=== PATIENT | male | born 1960 | race Caucasian/White ===

== ENCOUNTER 2019-11-23 11:11 | Emergency (ER) | payer SELFPAY ==
[2019-11-23 12:03] LABS: Absolute Lymphocytes (CBC) 1.5 K/uL (0.7-4.9); Basophils % 0.4 % (0-1.3); Hematocrit 48.2 % (39.6-49.0); Lymphocytes % 18.9 % (15.3-44.8); MPV 9.3 fL (7.6-11.3); RBC Red Blood Cell Count 5.05 M/uL (4.33-5.43)
[2019-11-23 12:06] LABS: Protime INR 0.91
[2019-11-23] MEDS ORDERED: ONDANSETRON 4 MG/2 ML VIAL ONE (12:17)
[2019-11-23] MEDS ORDERED: NA CHLORIDE 0.9% 500 ML ONE (12:17)
[2019-11-23] MEDS ORDERED: MORPHINE 2 MG/ML SYR ONE ×2 (12:17→13:47)
--- NOTE | 2019-11-23 12:22 | RAD REPORT ---
EXAM DESCRIPTION: [place] Single View11/23/2019 12:01 pm CLINICAL HISTORY: cough COMPARISON: 2012 FINDINGS: The lungs are markedly hyperaerated. Calcified mediastinal lymph nodes are present. The lungs appear clear of acute infiltrate. The heart is normal size IMPRESSION: COPD without visualization acute abnormality
[2019-11-23 12:26] LABS: ALT/SGPT 25 U/L (12-78); AST/SGOT 26 U/L (15-37); Alkaline Phosphatase 88 U/L (45-117); BUN Blood Urea Nitrogen 8 mg/dL (7-18); Bicarbonate 26 mmol/L (21-32); Bilirubin Direct 0.2 mg/dL (0-0.2); Bilirubin Total 0.6 mg/dL (0.2-1.0); Glucose Level 98 mg/dL (74-106); Lipase 72 U/L (73-393); Magnesium 2.2 mg/dL (1.8-2.4); NT PRO-BNP 371 pg/mL (<125); Potassium 4.6 mmol/L (3.5-5.1); Protein, Total 7.5 g/dL (6.4-8.2); Sodium Level 132 mmol/L (136-145); Troponin (Emerg Dept Use Only) < 0.02 ng/mL (0.0-0.045)
[2019-11-23 12:30] LABS: Urine Blood NEGATIVE (NEG); Urine Glucose NEGATIVE (NEG); Urine Protein NEGATIVE (NEG); Urine Specific Gravity 1.025 (1.005-1.030); Urine pH 6.5 (5.0-7.0)
--- NOTE | 2019-11-23 13:34 | RAD REPORT ---
EXAM DESCRIPTION: CT - Angio Aorta For Dissection - 11/23/2019 12:53 pm CLINICAL HISTORY: . Chest pain/abdominal pain COMPARISON: 2012 TECHNIQUE: Computed tomography angiography of the chest, abdomen pelvis were obtained. 100 cc Isovue 370 was administered intravenously. Coronal and sagittal reconstruction were performed. MIP 3D reconstruction was performed All CT scans are performed using dose optimization technique as appropriate and may include automated exposure control or mA/KV adjustment according to patient size. FINDINGS: An aortic dissection is not seen. An aortic aneurysm is not displayed. The celiac, SMA and PUJA are patent . A lung consolidation is not present. A pericardial effusion is not seen. A pleural effusion is not n oted. A 20 millimeter hypodense right thyroid nodule containing coarse calcification without signific ant change from the prior exam probably benign. Calcified mediastinal lymph nodes. Moderate to marked COPD Hepatic and splenic granulomata. 13 millimeter calcification within the pancreatic head. Pancreatic duct is dilated. Mild dilatation o f the common bile duct Kidneys appear unremarkable. A 3 centimeter soft tissue structure rectum Coarse vascular calcifications Mild enlargement prostate IMPRESSION: Negative for an aortic dissection. Dilatation of the pancreatic and common bile ducts. Most likely this is secondary to chronic pancreat itis. Neoplasm can have a similar appearance. ERCP is recommended 3 centimeter soft tissue structure rectum could either represent neoplasm or adherent stool. Digital examination recommended
--- NOTE | 2019-11-23 14:27 | ER ---
Nurse's Notes [facility] Name: Edi Cordero Age: 59 yrs Sex: Male : 1960 Arrival Date: 11/23/2019 Time: 11:13 Bed 18 Private MD: Diagnosis: Abdominal tenderness;Other chronic pancreatitis-dilated cbd, dilated pancreatic duct;Essential (primary) hypertension Presentation: 11/23 11:15 Presenting complaint: Patient states: "My sides been hurting here since yesterday aj1 morning" Patient also reports vomiting, urinary frequency. Transition of care: patient was not received from another setting of care. Onset of symptoms was November 22, 2019 at 08:30. Risk Assessment: Do you want to hurt yourself or someone else? Patient reports no desire to harm self or others. Initial Sepsis Screen: Does the patient meet any 2 criteria? No. Patient's initial sepsis screen is negative. Does the patient have a suspected source of infection? Yes: Dysuria/Frequency/Urgency/UTI. Care prior to arrival: None. 11:15 Method Of Arrival: Ambulatory aj1 11:15 Acuity: VALDEMAR 2 aj1 Triage Assessment: 11:17 General: Appears in no apparent distress. uncomfortable, Behavior is calm, cooperative, aj1 appropriate for age. Pain: Pain currently is 10 out of 10 on a pain scale. Neuro: Level of Consciousness is awake, alert, obeys commands, Oriented to person, place, time, situation. Cardiovascular: Patient's skin is warm and dry. Respiratory: Airway is patent Respiratory effort is even, unlabored, Respiratory pattern is regular, symmetrical. Historical: - Allergies: 11:17 No Known Allergies; aj1 - Home Meds: 11:17 None [Active]; aj1 - PMHx: 11:17 None; aj1 - Immunization history:: Flu vaccine is not up to date. - Coronavirus screen:: The patient has NOT traveled to [place] in the past 14 days. - Social history:: Smoking status: Patient reports the use of cigarette tobacco products, smokes one pack cigarettes per day. - Ebola Screening: : Patient denies travel to an Ebola-affected area in the 21 days before illness onset. Screenin:42 Abuse screen: Denies threats or abuse. Nutritional screening: Patient is severely under ae4 weight.. Tuberculosis screening: Never had TB. Fall Risk None identified. Assessment: 11:20 General: Appears in no apparent distress. uncomfortable, unkempt, emaciated, ae4 malnourished, Behavior is calm, cooperative. Pain: Complains of pain in right upper quadrant and right lower quadrant Pain currently is 10 out of 10 on a pain scale. Neuro: Level of Consciousness is awake, alert, obeys commands, Oriented to person, place, time, situation. Cardiovascular: Heart tones S1 S2 present Patient's skin is warm and dry. Rhythm is regular. Respiratory: Airway is patent Respiratory effort is even, unlabored, Respiratory pattern is regular, symmetrical, Breath sounds are clear bilaterally. GI: Abdomen is Abdomen is flattened, and concave, shape of ribs are visible superior to abdomen. : No signs and/or symptoms were reported regarding the genitourinary system. Denies burning with urination, urinary frequency. EENT: Oral mucosa is moist. Derm: Skin is pale. Musculoskeletal: No signs and/or symptoms reported regarding the musculoskeletal system. 13:40 Reassessment: Patient reports increased pain, provider notified, order to repeat ae4 morphine. Will continue to monitor. 15:30 Reassessment: Patient reports increased pain, provider notified, new orders received. ae4 15:37 Reassessment: Report called to receiving institution, to nurse Concetta RN via ae4 telephone. 15:57 Reassessment: Report given to EMS. ae4 Vital Signs: 11:17 BP 162 / 116; Pulse 105; Resp 20; Temp 97.0; Pulse Ox 100% on R/A; Weight 48.53 kg (R); aj1 Height 5 ft. 11 in. (180.34 cm) (R); Pain 10/10; 14:41 BP 167 / 97; Pulse 104; Resp 18; Pulse Ox 100% on R/A; ae4 15:11 BP 140 / 100; Pulse 98; Resp 16; Pulse Ox 100% on R/A; ae4 15:29 BP 160 / 104; Pulse 86; Resp 21; Pulse Ox 96% on R/A; ae4 15:29 BP 147 / 93; Pulse 87; Resp 17; Pulse Ox 96% on R/A; ae4 15:56 BP 129 / 81; Pulse 89; Resp 17; Pulse Ox 95% on R/A; ae4 11:17 Body Mass Index 14.92 (48.53 kg, 180.34 cm) aj1 ED Course: 11:13 Patient arrived in ED. mr 11:16 Triage completed. aj1 11:17 Arm band placed on Patient placed in an exam room. aj1 11:18 David Morris MD is Attending Physician. [facility] 11:19 Ulises Orourke, LUIS is Primary Nurse. ae4 11:20 Bed in low position. Call light in reach. Side rails up X 1. Adult w/ patient. Cardiac ae4 monitor on. Pulse ox on. NIBP on. 11:48 Radiology exam delayed due to lab results not completed at this time. (BUN/Creatinine). bq 12:54 CT completed. Patient moved back from CT. mw3 14:[address] Morris with the Jackeline Morris from the [facility]. 14:26 connected the GI carpet installation specialist for [facility] with Dr. Morris for patient transfer eb consultation. 14:[address] Knutson the hospitalist carpet installation specialist with Dr. Morris for patient transfer eb consultation. 14:54 administrative approval given by Jackeline Morris/ patient has been accepted to [facility] RM [id number]/ . Dr. Abarca has accepted the patient in transfer/ report to be called to [phone]. 15:56 No provider procedures requiring assistance completed. Patient transferred, IV remains ae4 in place. Administered Medications: 12:20 Drug: NS 0.9% 500 ml Route: IV; Rate: bolus; Site: right antecubital; ae4 13:00 Follow up: IV Status: Completed infusion; IV Intake: 500ml ae4 12:20 Drug: Zofran 4 mg Route: IVP; Site: right antecubital; ae4 13:52 Follow up: Response: Nausea is decreased ae4 12:22 Drug: morphine 2 mg Route: IVP; Site: right antecubital; ae4 13:44 Drug: morphine 2 mg Route: IVP; Site: right antecubital; jl7 13:51 Follow up: Response: Pain is decreased ae4 15:00 Drug: Pepcid 20 mg Route: IVP; Site: right antecubital; ae4 15:37 Follow up: Response: No adverse reaction ae4 15:05 Drug: Trandate 10 mg Route: IVP; Site: right antecubital; ae4 15:37 Follow up: Response: Blood pressure is lowered ae4 15:35 Drug: Dilaudid 0.5 mg Route: IVP; Site: right antecubital; ae4 15:58 Follow up: Response: Pain is decreased ae4 Intake: 10:33 IV: 10ml; Total: 10ml. ae4 10:38 IV: 10ml; Total: 20ml. ae4 11:00 IV: 1000ml; Total: 1020ml. ae4 13:00 IV: 500ml; Total: 1520ml. ae4 Outcome: 14:25 ER care complete, transfer ordered by MD. harris 15:57 Transferred by ground EMS to [facility]. ae4 15:57 Condition: stable 15:57 Instructed on the need for transfer, Demonstrated understanding of instructions. 15:59 Patient left the ED. ae4 Signatures: Pema Wayne RN RN bill1 David Morris MD MD cha Rivera, Alicja Rainey Jahala, RN RN jl7 Clary Beckett Michelle mw3 Ulises Orourke, RN RN ae4 Corrections: (The following items were deleted from the chart) 11:18 11:15 Acuity: VALDEMAR 3 aj1 aj1 14:29 14:[address] Morris with the [facility]. eb eb
--- NOTE | 2019-11-23 14:28 | EDPHYS ---
Physician Documentation [facility] Name: Edi Cordero Age: 59 yrs Sex: Male : 1960 Arrival Date: 11/23/2019 Time: 11:13 Bed 18 Private MD: ED Physician David Morris HPI: 11/23 11:41 This 59 yrs old Male presents to ER via Ambulatory with complaints of Flank kimberly Pain. 11:41 The patient complains of pain in the right mid back and right low back. The pain kimberly radiates to the right mid back and right low back. Onset: The symptoms/episode began/occurred just prior to arrival, this morning. Modifying factors: The symptoms are alleviated by nothing. Associated signs and symptoms: Pertinent positives: nausea, vomiting. Severity of pain: At its worst the pain was moderate in the emergency department the pain is unchanged. The patient has not experienced similar symptoms in the past. Historical: - Allergies: 11:17 No Known Allergies; aj1 - Home Meds: 11:17 None [Active]; aj1 - PMHx: 11:17 None; aj1 - Immunization history:: Flu vaccine is not up to date. - Coronavirus screen:: The patient has NOT traveled to [place] in the past 14 days. - Social history:: Smoking status: Patient reports the use of cigarette tobacco products, smokes one pack cigarettes per day. - Ebola Screening: : Patient denies travel to an Ebola-affected area in the 21 days before illness onset. ROS: 11:43 Constitutional: Negative for fever, chills, and weight loss, Eyes: Negative for injury, kimberly pain, redness, and discharge, ENT: Negative for injury, pain, and discharge, Neck: Negative for injury, pain, and swelling, Cardiovascular: Negative for chest pain, palpitations, and edema, Respiratory: Negative for shortness of breath, cough, wheezing, and pleuritic chest pain, : Negative for injury, bleeding, discharge, and swelling, MS/Extremity: Negative for injury and deformity, Skin: Negative for injury, rash, and discoloration, Neuro: Negative for headache, weakness, numbness, tingling, and seizure. 11:43 Abdomen/GI: Positive for abdominal pain, of the right upper quadrant and right lower quadrant. Exam: 11:43 Constitutional: This is a well developed, well nourished patient who is awake, alert, kimberly and in no acute distress. Head/Face: Normocephalic, atraumatic. Eyes: Pupils equal round and reactive to light, extra-ocular motions intact. Lids and lashes normal. Conjunctiva and sclera are non-icteric and not injected. Cornea within normal limits. Periorbital areas with no swelling, redness, or edema. ENT: Nares patent. No nasal discharge, no septal abnormalities noted. Tympanic membranes are normal and external auditory canals are clear. Oropharynx with no redness, swelling, or masses, exudates, or evidence of obstruction, uvula midline. Mucous membranes moist. Neck: Trachea midline, no thyromegaly or masses palpated, and no cervical lymphadenopathy. Supple, full range of motion without nuchal rigidity, or vertebral point tenderness. No Meningismus. Chest/axilla: Normal chest wall appearance and motion. Nontender with no deformity. No lesions are appreciated. Cardiovascular: Regular rate and rhythm with a normal S1 and S2. No gallops, murmurs, or rubs. Normal PMI, no JVD. No pulse deficits. Respiratory: Lungs have equal breath sounds bilaterally, clear to auscultation and percussion. No rales, rhonchi or wheezes noted. No increased work of breathing, no retractions or nasal flaring. Back: No spinal tenderness. No costovertebral tenderness. Full range of motion. Male : Normal genitalia with no discharge or lesions. Skin: Warm, dry with normal turgor. Normal color with no rashes, no lesions, and no evidence of cellulitis. MS/ Extremity: Pulses equal, no cyanosis. Neurovascular intact. Full, normal range of motion. Neuro: Awake and alert, GCS 15, oriented to person, place, time, and situation. Cranial nerves II-XII grossly intact. Motor strength 5/5 in all extremities. Sensory grossly intact. Cerebellar exam normal. Normal gait. Psych: Awake, alert, with orientation to person, place and time. Behavior, mood, and affect are within normal limits. 11:43 Abdomen/GI: Inspection: abdomen appears normal, Bowel sounds: normal, Palpation: moderate abdominal tenderness, in the right upper quadrant and right lower quadrant, Liver: no appreciated palpable abnormalities, Hernia: not appreciated. Vital Signs: 11:17 BP 162 / 116; Pulse 105; Resp 20; Temp 97.0; Pulse Ox 100% on R/A; Weight 48.53 kg (R); aj1 Height 5 ft. 11 in. (180.34 cm) (R); Pain 10/10; 14:41 BP 167 / 97; Pulse 104; Resp 18; Pulse Ox 100% on R/A; ae4 15:11 BP 140 / 100; Pulse 98; Resp 16; Pulse Ox 100% on R/A; ae4 15:29 BP 160 / 104; Pulse 86; Resp 21; Pulse Ox 96% on R/A; ae4 15:29 BP 147 / 93; Pulse 87; Resp 17; Pulse Ox 96% on R/A; ae4 15:56 BP 129 / 81; Pulse 89; Resp 17; Pulse Ox 95% on R/A; ae4 11:17 Body Mass Index 14.92 (48.53 kg, 180.34 cm) aj1 MDM: 11:18 Patient medically screened. [facility] 11:45 Data reviewed: vital signs, nurses notes, lab test result(s), EKG, radiologic studies, [facility] CT scan, plain films. 11/23 11:38 Order name: Urine Dipstick--Ancillary (enter results) 11/23 11:40 Order name: Basic Metabolic Panel [facility] 11/23 11:40 Order name: CBC with Diff [facility] 11/23 11:40 Order name: LFT's [facility] 11/23 11:40 Order name: Magnesium [facility] 11/23 11:40 Order name: NT PRO-BNP [facility] 11/23 11:40 Order name: PT-INR [facility] 11/23 11:40 Order name: Troponin (emerg Dept Use Only) [facility] 11/23 11:40 Order name: Lipase [facility] 11/23 11:40 Order name: Urine Culture [facility] 11/23 12:22 Order name: CBC with Automated Diff; Complete Time: 12:36 [facility] 11/23 12:23 Order name: Protime (+INR); Complete Time: 12:36 [facility] 11/23 12:28 Order name: Basic Metabolic Panel; Complete Time: 12:36 [facility] 11/23 12:28 Order name: Liver (Hepatic) Function; Complete Time: 12:36 [facility] 11/23 11:40 Order name: XRAY Chest (1 view) [facility] 11/23 11:40 Order name: EKG; Complete Time: 11:43 [facility] 11/23 11:40 Order name: CT Aorta for Dissection [facility] 11/23 12:25 Order name: RAD; Complete Time: 12:36 [facility] 11/23 12:28 Order name: Troponin (Emerg Dept Use Only); Complete Time: 12:36 [facility] 11/23 12:28 Order name: NT PRO-BNP; Complete Time: 12:36 [facility] 11/23 12:28 Order name: Magnesium; Complete Time: 12:36 [facility] 11/23 12:28 Order name: Lipase; Complete Time: 12:36 [facility] 11/23 12:33 Order name: Urine Dipstick-Ancillary; Complete Time: 12:36 [facility] 11/23 13:39 Order name: CT; Complete Time: 13:40 [facility] 11/23 11:40 Order name: Cardiac monitoring; Complete Time: 12:12 [facility] 11/23 11:40 Order name: EKG - Nurse/Tech; Complete Time: 12:11 [facility] 11/23 11:40 Order name: IV Saline Lock; Complete Time: 11:54 [facility] 11/23 11:40 Order name: Labs collected and sent; Complete Time: 12:11 [facility] 11/23 11:40 Order name: O2 Per Protocol; Complete Time: 11:54 [facility] 11/23 11:40 Order name: O2 Sat Monitoring; Complete Time: 11:54 [facility] 11/23 11:40 Order name: Urine Dipstick-Ancillary (obtain specimen); Complete Time: 11:53 [facility] Administered Medications: 12:20 Drug: NS 0.9% 500 ml Route: IV; Rate: bolus; Site: right antecubital; ae4 13:00 Follow up: IV Status: Completed infusion; IV Intake: 500ml ae4 12:20 Drug: Zofran 4 mg Route: IVP; Site: right antecubital; ae4 13:52 Follow up: Response: Nausea is decreased ae4 12:22 Drug: morphine 2 mg Route: IVP; Site: right antecubital; ae4 13:44 Drug: morphine 2 mg Route: IVP; Site: right antecubital; jl7 13:51 Follow up: Response: Pain is decreased ae4 15:00 Drug: Pepcid 20 mg Route: IVP; Site: right antecubital; ae4 15:37 Follow up: Response: No adverse reaction ae4 15:05 Drug: Trandate 10 mg Route: IVP; Site: right antecubital; ae4 15:37 Follow up: Response: Blood pressure is lowered ae4 15:35 Drug: Dilaudid 0.5 mg Route: IVP; Site: right antecubital; ae4 15:58 Follow up: Response: Pain is decreased ae4 Disposition: 11/23/19 14:[address] [facility]. Diagnosis are Abdominal tenderness, Other chronic pancreatitis - dilated cbd, dilated pancreatic duct, Essential (primary) hypertension. - Reason for transfer: Higher level of care. - Accepting physician is Dr. Abarca. - Condition is Fair. - Problem is new. - Symptoms have improved. Signatures: Dispatcher [employer] EDPema Abarca RN RN aj1 David Morris MD MD cha Leal, Jahala, RN RN jl7 Clary Beckett Andrea RN RN ae4 Corrections: (The following items were deleted from the chart) 14:28 14:25 11/23/2019 14:[address] [facility]. kimberly Diagnosis is Abdominal tenderness; Other chronic pancreatitis - dilated cbd, dilated pancreatic duct. Reason for transfer: Higher level of care. Accepting physician is to [facility]. Condition is Fair. Problem is new. Symptoms have improved. kimberly 15:59 14:28 11/23/2019 14:[address] [facility]. eb Diagnosis is Abdominal tenderness; Other chronic pancreatitis - dilated cbd, dilated pancreatic duct; Essential (primary) hypertension. Reason for transfer: Higher level of care. Accepting physician is to [facility]. Condition is Fair. Problem is new. Symptoms have improved. kimberly 15:59 15:59 11/23/2019 14:[address] [facility]. ae4 Diagnosis is Abdominal tenderness; Other chronic pancreatitis - dilated cbd, dilated pancreatic duct; Essential (primary) hypertension. Reason for transfer: Higher level of care. Accepting physician is Dr. Abarca. Condition is Fair. Problem is new. Symptoms have improved. eb
[2019-11-23] MEDS ORDERED: FAMOTIDINE 20 MG/2 ML VIAL IV ONE (15:13)
[2019-11-23] MEDS ORDERED: LABETALOL 20 MG/4ML SYRINGE IV ONE (15:13)
[2019-11-23] MEDS ORDERED: HYDROMORPHONE HCL 0.5 MG/0.5 ML INJ ONE (15:37)
[2019-11-23 16:06] VITALS: TEMP 97
[2019-11-23 16:11] VITALS: BP 129/81; O2SAT 95
--- NOTE | 2019-11-24 08:11 | EKG ---
Test Date: 2019-11-23 Test Time: 12:03:38 Cad Designer: STANTON MEASUREMENT RESULTS: Intervals: Rate: 100 WV: 134 QRSD: 84 QT: 340 QTc: 438 [place]: P: 83 WV: 134 QRS: 84 T: 72 INTERPRETIVE STATEMENTS: Normal sinus rhythm Right atrial enlargement Borderline ECG Compared to ECG 04/14/2013 08:01:11 Atrial abnormality now present Sinus arrhythmia no longer present Electronically Signed On 11-24-19 08:09:41 CLINICAL TRIAL HEAD by Jason Varela
== END 2019-11-23 15:59 | disposition short-term general hospital (02) ==
LOC: ER 11:11
DX: K86.1 Other chronic pancreatitis (principal); I10 Essential (primary) hypertension; F17.210 Nicotine dependence, cigarettes, uncomplicated
CPT/HCPCS: 36415; 71045; 71275; 74175; 80048; 80076; 81003; 83690; 83735; 83880; 84484; 85025; 85610; 87086; 87088; 93005; 96361; 96374; 96375; 99285; J1170; J2270; J2405; J7040; Q9967

== ENCOUNTER 2020-08-08 14:31 | Emergency (ER) | payer SELFPAY ==
[2020-08-08] MEDS ORDERED: HYDROCODONE/APAP 10/325 TAB ONE (15:08)
[2020-08-08] MEDS ORDERED: TETANUS & DIPHTHERIA TOX,ADULT 0.5 ML VIAL ONE (15:09)
[2020-08-08] MEDS ORDERED: SMZ./TMP. 800/160 MG TABLET ONE (15:09)
--- NOTE | 2020-08-08 15:26 | EDPHYS ---
Physician Documentation [facility] Name: Edi Cordero Age: 59 yrs Sex: Male : 1960 Arrival Date: 08/08/2020 Time: 14:32 Bed 6 Private MD: ED Physician Jak Ashley HPI: 08/08 14:48 This 59 yrs old Male presents to ER via Ambulatory with complaints of Skin pm1 Sore(s). 14:48 The rash is located on the face, right hand and left hand. The rash can be described as pm1 Started off as papular and vesicular to hands. Now with small ulcerations to hands and fingers bilaterally. Vesicle just started on right cheek. Onset: The symptoms/episode began/occurred 6 day(s) ago. Associated signs and symptoms: Pertinent negatives: fever. Severity of symptoms: in the emergency department the symptoms are worse. Treatment given at home: None. The patient has not experienced similar symptoms in the past. 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 Has not been using gloves. Historical: - Allergies: 14:46 No Known Allergies; bp - Home Meds: 14:46 None [Active]; bp - PMHx: 14:46 Hypertension; bp - Immunization history:: Adult Immunizations unknown. - Social history:: Smoking status: Patient reports the use of cigarette tobacco products, unknown amount. ROS: 14:48 Constitutional: Negative for fever, chills, and weight loss, Cardiovascular: Negative pm1 for chest pain, palpitations, and edema, Respiratory: Negative for shortness of breath, cough, wheezing, and pleuritic chest pain, Abdomen/GI: Negative for abdominal pain, nausea, vomiting, diarrhea, and constipation, MS/Extremity: Negative for injury and deformity. 14:48 Neuro: Negative for headache, weakness, numbness, tingling, and seizure. 14:48 Skin: Positive for skin sores to face and hands. 14:48 All other systems are negative. Exam: 14:48 Constitutional: This is a well developed, well nourished patient who is awake, alert, pm1 and in no acute distress. Head/Face: Normocephalic, atraumatic. 14:48 MS/ Extremity: Pulses equal, no cyanosis. Neurovascular intact. Full, normal range of motion. 14:48 Cardiovascular: Exam negative for acute changes, Rate: normal, Rhythm: regular, Pulses: no pulse deficits are appreciated. 14:48 Respiratory: Exam negative for acute changes, respiratory distress, shortness of breath. 14:48 Skin: Appearance: normal except for affected area, consistent with impetigo. 14:48 Neuro: Exam negative for acute changes, Orientation: is normal, Mentation: is normal, Motor: is normal, moves all fours, Sensation: is normal, no obvious gross deficits. Vital Signs: 14:43 BP 188 / 108; Pulse 80; Resp 16; Temp 97.3; Pulse Ox 100% ; bp 15:30 BP 156 / 97; Pulse 78; Resp 17; Temp 97.5; Pulse Ox 98% ; bp MDM: 14:42 Patient medically screened. pm1 14:50 Data reviewed: vital signs. Data interpreted: Pulse oximetry: on room air is 100 %. pm1 Interpretation: normal. 15:09 ED course: Nonspecific lesions on bilateral hands with one lesion starting on right pm1 cheek area. Patient is a shirt ironer getting cuts to hands recently working on yards and vince recently. Suspect impetigo therefore will cover with topical and systemic abx therapy. 15:25 Counseling: I had a detailed discussion with the patient and/or guardian regarding: the pm1 historical points, exam findings, and any diagnostic results supporting the discharge/admit diagnosis, the need for outpatient follow up, a family practitioner, to return to the emergency department if symptoms worsen or persist or if there are any questions or concerns that arise at home. Administered Medications: 14:55 Drug: Tetanus-Diphtheria Toxoid Adult 0.5 ml {[employer]: [facility]. Exp: bp 12/19/2021. Lot #: [id number]. } Route: IM; Site: right deltoid; 16:00 Follow up: Response: No adverse reaction bp 14:55 Drug: [place] 10 mg-325 mg 1 tabs Route: PO; bp 15:59 Follow up: Response: No adverse reaction bp 14:55 Drug: Bactrim (160 mg-800 mg (DS) 1 tablet Route: PO; bp 15:59 Follow up: Response: No adverse reaction bp Disposition: 08/09 06:37 Co-signature as Attending Physician, Jak Ashley MD I agree with the assessment and kdr plan of care. Disposition: 08/08/20 15:25 Discharged to Home. Impression: Impetigo, unspecified. - Condition is Stable. - Discharge Instructions: Impetigo, Adult. - Prescriptions for Bactroban 2 % Topical Ointment - Apply to affected area 1 application by TOPICAL route every 12 hours; 30 gram. Cephalexin 250 mg Oral Capsule - take 1 capsule by ORAL route every 6 hours for 10 days; 40 capsule. Bactrim DS 800- 160 mg Oral Tablet - take 1 tablet by ORAL route every 12 hours for 10 days; 20 tablet. Tylenol- Codeine #3 300-30 mg Oral Tablet - take 2 tablets by ORAL route every 6 hours As needed; 20 tablet. Zofran ODT 4 mg Oral tablet,disintegrating - place 1 tablet by TRANSLINGUAL route every 8 hours As needed; 10 tablet. - Medication Reconciliation Form, Thank You Letter, Antibiotic Education, Prescription Opioid Use form. - Follow up: Emergency Department; When: As needed; Reason: Worsening of condition. Follow up: Private Physician; When: 2 - 3 days; Reason: Recheck today's complaints, Continuance of care, Re-evaluation by your physician. - Problem is new. - Symptoms have improved. Signatures: Jak Ashley MD MD [facility] Terrance Mancuso NP [employer] SUPERINTENDENT pm1 Luis A Pardo RN RN bp Corrections: (The following items were deleted from the chart) 08/08 14:51 14:50 Counseling: I had a detailed discussion with the patient and/or guardian pm1 regarding: the historical points, exam findings, and any diagnostic results supporting the discharge/admit diagnosis, the need for outpatient follow up, to return to the emergency department if symptoms worsen or persist or if there are any questions or concerns that arise at home, Sun avoidance and skin protection, pm1 16:01 15:25 08/08/2020 15:25 Discharged to Home. Impression: Impetigo, unspecified. Condition bp is Stable. Discharge Instructions: Impetigo, Adult. Prescriptions for Bactroban 2 % Topical Ointment - Apply to affected area 1 application by TOPICAL route every 12 hours; 30 gram, Cephalexin 250 mg Oral Capsule - take 1 capsule by ORAL route every 6 hours for 10 days; 40 capsule, Bactrim DS 800-160 mg Oral Tablet - take 1 tablet by ORAL route every 12 hours for 10 days; 20 tablet, Tramadol 50 mg Oral Tablet - take 1 tablet by ORAL route every 8 hours as needed; 12 tablet. and Forms are Medication Reconciliation Form, Thank You Letter, Antibiotic Education, Prescription Opioid Use. Follow up: Emergency Department; When: As needed; Reason: Worsening of condition. Follow up: Private Physician; When: 2 - 3 days; Reason: Recheck today's complaints, Continuance of care, Re-evaluation by your physician. Problem is new. Symptoms have improved. pm1
--- NOTE | 2020-08-08 15:26 | ER ---
Nurse's Notes [facility] Name: Edi Cordero Age: 59 yrs Sex: Male : 1960 Arrival Date: 08/08/2020 Time: 14:32 Bed 6 Private MD: Diagnosis: Impetigo, unspecified Presentation: 08/08 14:43 Chief complaint: Patient states: SCATTERED SKIN LESIONS x6 DAYS. Coronavirus screen: At bp this time, the client does not indicate any symptoms associated with coronavirus-19. Ebola Screen: No symptoms or risks identified at this time. Initial Sepsis Screen: Does the patient meet any 2 criteria? No. Patient's initial sepsis screen is negative. Does the patient have a suspected source of infection? Yes: Skin breakdown/wound. Risk Assessment: Do you want to hurt yourself or someone else? Patient reports no desire to harm self or others. Onset of symptoms is unknown. 14:43 Method Of Arrival: Ambulatory bp 14:43 Acuity: VALDEMAR 4 bp Triage Assessment: 14:46 General: Appears in no apparent distress. uncomfortable, slender, unkempt, Behavior is bp cooperative, appropriate for age, anxious. Pain: Complains of pain in right hand and left hand. EENT: No deficits noted. Neuro: No deficits noted. Cardiovascular: No deficits noted. Respiratory: No deficits noted. GI: No signs and/or symptoms were reported involving the gastrointestinal system. : No signs and/or symptoms were reported regarding the genitourinary system. Derm: Wound noted face, right hand and left hand. Musculoskeletal: No deficits noted. Historical: - Allergies: 14:46 No Known Allergies; bp - Home Meds: 14:46 None [Active]; bp - PMHx: 14:46 Hypertension; bp - Immunization history:: Adult Immunizations unknown. - Social history:: Smoking status: Patient reports the use of cigarette tobacco products, unknown amount. Screenin:48 Abuse screen: Denies threats or abuse. Denies injuries from another. Nutritional bp screening: No deficits noted. Tuberculosis screening: No symptoms or risk factors identified. Fall Risk None identified. Assessment: 14:48 General: SEE TRIAGE NOTE. bp 15:58 Reassessment: PT D/C HOME AMBULATORY, DX WITH IMPETIGO. bp Vital Signs: 14:43 BP 188 / 108; Pulse 80; Resp 16; Temp 97.3; Pulse Ox 100% ; bp 15:30 BP 156 / 97; Pulse 78; Resp 17; Temp 97.5; Pulse Ox 98% ; bp ED Course: 14:32 Patient arrived in ED. ag5 14:36 Terrance Mancuso NP is PHCP. pm1 14:36 Jak Ashley MD is Attending Physician. pm1 14:37 Luis A Pardo, RN is Primary Nurse. bp 14:46 Triage completed. bp 14:47 Arm band placed on. bp 14:48 Patient has correct armband on for positive identification. Bed in low position. Call bp light in reach. Side rails up X2. Adult w/ patient. 15:00 Assist provider with I \T\ D: of an abscess on bilateral HAND Set up I\T\D tray. Performed bp by Terrance Mancuso TENSION WORKER Dressing with Neosporin and. 15:58 Patient did not have IV access during this emergency room visit. bp Administered Medications: 14:55 Drug: Tetanus-Diphtheria Toxoid Adult 0.5 ml {[employer]: [employer]. Exp: bp 12/19/2021. Lot #: [id number]. } Route: IM; Site: right deltoid; 16:00 Follow up: Response: No adverse reaction bp 14:55 Drug: [place] 10 mg-325 mg 1 tabs Route: PO; bp 15:59 Follow up: Response: No adverse reaction bp 14:55 Drug: Bactrim (160 mg-800 mg (DS) 1 tablet Route: PO; bp 15:59 Follow up: Response: No adverse reaction bp Outcome: 15:25 Discharge ordered by . pm1 15:58 Discharged to home ambulatory, with family. bp 15:58 Condition: stable 15:58 Discharge instructions given to patient, Instructed on discharge instructions, follow up and referral plans. medication usage, wound care, Demonstrated understanding of instructions, follow-up care, medications, wound care, Prescriptions given X 4. 16:01 Patient left the ED. bp Signatures: Terrance Mancuso, KRISTINE TENSION WORKER pm1 Luis A Pardo, RN RN Pearl Shultz ag5
[2020-08-08] MEDS ORDERED: MUPIROCIN 2% OINT 22GM TUBE TOP ONE (16:05)
[2020-08-08 16:35] VITALS: BP 156/97; TEMP 97.5; O2SAT 98
== END 2020-08-08 16:01 | disposition home or self-care (01) ==
LOC: ER 14:31
DX: L01.00 Impetigo, unspecified (principal); I10 Essential (primary) hypertension; F17.210 Nicotine dependence, cigarettes, uncomplicated; Z23 Encounter for immunization
CPT/HCPCS: 90471; 90714; 99283

== ENCOUNTER 2020-09-13 16:59 | Emergency (ER) | payer SELFPAY ==
--- OUTSIDE RECORDS SUMMARY | 2020-09-13 17:03 | XMS REPORT | Clinical Summary ---
:1960 Author Organization [facility] Address [address] [place] [address] Care Team Providers Name Role Phone Pcp, No Primary Care Provider Unavailable Allergies No Known Allergies Medications Medication Sig Dispensed Refills Start Date End Date Status folic acid (FOLVITE) 1 MG Take 1 tablet 90 tablet 3 11/27/2019 Active tablet (1 mg total) 1 by mouth daily. hydroCHLOROthiazide Take 1 90 capsule 3 11/27/2019 11/26/19 2 Active (MICROZIDE) 12.5 mg capsule (12.5 1 capsule mg total) by mouth daily. lisinopril Take 1 tablet 90 tablet 3 11/27/2019 Acti ve (PRINIVIL,ZESTRIL) 20 MG (20 mg total) 1 tablet by mouth daily. multivitamin (THERAGRAN) Take 1 tablet 90 tablet 3 11/28/2019 Active tablet by mouth 1 daily. thiamine 100 MG tablet Take 1 tablet 30 tablet 11 11/28/2019 Active (100 mg 1 total) by mouth daily. ondansetron (ZOFRAN-ODT) Take 1 tablet 20 tablet 0 11/27/2019 4 MG disintegrating (4 mg total) 0 tablet by mouth every 8 (eight) hours as needed for up to 7 days. traMADol (ULTRAM) 50 mg Take 2 30 tablet 0 11/27/201912/06 tablet tablets (100 0 mg total) by mouth every 6 (six) hours as needed for Pain for up to 10 days. Max Daily Amount: 400 mg Active Problems Problem Noted Date Dilation of biliary tract 11/23/2019 Encounters Date Type Specialty Care Team Description 11/26/2019 Anesthesia Event Gastroenterology Nell Montalvo MD 11/26/2019 Surgery Gastroenterology Jeferson Weber UPPER Gus Cobb MD ENDOSCOPY,ULT RASO UND 11/25/2019 Anesthesia Event Gastroenterology Jailene Hayes MD 11/23/2019 [facility] Internal Megan Abarca on of biliary tract; - Encounter Medicine MD Donovan Weight loss; 11/27/2019 Meera Thibodeaux Alcohol abus eJanet Arriaza MD Tobacco abuse Ochoa Still MD after 09/13/2019 Social History Tobacco Use Types Packs/Day Years Used Date Current Every Day Smoker 0.5 15 Smokeless Tobacco: Current User Sex Assigned at Date Recorded Not on file Last Filed Vital Signs Vital Sign Reading Time Taken Comments Blood Pressure 136/75 11/27/2019 8:55 AM FIELD NURSE CASE MANAGER Pulse 78 11/27/2019 8:55 AM FIELD NURSE CASE MANAGER Temperature 36.8 C (98.2 F) 11/27/2019 8:55 AM FIELD NURSE CASE MANAGER Respiratory Rate 18 11/27/2019 8:55 AM FIELD NURSE CASE MANAGER Oxygen Saturation 98% 11/27/2019 8:55 AM FIELD NURSE CASE MANAGER Inhaled Oxygen Concentration - - Weight 47.6 kg (105 lb) 11/23/2019 8:36 PM FIELD NURSE CASE MANAGER Height 182 cm (5' 11.65") 11/23/2019 8:36 PM FIELD NURSE CASE MANAGER Body Mass Index 14.38 11/23/2019 8:36 PM FIELD NURSE CASE MANAGER Plan of Treatment Health Maintenance Due Date Last Done Comments COLON CANCER SCREENING COLONOSCOPY 1960 PNEUMOCOCCAL VACCINE 0-64 YRS (1 of 1 - PPSV23) 1966 INFLUENZA VACCINE (#1) 2020 LIPID PANEL 06/22/2022 06/22/2019 Procedures Procedure Name Priority Date/Time Associated Comments Diagnosis XR CHEST 2 VIEWS Routine 11/26/2019 8:50 Results for this PM FIELD NURSE CASE MANAGER procedure are i n the results section. REPORT OF PROCEDURE - 11/26/2019 6:54 ENDOSCOPY URL PM FIELD NURSE CASE MANAGER REPORT OF PROCEDURE - 11/26/2019 6:44 ENDOSCOPY URL PM FIELD NURSE CASE MANAGER [place] ERCP Routine 11/26/2019 1:30 Results for this PM FIELD NURSE CASE MANAGER procedure are i n the results section. TISSUE EXAM AP Routine 11/26/2019 1:16 Results for this PM FIELD NURSE CASE MANAGER procedure are i n the results section. PROCEDURE W/ C-ARM 11/26/2019 12:28 Abnormal finding PM FIELD NURSE CASE MANAGER on imaging ERCP,BALLOON SWEEPING 11/26/2019 12:28 Abnormal findin g PM FIELD NURSE CASE MANAGER on imaging UPPER 11/26/2019 12:28 Abnormal finding ENDOSCOPY,ULTRASOUND PM FIELD NURSE CASE MANAGER on imaging PHOSPHORUS Routine 11/26/2019 4:36 Results for this AM FIELD NURSE CASE MANAGER procedure are i n the results section. MAGNESIUM Routine 11/26/2019 4:36 Results for this AM FIELD NURSE CASE MANAGER procedure are i n the results section. HEPATIC FUNCTION Routine 11/26/2019 4:36 Results for this PANEL AM FIELD NURSE CASE MANAGER procedure are i n the results section. BASIC METABOLIC PANEL Routine 11/26/2019 4:36 Re sults for this (7) AM FIELD NURSE CASE MANAGER procedure are i n the results section. XR CHEST 1 VIEW Routine 11/25/2019 1:27 Results for this PORTABLE/BEDSIDE PM FIELD NURSE CASE MANAGER procedure a re in the results section. PHOSPHORUS Routine 11/25/2019 4:07 Results for this AM FIELD NURSE CASE MANAGER procedure are i n the results section. MAGNESIUM Routine 11/25/2019 4:07 Results for this AM FIELD NURSE CASE MANAGER procedure are i n the results section. HEPATIC FUNCTION Routine 11/25/2019 4:07 Results for this PANEL AM FIELD NURSE CASE MANAGER procedure are i n the results section. BASIC METABOLIC PANEL Routine 11/25/2019 4:07 Re sults for this (7) AM FIELD NURSE CASE MANAGER procedure are i n the results section. MR ABDOMEN WITH & STAT 11/24/2019 5:34 Result s for this WITHOUT IV CONTRAST PM FIELD NURSE CASE MANAGER procedur e are in the results section. CBC W/PLT COUNT & Routine 11/24/2019 4:25 Result s for this AUTO DIFFERENTIAL AM FIELD NURSE CASE MANAGER procedure are in the results section. CBC W/PLT COUNT & Routine 11/24/2019 4:25 Result s for this AUTO DIFFERENTIAL AM FIELD NURSE CASE MANAGER procedure are in the results section. PHOSPHORUS Routine 11/24/2019 4:25 Results for this AM FIELD NURSE CASE MANAGER procedure are i n the results section. MAGNESIUM Routine 11/24/2019 4:25 Results for this AM FIELD NURSE CASE MANAGER procedure are i n the results section. HEPATIC FUNCTION Routine 11/24/2019 4:25 Results for this PANEL AM FIELD NURSE CASE MANAGER procedure are i n the results section. BASIC METABOLIC PANEL Routine 11/24/2019 4:25 Re sults for this (7) AM FIELD NURSE CASE MANAGER procedure are i n the results section. CBC W/PLT COUNT & Routine 11/23/2019 6:08 Result s for this AUTO DIFFERENTIAL PM FIELD NURSE CASE MANAGER procedure are in the results section. HEPATIC FUNCTION Routine 11/23/2019 6:08 Results for this PANEL PM FIELD NURSE CASE MANAGER procedure are i n the results section. BASIC METABOLIC PANEL Routine 11/23/2019 6:08 Re sults for this (7) PM FIELD NURSE CASE MANAGER procedure are i n the results section. CBC W/PLT COUNT & Routine 11/23/2019 6:08 Result s for this AUTO DIFFERENTIAL PM FIELD NURSE CASE MANAGER procedure are in the results section. after 09/13/2019 Results XR chest 2 views (11/26/2019 8:50 PM FIELD NURSE CASE MANAGER) Specimen Narrative Performed At FINAL REPORT [facility] Exam: Chest x-ray, PA and lateral views Clinical History: Lung nodule; possible nipple shadow on prior chest radiograph. Comparison: Chest radiograph 11/25/2019. Technique: Frontal and lateral views of the chest were obtained with nipple markers. Findings: The heart is normal in size. There are c alcified right paratracheal lymph node nodes from prior granulomatou s disease. There is no discrete lung nodule. There is no focal pulmonary consolidation, pleural effusion or pneumothorax. There is no pulmonary edema. The bony thorax is demineralized. There are healed bilateral rib fractures. Impression: No discrete lung nodule. No focal pulmonary consolidation. Signed: Aurelio Simons MD Report Verified Date/Time: 11/26/2019 21:20:17 Procedure Note Interface, External Ris In - 11/26/2019 9:22 PM FIELD NURSE CASE MANAGER FINAL REPORT Exam: Chest x-ray, PA and lateral views Clinical History: Lung nodule; possible nipple shadow on prior chest radiograph. Comparison: Chest radiograph 11/25/2019. Technique: Frontal and lateral views of the chest were obtained with nipple markers. Findings: The heart is normal in size. There are c alcified right paratracheal lymph node nodes from prior granulomatou s disease. There is no discrete lung nodule. There is no focal pulmonary consolidation, pleural effusion or pneumothorax. There is no pulmonary edema. The bony thorax is demineralized. There are healed bilateral rib fractures. Impression: No discrete lung nodule. No focal pulmonary consolidation. Signed: Aurelio Simons MD Report Verified Date/Time: 11/26/2019 2 1:20:17 Performing Organization Address City/[facility] Phone Number GE [facility]IS REPORT OF PROCEDURE - ENDOSCOPY URL (11/26/2019 6:54 PM FIELD NURSE CASE MANAGER) Narrative Performed At This result has an attachment that is no t available. REPORT OF PROCEDURE - ENDOSCOPY URL (11/26/2019 6:44 PM FIELD NURSE CASE MANAGER) Narrative Performed At This result has an attachment that is no t available. [place] ERCP (11/26/2019 1:30 PM FIELD NURSE CASE MANAGER) Specimen Narrative Performed At FINAL REPORT GE [facility]IS A fluoroscopic unit was utilized for a p rocedure performed in the operating room. No interpretation was re quested. Please refer to the operative report regarding findings. Ple ase refer to PACS for patient radiation dose information. Signed: Sue Macedo MD Report Verified Date/Time: 11/26/2019 15:10:45 Reading Location: [facility] Reading Room Procedure Note Interface, External Ris In - 11/26/2019 3:13 PM FIELD NURSE CASE MANAGER FINAL REPORT A fluoroscopic unit was utilized for a p rocedure performed in the operating room. No interpretation was re quested. Please refer to the operative report regarding findings. Ple ase refer to PACS for patient radiation dose information. Signed: Sue Macedo MD Report Verified Date/Time: 11/26/2019 1 5:10:45 Reading Location: [facility] Reading Room Performing Organization Address City/[facility]/Zipcode Phone Number GE RIS Tissue Exam (11/26/2019 1:16 PM FIELD NURSE CASE MANAGER) Pathologist Sig nature Case Report Surgical Pathology Report Case: [id number] I [facility] Authorizing Provider: Jeferson Kirk Collected: 11/26/2019 1316 [facility] SEBAS Cobb MD [facility] Ordering Location: [address] Received: 11/27/2019 4777 Service Pathologist: Manuel Goodwin MD Specimen: Ampulla, AMPU LLARY BIOPSY DIAGNOSIS A. AMPULLA, BIOPSY: 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 [facility] Deeper levels are examined. There is scar tissue, however no evidence of malignancy is seen. [facility]ENTER CPT Code(s) [address] [facility] CLINICAL HISTORY Pre and postop [facility] diagnosis: abnormal [facility] imaging MEDICAL CENTER SPECIMEN SOURCE Ampullary biopsy [facility] GROSS DESCRIPTION Received in [facility] formalin labeled [facility] with the patient's MEDICAL CENTER name, accession number and "ampulla" are three irregular ballard soft tissue fragments each measuring 0.1 cm which are submitted in toto in A1. CG/pl MICROSCOPIC Performed. [facility] Specimen Tissue - Ampulla Performing Organization Address City/[facility]/Zipcode Phone Number [address] [address] CENTER Phosphorus (11/26/2019 4:36 AM FIELD NURSE CASE MANAGER)Only the most recent of3 resultswithin the time period is included. Pathologist Sig nature Phosphorus 3.5 2.3 - 4.7 mg/dL [facility] Specimen Blood Narrative Performed At Video Conference Specialist ID - KENNY Aldana [facility] Performing Organization Address City/State/Zipcode Phone Number [facility] [address] [place] [address] CENTER Magnesium (11/26/2019 4:36 AM FIELD NURSE CASE MANAGER)Only the most recent of3 resultswithin the time period is included. Pathologist Sig nature Magnesium 1.7 1.6 - 2.6 mg/dL [facility] Specimen Blood Narrative Performed At Video Conference Specialist ID - KENNY Aldana [facility] Performing Organization Address City/[facility]/Zipcode Phone Number [facility] [address] [place] [address] CENTER Hepatic function panel (11/26/2019 4:36 AM FIELD NURSE CASE MANAGER)Only the most recent of4 results within the time period is included. Pathologist Sig nature Protein, Total 5.7 (L) 6.0 - 8.3 gm/dL [facility] Albumin 3.4 (L) 3.5 - 5.0 g/dL [facility] Total Bilirubin 0.4 0.2 - 1.2 mg/dL [facility] Bilirubin, Direct 0.2 0.1 - 0.5 mg/dL [facility] Alkaline Phosphatase 64 40 - 150 U/L [facility] AST 15 5 - 34 U/L [facility] ALT 12 6 - 55 U/L [facility] Specimen Blood Narrative Performed At Video Conference Specialist ID - KENNY Aldana [facility] Performing Organization Address City/[facility]/Zipcode Phone Number [facility] [address] [place] [address] CENTER Basic metabolic panel (11/26/2019 4:36 AM FIELD NURSE CASE MANAGER)Only the most recent of4 results within the time period is included. Sodium 138 136 - 145 meq/L [facility] Potassium 4.5 3.5 - 5.1 meq/L [facility] Chloride 104 98 - 107 meq/L [facility] CO2 30 (H) 22 - 29 meq/L [facility] BUN 5 (L) 7 - 21 mg/dL [facility] Creatinine 0.65 0.57 - 1.25 [facility] mg/dL [facility] Glucose 102 70 - 105 mg/dL [facility] Calcium 8.8 8.4 - 10.2 [facility] mg/dL [facility] EGFR 125Comment: mL/min/1.[address] [facility] ESTIMATED GFR IS NOT [facility] ACCURATE CENTER CREATININE CLEARANCE IN PREDICTING GLOMERULAR FILTRATION RATE. ESTIMATED GFR IS NOT APPLICABLE FOR DIALYSIS PATIENTS. Specimen Blood Narrative Performed At Video Conference Specialist ID - KENNY M [facility] Performing Organization Address City/State/Zipcode Phone Number [facility] [address] [place] [address] CENTER XR chest 1 view portable / bedside (11/25/2019 1:27 PM FIELD NURSE CASE MANAGER) Specimen Narrative Performed At FINAL REPORT GE [facility] TECHNIQUE: Frontal view of the chest. INDICATION: smoker, weight loss. COMPARISON: None. FINDINGS: LINES/TUBES: None. LUNGS: The lung bases are hyperlucent, a nd the lungs are hyperexpanded. And nodular opacity of th e left base is most likely a nipple. PLEURA: No pneumothorax or significant p leural effusion. HEART AND MEDIASTINUM: The cardiomediast inal silhouette is within normal limits. Digital, calcified right lower paratracheal lymph nodes are likely related to prior granul omatous disease. SOFT TISSUES AND BONES: Old, healed frac tures of the left lateral ribs 3, 4, 5, 6, and 7. Or, healed right lateral 9th and 10th rib fractures. IMPRESSION: The lungs are hyperexpanded, and the joseph g bases are hyperlucent. This is most likely due to chronic obstructiv e pulmonary disease. There is a nodular opacity of the left b ase which is most likely nipple. A follow-up chest radiograph wit h nipple markers is recommended. Signed: Boston Valdez MD Report Verified Date/Time: 11/25/2019 15:22:45 Reading Location: [facility] Reading Room Procedure Note Interface, External Ris In - 11/25/2019 3:25 PM FIELD NURSE CASE MANAGER FINAL REPORT TECHNIQUE: Frontal view of the chest. INDICATION: smoker, weight loss. COMPARISON: None. FINDINGS: LINES/TUBES: None. LUNGS: The lung bases are hyperlucent, a nd the lungs are hyperexpanded. And nodular opacity of th e left base is most likely a nipple. PLEURA: No pneumothorax or significant p leural effusion. HEART AND MEDIASTINUM: The cardiomediast inal silhouette is within normal limits. Digital, calcified right lower paratracheal lymph nodes are likely related to prior granul omatous disease. SOFT TISSUES AND BONES: Old, healed frac tures of the left lateral ribs 3, 4, 5, 6, and 7. Or, healed right lateral 9th and 10th rib fractures. IMPRESSION: The lungs are hyperexpanded, and the joseph g bases are hyperlucent. This is most likely due to chronic obstructiv e pulmonary disease. There is a nodular opacity of the left b ase which is most likely nipple. A follow-up chest radiograph wit h nipple markers is recommended. Signed: Boston Valdez MD Report Verified Date/Time: 11/25/2019 1 5:22:45 Reading Location: [facility] Radiolog y Reading Room Performing Organization Address City/State/Zipcode Phone Number [facility] MR abdomen without & with IV contrast (11/24/2019 5:34 PM FIELD NURSE CASE MANAGER) Specimen Narrative Performed At FINAL REPORT [facility] TECHNIQUE: MRI of the abdomen and MRCP W ITHOUT and WITH intravenous contrast. 3-D volume reconstructions wer e obtained to evaluate the biliary ductal system. INDICATION: Neoplasm: pancreas pancreas protocol AND MRCP. COMPARISON: None. FINDINGS: ABSENCE OF INTRAVENOUS CONTRAST DECREASE S SENSITIVITY FOR DETECTION OF FOCAL LESIONS AND VASCULAR PATHOLOGY. LOWER THORAX: Unremarkable. LIVER: No hepatic signal abnormality. No focal hepatic lesions. BILIARY: Material in the gallbladder whi ch is hyperintense on T1-weighted imaging is likely static alexys e. The common bile duct is dilated up to 0.9 cm in diameter. SPLEEN: No splenomegaly. PANCREAS: The main pancreatic duct is di lated up to 0.6 cm without a definite underlying mass. May be of the sidebranches are mildly dilated. Pancreas divisum. There is diff use loss of T1 weighted signal throughout the pancreas. ADRENALS: No adrenal nodules. KIDNEYS/URETERS: No hydronephrosis or so lid mass lesions. A right interpolar simple renal cyst measures 0. 4 cm. PERITONEUM/RETROPERITONEUM: No free flui d. LYMPH NODES: No lymphadenopathy. VESSELS: At least moderate atherosclerot ic changes of the infrarenal abdominal aorta. GI TRACT: No distention or wall thickeni ng. BONES AND SOFT TISSUES: Prior midline la parotomy. 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 No definite underlying mass is seen. However, furthe r evaluation with ERCP and/or endoscopic ultrasound is recommended to exclude an underlying mass. 2.Mild intra and extrahepatic biliary du ctal dilation. 3.Static bile in the gallbladder. Signed: Boston Valdez MD Report Verified Date/Time: 11/24/2019 18:08:51 Reading Location: [facility] C013Y CT Body R eading Room Procedure Note Interface, External Ris In - 11/24/2019 6:10 PM FIELD NURSE CASE MANAGER FINAL REPORT TECHNIQUE: MRI of the abdomen and MRCP W ITHOUT and WITH intravenous contrast. 3-D volume reconstructions wer e obtained to evaluate the biliary ductal system. INDICATION: Neoplasm: pancreas pancreas protocol AND MRCP. COMPARISON: None. FINDINGS: ABSENCE OF INTRAVENOUS CONTRAST DECREASE S SENSITIVITY FOR DETECTION OF FOCAL LESIONS AND VASCULAR PATHOLOGY. LOWER THORAX: Unremarkable. LIVER: No hepatic signal abnormality. No focal hepatic lesions. BILIARY: Material in the gallbladder whi ch is hyperintense on T1-weighted imaging is likely static alexys e. The common bile duct is dilated up to 0.9 cm in diameter. SPLEEN: No splenomegaly. PANCREAS: The main pancreatic duct is di lated up to 0.6 cm without a definite underlying mass. May be of the sidebranches are mildly dilated. Pancreas divisum. There is diff use loss of T1 weighted signal throughout the pancreas. ADRENALS: No adrenal nodules. KIDNEYS/URETERS: No hydronephrosis or so lid mass lesions. A right interpolar simple renal cyst measures 0. 4 cm. PERITONEUM/RETROPERITONEUM: No free flui d. LYMPH NODES: No lymphadenopathy. VESSELS: At least moderate atherosclerot ic changes of the infrarenal abdominal aorta. GI TRACT: No distention or wall thickeni ng. BONES AND SOFT TISSUES: Prior midline la parotomy. 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 No definite underlying mass is seen. However, furthe r evaluation with ERCP and/or endoscopic ultrasound is recommended to exclude an underlying mass. 2.Mild intra and extrahepatic biliary du ctal dilation. 3.Static bile in the gallbladder. Signed: Boston Valdez MD Report Verified Date/Time: 11/24/2019 1 8:08:51 Reading Location: [facility] B1 C013Y CT Body R eading Room Performing Organization Address City/State/Zipcode Phone Number GE RIS CBC with platelet count + automated diff (11/24/2019 4:25 AM FIELD NURSE CASE MANAGER)Only the most recent of2 resultswithin the time period is included. Pathologist Sig nature WBC 4.9 3.5 - 10.5 [facility] K/L [facility] RBC 4.28 (L) 4.63 - 6.08 [facility] M/L [facility] Hemoglobin 13.8 13.7 - 17.5 [facility] GM/DL [facility] Hematocrit 40.0 (L) 40.1 - 51.0 % [facility] MCV 93.5 (H) 79.0 - 92.2 fL [facility] MCH 32.2 25.7 - 32.2 pg [facility] MCHC 34.5 32.3 - 36.5 [facility] GM/DL [facility] RDW 11.9 11.6 - 14.4 % [facility] Platelets 193 150 - 450 K/CU [facility] MPV 10.1 9.4 - 12.4 fL [facility] nRBC 0 0 - 0 /100 WBC [facility] % Neutros 42 % [facility] % Lymphs 41 % [facility] % Monos 15 % [facility] % Eos 1 % [facility] % Baso 1 % [facility] # Neutros 2.08 1.78 - 5.38 [facility] # Lymphs 1.99 1.32 - 3.57 [facility] # Monos 0.71 0.30 - 0.82 [facility] # Eos 0.07 0.04 - 0.54 [facility] # Baso 0.05 0.01 - 0.08 [facility] Immature 0 0 - 1 % [facility] Specimen Blood Performing Organization Address City/State/Zipcode Phone Number [facility] [address] [place], [place] [phone] CENTER after 09/13/2019 Advance Directives For more information, please contact: [phone] Code Status Date Activated Date Inactivated Comments Full Code 11/23/2019 5:55 PM 11/27/2019 12:59 PM This code status was determined by: Patient
--- OUTSIDE RECORDS SUMMARY | 2020-09-13 17:04 | XMS REPORT | Continuity of Care Document ---
:1960 Author Organization [facility] t Address [address] [place] [address] Care Team Providers Name Role Phone Pcp Primary Care Physician Unavailable NAY MCKEON Attending Clinician Unavailable Tevin KOVACS, Nay Attending Clinician [phone] Sofiya Thibodeaux MD Attending Clinician Jason Still MD Attending Clinician Ivonne Montalvo MD Attending Clinician Gus KOVACS, Gus Cobb Attending Clinician Freddy KOVACS Attending Clinician Moe KOVACS Attending Clinician Fredo KOVACS Attending Clinician Sofiya THIBODEAUX Admitting Clinician Unavailable Fredo KOVACS Admitting Clinician Problems Condition Condition Condition Status Onset Resolution Last Treating Co mments Source Name Details Category Date Date Treatment Clinician Date Dilation Dilation Disease Active 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 Social History Social Habit Start Date Stop Date Quantity Comments Source Sex Assigned At [facility] Cigarettes smoked 2019-11-26 2019-11-26 [facility] - current (pack per 00:00:00 00:00:00 Medical Center day) - Reported Cigarette pack-years 2019-11-26 2019-11-[address] [facility] - 00:00:00 00:00:00 [facility] Tobacco use and 2019-11-26 2019-11-[address] [facility] - exposure 00:00:00 00:00:00 [facility] Smoking Status Start Date Stop Date Source Current every day smoker 2019-11-26 00:00:00 [facility] Medications Ordered Filled Start Stop Current Ordering Indication Dosage Frequency Signature Comments Components Source Medication Medication Date Date Medication? Clinician (SIG) Name Name multivitami No 1{tbl} QD Take [address] n 11-28 tablet by [facility] - (THERAGRAN) 00:00: 23:59 mouth Medi farzana tablet 00 :00 daily. Center thiamine No 100mg QD Take 1 [facility] t 100 MG 11-28 tablet [facility] - tablet 00:00: 23:59 (100 mg Medical 00 :00 total) by Center mouth daily. folic acid No 1mg QD Take [address] (FOLVITE) 1 11-27 tablet (1 [place] kes - MG tablet 00:00: 23:59 mg total) Me dical 00 :00 by mouth Center daily. hydroCHLORO No 12.5mg QD Take [address] thiazide 11-27 capsule [facility] - (MICROZIDE) 00:00: 23:59 (12.5 mg M edical 12.5 mg 00 :00 total) by Center capsule mouth daily. lisinopril No 20mg QD Take [address] (PRINIVIL,Z 11-27 tablet (20 L ukes - ESTRIL) 20 00:00: 23:59 mg total) M edical MG tablet 00 :00 by mouth Center daily. traMADol No 100mg Take 2 [facility] S t (ULTRAM) 50 -25 12- tablets Luke s - mg tablet 00:00: 23:59 (100 mg Medi farzana 00 :00 total) by Center mouth every 6 (six) hours as needed for Pain for up to 10 days. Max Daily Amount: 400 mg ondansetron 4mg Take 1 [facility] (ZOFRAN-ODT 11-27 tablet (4 [place] kes - ) 4 MG 00:00: 23:59 mg total) Medic al disintegrat 00 :00 by mouth Cent er ing tablet every 8 (eight) hours as needed for up to 7 days. Vital Signs Vital Name Observation Time Observation Value Comments Source Systolic blood 2019-11-27 08:55:00 136 mm[Hg] [facility] Diastolic blood 2019-11-27 08:55:00 75 mm[Hg] [facility] Heart rate 2019-11-27 08:55:00 78 /min [facility] Body temperature 2019-11-27 08:55:00 36.78 Cassy [facility] Respiratory rate 2019-11-27 08:55:00 18 /min [facility] Oxygen saturation in 2019-11-27 08:55:00 98 /min [facility] Arterial blood by Medical Ce nter Pulse oximetry Body height 2019-11-23 20:36:00 182 cm [facility] Body weight 2019-11-23 20:36:00 47.628 kg [facility] BMI 2019-11-23 20:36:00 14.38 kg/m2 [facility] Procedures Procedure Date / Time Performed Performing Clinician Sour e XR CHEST 2 VIEWS 2019-11-26 20:50:00 Meera Thibodeaux [facility] REPORT OF PROCEDURE - 2019-11-26 18:54:[address] [facility] ENDOSCOPY [facility] REPORT OF PROCEDURE - 2019-11-26 18:44:[address] [facility] ENDOSCOPY [facility] [place] ERCP 2019-11-26 13:30:00 Jeferson Weber cliff [facility] TISSUE EXAM 2019-11-26 13:16:00 Jeferson Weber [facility] UPPER 2019-11-26 12:28:00 Jeferson Weber [facility] - ENDOSCOPY,ULTRASOUND [facility] ter ERCP,BALLOON SWEEPING 2019-11-26 12:28:00 Jeferson Weber [facility] PROCEDURE W/ C-ARM 2019-11-26 12:28:00 Jeferson Weber [facility] BASIC METABOLIC PANEL 2019-11-26 04:36:00 Meera Thibodeaux [facility] [address] HEPATIC FUNCTION PANEL 2019-11-26 04:36:00 Meera Thibodeaux [facility] MAGNESIUM 2019-11-26 04:36:00 Meera Thibodeaux [facility] PHOSPHORUS 2019-11-26 04:36:00 Meera Thibodeaux [facility] XR CHEST 1 VIEW 2019-11-25 13:27:00 Meera Thibodeaux [facility]/BEDSIDE [facility] BASIC METABOLIC PANEL 2019-11-25 04:07:00 Meera Thibodeaux [facility] [address] HEPATIC FUNCTION PANEL 2019-11-25 04:07:00 Meera Thibodeaux [facility] MAGNESIUM 2019-11-25 04:07:00 Meera Thibodeaux [facility] PHOSPHORUS 2019-11-25 04:07:00 Meera Thibodeaux [facility] MR ABDOMEN WITH & 2019-11-24 17:34:00 Zachary Paulino [facility] es - WITHOUT IV CONTRAST Medical Cent er BASIC METABOLIC PANEL 2019-11-24 04:25:00 Meera Thibodeaux [facility] [address] HEPATIC FUNCTION PANEL 2019-11-24 04:25:00 Meera Thibodeaux [facility] MAGNESIUM 2019-11-24 04:25:00 Meera Thibodeaux [facility] PHOSPHORUS 2019-11-24 04:25:00 Meera Thibodeaux [facility] CBC W/PLT COUNT & AUTO 2019-11-24 04:25:00 Meera Thibodeaux [facility] BASIC METABOLIC PANEL 2019-11-23 18:08:00 Meera Thibodeaux [facility] (7) [facility] Center HEPATIC FUNCTION PANEL 2019-11-23 18:08:00 Meera Thibodeaux [facility] CBC W/PLT COUNT & AUTO 2019-11-23 18:08:00 Meera Thibodeaux [facility] Plan of Care Planned Activity Planned Date Details Comments Source Future Scheduled 2022-06-22 [facility] (procedure) [code = Medical Center 34270609] Future Scheduled 2020-06-08 INFLUENZA VACCINE (#1) [facility] 00:[facility]00 [code = INFLUENZA Medical Ce nter VACCINE (#1)] Future Scheduled [address] [facility] - Test 00:00:00 0-64 YRS (1 of 1 - Medical C enter PPSV23) [code = PNEUMOCOCCAL VACCINE 0-64 YRS (1 of 1 - PPSV23)] Future Scheduled [address] [facility] - Test 00:00:00 malignant neoplasm of Medica l Center colon (procedure) [code = 011103603] Encounters Start End Encounter Admission Attending Care Care Encounter Source Date/Time Date/Time Type Type Clinicians Facility Department ID 2019-06-21 2019-06-23 Emergency [facility] [id number] 22:40:21 14:49:00 Minoo Yoo [id number] [place] [id number] [place] [id number] 081 Results Test Description Test Time Test Comments Results Result Comments Source Tissue Exam 2019-11-28 15:53:00 Test Item Value Reference Range Interpretation Comme nts Case Report (test code = 104) Surgical Pathology Report Case: [id number] Authorizing Provider: Jeferson Weber Collected: 11/26/2019 1316 MD Jordyn Ordering Location: [address] Received: 11/27/2019 5881 Service Pathologist: Manuel Goodwin MD Specimen: Ampulla, AMPULLARY BIOPSY DIAGNOSIS (test code = 3220) y4mxvQOiHTEuf7tnSLPgeLCgLoBxJbJnQnMeIl pc uENgCLglvySdMIsxo2CzJ5MbSnUhSErclaFeREHm VmrnvnedUTPqFFN5xsYeMKYjBGwpPRPwGIltKl9m hDWzhWdgVsDaTQTvy0mlxdBDxbwbeWa0t4ixHAYy KlV4tGYdYCvxN3rybnLpoOBfOUXzLHz2gI89LHBl cY8yhECzGGystyQbHaV2HNmuULOiLfA5CBEjmMLu PAVqL5huRQNwNLluYGDpRTbdsLAxNYS1oUyuq7Y3 uXJqsXVhqLjqGlEpOdBnINCVk2QdBWm9kYcxX6Pq BBCfKtH0oTUdOHQdKLkwJZFtELPbpgL3pK68GNmy ywD1tKAeo0Eqh10oz114uC0hvAXqQDK8DZXcMHPy uUCkIGPpACG0MGRsjNYuZ7i2EsYbaXAnM1Z3BlFz hLOeO5H9WqSbfSRcQ2F7LnEyiWCxWZUchNErOt6q zMMilPIkua2evm40FPW8l6IpjWzwQSA7ZAN5ZlIk Je8oaFPuRAQgWJ9aOrQdyFWwFRYhjn17aUqwMQbn fdAmpR8eCfKjZBGlxESfFOClHF5rtCUcGOYtiL6d umysWPAoByMkstswHXWbtAromcWjXu0kmRgbWNM7 GTahD0xwoY0zHuG0IZgqI8gviA4iZJy9ETybhNE1 GOMayC3jLT6irkktx2xoMtJbXP9thuxed7dmZfYh PK5elnt0r7ioWeKjTB4cqqaoo4ahSzBkPQohWHCs wkwjGJZkz7NoxxtbRNTis7PdG6MieOtzM21llBsu X16fBMEilBpelC5tbMcvxQ4oGtGeViSfIBlezUnb dOUalxvqVDssxaFlXLweyjotWDTaVOftN6boLsVu ATBjnYhrYUkpk1TkUWTwIQOkSwPbXD8lQH3TCEkA IIjwObuSWMABFnfvLMRkQA7nJYGNGxuHOfCUSLCF YEvGBijpGXLIA4OQRxOZCK9YX00KSBYAQWENUV7T VWQxI2cTQ40HAeVWVvSPNZ6BWYEBI89zxYYdODIm SPYIDCUEHXNNC9ADXoOMKkFGN3CQLMBMN3PGOSGz F2KJANOTLT9PVqLgYQNmdoDqTFVanu50CBM5YnVc n2V3TGQ1FCGoGSGur5cjLLJdfVDmTfAdKcRnAnFd EutlxZMvPHKtEeGrc3tei204pUQgm8atIXOmAxV7 xPZjCKPbzPYwP527LZUwXSxvk2xld7CyZBCtgTRd t0M7PABViawgmFn4sIwpE97sq8K5ErheJ7zoOXPc VRBxL2DlYS0sWRUkOid0NAC0BJX9SXEkKOBeC9Yb UE8xHWMhnLQmLZa2d0eljTtuDGZlCSS7x7rjBVzd mvRjWV0xte5myPf3y8kitfZhKTWqKJLdmEKWJCGn Z5JhrMbvDr8snKb9eDplJbudCTN4Vnd5VU5plp27 ofj0aBrqGUNimneeTeX0UQepRBNvaoqyXEu1LLyv TBZncTK1EJXwbXMsX8CrWMVwEF5dypm8WQM3SLmr BFIdCuU5CJLjjULpHOFwcBybFMmet092ZMW7CxSf KM5yX9Jql2M1qH6rcLMrRPFmtXKeOsQsCSMqdm4y kORtRSepg6FfUHN6veI5uYZtpXLeCGMpLfD9JIft YP8yvn71CPRcBUC8vr7tgTQfoUdbgqUbvWBySBgz Y7UiWGLrs558ADOjA1DbBVBcx5S8lyWwXuEqWMNz eGL8seW6RORgUY5qhtdgv4aiLGflKZugSGMiisV1 iyO1OZWooWLoA7GgnI7iDQZxIH8bdaghb0jyTAM7 FSraWIMgMYQ3CdGeDEFzi5Tlwcz9UbYvl5BybFIm XJvzJ18gk060RDSbzbSxY3aufHZjpohukYZpmmjt ANyiujL8LTAzBVerovmlNSQkCPocU6xzScSbJCCz gMctKSbcb5IgQYIpXLXcCyUskZOzATFwDfp0EFNt bZOyWZVuSsCkB7azhczpDxKGBOWhc3soU3idyJDT lNMtS9BbJLjtayPiEWduHVttGLL2QZD7Hg28EnA3 SZBsqq33 COMMENT (test code = 3359) t6ilkTQnIUUzgATlIlRiKJFfNUTln5kbTBOuzHDp SwRnNoRmCdYqBkfwmWHmHPUhKyNau3cqr132cYPv n4brUDShTlE2fPDvZCRmpXDnN347BYGjFVgxs0bz r7SkDBDiwXZox8Z2RTYQijyslNs7vMlbG73jg8F6 DqbiC6eiCEUzECAsF2HgHL4iNJIbVqz6MVY6SFD6 BABzVMPsZ7DyCK5vANYnkMVvMBj3b1rjyIlpKTKy VIR9w7xlPSmwksMcAY5fdc4maZi8t7mflwByEWSi QTYdrUZTDMJmR6RswKobGo9eqJl4gHfvSvaqTXG6 Wwv0ZJ8rpv36thi6nXvcIWXvajlzXkM8DGkcUBVb fbugLPe6AHbcLWWcbFzkUIwlYDLxmbvoJIyzLNUg hFnwELbkFJKzNlujXLijNJIoXIS4CFqhi378VQZ8 KZgor8ysh0kxlFPiKji8RRPnUjKiVpisDWxau2Or q6saSMVxkj1cTVH1cHEkrOyde9I3eJEhXUZirLRo gyOoAMWnTeK4SZaiNS2dvu67EEGcQHC1wm1xxIGd hNebnwOwdYPvASfhM5RcGLDgx219PMEqQ8InPNGl t0T9xyPmKdNrQCAjpZA9pdP8KBXiTEk5iOFuaoQ2 veJzaLBaA3ewoV46EgZfzMHrR6MtjV93EpCpoCEw P5PysD58YkSnkUOcY1UxlX63NvFthTStPFWcmIBq Em3brJIdoYDqf9EkpIZvDPikC10ph373GVDoiyKt I2ivoQFawrliwZIzwakoVVtvuwE6FFFsRQKwRAkt XGYwXGZzMjBcbGFuZzEwMzNcaGljaFxmMFxkYmNo SPPuPBwmG1rkRyIoNdUuNCNPWVVsWQ3xg2Bou3V0 OU3mcIRdIEB7CGOyQd1sBE4pNXxnJFwvpHFbzdqh CAomzjQdPJmzxxylIMZrIUjfO6weNdDvVUTfnDpg MIeei4MjAMPlLSGnMhQunJM3kDewPKsbgkFvs8Zu VHD9uaEaZMPjId8lpu9swTU5hANeXAWlERexBBWl OzHruHxkVG7fqEIdS5CeIQUutdgqJCFkCEHudPKn IGxldmVscyBhcmUgZXhhbWluZWQuIFRoZXJlIGlz FAEwGOLzcIhoq5QxYWXuj6ghoqCjNF8qVEB2rLZy jkKfJF6gMD0mqMbdpnMeT4hfiKHkx1Ulrw8xePmj jT1iLpHeVrJsEAggNE7rYXLwL6eaoXSyPFOfFTHj A7dyCcIhzA0uyArgFGsvimHvVQUgji4= CPT Code(s) (test code = 3357) v2juoTKxHFOkuUIwKaIzCAIzYUCfn3ocSCDh bGFu EjKtQvIqEcPtVuksdYYsRUSfKsLkc5ulm230iVNz p0ekQUFlBqV5jBIwBRRpkFPbY293s7cdq6xyobNj kUI3JAFkQWE7YElddmQtvaU1KZiqhZXpMnS2COeq ykLdLPvjwcBxgnFuGlx4FZNeL824YIG7wUtvn6qh CBF6CAQgOOVlXzPoQc9ibEHuG232CDUfZXIXFDYj nLg4VUSyezFgwdCbbYRCh865U328n0paIYYzguJo rDdGtmkup2bcD149OADhtMLdfdEyGjMkBUOscRJo rUE5OWFnEN0kgsxiDwRyWV2tfougGqVdCW6tbqi8 TuWuUE1ilhuwLwZvLCgtHZYgeikrDOWjn9Ztcffj XX9jQ1Caq9C4sI9gjBMvGGYbxEWpJmLnOCIoxv0k kMQoKJdfr3EaRSP8riG1dSBvqOXrKKUlLK26Bebb s0IzInwuGPY4QPXsnhLue1Ghg1tkQwKdzwOvK2jl M9ZdTBVvYPVuOGFwBcNrywJml1Ncl3LmlKNyoQw5 b5qyCNBtDTWrdQhrk1xuSWF1GUCzZ7C5jLZii0ql BWtdOSCxrYY5fobdJKyoUOThbqY8uuadCQchQPUq iBE0cwohPGpbTTXgNiL7pgwcWAfsHYWyFPL1MOuu b627RCX7LCgvNbvrEHyrYTTmllCjhdOacHwxCVWm KANfNHqdEFOaRIkmXWAmKHPkDsFryKdyrParaC9x GaBeOsRxMGtiVD0uCJSxF3rjcQVdMHYzLOCnV1pz AxVvpZ7iqVicGKdvqlLyDOs7DwJ7ZLVbiv9= CLINICAL HISTORY (test code = 3356) h5jjjKQtQUFdcSWsSbMfBMHzYDQsj4l cZGVmbGFu UgKmHtRxZbXpGyaclBKsQLEbDmMxz7qfu936cPXz h0rlNMVuPtO5zIEjJBKukXIlZ776EKClKYtqf2ez r2IeVCCztODev4P1TMLPbbsrvTf9xZjlN54an2O0 AwgyX7teFGPlIQqwNRDzXLasyPAnGRC4IBCxFVO4 UMzhmrNflhT8UFjjbVVxYnY2YZx2m7knsUnoWCSy OGS1k0lzELoywpMsDF1liq0weFi6e6glomSmJZBt FDVdjVCGXRDzO2UhdVsbKk0cqDr8cIsiKspjCKI7 Yhr5EM3gzb70rwi5dPdcRSWqlbrvIzE9NTlsBKAr riouVYv2HHqfJFNgfQabIMiiWIUbzbxhLLlsWGMt oUomYAaeZPVzGimmPToyVXVkZZI4UOlno780CYY9 CCfdx5lsy5hwkLHoYoa3UETdJfWmHwrbVFujk0Gm r6teABZwlx3dXVB2lRCvhMccf9D9zOTjEWWpsRRt yjGuANOnByN4RSdaIY5sed83UELwKCJ7me9ksOYo sTufyiEggPTlYOctO0OuCOPbm332SRSnO5PdBBQg f3S5inQqIkDvUBHsfDR7xuO2SQMdCYq4kJYtmiY5 miDivYWkJ9bojG27JjJxcQFuQ8WilC35IiKisNDk C8LopP58DcYuoRHwY7RgtP85KfHglNKlCEXygMOq Lc8ojPVckXGjl1OkeEYuSAoiH45ln500ZREzyuBr I2bjmWTngeztxHCwfsznTZkexiYwTJLpBICkKWdm QWHhCVPqSpVdjYazqO5zQiVdUzTyGQGVnwKfQD7p RRFvw5FefRLpiYKgib2pxXR7FNTrft0dgXXeKVwl YWdpbmdccGFyfQ== SPECIMEN SOURCE (test code = 3377) q5ewcDEtYTMtcOUgYwLnRIXtEOWtp8wi ZGVmbGFu VkFuXbVcBpQwTscwtNXzZDVwEnLkf6xun028cHUp u1ugVZHnYtF1pCUrQRKohISaD180k1nab4fvodGp pTJ9EUHmLHN9JOfdmeToynX2YUyibKWaDwW4CVtw jsUnGAmxdlOryxWtUfm9BZJyU103VXH2cQuul7au BXA9BDNaWLPqHiOiYb4pcTVdL765XTQjZCILEXWw jCp9EBBiqhJndwKxvETXn088R737r8pcOMSxawWe dUhMvuard9tcD128UTUjbBAomjLrSwOpECBpuTFt oWT1OCGgAJ9rbpdxIkRvGP9uupzsZnQcJS1akuo3 MeLhIM6xqyhjDyDiUYwmVFGhxzypAFKwh2Hzcars CO8lA3Qum3T3vJ6lvPRkMNFdiHRrXsAxUCLdmg2w gEXlHMdkk3SsJKL8klS4nZSjfWVaANZqVJ08Jzvk s2NyKeboZUP7FVFbtfUlw9Wsc8ulXwMiukBbN8st D6QrTPOyNZAfDOKyGjUfrzNfo0Hnn6PohRNqzCs5 m1qsQAIsGCLloQbvd0knDBK0BMHgD8Y4fESox0ds GJvhEAGvaFE2yzuxVNwjYPYrcfN5gielCCueZALs xCS1uxqbQYruQDSkEqK6fuvsGLotQNBgTCG2YYfc s853OYO2XLllWrtlZQjjEKJwnzNdpvFswUfsICSd ZYJbOAdnMOVeUFawOHTmXVIvGaLhkNmliPfmcX7v QaGiZcAlAByjBX7hNJCvY9aulBYmWLOtCNHuS8fa LqJcwX9qnZyfRPjfajNjLSMvkFWmpJCywOIohA5o j3zfxWCccM== GROSS DESCRIPTION (test code = 3366) a7gvaUXhJPQxbMWvTeMtRKQaQSEok4 lcZGVmbGFu [file] UJONCa1hsDZkmAFfsG== MICROSCOPIC DESCRIPTION (test code = t9xwtMZeMNLauBQuXwDqVUUgMTVta6 [place] [address]) OfNzWwRrLhLsYpfspIKoJSHuBsLxl9ppt754gENb w0vjOLStMaJ5bYNfTPQlsPYaM072WQGfFKxym3tn v5YlRYGwxCTdh9U2NDCWoxsmmPy2dVodX25xl9I6 FwzaX9peTLAoTEpbAQHtWKygoJIxXPS9KUSsECX1 FFcdigExfcE7HIiukJHfRlT1VGg6z9juuRskERMk IWO9t7poOAudgkDpIL4sms9thLs3q6ltipLyRXGc TMCuuSSQBQIzO7XjlPutSu1jvXi2wNbcFedsKSG1 Ahn8OY2mwp33kmp9zDnyEBHlpalnKeQ8GXwnIDVj kjtvHVq6OLwuORTjdHayPBcsJPSylhzqDEwwEUOi eDriKLmcIKBgIgzdEMseXAInUHP5FCzxw557MAK0 KOata7hgm1zvlQAuFit1GSWcWcXyLshqRArzc6Am w6esODUyve1wDRP4vSImnUeme9R9hCMvISRbfPFr mnKaXXHywi86zNKbaXMfvFDocg6dulCzyRYebOYo XHD5aAPvnfQiOBWopAEwQKWwZK8mmGSiYMZgsY5f aqrvIQUpMcUzqpfzWTOedZovkeSdUu8roJvbJDQ5 SGeaD3atkD1cCaS5YVfhU0xnkG2pWXv0GDdvsMZ6 AXTtpJ2wJX4iangqu9jiOrHoLX9vbdksu3jxXfKk VL1bgkf4s7snVcHtPF0rhhqxh7phMlKjQYejJXMu oixoZCIhs2EegcsvXZWej7PfV4NhsEusW17bzYzl C13jWEMgtTackN1awFxxxC7fBfZxWuKkWMlouWkc bGFpblxmMFxmczIwXHBsYWluXGYxXGZzMjAgUGVy Rf5dlVJrSltoOIKlmGIlfS== [facility] [id number] 15:53:00Surgical Pathology Report Case: [id number] Authorizing Provider: Jeferson Weber Collected: 11/26/2019 Teri Cobb MD OrderingLocation: [address] Received: 11/27/2019 0758 Service Pathologist: Manuel Goodwin MD Specimen: Ampulla, AMPULLARY BIOPSY A. AMPULLA, BIOPSY: - BENIGN AMPULLARY/ DUODENAL MUCOSA WITH MILD CHRONIC INFLAMMATION - SMALL FOCUS OF SCAR TISSUE (SEE COMMENT) Signing Pathologist Direct Phone Line: [phone] signed by Manuel Goodwin MD on 11/28/2019 at 3:53 PMPer endoscopy note dated 11/27/19, ampulla was noted to be abnormal with small fibrotic orifice.Deeper levels are examined. There is scar tissue, however no evidence of malignancy is seen.[id number] and postop diagnosis: abnormal imagingAmpullary biopsyReceived in formalin labeled with the patient's name, accession number and "ampulla" are three irregular ballard softtissue fragments each measuring 0.1 cm which are submitted in toto in A1. CG/pl Performed.RAD, CHEST, 2 [id number] 21:20:00Reason for exam:- >nodule possible nipple shadow on previous chest xray, repeat cxr with nipple markersFINAL REPORT Exam: Chest x-ray, PA and lateral views Clinical History: Lung nodule; possible nipple shadow on prior chest radiograph. Comparison: Chest radiograph 11/25/2019. Technique: Frontal and lateral views of the chest were obtained with nipple markers. Findings: The heart is normal in size. There are calcified right paratracheal lymph node nodes from prior granulomatous disease. There is no discrete lung nodule. There is no focal pulmonary consolidation, pleural effusionor pneumothorax. There is no pulmonary edema. The bony thorax is demineralized. There are healed bilateral rib fractures. Impression:No discrete lung nodule.No focal pulmonary consolidation. Signed: Aurelio Simons Verified Date/Time: 11/26/2019 21:20:17 XR chest 2 [id number] 21:20:00Interface, External Ris In - 11/26/2019 9:22 PM CSTFINAL REPORT Exam: Chest x-ray, PA and lateral views Clinical History: Lung nodule; possible nipple shadow on prior chest radiograph. Comparison: Chest radiograph 11/25/2019. Technique: Frontal and lateral views of the chest were obtained with nipple markers. Findings: The heart is normal in size. There are calcified right paratracheal lymph node nodes from prior granulomatous disease. There is no discrete lung nodule. There is no focal pulmonary consolidation, pleural effusion or pneumothorax. There is no pulmonary edema. The bony thorax is demineralized. There are healed bilateral rib fractures. Impression:No discrete lungnodule.No focal pulmonary consolidation. Signed: Aurelio Simons Verified Date/Time: 11/26/2019 21:20:17 [facility]FL, [id number] 15:10:00Reason for exam:->abnormal imageryFINAL REPORT A fluoroscopic unit was utilized for a procedure performed in the operating room. No interpretation was requested. Please refer to the operative report regarding findings. Please refer to PACS for patient radiation dose information. Signed: Sue Macedo Verified Date/Time: 11/26/2019 15:10:45 Reading Location: [facility] Radiology Reading Room [facility] [id number] 15:10:00Interface, External Ris In - 11/26/2019 3:13 PM CSTFINAL REPORT A fluoroscopic unit was utilized for a procedure performed in the operating room. No interpretation was requested. Please refer to the operative report regarding findings. Please refer to PACS for patient radiationdose information. Signed: Sue Macedo Verified Date/Time: 11/26/2019 15:10:45 Reading Loc ation: [facility] Radiology Reading [facility]Basic [facility] [id number] 06:08:00 Test Item Value Reference Range Interpretation Comments Sodium (test code = 138 meq/L 170-624 6079-2) Potassium (test code = 4.5 meq/L 3.5-5.1 2823-3) Chloride (test code = 104 meq/L 98-107 2075-0) CO2 (test code = 30 meq/L 22-29 H 2028-9) BUN (test code = 5 mg/dL 7-21 L 3094-0) Creatinine (test code 0.65 mg/dL 0.57-1.25 = 2160-0) Glucose (test code = 102 mg/dL 70-105 2345-7) Calcium (test code = 8.8 mg/dL 8.4-10.2 52006-2) EGFR (test code = 125 mL/min/1.73 [place] [address]-2) NOT ACCURATE CREATININE CLEARANCE IN PREDICTING GLOMERULAR FILTRATION RATE . ESTIMATED GFR I S NOT APPLICABLE FOR DIALYSIS PATIENTS. DEAN (test code = DEAN) Director Of Housing [facility] Interpretation Abnormal (test code = 33588-9) [facility] [id number] 06:08:00 Test Item Value Reference Range Interpretation Comments Protein, Total (test code 5.7 6.0- 8.3 gm/dL L = 2885-2) Albumin (test code = 3.4 g/dL 3.5-5 L 15800-6) Total Bilirubin (test code 0.4 mg/dL 0.2-1.2 = 1974-2) Bilirubin, Direct (test 0.2 mg/dL 0.1-0.5 code = 1967-7) Alkaline Phosphatase (test 64 U/L 40-150 code = 6768-6) AST (test code = 1920-8) 15 U/L 5-34 ALT (test code = 1742-6) 12 U/L 6-55 DEAN (test code = DEAN) Director Of Housing [facility] Interpretation (test Abnormal code = 93060-3) [facility] 06:08:00 Test Item Value Reference Range Interpretation Comments Magnesium (test code = 1.7 mg/dL 1.6-2.6 89202-6) DEAN (test code = DEAN) Director Of Housing [facility] Interpretation (test Normal code = 34808-5) [facility] 06:08:00 Test Item Value Reference Range Interpretation Comments Phosphorus (test code = 3.5 mg/dL 2.3-4.7 2777-1) DEAN (test code = DEAN) Director Of Housing [facility] Lab Interpretation (test Normal code = 17670-4) [facility]2020-02-19 06:08:00 Test Item Value Reference Range Interpretation Comments PHOSPHORUS (BEAKER) (test code = 3.5 mg/dL 2.3-4.7 604) Director Of Housing ID - [facility] [id number] 06:08:00 Test Item Value Reference Range Interpretation Comments MAGNESIUM (BEAKER) (test code = 1.7 mg/dL 1.6-2.6 627) Director Of Housing ID - [facility] MBASIC METABOLIC [id number] 06:08:00 Test Item Value Reference Range Interpretation Comments SODIUM (BEAKER) 138 meq/L 136-145 (test code = 381) POTASSIUM (BEAKER) 4.5 meq/L 3.5-5.1 (test code = 379) CHLORIDE (BEAKER) 104 meq/L 98-107 (test code = 382) CO2 (BEAKER) (test 30 meq/L 22-29 H code = 355) BLOOD UREA NITROGEN 5 mg/dL 7-21 L (BEAKER) (test code = 354) CREATININE (BEAKER) 0.65 mg/dL 0.57-1.25 (test code = 358) GLUCOSE RANDOM 102 mg/dL 70-105 (BEAKER) (test code = 652) CALCIUM (BEAKER) 8.8 mg/dL 8.4-10.2 (test code = 697) EGFR (BEAKER) (test 125 mL/min/1.73 ESTIM ATED GFR IS code = 1092) sq m NOT ACCURATE CREATININE CLEARANCE IN PREDICTING GLOMERULAR FILTRATION RATE . ESTIMATED GFR I S NOT APPLICABLE FOR DIALYSIS PATIEN TS. Director Of Housing ID - [facility] MHEPATIC FUNCTION [id number] 06:08:00 Test Item Value Reference Range Interpretation Comments TOTAL PROTEIN (BEAKER) (test code = 5.7 gm/dL 6.0-8.3 L 770) ALBUMIN (BEAKER) (test code = 1145) 3.4 g/dL 3.5-5.0 L BILIRUBIN TOTAL (BEAKER) (test code 0.4 mg/dL 0.2-1.2 = 377) BILIRUBIN DIRECT (BEAKER) (test 0.2 mg/dL 0.1-0.5 code = 706) ALKALINE PHOSPHATASE (BEAKER) (test 64 U/L 40-150 code = 346) AST (SGOT) (BEAKER) (test code = 15 U/L 5-34 353) ALT (SGPT) (BEAKER) (test code = 12 U/L 6-55 347) Director Of Housing ID - [facility] MRAD, CHEST, 1 VIEW, NON [id number] 15:22:00Reason for exam:->smoker, weight lossShould this be performed at the bedside?->Yes FINAL REPORT TECHNIQUE: Frontal view of the chest. INDICATION: smoker, weightloss. COMPARISON: None. FINDINGS: LINES/TUBES: None. LUNGS: The lung bases are hyperlucent, and thelungs are hyperexpanded. And nodular opacity of the left base is most likely a nipple. PLEURA: No pne umothorax or significant pleural effusion. HEART AND MEDIASTINUM: The cardiomediastinal silhouette is within normal limits. Digital, calcified right lower paratracheal lymph nodes are likely related toprior granulomatous disease. SOFT TISSUES AND BONES: Old, healed fractures of the left lateral ribs 3, 4, 5, 6, and 7. Or, healed right lateral 9th and 10th rib fractures. IMPRESSION: The lungs are hyperexpanded, and the lung bases are hyperlucent. This is most likely due to chronic obstructive pulmonary disease. There is a nodular opacity of the left base which is most likely nipple. A follow-up chest radiograph with nipple markers is recommended. Signed: [place] [facility] Verified Date/Time: 15:22:45 Reading Location: [facility] Radiology Reading Room XR chest 1 view portable / [id number] 15:22:00Interface, External Ris In - 11/25/2019 3:25 PM CSTFINAL REPORT TECHNIQUE: Frontal view of the chest. INDICATION: smoker, weight loss. COMPARISON: None. FINDINGS: LINES/TUBES: None. LUNGS: The lung bases are hyperlucent, and the lungs are hyperexpanded. And nodular opacity of the left base is most likely a nipple. PLEURA: No pneumothorax or significant pleural effusion. HEARTAND MEDIASTINUM: The cardiomediastinal silhouette is within normal limits. Digital, calcified right lower paratracheal lymph nodes are likely related to prior granulomatous disease. SOFT TISSUES AND BONES: Old, healed fractures of the left lateral ribs 3, 4, 5, 6, and 7. Or, healed right lateral 9th and 10th rib fractures. IMPRESSION: The lungs are hyperexpanded, and the lung bases are hyperlucent. T his is most likely due to chronic obstructive pulmonary disease. There is a nodular opacity of the left base which is most likely nipple. A follow-up chest radiograph with nipple markers is recommended. Signed: [place] Val[place] Verified Date/Time: 11/25/2019 15:22:45 Reading Location: [facility] Radiology [facility]00 Test Item Value Reference Range Interpretation Comments MAGNESIUM (BEAKER) 1.8 mg/dL 1.6-2.6 Specimen slightly (test code = 627) hemolyzed Director Of Housing ID - KENNY [id number] 05:28:00 Test Item Value Reference Range Interpretation Comments PHOSPHORUS (BEAKER) 3.6 mg/dL 2.3-4.7 Specimen slightly (test code = 604) hemolyzed Director Of Housing ID - KENNY MBASIC METABOLIC [id number] 05:28:00 Test Item Value Reference Range Interpretation Comments SODIUM (BEAKER) 136 meq/L 136-145 (test code = 381) POTASSIUM (BEAKER) 4.0 meq/L 3.5-5.1 Specimen slightly (test code = 379) hemolyzed CHLORIDE (BEAKER) 104 meq/L 98-107 (test code = 382) CO2 (BEAKER) (test 26 meq/L 22-29 code = 355) BLOOD UREA NITROGEN 6 mg/dL 7-21 L (BEAKER) (test code = 354) CREATININE (BEAKER) 0.64 mg/dL 0.57-1.25 Specimen slightly (test code = 358) hemolyzed GLUCOSE RANDOM 93 mg/dL 70-105 (BEAKER) (test code = 652) CALCIUM (BEAKER) 8.7 mg/dL 8.4-10.2 (test code = 697) EGFR (BEAKER) (test 128 mL/min/1.73 ESTIM ATED GFR IS code = 1092) sq m NOT ACCURATE CREATININE CLEARANCE IN PREDICTING GLOMERULAR FILTRATION RATE . ESTIMATED GFR I S NOT APPLICABLE FOR DIALYSIS PATIEN TS. Director Of Housing ID - KENNY MHEPATIC FUNCTION [id number] 05:28:00 Test Item Value Reference Range Interpretation Comments TOTAL PROTEIN (BEAKER) 5.9 gm/dL 6.0-8.3 L Speci men slightly (test code = 770) hemolyzed ALBUMIN (BEAKER) (test 3.5 g/dL 3.5-5.0 Speci men slightly code = 1145) hemolyzed BILIRUBIN TOTAL 0.3 mg/dL 0.2-1.2 Specimen sli ghtly (BEAKER) (test code = hemoly zed 377) BILIRUBIN DIRECT 0.1 mg/dL 0.1-0.5 Specimen sl ightly (BEAKER) (test code = hemoly zed 706) ALKALINE PHOSPHATASE 66 U/L 40-150 (BEAKER) (test code = 346) AST (SGOT) (BEAKER) 16 U/L 5-34 Specimen slightly (test code = 353) hemolyzed ALT (SGPT) (BEAKER) 11 U/L 6-55 Specimen slightly (test code = 347) hemolyzed Director Of Housing ID - KENNY MMR, ABDOMEN, [id number] 18:08:00Pancreas protocol AND MRCP Anesthesia:->None Deos the patient have an implanted electronic device? ->NoFINAL REPORT TECHNIQUE: MRI of the abdomen and MRCP WITHOUT and WITH intravenous contrast. 3-D volume reconstructions were obtained to evaluate the biliary ductal system. INDICATION: Neoplasm: pancreaspancreas protocol AND MRCP. COMPARISON: None. FINDINGS: ABSENCE OF INTRAVENOUS CONTRAST DECREASES SENSITIVITY FOR DETECTION OF FOCAL LESIONS AND VASCULAR PATHOLOGY. LOWER THORAX:Unremarkable. LIVER: No hepatic signal abnormality. No focal hepatic lesions. BILIARY: Material in the gallbladder which is hyperintense on T1-weighted imaging is likely static bile. The common bile duct is dilated up to 0.9 cm in diameter. SPLEEN: No splenomegaly.PANCREAS: The main pancreatic duct isdilated up to 0.6 cm without a definite underlying mass. May be of the sidebranches are mildly dilated. Pancreas divisum. There is diffuse loss of T1 weighted signal throughout the pancreas. ADRENALS: No adrenal nodules.KIDNEYS/URETERS: No hydronephrosis or solid mass lesions. A right interpolar simple renal cyst measures 0.4 cm. PERITONEUM/RETROPERITONEUM: No free fluid.LYMPH NODES: No lymphadenopathy.VESSELS: At least moderate atherosclerotic changes of the infrarenal abdominal aorta. GI TRACT: No distention or wall thickening. BONES AND SOFT TISSUES: Prior midline laparotomy. IMPRESSION: 1.The diffuse pancreatic ductal dilation is most likely due to a combination of pancreas divisum and chronic pancreatitis. No definite underlying mass is seen. However, further evaluation with ERCP and/or endoscopic ultrasound is recommended to exclude an underlying mass. 2.Mild intra and extrahepatic biliary ductal dilation. 3.Static bile in the gallbladder. Signed: [place] Valdez MDReport Verified Date/Time:11/24/2019 18:08:51 Reading Location: [facility] C013Y CT Body Reading Room MR abdomen without & with IV [id number] 18:08:00 Interface, External Ris In - 11/24/2019 6:10 PM CSTFINAL REPORT TECHNIQUE: MRI of the abdomen and MRCP WITHOUT and WITH intravenous contrast. 3-D volume reconstructions were obtained to evaluate the biliary ductal system. INDICATION: Neoplasm: pancreaspancreas protocol AND MRCP. COMPARISON: None. FINDINGS: ABSENCE OF INTRAVENOUS CONTRAST DECREASES SENSITIVITY FOR DETECTION OFFOCAL LESIONS AND VASCULAR PATHOLOGY. LOWER THORAX: Unremarkable. LIVER: No hepatic signal abnormality. No focal hepatic lesions. BILIARY: Material in the gallbladder which is hyperintense on T1-weighted imaging is likely static bile. The common bile duct is dilated up to 0.9 cm in diameter. SPLEEN: No splenomegaly.PANCREAS: The main pancreatic duct is dilated up to 0.6 cm without a definite underlying mass. May be of the sidebranches are mildly dilated. Pancreas divisum. There is diffuse loss of [id number] signal throughout the pancreas. ADRENALS: No adrenal nodules.KIDNEYS/URETERS: No hydronephrosis or solid mass lesions. A right interpolar simple renal cyst measures 0.4 cm. PERITONEUM/RETROPERITONEUM: No free fluid.LYMPH NODES: No lymphadenopathy.VESSELS: At least moderate atherosclerotic changes of the infrarenal abdominal aorta. GI TRACT: No distention or wall thickening. BONES AND SOFT TISSUES: Prior midline laparotomy. IMPRESSION: 1.The diffuse pancreatic ductal dilation is most likelydue to a combination of pancreas divisum and chronic pancreatitis. No definite underlying mass is seen. However, further evaluation with ERCP and/or endoscopic ultrasound is recommended to exclude an underlying mass. 2.Mild intra and extrahepatic biliary ductal dilation. 3.Static bile in the gallbladder. Signed: [place] Valdez MDReport Verified Date/Time: 11/24/2019 18:08:51 Reading Location: [facility] B1 C013Y CT Body [facility] 07:18[facility]00 Test Item Value Reference Range Interpretation Comments PHOSPHORUS (BEAKER) (test code = 3.3 mg/dL 2.3-4.7 604) Director Of Housing ID - [id number] 07:18:00 Test Item Value Reference Range Interpretation Comments MAGNESIUM (BEAKER) (test code = 1.9 mg/dL 1.6-2.6 627) Director Of Housing ID - LABASIC METABOLIC [id number] 07:18:00 Test Item Value Reference Range Interpretation Comments SODIUM (BEAKER) 137 meq/L 136-145 (test code = 381) POTASSIUM (BEAKER) 4.5 meq/L 3.5-5.1 (test code = 379) CHLORIDE (BEAKER) 104 meq/L 98-107 (test code = 382) CO2 (BEAKER) (test 28 meq/L 22-29 code = 355) BLOOD UREA NITROGEN 6 mg/dL 7-21 L (BEAKER) (test code = 354) CREATININE (BEAKER) 0.70 mg/dL 0.57-1.25 (test code = 358) GLUCOSE RANDOM 120 mg/dL 70-105 H (BEAKER) (test code = 652) CALCIUM (BEAKER) 8.6 mg/dL 8.4-10.2 (test code = 697) EGFR (BEAKER) (test 115 mL/min/1.73 ESTIM ATED GFR IS code = 1092) sq m NOT ACCURATE CREATININE CLEARANCE IN PREDICTING GLOMERULAR FILTRATION RATE . ESTIMATED GFR I S NOT APPLICABLE FOR DIALYSIS PATIEN TS. Director Of Housing ID - LAHEPATIC FUNCTION [id number] 07:18:00 Test Item Value Reference Range Interpretation Comments TOTAL PROTEIN (BEAKER) (test code = 6.0 gm/dL 6.0-8.3 770) ALBUMIN (BEAKER) (test code = 1145) 3.6 g/dL 3.5-5.0 BILIRUBIN TOTAL (BEAKER) (test code 0.4 mg/dL 0.2-1.2 = 377) BILIRUBIN DIRECT (BEAKER) (test 0.2 mg/dL 0.1-0.5 code = 706) ALKALINE PHOSPHATASE (BEAKER) (test 68 U/L 40-150 code = 346) AST (SGOT) (BEAKER) (test code = 18 U/L 5-34 353) ALT (SGPT) (BEAKER) (test code = 14 U/L 6-55 347) Director Of Housing ID - LACBC with platelet count + automated [id number] 05:25:00 Test Item Value Reference Range Interpretation Comments WBC (test code = 6690-2) 4.9 3.5- 10.5 K/L RBC (test code = 789-8) 4.28 4.63- 6.08 M/L L MCHC (test code = 786-4) 34.5 32.3- 36.5 GM/DL Hematocrit (test code = 4544-3) 40.0 % 40.1-51 L MCV (test code = 787-2) 93.5 fL 79-92.2 H MCH (test code = 785-6) 32.2 pg 25.7-32.2 RDW (test code = 788-0) 11.9 % 11.6-14.4 Platelets (test code = 777-3) 193 150- 450 K/CU MM MPV (test code = 56760-3) 10.1 fL 9.4-12.4 nRBC (test code = 413) 0 0- 0 /100 WBC % Neutros (test code = 429) 42 % % Lymphs (test code = 430) 41 % % Monos (test code = 431) 15 % % Eos (test code = 432) 1 % % Baso (test code = 437) 1 % # Neutros (test code = 670) 2.08 1.78- 5.38 K/L # Lymphs (test code = 414) 1.99 1.32- 3.57 K/L # Monos (test code = 415) 0.71 0.30- 0.82 K/L # Eos (test code = 416) 0.07 0.04- 0.54 K/L # Baso (test code = 417) 0.05 0.01- 0.08 K/L Immature Granulocytes-Relative 0 % 0-1 (test code = 2801) Lab Interpretation (test code = Abnormal 08274-1) [facility] [place] W/PLT COUNT & AUTO [id number] 05:25:00 Test Item Value Reference Range Interpretation Comments WHITE BLOOD CELL COUNT (BEAKER) 4.9 K/ L 3.5-10.5 (test code = 775) RED BLOOD CELL COUNT (BEAKER) 4.28 M/ L 4.63-6.08 L (test code = 761) HEMOGLOBIN (BEAKER) (test code = 13.8 GM/DL 13.7-17.5 410) HEMATOCRIT (BEAKER) (test code = 40.0 % 40.1-51.0 L 411) MEAN CORPUSCULAR VOLUME (BEAKER) 93.5 fL 79.0-92.2 H (test code = 753) MEAN CORPUSCULAR HEMOGLOBIN 32.2 pg 25.7-32.2 (BEAKER) (test code = 751) MEAN CORPUSCULAR HEMOGLOBIN CONC 34.5 GM/DL 32.3-36.5 (BEAKER) (test code = 752) RED CELL DISTRIBUTION WIDTH 11.9 % 11.6-14.4 (BEAKER) (test code = 412) PLATELET COUNT (BEAKER) (test 193 K/CU MM 150-450 code = 756) MEAN PLATELET VOLUME (BEAKER) 10.1 fL 9.4-12.4 (test code = 754) NUCLEATED RED BLOOD CELLS 0 /100 WBC 0-0 (BEAKER) (test code = 413) NEUTROPHILS RELATIVE PERCENT 42 % (BEAKER) (test code = 429) LYMPHOCYTES RELATIVE PERCENT 41 % (BEAKER) (test code = 430) MONOCYTES RELATIVE PERCENT 15 % (BEAKER) (test code = 431) EOSINOPHILS RELATIVE PERCENT 1 % (BEAKER) (test code = 432) BASOPHILS RELATIVE PERCENT 1 % (BEAKER) (test code = 437) NEUTROPHILS ABSOLUTE COUNT 2.08 K/ L 1.78-5.38 (BEAKER) (test code = 670) LYMPHOCYTES ABSOLUTE COUNT 1.99 K/ L 1.32-3.57 (BEAKER) (test code = 414) MONOCYTES ABSOLUTE COUNT (BEAKER) 0.71 K/ L 0.30-0.82 (test code = 415) EOSINOPHILS ABSOLUTE COUNT 0.07 K/ L 0.04-0.54 (BEAKER) (test code = 416) BASOPHILS ABSOLUTE COUNT (BEAKER) 0.05 K/ L 0.01-0.08 (test code = 417) IMMATURE GRANULOCYTES-RELATIVE 0 % 0-1 PERCENT (BEAKER) (test code = 2801) HEPATIC FUNCTION [id number] 18:58:00 Test Item Value Reference Range Interpretation Comments TOTAL PROTEIN (BEAKER) (test code = 7.0 gm/dL 6.0-8.3 770) ALBUMIN (BEAKER) (test code = 1145) 4.2 g/dL 3.5-5.0 BILIRUBIN TOTAL (BEAKER) (test code 0.6 mg/dL 0.2-1.2 = 377) BILIRUBIN DIRECT (BEAKER) (test 0.3 mg/dL 0.1-0.5 code = 706) ALKALINE PHOSPHATASE (BEAKER) (test 78 U/L 40-150 code = 346) AST (SGOT) (BEAKER) (test code = 23 U/L 5-34 353) ALT (SGPT) (BEAKER) (test code = 16 U/L 6-55 347) Director Of Housing ID - KENNY MBASIC METABOLIC [id number] 18:58:00 Test Item Value Reference Range Interpretation Comments SODIUM (BEAKER) 135 meq/L 136-145 L (test code = 381) POTASSIUM (BEAKER) 4.7 meq/L 3.5-5.1 (test code = 379) CHLORIDE (BEAKER) 99 meq/L 98-107 (test code = 382) CO2 (BEAKER) (test 27 meq/L 22-29 code = 355) BLOOD UREA NITROGEN 8 mg/dL 7-21 (BEAKER) (test code = 354) CREATININE (BEAKER) 0.65 mg/dL 0.57-1.25 (test code = 358) GLUCOSE RANDOM 84 mg/dL 70-105 (BEAKER) (test code = 652) CALCIUM (BEAKER) 9.2 mg/dL 8.4-10.2 (test code = 697) EGFR (BEAKER) (test 125 mL/min/1.73 ESTIM ATED GFR IS code = 1092) sq m NOT ACCURATE CREATININE CLEARANCE IN PREDICTING GLOMERULAR FILTRATION RATE . ESTIMATED GFR I S NOT APPLICABLE FOR DIALYSIS PATIEN TS. Director Of Housing ID - KENNY [facility] W/PLT COUNT & AUTO [id number] 18:20:00 Test Item Value Reference Range Interpretation Comments WHITE BLOOD CELL COUNT (BEAKER) 6.2 K/ L 3.5-10.5 (test code = 775) RED BLOOD CELL COUNT (BEAKER) 4.53 M/ L 4.63-6.08 L (test code = 761) HEMOGLOBIN (BEAKER) (test code = 14.9 GM/DL 13.7-17.5 410) HEMATOCRIT (BEAKER) (test code = 43.1 % 40.1-51.0 411) MEAN CORPUSCULAR VOLUME (BEAKER) 95.1 fL 79.0-92.2 H (test code = 753) MEAN CORPUSCULAR HEMOGLOBIN 32.9 pg 25.7-32.2 H (BEAKER) (test code = 751) MEAN CORPUSCULAR HEMOGLOBIN CONC 34.6 GM/DL 32.3-36.5 (BEAKER) (test code = 752) RED CELL DISTRIBUTION WIDTH 11.9 % 11.6-14.4 (BEAKER) (test code = 412) PLATELET COUNT (BEAKER) (test 205 K/CU MM 150-450 code = 756) MEAN PLATELET VOLUME (BEAKER) 10.0 fL 9.4-12.4 (test code = 754) NUCLEATED RED BLOOD CELLS 0 /100 WBC 0-0 (BEAKER) (test code = 413) NEUTROPHILS RELATIVE PERCENT 60 % (BEAKER) (test code = 429) LYMPHOCYTES RELATIVE PERCENT 28 % (BEAKER) (test code = 430) MONOCYTES RELATIVE PERCENT 11 % (BEAKER) (test code = 431) EOSINOPHILS RELATIVE PERCENT 0 % (BEAKER) (test code = 432) BASOPHILS RELATIVE PERCENT 1 % (BEAKER) (test code = 437) NEUTROPHILS ABSOLUTE COUNT 3.71 K/ L 1.78-5.38 (BEAKER) (test code = 670) LYMPHOCYTES ABSOLUTE COUNT 1.76 K/ L 1.32-3.57 (BEAKER) (test code = 414) MONOCYTES ABSOLUTE COUNT (BEAKER) 0.69 K/ L 0.30-0.82 (test code = 415) EOSINOPHILS ABSOLUTE COUNT 0.02 K/ L 0.04-0.54 L (BEAKER) (test code = 416) BASOPHILS ABSOLUTE COUNT (BEAKER) 0.03 K/ L 0.01-0.08 (test code = 417) IMMATURE GRANULOCYTES-RELATIVE 0 % 0-1 PERCENT (BEAKER) (test code = 2801)
--- NOTE | 2020-09-13 17:59 | RAD REPORT ---
EXAM DESCRIPTION: CT - Head Brain Wo Cont - 09/13/2020 5:46 pm CLINICAL HISTORY: Visual disturbance COMPARISON: 2014 TECHNIQUE: Computed axial tomography of the head was obtained. IV contrast was not requested. All CT scans are performed using dose optimization technique as appropriate and may include automated exposure control or mA/KV adjustment according to patient size. FINDINGS: An intracranial bleed is not seen . The ventricles are normal in caliber. No extra-axial fluid collection is noted. . Fluid within the sinuses/ mastoids is not seen. IMPRESSION: No acute intracranial abnormality is seen. If patient's symptoms persist MRI of the bra in would be recommended.
[2020-09-13] MEDS ORDERED: FLUORESCEIN SODIUM 1 MG/WRAP ONE (19:52)
[2020-09-13] MEDS ORDERED: TETRACAINE HCL 0.5% 4ML OPTH ONE (19:55)
[2020-09-13] MEDS ORDERED: NA CHLORIDE 0.9% 500 ML ONE (20:03)
[2020-09-13] MEDS ORDERED: ONDANSETRON 4 MG/2 ML VIAL ONE (20:03)
[2020-09-13] MEDS ORDERED: MORPHINE 2 MG/ML SYR ONE ×2 (20:03→21:59)
[2020-09-13 20:28] LABS: Absolute Lymphocytes (CBC) 1.7 K/uL (0.7-4.9); Lymphocytes % 21.1 % (15.3-44.8); MPV 8.8 fL (7.6-11.3); Protime INR 0.87; RBC Red Blood Cell Count 4.28 M/uL (4.33-5.43)
[2020-09-13 20:32] LABS: ALT/SGPT 22 U/L (12-78); AST/SGOT 15 U/L (15-37); Albumin 3.6 g/dL (3.4-5.0); Alkaline Phosphatase 113 U/L (45-117); BUN Blood Urea Nitrogen 7 mg/dL (7-18); Bicarbonate 31 mmol/L (21-32); Bilirubin Direct < 0.1 mg/dL (0-0.2); Bilirubin Total 0.3 mg/dL (0.2-1.0); Glucose Level 99 mg/dL (74-106); Magnesium 2.1 mg/dL (1.8-2.4); NT PRO-BNP 473 pg/mL (<125); Potassium 3.9 mmol/L (3.5-5.1); Sodium Level 132 mmol/L (136-145); Troponin (Emerg Dept Use Only) < 0.02 ng/mL (0.0-0.045)
[2020-09-13 20:35] LABS: C-Reactive Protein < 2.90 mg/L (<3.00)
--- NOTE | 2020-09-13 20:52 | RAD REPORT ---
EXAM DESCRIPTION: [place] Single View09/13/2020 8:45 pm CLINICAL HISTORY: Cough COMPARISON: November 2019 FINDINGS: The lungs are markedly hyperaerated. The lungs appear clear of acute infiltrate. The heart is normal size IMPRESSION: COPD without visualization acute abnormality
--- NOTE | 2020-09-13 21:52 | EDPHYS ---
Physician Documentation [facility] Name: Edi Cordero Age: 60 yrs Sex: Male : 1960 Arrival Date: 09/13/2020 Time: 17:01 Bed 27 Private MD: ED Physician David Morris HPI: 09/13 19:45 This 60 yrs old Male presents to ER via Wheelchair with complaints of kimberly Headache, Loss Of Vision. 19:45 The patient complains of pain to the top of head, forehead, left frontal area, left kimberly side of the back of head, left occipital area, left base of the skull, right frontal area, right side of the back of head, right occipital area and right base of the skull. The patient describes the headache as constant. Onset: The symptoms/episode began/occurred 3 day(s) ago. Associated signs and symptoms: Pertinent positives: blurred vision. Severity of symptoms: At its worst the pain was mild, moderate, in the emergency department the pain is unchanged. Headache History: Denies prior headaches. The symptoms are alleviated by nothing. the symptoms are aggravated by nothing. The patient has not experienced similar symptoms in the past. Historical: - Allergies: 17:14 No Known Allergies; ca1 - PMHx: 17:14 Hypertension; ca1 - PSHx: 17:14 None; ca1 - Immunization history:: Adult Immunizations up to date, Pneumococcal vaccine is not up to date, Flu vaccine is not up to date. - Social history:: Smoking status: Patient reports the use of cigarette tobacco products, smokes one-half pack cigarettes per day. - Family history:: not pertinent. ROS: 19:45 Constitutional: Negative for fever, chills, and weight loss, ENT: Negative for injury, kimberly pain, and discharge, Neck: Negative for injury, pain, and swelling, Cardiovascular: Negative for chest pain, palpitations, and edema, Respiratory: Negative for shortness of breath, cough, wheezing, and pleuritic chest pain, Abdomen/GI: Negative for abdominal pain, nausea, vomiting, diarrhea, and constipation, Back: Negative for injury and pain, : Negative for injury, bleeding, discharge, and swelling, MS/Extremity: Negative for injury and deformity, Skin: Negative for injury, rash, and discoloration, Psych: Negative for depression, anxiety, suicide ideation, homicidal ideation, and hallucinations, Allergy/Immunology: Negative for hives, rash, and allergies, Endocrine: Negative for neck swelling, polydipsia, polyuria, polyphagia, and marked weight changes, Hematologic/Lymphatic: Negative for swollen nodes, abnormal bleeding, and unusual bruising. 19:45 Eyes: Positive for matting, pain, visual disturbance, of the outer aspect of conjuctiva of left eye, iris of left eye and inner aspect of conjunctiva of left eye. 19:45 Neuro: Positive for headache, of the top of head, forehead, right sikhism, left sikhism, left frontal area, left side of the back of head, left occipital area, left base of the skull, right frontal area, right side of the back of head, right occipital area and right base of the skull. Exam: 19:45 Constitutional: This is a well developed, well nourished patient who is awake, alert, kimberly and in no acute distress. Head/Face: Normocephalic, atraumatic. ENT: Nares patent. No nasal discharge, no septal abnormalities noted. Tympanic membranes are normal and external auditory canals are clear. Oropharynx with no redness, swelling, or masses, exudates, or evidence of obstruction, uvula midline. Mucous membranes moist. Neck: Trachea midline, no thyromegaly or masses palpated, and no cervical lymphadenopathy. Supple, full range of motion without nuchal rigidity, or vertebral point tenderness. No Meningismus. Chest/axilla: Normal chest wall appearance and motion. Nontender with no deformity. No lesions are appreciated. Cardiovascular: Regular rate and rhythm with a normal S1 and S2. No gallops, murmurs, or rubs. Normal PMI, no JVD. No pulse deficits. Respiratory: Lungs have equal breath sounds bilaterally, clear to auscultation and percussion. No rales, rhonchi or wheezes noted. No increased work of breathing, no retractions or nasal flaring. Abdomen/GI: Soft, non-tender, with normal bowel sounds. No distension or tympany. No guarding or rebound. No evidence of tenderness throughout. Back: No spinal tenderness. No costovertebral tenderness. Full range of motion. Male : Normal genitalia with no discharge or lesions. Skin: Warm, dry with normal turgor. Normal color with no rashes, no lesions, and no evidence of cellulitis. MS/ Extremity: Pulses equal, no cyanosis. Neurovascular intact. Full, normal range of motion. Neuro: Awake and alert, GCS 15, oriented to person, place, time, and situation. Cranial nerves II-XII grossly intact. Motor strength 5/5 in all extremities. Sensory grossly intact. Cerebellar exam normal. Normal gait. Psych: Awake, alert, with orientation to person, place and time. Behavior, mood, and affect are within normal limits. 19:45 Eyes: Periorbital structures: appear normal, no acute changes, Pupils: no acute changes, Extraocular movements: intact throughout, Conjunctiva: injected. 21:57 ECG was reviewed by the Attending Physician. [facility] Vital Signs: 17:09 BP 163 / 91; Pulse 61; Resp 17 S; Temp 97(TE); Pulse Ox 100% on R/A; Weight 46.27 kg ca1 (R); Height 5 ft. 11 in. (180.34 cm) (R); Pain 10/10; 20:11 BP 155 / 80; Pulse 69; Resp 19; Pulse Ox 99% ; rr5 21:10 BP 157 / 89; Pulse 62; Resp 16; Pulse Ox 99% ; rr5 22:05 BP 151 / 75; Pulse 68; Resp 17; Pulse Ox 98% ; rr5 17:09 Body Mass Index 14.23 (46.27 kg, 180.34 cm) ca1 [place] Coma Score: 19:48 Eye Response: spontaneous(4). Verbal Response: oriented(5). Motor Response: obeys [facility] commands(6). Total: 15. MDM: 19:21 Patient medically screened. [facility] 19:48 Differential diagnosis: cluster headache, cerebral vascular accident, herpes zoster, kimberly hypoglycemia, hyponatremia, migraine, subarachnoid bleed, subdural hematoma, temporal arteritis, tension headache. Data reviewed: vital signs, nurses notes, lab test result(s), EKG, radiologic studies, CT scan, plain films. Data interpreted: recreation professor: rate is 61 beats/min, rhythm is regular, Pulse oximetry: on room air is 100 %. Test interpretation: by ED physician or midlevel provider: ECG, plain radiologic studies. Counseling: I had a detailed discussion with the patient and/or guardian regarding: the historical points, exam findings, and any diagnostic results supporting the discharge/admit diagnosis, the presence of at least one elevated blood pressure reading (>120/80) during this emergency department visit, lab results, radiology results. 09/13 19:45 Order name: Basic Metabolic Panel [facility] 09/13 19:45 Order name: CBC with Diff [facility] 09/13 19:45 Order name: LFT's [facility] 09/13 19:45 Order name: Magnesium [facility] 09/13 19:45 Order name: NT PRO-BNP [facility] 09/13 19:45 Order name: PT-INR [facility] 09/13 19:45 Order name: Troponin (emerg Dept Use Only) [facility] 09/13 19:45 Order name: Sed Rate [facility] 09/13 19:45 Order name: CRP [facility] 09/13 20:29 Order name: CBC with Automated Diff; Complete Time: 21:11 EDMS 09/13 20:29 Order name: Protime (+INR); Complete Time: 21:11 EDMS 09/13 20:36 Order name: Basic Metabolic Panel; Complete Time: 21:11 EDMS 09/13 20:36 Order name: Liver (Hepatic) Function; Complete Time: 21:11 EDMS 09/13 20:36 Order name: Troponin (Emerg Dept Use Only); Complete Time: 21:11 EDMS 09/13 17:26 Order name: CT Head Brain wo Cont snw 09/13 18:02 Order name: CT; Complete Time: 21:11 EDMS 09/13 19:45 Order name: XRAY Chest (1 view) [facility] 09/13 19:45 Order name: EKG; Complete Time: 19:46 [facility] 09/13 20:36 Order name: NT PRO-BNP; Complete Time: 21:11 EDMS 09/13 20:36 Order name: C-Reactive Protein; Complete Time: 21:11 EDMS 09/13 20:36 Order name: Magnesium; Complete Time: 21:11 EDMS 09/13 20:56 Order name: RAD; Complete Time: 21:11 EDMS 09/13 20:59 Order name: Sedimentation Rate, W[place]gren; Complete Time: 21:11 EDMS 09/13 19:42 Order name: Eye Tray; Complete Time: 19:42 rr5 09/13 19:42 Order name: Fluoresene Opth strip; Complete Time: 21:40 rr5 09/13 19:45 Order name: Cardiac monitoring; Complete Time: 20:10 [facility] 09/13 19:45 Order name: EKG - Nurse/Tech; Complete Time: 20:10 [facility] 09/13 19:45 Order name: IV Saline Lock; Complete Time: 20:10 [facility] 09/13 19:45 Order name: Labs collected and sent; Complete Time: 20:10 [facility] 09/13 19:45 Order name: O2 Per Protocol; Complete Time: 20:10 [facility] 09/13 19:45 Order name: O2 Sat Monitoring; Complete Time: 20:10 [facility] EC:57 Rate is 58 beats/min. Rhythm is regular. QRS [place] is Normal. [place] interval is normal. QRS kimberly interval is normal. QT interval is normal. No Q waves. T waves are Normal. No ST changes noted. Clinical impression: Normal ECG and No evidence of ischemia. Interpreted by me. Reviewed by me. Administered Medications: 20:00 Drug: NS 0.9% 500 ml Route: IV; Rate: bolus; Site: left forearm; rr5 21:00 Follow up: Response: No adverse reaction; IV Status: Completed infusion; IV Intake: rr5 500ml 20:00 Drug: Zofran (Ondansetron) 4 mg Route: IVP; Site: left forearm; rr5 21:00 Follow up: Response: No adverse reaction rr5 20:02 Drug: morphine 2 mg {Note: rass 0.} Route: IVP; Site: left forearm; rr5 21:48 Follow up: Response: Pain is unchanged, physician notified rr5 21:30 Drug: Tetracaine Drops 0.5 % 1 drops {Note: given by dr. morris.} Route: Ophthalmic; rr5 Site: left eye; 21:48 Drug: Aspirin 162 mg Route: PO; rr5 22:03 Follow up: Response: No adverse reaction rr5 21:49 Drug: morphine 2 mg {Note: rass 0.} Route: IVP; Site: left forearm; rr5 22:09 Follow up: Response: No adverse reaction; RASS: Alert and Calm (0) rr5 22:03 Not Given (not available): Timolol 0.25 % 2 drops Ophthalmic once rr5 22:14 Drug: Dorzolamide 2 % 1 drops Route: Ophthalmic; Site: left eye; rr5 22:17 Follow up: Response: Medication administered at discharge. rr5 Disposition: 09/13/20 21:51 Discharged to Home. Impression: Glaucoma - left eye, Ocular pain, left eye, Unqualified visual loss, left eye, normal vision right eye, Chronic obstructive pulmonary disease, unspecified. - Condition is Fair. - Discharge Instructions: Chronic Bronchitis, Chronic Obstructive Pulmonary Disease, Glaucoma, Tobacco Use Disorder, Glaucoma, [id number]. - Medication Reconciliation Form, Thank You Letter, Antibiotic Education, Prescription Opioid Use form. - Follow up: Pamela Peres MD; When: Upon discharge from the Emergency Department; Reason: Recheck today's complaints, Re-evaluation by your physician. - Problem is new. - Symptoms are unchanged. Signatures: Dispatcher [employer] EDMS David Morris MD MD cha Roque, Raymond RN RN rr5 Loreta To RN RN ca1 Corrections: (The following items were deleted from the chart) 22:17 21:51 09/13/2020 21:51 Discharged to Home. Impression: Glaucoma - left eye; Ocular rr5 pain, left eye; Unqualified visual loss, left eye, normal vision right eye; Chronic obstructive pulmonary disease, unspecified. Condition is Fair. Forms are Medication Reconciliation Form, Thank You Letter, Antibiotic Education, Prescription Opioid Use. Follow up: Pamela Peres; When: Upon discharge from the Emergency Department; Reason: Recheck today's complaints, Re-evaluation by your physician. Problem is new. Symptoms are unchanged. kimberly
--- NOTE | 2020-09-13 21:52 | ER ---
Nurse's Notes [facility] Name: Edi Cordero Age: 60 yrs Sex: Male : 1960 Arrival Date: 09/13/2020 Time: 17:01 Bed 27 Private MD: Diagnosis: Glaucoma-left eye;Ocular pain, left eye;Unqualified visual loss, left eye, normal vision right eye;Chronic obstructive pulmonary disease, unspecified Presentation: 09/13 17:09 Chief complaint: Sister: 3 - 4 days ago, his L side of the face was swollen. Eye was ca1 swollen shot. It hasn't gone away and now he says his L eye is blurry. He is having headache too, whole head and down his neck hurts too. Denies fever. L eye appears red. Reports burning pain on L side of face. Coronavirus screen: Client denies travel out of the [place] in the last 14 days. headache, Client presents with at least one sign or symptom that may indicate coronavirus-19. Standard/surgical mask placed on the client. Provider contacted for isolation considerations. Ebola Screen: Patient negative for fever greater than or equal to 101.5 degrees Fahrenheit, and additional compatible Ebola Virus Disease symptoms Patient denies exposure to infectious person. Patient denies travel to an Ebola-affected area in the 21 days before illness onset. No symptoms or risks identified at this time. Initial Sepsis Screen: Does the patient meet any 2 criteria? No. Patient's initial sepsis screen is negative. Does the patient have a suspected source of infection? No. Patient's initial sepsis screen is negative. Risk Assessment: Do you want to hurt yourself or someone else? Patient reports no desire to harm self or others. Onset of symptoms was September 13, 2020. 17:09 Method Of Arrival: Wheelchair ca1 17:09 Acuity: VALDEMAR 3 ca1 Triage Assessment: 19:22 Headache History: Denies prior headaches. General: Appears in no apparent distress. rr5 Behavior is calm, cooperative. Pain: Also complains of no other associated symptoms. Historical: - Allergies: 17:14 No Known Allergies; ca1 - PMHx: 17:14 Hypertension; ca1 - PSHx: 17:14 None; ca1 - Immunization history:: Adult Immunizations up to date, Pneumococcal vaccine is not up to date, Flu vaccine is not up to date. - Social history:: Smoking status: Patient reports the use of cigarette tobacco products, smokes one-half pack cigarettes per day. - Family history:: not pertinent. Screenin:24 Abuse screen: Denies threats or abuse. Denies injuries from another. Nutritional rr5 screening: No deficits noted. Tuberculosis screening: No symptoms or risk factors identified. Fall Risk None identified. Total Mckeon Fall Scale indicates No Risk (0-24 pts). Assessment: 19:22 General: Appears in no apparent distress. uncomfortable, Behavior is calm, cooperative. rr5 Pain: Complains of pain in left side of the face Pain currently is 10 out of 10 on a pain scale. Quality of pain is described as aching, Pain began gradually, Is intermittent. Neuro: Level of Consciousness is awake, alert, obeys commands, Oriented to person, place, time, Reports headache left eye loss of vision. Cardiovascular: Capillary refill < 3 seconds Patient's skin is warm and dry. Respiratory: Airway is patent Respiratory effort is even, unlabored, Respiratory pattern is regular, symmetrical. GI: No signs and/or symptoms were reported involving the gastrointestinal system. : No signs and/or symptoms were reported regarding the genitourinary system. EENT: Sclera/Cornea are reddened in outer aspect of conjuctiva of left eye and inner aspect of conjunctiva of left eye. Derm: Skin is intact, is healthy with good turgor, Skin temperature is warm. Musculoskeletal: Circulation, motion, and sensation intact. Capillary refill < 3 seconds. 20:45 Reassessment: Patient appears in no apparent distress at this time. Patient is alert, rr5 oriented x 3, equal unlabored respirations, skin warm/dry/pink. Patient states symptoms have improved. 21:03 Reassessment: Patient appears in no apparent distress at this time. resting eyes closed rr5 breathing spontaneously at room air. 22:07 Reassessment: Patient appears in no apparent distress at this time. Patient is alert, rr5 oriented x 3, equal unlabored respirations, skin warm/dry/pink. discharge instruction given and explained will go directly to dr. pamela chan, verbalized understanding. Vital Signs: 17:09 BP 163 / 91; Pulse 61; Resp 17 S; Temp 97(TE); Pulse Ox 100% on R/A; Weight 46.27 kg ca1 (R); Height 5 ft. 11 in. (180.34 cm) (R); Pain 10/10; 20:11 BP 155 / 80; Pulse 69; Resp 19; Pulse Ox 99% ; rr5 21:10 BP 157 / 89; Pulse 62; Resp 16; Pulse Ox 99% ; rr5 22:05 BP 151 / 75; Pulse 68; Resp 17; Pulse Ox 98% ; rr5 17:09 Body Mass Index 14.23 (46.27 kg, 180.34 cm) ca1 [place] Coma Score: 19:48 Eye Response: spontaneous(4). Verbal Response: oriented(5). Motor Response: obeys kimberly commands(6). Total: 15. ED Course: 17:01 Patient arrived in ED. as 17:13 Triage completed. ca1 17:14 Arm band placed on right wrist. ca1 19:10 Albin Cruz RN is Primary Nurse. rr5 19:14 Tani Salmon MD is Attending Physician. pkl 19:21 David Morris MD is Attending Physician. kimberly 19:24 Patient has correct armband on for positive identification. Bed in low position. Call rr5 light in reach. Side rails up X2. Pulse ox on. NIBP on. 20:00 Inserted saline lock: 20 gauge in left forearm, using aseptic technique. rr5 20:05 EKG done, by ED staff, reviewed by David Morris MD. rr5 20:10 monitor car operator on. rr5 21:32 Assist provider with eye exam of left eye. using fluorescein stain, Performed by David Morris MD Patient tolerated well. 21:50 Pamela Peres MD is Referral Physician. kimberly 22:15 IV discontinued, intact, bleeding controlled, No redness/swelling at site. Pressure rr5 dressing applied. Administered Medications: 20:00 Drug: NS 0.9% 500 ml Route: IV; Rate: bolus; Site: left forearm; rr5 21:00 Follow up: Response: No adverse reaction; IV Status: Completed infusion; IV Intake: rr5 500ml 20:00 Drug: Zofran (Ondansetron) 4 mg Route: IVP; Site: left forearm; rr5 21:00 Follow up: Response: No adverse reaction rr5 20:02 Drug: morphine 2 mg {Note: rass 0.} Route: IVP; Site: left forearm; rr5 21:48 Follow up: Response: Pain is unchanged, physician notified rr5 21:30 Drug: Tetracaine Drops 0.5 % 1 drops {Note: given by dr. morris.} Route: Ophthalmic; rr5 Site: left eye; 21:48 Drug: Aspirin 162 mg Route: PO; rr5 22:03 Follow up: Response: No adverse reaction rr5 21:49 Drug: morphine 2 mg {Note: rass 0.} Route: IVP; Site: left forearm; rr5 22:09 Follow up: Response: No adverse reaction; RASS: Alert and Calm (0) rr5 22:03 Not Given (not available): Timolol 0.25 % 2 drops Ophthalmic once rr5 22:14 Drug: Dorzolamide 2 % 1 drops Route: Ophthalmic; Site: left eye; rr5 22:17 Follow up: Response: Medication administered at discharge. rr5 Intake: 21:00 IV: 500ml; Total: 500ml. rr5 Outcome: 21:51 Discharge ordered by MD. harris 22:16 Discharged to go directly to ([facility] rr5 22:16 Condition: stable 22:16 Discharge instructions given to patient, family, Instructed on discharge instructions, follow up and referral plans. Demonstrated understanding of instructions, follow-up care. 22:17 Patient left the ED. rr5 Signatures: David Morris MD MD cha Lam, Pin, MD MD pkl Martinez, Amelia as Roque, Raymond, RN RN rr5 Loreta To RN RN ca1
[2020-09-13] MEDS ORDERED: ASPIRIN 81 MG CHEWABLE TABLET ONE (21:56)
[2020-09-13] MEDS ORDERED: DORZOLAMIDE 2% OPTH (10 ML) ONE (22:23)
--- NOTE | 2020-09-14 11:55 | EKG ---
Test Date: 2020-09-13 Test Time: 19:58:49 Director Of Religious Activities: RR MEASUREMENT RESULTS: Intervals: Rate: 58 TX: 160 QRSD: 96 QT: 426 QTc: 418 [place]: P: 82 TX: 160 QRS: 86 T: 77 INTERPRETIVE STATEMENTS: Sinus bradycardia with premature atrial complexes Possible Lateral infarct, age undetermined Abnormal ECG Compared to ECG 11/23/2019 12:03:38 Atrial premature complex(es) now present Myocardial infarct finding now present Sinus rhythm no longer present Atrial abnormality no longer present Electronically Signed On 09-14-20 11:52:25 FIELD ADMINISTRATOR by Francis Bustos
[2020-09-17 02:29] VITALS: TEMP 97
[2020-09-17 02:32] VITALS: BP 151/75; O2SAT 98
== END 2020-09-13 22:17 | disposition home or self-care (01) ==
LOC: ER 16:59
DX: H40.9 Unspecified glaucoma (principal); H54.62 Unqualified visual loss, left eye, normal vision right eye; J44.9 Chronic obstructive pulmonary disease, unspecified; I10 Essential (primary) hypertension; F17.210 Nicotine dependence, cigarettes, uncomplicated
CPT/HCPCS: 36415; 70450; 71045; 80048; 80076; 83735; 83880; 84484; 85025; 85610; 85652; 86140; 93005; 96361; 96374; 96375; 99284; J2270; J2405; J7040

== ENCOUNTER 2021-04-09 21:30 | Emergency (ER) | payer SELFPAY ==
--- OUTSIDE RECORDS SUMMARY | 2021-04-09 21:49 | XMS REPORT | Continuity of Care Document ---
:1960 Author Organization [facility] t Address [address] [place] [address] Care Team Providers Name Role Phone Pcp Primary Care Physician Unavailable NAY MCKEON Attending Clinician Unavailable Moe KOVACS Attending Clinician Fredo KOVACS Attending Clinician Sofiya MOFFETT Admitting Clinician Unavailable Fredo KOVACS Admitting Clinician Problems Condition Condition Condition Status Onset Resolution Last Treating Co mments Source Name Details Category Date Date Treatment Clinician Date Dilation Dilation Disease Active [facility] 2[facility]16 [place] [facility] - tract tract [facility]00: [facility] Allergies, Adverse Reactions, Alerts This patient has no known allergies or adverse reactions. Social History Social Habit Start Date Stop Date Quantity Comments Source Sex Assigned At [facility] Cigarettes smoked 2019-11-26 2019-11-26 [facility] - current (pack per 00:00:00 00:00:00 [facility] day) - Reported Cigarette pack-years 2019-11-26 2019-11-26 [facility] - 00:00:00 00:00:00 [facility] Tobacco use and 2019-11-26 2019-11-26 Current user [facility] - exposure 00:00:00 00:00:00 [facility] Smoking Status Start Date Stop Date Source Current every day smoker 2019-11-26 00:00:00 [facility] Medications Ordered Filled Start Stop Current Ordering Indication Dosage Frequency Signature Comments Components Source Medication Medication Date Date Medication? Clinician (SIG) Name Name multivitami 2020- No 1{tbl} QD Take [address] n 2-28 11- tablet by [facility] (THERAGRAN) 00:00: 23:59 mouth Medi farzana tablet 00 :00 daily. Center thiamine No 100mg QD Take 1 [facility] -28 11- tablet [facility] - tablet 00:00: 23:59 (100 mg Medical 00 :00 total) by Center mouth daily. hydroCHLORO No 12.5mg QD Take [address] thiazide -27 11- capsule [facility] - (MICROZIDE) 00:00: 23:59 (12.5 mg M edical 12.5 mg 00 :00 total) by Center capsule mouth daily. lisinopril No 20mg QD Take [address] [facility] [address] (PRINIVIL,Z 11-27- tablet (20 L ukes - ESTRIL) 20 00:00: 23:59 mg total) M edical MG tablet 00 :00 by mouth Center daily. folic acid No 1mg QD Take [address] [facility] [address] (FOLVITE) 1 -27 11- tablet (1 [place] kes - MG tablet 00:00: 23:59 mg total) Me dical 00 :00 by mouth Center daily. Procedures This patient has no known procedures. Plan of Care Planned Activity Planned Date Details Comments Source Future Scheduled 2022-06-[address] [facility] - Test 00:00:00 (procedure) [code = [facility] [id number]] Future Scheduled 2020-06-08 INFLUENZA VACCINE (#1) C [...] Medica l Center colon (procedure) [code = 134562850] Encounters Start End Encounter Admission Attending Care Care Encounter Source Date/Time Date/Time Type Type Clinicians Facility Department ID 2019-06-21 2019-06-23 Emergency Lele Rosa [facility] [id number] 22:40:21 14:49:00 [place] Yoo [id number] [place] [id number] [place] [id number] Results Test Description Test Time Test Comments Results Result [facility] e Comments TISSUE EXAM 2019-11-28 Surgical Pathology 15:53:00 Report Case: [id number] Authorizing Provider: Jeferson Weber Collected: 11/26/2019 Mode6 MD Jordyn Ordering Location: [address] Received: 11/27/2019 0758 Service Pathologist: Manuel Goodwin MD Specimen: Ampulla, AMPULLARY BIOPSY A. AMPULLA, BIOPSY: - BENIGN AMPULLARY/ DUODENAL MUCOSA WITH MILD CHRONIC INFLAMMATION - SMALL FOCUS OF SCAR TISSUE (SEE COMMENT) Signing Pathologist Direct Phone Line: [phone] ally signed by Manuel Goodwin MD on 11/28/2019 at 3:53 PMPer endoscopy note dated 11/27/19, ampulla was noted to be abnormal with small fibrotic orifice.Deeper levels are examined. There is scar tissue, however no evidence of malignancy is seen.[id number] and postop diagnosis: abnormal imagingAmpullary biopsyReceived in formalin labeled with the patient's name, accession number and "ampulla" are three irregular ballard soft tissue fragments each measuring 0.1 cm which are submitted in toto in A1. CG/pl Performed. RAD, CHEST, 2 2019-11-26 Reason for FINAL REPORT PATIENT VIEWS 21:20:00 exam:->nodule ID: [id number] Exam: possible Chest x-ray, PA and nipple shadow lateral views Clinical on previous History: Lung nodule; chest xray, possible nipple shadow repeat cxr on prior chest with nipple radiograph. markers Comparison: Chest radiograph 11/25/2019. Technique: Frontal and [...] lung nodule.No focal pulmonary consolidation. Signed: Aurelio Simonsort Verified Date/Time: 11/26/2019 21:20:17 , ERCP 2019-11-26 Reason for FINAL REPORT PATIENT 15:10:00 exam:->abnorma ID: [id number] A l imagery fluoroscopic unit was utilized for a procedure performed in the operating room. No interpretation was requested. Please refer to the operative report regarding findings. Please refer to PACS for patient radiation dose information. Signed: Sue Harley Verified Date/Time: 11/26/2019 15:10:45 Reading Location: [facility] Radiology Reading Room PHORUS 2019-11-26 06:08:00 Test Item Value Reference Range Interpretation Comme nts PHOSPHORUS (BEAKER) (test code = 604) 3.5 mg/dL 2.3-4.7 Platform Loader ID - KENNY [id number] 06:08:00 Test Item Value Reference Range Interpretation Comments MAGNESIUM (BEAKER) (test code = 1.7 mg/dL 1.6-2.6 627) Platform Loader ID - KENNY MBASIC METABOLIC [id number] 06:08:00 Test Item Value Reference Range Interpretation [...] S NOT APPLICABLE FOR DIALYSIS PATIEN TS. Platform Loader ID - KENNY EPATIC FUNCTION [id number] 06:08:00 Test Item Value Reference Range Interpretation [...] (test code = 12 U/L 6-55 347) Platform Loader ID - KENNY MRAD, CHEST, 1 VIEW, NON [id number] 15:22:00Reason for exam:->smoker, weight lossShould this be [...] nipple markers is recommended. Signed: Boston Valdez MDReport Verified Date/Time: 15:22:45 Reading Location: [facility] Radiology Reading Room MAGNESIUM 2019-11-25 05:28:00 Test Item Value Reference Range Interpretation Comments MAGNESIUM (BEAKER) 1.8 mg/dL 1.6-2.6 Specimen slightly (test code = 627) hemolyzed Platform Loader ID - KENNY [id number] 05:28:00 Test Item Value Reference Range Interpretation Comments PHOSPHORUS (BEAKER) 3.6 mg/dL 2.3-4.7 Specimen slightly (test code = 604) hemolyzed Platform Loader ID - KENNY MBASIC METABOLIC [id number] 05:28:00 Test Item Value Reference Range Interpretation [...] S NOT APPLICABLE FOR DIALYSIS PATIEN TS. Platform Loader ID - KENNY MHEPATIC FUNCTION [id number] 05:28:00 Test Item Value Reference Range Interpretation [...] Specimen slightly (test code = 347) hemolyzed Platform Loader ID - KENNY MMR, ABDOMEN, [id number] 18:08:00Pancreas protocol AND MRCP Anesthesia:->None Deos the [...] Valdez MDReport Verified Date/Time:11/24/2019 18:08:51 Reading Location: [facility] C013Y CT Body Reading Room [id number] 07:18:00 Test Item Value Reference Range Interpretation Comments PHOSPHORUS (BEAKER) (test code = 3.3 mg/dL 2.3-4.7 604) Platform Loader ID - [id number] 07:18:00 Test Item Value Reference Range Interpretation Comments MAGNESIUM (BEAKER) (test code = 1.9 mg/dL 1.6-2.6 627) Platform Loader ID - LABASIC METABOLIC [id number] 07:18:00 Test Item Value Reference Range Interpretation [...] S NOT APPLICABLE FOR DIALYSIS PATIEN TS. Platform Loader ID - LAHEPATIC FUNCTION [id number] 07:18:00 Test Item Value Reference Range Interpretation [...] (test code = 14 U/L 6-55 347) Platform Loader ID - LACBC W/PLT COUNT & AUTO [id number] 05:25:00 Test Item Value Reference Range Interpretation [...] (BEAKER) (test code = 2801) HEPATIC FUNCTION [id number] 18:58:00 Test Item Value Reference Range Interpretation [...] (test code = 16 U/L 6-55 347) Platform Loader ID - KENNY MBASIC METABOLIC [id number] 18:58:00 Test Item Value Reference Range Interpretation [...] S NOT APPLICABLE FOR DIALYSIS PATIEN TS. Platform Loader ID - KENNY MCBC W/PLT COUNT & AUTO [id number] 18:20:00 Test Item Value Reference Range Interpretation [...]
[2021-04-09 22:09] LABS: Basophils % 1.3 % (0-1.3); Hematocrit 39.5 % (39.6-49.0); Lymphocytes % 29.3 % (15.3-44.8); MPV 8.4 fL (7.6-11.3); RBC Red Blood Cell Count 4.04 M/uL (4.33-5.43)
[2021-04-09 22:10] LABS: Protime INR 0.91
[2021-04-09 22:33] LABS: ALT/SGPT 19 U/L (12-78); AST/SGOT 15 U/L (15-37); Albumin 3.8 g/dL (3.4-5.0); Alkaline Phosphatase 75 U/L (45-117); BUN Blood Urea Nitrogen 5 mg/dL (7-18); Bicarbonate 30 mmol/L (21-32); Bilirubin Direct < 0.1 mg/dL (0-0.2); Bilirubin Total 0.2 mg/dL (0.2-1.0); Glucose Level 79 mg/dL (74-106); Magnesium 2.2 mg/dL (1.8-2.4); NT PRO-BNP 314 pg/mL (<125); Potassium 3.9 mmol/L (3.5-5.1); Protein, Total 7.2 g/dL (6.4-8.2); Sodium Level 135 mmol/L (136-145); Troponin (Emerg Dept Use Only) < 0.02 ng/mL (0.0-0.045)
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
[2021-04-10] MEDS ORDERED: METHYLPREDNISOLONE 125 MG INJ ONE (01:05)
[2021-04-10] MEDS ORDERED: ALBUTEROL 2.5 MG/3 ML NEB SOL ONE (01:06)
[2021-04-10] MEDS ORDERED: HYDROCODONE/CHLORPHEN 5 ML/OSYR ONE (01:06)
[2021-04-10] MEDS ORDERED: IPRATROPIUM BROM 0.5MG/2.5ML ONE (01:06)
[2021-04-10 01:46] VITALS: TEMP 98
[2021-04-10 01:48] VITALS: O2SAT 96
[2021-04-10 01:50] VITALS: BP 155/87
--- NOTE | 2021-04-10 09:18 | RAD REPORT ---
EXAM DESCRIPTION: RAD - Chest Single View - 04/09/2021 10:32 pm CLINICAL HISTORY: CHEST PAIN COMPARISON: Portable September 2020 TECHNIQUE: AP portable chest image was obtained 04/09/2021 10:32 pm . FINDINGS: Fibrotic and hyperexpanded lung berkowitz again noted. Diaphragm is flattened. No new mass or consolidation identifiable in the lung parenchyma. No hilar mass lesion. Granulomatous mediastinal c alcification again noted. Heart and vasculature are normal. No measurable pleural effusion and no pne umothorax. No acute bony abnormality seen. No acute aortic findings suspected. IMPRESSION: Prominent COPD pattern not significantly different from September 2020. No acute findings seen.
--- NOTE | 2021-04-10 13:46 | EKG ---
Test Date: 2021-04-09 Test Time: 21:40:31 Air Gun Operator: TOPHER MEASUREMENT RESULTS: Intervals: Rate: 76 NH: 166 QRSD: 86 QT: 392 QTc: 441 [place]: P: 85 NH: 166 QRS: 87 T: 82 INTERPRETIVE STATEMENTS: Normal sinus rhythm with sinus arrhythmia Possible Anterior infarct, age undetermined Abnormal ECG Compared to ECG 09/13/2020 19:58:49 Sinus bradycardia no longer present Atrial premature complex(es) no longer present Myocardial infarct finding still present Electronically Signed On 04-10-21 13:45:29 CDT by Francis Bustos
== END 2021-04-10 01:38 | disposition home or self-care (01) ==
LOC: ER 21:30
DX: J20.9 Acute bronchitis, unspecified (principal); F17.210 Nicotine dependence, cigarettes, uncomplicated; I10 Essential (primary) hypertension
CPT/HCPCS: 36415; 71045; 80048; 80076; 83735; 83880; 84484; 85025; 85610; 93005; 96374; 99285; J2930

== ENCOUNTER 2021-12-08 17:00 | Emergency (ER) | payer SELFPAY ==
--- OUTSIDE RECORDS SUMMARY | 2021-12-08 17:03 | XMS REPORT | Continuity of Care Document ---
:1960 Author Organization [facility] t Address [address] [place] [address] Care Team Providers Name Role Phone NAY MCKEON Attending Clinician Unavailable Moe KOVACS Attending Clinician Fredo KOVACS Attending Clinician Sofiya MOFFETT Admitting Clinician Unavailable Fredo KOVACS Admitting Clinician Payers Payer Name Policy Type Policy Number Effective Date Expiration Date S ource Problems Condition Condition Condition Status Onset Resolution Last Treating Co mments Source Name Details Category Date Date Treatment Clinician Date Leg pain Leg pain Disease Active 2019-0 Unive rs 9-15 ity of 00:00: [address] Hypertensi Hypertensi Disease Active 2019- U nivers ve urgency ve urgency 9-15 it y of 00:: [address] Other Other Disease Active 2019-0 Univers chest pain chest pain 9-15 it y of 00:00: [address] Cigarette Cigarette Disease Active 2019 Uni vers smoker smoker 9-15 ity of 00:00: [address] Essential Essential Disease Active 2019- Uni vers hypertensi hypertensi 9-15 it y of on on 00:00: [address] History of History of Disease Active 2019-0 U nivers arterial arterial 9-15 ity of ischemic ischemic 00:00: [place] stroke stroke 00 [facility] Family Family Disease Active 2019-0 Univers history of history of 9-15 it y of early CAD [facility] COPD COPD Disease Active 2019-0 Univers exacerbati exacerbati 9-14 it y of on on 00:00: [address] Allergies, Adverse Reactions, Alerts This patient has no known allergies or adverse reactions. Social History Social Habit Start Date Stop Date Quantity Comments Source Sex Assigned At [facility] Smoking Status Start Date Stop Date Source Current every day smoker 2019-06-23 00:00:00 [facility] Medications Ordered Filled Start Stop Current Ordering Indication Dosage Frequency Signature Comments Components Source Medication Medication Date Date Medication? Clinician (SIG) Name Name nicotine 21 2019- No [id number] 1{patch Apply 1 Univers mg/24 hr 06-24 } Patch to ity of patch 00:00: 04:59 area(s) [place] 00 :00 every 24 Medical ([facility] ur) hours for 30 days. tc 2019- No 40.2mCi 40.2 Univers 99m-tetrofo 06-23 millicurie i ty of smin 14:19: 14:19 , [place] ([facility]) 00 :00 Intravenou Medi farzana injection s, ONCE, 1 Bran ch 40.2 dose, Mon millicurie 06/23/19 at 0930, Routine Regadenoson 2019- No .4mg 0.4 mg, IV Univers (LEXISCAN) 06-23 Push, ity of injection 14:14: 14:23 [place]CE, [place] 0.4 mg 00 :00 dose, [facility] Medical 06/23/19 at Branch 0915, Routine
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 medication : SIMONE COREY tc 2019- No 15.7mCi 15.7 Univers 99m-tetrofo 06-23 millicurie i ty of smin 13:00: 12:54 , [place] ([facility]) 00 :00 Intravenou Medi farzana injection s, ONCE, 1 Bran ch 15.7 dose, Mon millicurie 06/23/19 at 0800, Routine melatonin 2018-0 Yes 6mg 6 mg, Univers (MELATIN) 06-23 Oral, QHS, ity of tablet 6 mg 02:00: First dose [place] 00 on [facility] 06/22/19 at Branch 2100, Until Discontinu ed, Routine temazepam 2018- Yes 7.5mg 7.5 mg, Univ ers (RESTORIL) 9-15 Oral, ity of capsule 7.5 18:25: QHSPRN, [place] as mg 35 Starting Medical [facility] 06/22/19 at 1325, Until Discontinu ed, Routine, Insomnia enoxaparin 2019-0 Yes 40mg 40 mg, [place] [facility] (LOV[facility]OX[facility] 9-15 Subcutaneo ity of injection 14:00: [place] 00 First dose Medical on [facility] 06/22/19 at 0900, Until Discontinu ed, Routine ipratropium 2018-0 Yes 3mL 3 mL, [place] [facility] -albut[facility]ol -15 Inhalation ity of (DUONEB) 13:00: , QID, [place] 0.5 mg-3 00 First dose Medic al mg(2.5 mg on [facility])/3 mL 06/22/19 at nebulizer 0800, solution 3 Until mL Discontinu ed, Routine nicotine 2018-0 Yes 1{patch 1 Patch, Un vy (NICODERM) 06-22 } Topical, ity o f 21 mg/24 hr 08:15: Administer [place] patch 1 00 over 24 Medical Patch Hours, Branch Q24H, First dose on [place] 06/22/19 at 0315, Until Discontinu ed, Routine hydralAZINE 2018-0 Yes 10mg 10 mg, [facility] ers (APRESOLINE 9-15 Intravenou it y of ) injection 08:10: s, Q6HPRN, [place] 10 mg 57 Starting Medical [facility] 06/22/19 at 0310, Until Discontinu ed, Routine, Hypertensi on, For SBP > 160
Ind ication: Hypertensi ve Emergency ipratropium 2019-0 Yes 3mL 3 mL, Unive rs -albuterol 9-15 Inhalation ity of (DUONEB) 05:20: , QIDPRN, [place] 0.[place] mg-3 42 Starting Medical mg(2.5 mg [facility])/3 mL 06/22/19 at nebulizer 0020, solution 3 Until mL Discontinu ed, Routine, Wheezing, Shortness of Breath, Bronchospa sm, Chest tightness ondansetron 2019-0 Yes 4mg 4 mg, Slow Univers (ZOFRAN 9-15 IV Push, ity of (PF)) 05:20: Q6HPRN, [place] injection 4 28 Starting Medi farzana mg [facility] 06/22/19 at 0020, Until Discontinu ed, Routine, Nausea and Vomiting (N/V) traMADol 2019- No 50mg 50 mg, Univer s (ULTRAM) 06-22 Oral, ity of tablet 50 05:20: 05:19 Q8HPRN, [place] mg 20 :20 Starting Medical [facility] 06/22/19 at 0020, Until 06/24/19 at 0019, Routine, Pain (scale 4-6) acetaminoph Yes 650mg 650 mg, Un vy en 06-22 Oral, ity of (TYLENOL) 05:20: Q6HPRN, [place] tablet 650 18 Starting Medic al mg [facility] 06/22/19 at 0020, Until Discontinu ed, Routine, Pain (scale 1-3) methylpredn 2019- No 125mg 125 mg, U haresh isolone sod 06-22 Slow IV ity of succ 05:00: 04:09 Push, ONCE [place] (SOLU-MEDRO 00 :00 NOW, 1 Medica l L) dose, [facility] injection 06/22/19 at 125 mg 0000, GUZMAN ipratropium 2019- No 6mL 6 mL, Univ ers -albuterol 06-22 Inhalation it y of (DUONEB) 04:00: 04:05 , ONCE [place] 0.5 mg-3 00 :00 NOW, 1 Medical mg(2.5 mg dose, Sat Branc h base)/3 mL 06/21/19 at nebulizer 2300, solution 6 Routine mL sulfamethox 2019- No 1{tbl} Take 1 U haresh azole-trime 04-20 tablet by it y of thoprim 00:00: 00:00 mouth [place] 800-160 mg 00 :00 every 12 Medic al per tablet (twelve) Branc h hours. Immunizations Ordered Filled Immunization Date Status Comments Sour e Immunization Name Name Td 2017-04-20 Completed [facility] 00:00:00 [facility] Vital Signs Vital Name Observation Time Observation Value Comments Source Systolic blood 2019-06-23 16:57:00 170 mm[Hg] Univer sity of pressure [facility] Diastolic blood 2019-06-23 16:57:00 88 mm[Hg] Unive rsity of pressure [facility] Heart rate 2019-06-23 16:57:00 65 /min Universi ty of [facility] Body temperature 2019-06-23 16:57:00 36.67 Cassy [place] [facility] ersity of [facility] Respiratory rate 2019-06-23 16:57:00 20 /min Univ ersity of [facility] Oxygen saturation in 2019-06-23 16:57:00 96 /min University of Arterial blood by [facility] Pulse oximetry Branch Body height 2019-06-23 14:09:00 180.3 cm Universi ty of [facility] Body weight 2019-06-23 14:09:00 47.174 kg Universi ty of [facility] BMI 2019-06-23 14:09:00 14.51 kg/m2 Universi ty [facility] Systolic blood 2019-06-23 16:57:00 170 mm[Hg] Univer sity of pressure [facility] Diastolic blood 2019-06-23 16:57:00 88 mm[Hg] Unive rsity of pressure [facility] Heart rate 2019-06-23 16:57:00 65 /min Universi ty of [facility] Body temperature 2019-06-23 16:57:00 36.67 Cassy [place] [facility] Respiratory rate 2019-06-23 16:57:00 20 /min Univ ersity of [facility] Oxygen saturation in 2019-06-23 16:57:00 96 /min University of Arterial blood by [facility] Pulse oximetry Branch Body height 2019-06-23 14:09:00 180.3 cm Universi ty of [facility] Body weight 2019-06-23 14:09:00 47.174 kg Universi ty [facility] BMI 2019-06-23 14:09:00 14.51 kg/m2 Universi [facility] Procedures Procedure Date / Time Performing Clinician Source Performed NM MYOCARDIUM PERFUSION 2019-06-23 15:14:00 Simone Corey [facility] STRESS AND REST [facility] ECHO ROUTINE W/DOPPLER 2019-06-23 13:32:47 [facility] BASIC METABOLIC PANEL 2019-06-23 09:20:00 [facility] (NA, K, CL, CO2, Medical Branch GLUCOSE, BUN, CREATININE, CA) CBC WITH DIFFERENTIAL 2019-06-23 09:20[facility] 2019-06-22 17[facility]09[facility] LIPID PANEL 2019-06-22 17:09:00 [id number]TOTAL Medical Branch CHOLESTEROL, TRIGLYCERIDES, HDL) TROPONIN I 2019-06-22 13:22:00 [facility] 2019-06-22 09:06:00 [facility] AC PANEL 20 + LACTIC 2019-06-22 04:06:00 Lele Rosa [facility] ACID [facility] XR CHEST 1 VW 2019-06-22 03:58:[address] [facility] LIPASE 2019-06-22 03:48:00 [facility] TR[facility]ONIN [facility] 2019-06-22 03:48[facility] 2019-06-22 03:48:00 Lele Rosa [facility] ([id number]) (ALB,T.PRO,BILI Medical Branch T,BU/BC,ALT,AST,ALK PHOS) BASIC METABOLIC PANEL 2019-06-22 03:48:00 Lele Rosa [facility] (NA, K, CL, CO2, Medical Branch GLUCOSE, BUN, CREATININE, CA) CBC WITH DIFFERENTIAL 2019-06-22 03:48:00 Lele Rosa [facility] PROTHROMBIN TIME / INR 2019-06-22 03:48:00 Lele Rosa [facility] ACTIVATED PARTIAL 2019-06-22 03:48:00 [facility] Rosa [facility]-B[facility] 2019-06-22 03:48:00 Lele Rosa [facility] EKG-12 LEAD 2019-06-22 03:47:47 Lele Rosa [facility] EKG-12 LEAD 2019-06-22 03:46:40 Lele Rosa [facility] NOTICE OF PRIVACY 2019-06-22 03:41:04 Doctor Unassigned, No Univ [facility] [place] PRACTICES Name [facility] CONSENT/REFUSAL FOR 2019-06-22 03:40:38 Doctor Unassigned, No [facility] [place] DIAGNOSIS AND TREATMENT Name [facility] HOSPITAL ADM - MISC 2019-06-21 05:01:00 Doctor Unassigned, No [facility] [place] Name [facility] Encounters Start End Encounter Admission Attending Care Care Encounter Source Date/Time Date/Time Type Type Clinicians Facility Department ID 2019-06-21 2019-06-23 Emergency Lele Rosa [facility] [id number] 22:40:21 14:49:00 DarianMinoo [place] [id number] [place] [id number] [place] [id number] 2019-06-21 2019-06-23 Emergency Lele Rosa [facility] 1.2.840. [id number] [facility] 22:40:21 14:49:00 Minoo Yoo [id number] ity of [place] [id number] [facility] [id number] [place] [address] Branch Results Test Description Test Time Test Comments Results Result [facility] e Comments TISSUE EXAM 2019-11-28 Surgical Pathology 15:53:00 Report Case: [id number] Authorizing Provider: Jeferson Weber Collected: 11/26/2019 Teri Cobb MD Ordering Location: [address] Received: 11/27/2019 0758 Service Pathologist: Manuel Goodwin MD Specimen: Ampulla, AMPULLARY BIOPSY A. AMPULLA, BIOPSY: - BENIGN AMPULLARY/ DUODENAL MUCOSA WITH MILD CHRONIC INFLAMMATION - SMALL FOCUS OF SCAR TISSUE (SEE COMMENT) Signing Pathologist Direct Phone Line: [phone] ally signed by Manuel Goodwin MD on 11/28/2019 at 3:53 PMPer endoscopy note dated 11/27/19, ampulla was noted to be abnormal with small fibrotic orifice.Deeper levels are examined. There is scar tissue, however no evidence of malignancy is seen.[id number] and postop diagnosis: abnormal imagingAmpullary biopsyReceived in formalin labeled with the patient's name, accession number and "ampulla" are three irregular ballard soft tissue fragments each measuring 0.1 cm which are submitted in toto in A1. CG/pl Performed. RAD, CHEST, 2 2019-11-26 Reason for FINAL REPORT PATIENT VIEWS 21:20:00 exam:->nodule ID: [id number] Exam: possible Chest x-ray, PA and nipple [...] Signed: Aurelio Simons Verified Date/Time: 11/26/2019 21:20:17 , ERCP 2019-11-26 Reason for FINAL REPORT PATIENT 15:10:00 exam:->abnorma ID: [id number] A l imagery fluoroscopic unit was utilized for a procedure performed in the operating room. No interpretation was requested. Please refer to the operative report regarding findings. Please refer to PACS for patient radiation dose information. Signed: Sue Macedo Verified Date/Time: 11/26/2019 15:10:45 Reading Location: [facility] Radiology Reading Room PHORUS 2019-11-26 06:08:00 Test Item Value Reference Range Interpretation Comme nts PHOSPHORUS (BEAKER) (test code = 604) 3.5 mg/dL 2.3-4.7 Client Support Manager ID - KENNY [id number] 06:08:00 Test Item Value Reference Range Interpretation Comments MAGNESIUM (BEAKER) (test code = 1.7 mg/dL 1.6-2.6 627) Client Support Manager ID - KENNY MBASIC METABOLIC [id number] 06:08:00 Test Item Value Reference Range Interpretation [...] S NOT APPLICABLE FOR DIALYSIS PATIEN TS. Client Support Manager ID - KENNY MHEPATIC FUNCTION [id number] 06:08:00 Test Item Value Reference Range Interpretation [...] (test code = 12 U/L 6-55 347) Client Support Manager ID - KENNY MRAD, CHEST, 1 VIEW, NON [id number] 15:22:00Reason for exam:->smoker, weight lossShould this be [...] nipple markers is recommended. Signed: [place] Valdez [facility] Verified Date/Time: 11/25/2019 15:22:45 Reading Location: [facility] Radiology Reading Room MAGNESIUM 2019-11-25 05:28:00 Test Item Value Reference Range Interpretation Comments MAGNESIUM (BEAKER) 1.8 mg/dL 1.6-2.6 Specimen slightly (test code = 627) hemolyzed Client Support Manager ID - KENNY [id number] 05:28:00 Test Item Value Reference Range Interpretation Comments PHOSPHORUS (BEAKER) 3.6 mg/dL 2.3-4.7 Specimen slightly (test code = 604) hemolyzed Client Support Manager ID - KENNY MBASIC METABOLIC [id number] 05:28:00 Test Item Value Reference Range Interpretation [...] S NOT APPLICABLE FOR DIALYSIS PATIEN TS. Client Support Manager ID - KENNY MHEPATIC FUNCTION [id number] 05:28:00 Test Item Value Reference Range Interpretation [...] Specimen slightly (test code = 347) hemolyzed Client Support Manager ID - KENNY MMR, ABDOMEN, [id number] 18:08:00Pancreas protocol AND MRCP Anesthesia:->None Deos the [...] Valdez MDReport Verified Date/Time:11/24/2019 18:08:51 Reading Location: [address] Body Reading Room [id number] 07:18:00 Test Item Value Reference Range Interpretation Comments PHOSPHORUS (BEAKER) (test code = 3.3 mg/dL 2.3-4.7 604) Client Support Manager ID - [id number] 07:18:00 Test Item Value Reference Range Interpretation Comments MAGNESIUM (BEAKER) (test code = 1.9 mg/dL 1.6-2.6 627) Client Support Manager ID - LABASIC METABOLIC [id number] 07:18:00 Test Item Value Reference Range Interpretation [...] S NOT APPLICABLE FOR DIALYSIS PATIEN TS. Client Support Manager ID - LAHEPATIC FUNCTION [id number] 07:18:00 Test Item Value Reference Range Interpretation [...] (test code = 14 U/L 6-55 347) Client Support Manager ID - LACBC W/PLT COUNT & AUTO [id number] 05:25:00 Test Item Value Reference Range Interpretation [...] (BEAKER) (test code = 2801) HEPATIC FUNCTION [id number] 18:58:00 Test Item Value Reference Range Interpretation [...] (test code = 16 U/L 6-55 347) Client Support Manager ID - KENNY MBASIC METABOLIC [id number] 18:58:00 Test Item Value Reference Range Interpretation [...] S NOT APPLICABLE FOR DIALYSIS PATIEN TS. Client Support Manager ID - KENNY MCBC W/PLT COUNT & AUTO [id number] 18:20:00 Test Item Value Reference Range Interpretation [...] 0-1 PERCENT (BEAKER) (test code = 2801) NM MYOCARDIUM PERFUSION STRESS AND [id number] 18:00:06Impression: Normal myocardial perfusion scan with preserved ejection fraction andnormal wall thickening.I was present for the stress procedure.* * * * * * * * ORIGINAL REPORT * * * * * * * *Pharmacological stress myocardial perfusion imaging report Type: Technetium 99 labeled Myoview rest/stress single isotope SPECTimaging with Ragadenoson pharmacological stress and gated SPECT imaging. Indication: ch est pain Clinical history: History of HTN, HLD, smoking Procedure: Pharmacological stress test was performed with a bolus dose of 0.4 mg ofRagadenoson. Gated myocardial perfusion imaging was performedat restfollowing the injection of 15.7 millicuries of Myoview labeled sestamibiand post stress following the injection of 40.2 millicuries of technetiumlabeled tetrofosmin. Findings: The overall quality of the study was good. Stress EKG revealed no inducible ischemia, reported separately. SPECT images demonstrate homogeneous tracer distribution throughout themyocardium. Gated SPECT images demonstrate normal wall motion and myocardialthickening. Stress Values:?EDV = 78 mL; ESV = 36 mL; EF = 53%.RestValues:?EDV = 75 mL; ESV = 33 mL; EF = 56%. [facility], Radiant Results Inft User - 06/23/2019 1:00 PM CDT* * * * * * * * ORIGINAL REPORT * * * * * * * *Pharmacological stress myocardial perfusion imaging reportType: Technetium 99 labeled Myoview rest/stress single isotope SPECTimaging with Ragadenoson pharmacological stress and gated SPECT imaging.Indication: chest painClinical history: History of HTN, HLD, smoking Procedure:Pharmacological stress test was performed with a bolus dose of 0.4 mg ofRagadenoson. Gated myocardial perfusion imaging was performed at restfollowing the injection of 15.7 millicuries of Myoview labeled sestamibiand post stress following the injection of 40.2 millicuries of technetiumlabeled tetrofosmin.Findings:The overall quality of the study was good.Stress EKG revealed no inducible ischemia, reported separately. SPECT images demonstrate homogeneous tracer distribution throughout themyocardium.Gated SPECT images demonstrate normal wall motion and myocardialthickening.StressValues: EDV = 78 mL; ESV = 36 mL; EF = 53%.Rest Values: EDV = 75 mL; ESV = 33 mL; EF = 56%.IMPRESSIONImpression: Normal myocardial perfusion scan with preserved ejection fraction andnormal wall thicke I was present for the stress procedure.[facility] Basic Metabolic Panel (NA, K, CL, CO2, GLUCOSE, BUN, CREATININE, CA)2019-06-23 11:47:00 Test Item Value Reference Range Interpretation Comments NA (test code = 140 mmol/L 135-145 3356113779) K (test code = 3.8 mmol/L 3.5-5 1863783794) CL (test code = 107 mmol/L 98-108 2347953140) CO2 TOTAL (test code = 27 mmol/L 23-31 0803105746) AGAP (test code = 2-16 8151989144) BUN (test code = 10 mg/dL 7-23 1841373011) GLUCOSE (test code = 101 mg/dL 70-110 4216307378) CREATININE (test code = 0.44 mg/dL 0.6-1.25 L 2728112345) CALCIUM (test code = 9.1 mg/dL 8.6-10.6 9454293420) eGFR Calculation mL/min/1.73m2 (Non-) (test code = 5159834253) eGFR Calculation mL/min/1.73m2 () (test code = 9759556553) DEAN (test code = DEAN) Association of Glomerular Filtration Rate (GFR) and Staging of Kidney Disease*+ + + +| GFR (mL/min/1.73 m2)?| With Kidney Damage?|?Without Kidney Damage+ --------+ --------+ +|?>90?|?S tage one?|? Normal?+ ---------+ ---------+ +|?60-89? |?Stage two?|? Decreased GFR? + --+ --+ ------+|?30-59?|?Stage three?|? Stage three? + --+ --+ ------+|?15-29?|?Stage four? |? Stage four?+ -------+ -------+ +|?<15 (or dialysis)?|?Stage five? |? Stage five?+ -------+ -------+ +*Each stage assumes the associated GFR level has been in effect for at least three months.?Stages 1 to 5, with or without kidney disease, indicate chronic kidney disease.Notes: Determination of stages one and two (with eGFR >59mL/min/1.73 m2) requires estimation of kidney damage for at least three months as defined by structural or functional abnormalities of the kidney, manifested by either:Pathological abnormalities or Markers of kidney damage (including abnormalities in the composition of the blood or urine or abnormalities in imaging tests). Lab Interpretation Abnormal (test code = 37421-0) [facility] WITH [id number] 11:05:00 Test Item Value Reference Range Interpretation Comments WBC (test code = See_Comment [Automated 4690-2) message] The sy stem which generated this result transmitted reference range : 4.20 - 10.70 10*3/?L. The reference range was not used to interpret this result as normal/abnormal . RBC (test code = See_Comment L [Automated 789-8) message] The sy stem which generated this result transmitted reference range : 4.26 - 5.52 10*6/?L. The reference range was not used to interpret this result as normal/abnormal . HGB (test code = 13.2 g/dL 12.2-16.4 718-7) HCT (test code = 35.9 % 38.4-49.3 L 4544-3) MCV (test code = 95.5 fL 81.7-95.6 787-2) MCH (test code = 35.1 pg 26.1-32.7 H 785-6) MCHC (test code = 36.8 g/dL 31.2-35 H 786-4) RDW-SD (test code = 42.8 fL 38.5-51.6 06945-2) RDW-CV (test code = 12.2 % 12.1-15.4 788-0) PLT (test code = See_Comment [Automated 777-3) message] The sy stem which generated this result transmitted reference range : 150 - 328 10*3/ ?L. The reference r darya was not used to interpret this result as normal/abnormal . MPV (test code = 10.9 fL 9.8-13 32990-9) NRBC/100 WBC (test See_Comment [Automat ed code = 5858374030) message] The system which generated this result transmitted reference range : 0.0 - 10.0 /100 WBCs. The refer ence range was not u sed to interpret th is result as normal/abnormal . NRBC x10^3 (test code <0.01 See_Comment [Auto mated = 8010203103) message] The s ystem which generated this result transmitted reference range : 10*3/?L. The reference range was not used to interpret this result as normal/abnormal . GRAN MAT (NEUT) % 66.9 % (test code = 770-8) IMM GRAN % (test code 0.40 % = 6007435526) LYMPH % (test code = 22.8 % 736-9) MONO % (test code = 9.5 % 5905-5) EOS % (test code = 0.2 % 713-8) BASO % (test code = 0.2 % 706-2) GRAN MAT x10^3(ANC) 5.54 10*3/uL 1.99-6.95 (test code = 4584005009) IMM GRAN x10^3 (test 0.03 10*3/uL 0-0.06 code = 7805182504) LYMPH x10^3 (test code 1.89 10*3/uL 1.09-3.23 = 731-0) MONO x10^3 (test code 0.79 10*3/uL 0.36-1.02 = 742-7) EOS x10^3 (test code = <0.03 0.06-0.53 L 711-2) BASO x10^3 (test code <0.03 0.01-0.09 = 704-7) Lab Interpretation Abnormal (test code = 40952-9) [facility]TOTAL CHOLESTEROL, TRIGLYCERIDES, HDL)2019-06-23 02:47:00 Test Item Value Reference Range Interpretation Comments CHOL (test code = 131 mg/dL 120-200 5703541115) HDL (test code = 85 mg/dL >40 2830148904) HDLC RATIO (test code = See_Comment [Au tomated message] 2566922993) The system [employer] generated this result transmit manjinder reference range : <=5.0. The refe rence range was not u sed to interpret th is result as normal/abnormal . TRIG (test code = 57 mg/dL 30-170 1774646234) LDL CHOL (test code = 35 mg/dL See_Comment [Auto mated message] 38250-6) The system [employer] generated this result transmit manjinder reference range : <=160. The refe rence range was not u sed to interpret th is result as normal/abnormal . VLDL (test code = 11 mg/dL 5-60 0165909381) Lab Interpretation (test Normal code = 55557-3) [facility] [id number] 17:56:00 Test Item Value Reference Range Interpretation Comments TROPONIN I (test 0.002 ng/mL See_Comment [Automated code = 1903720310) message] The system which generated this result transmitted reference range : <=0.034. The reference range was not used to interpret this result as normal/abnormal . DEAN (test code = Equal or Less than DEAN) 0.034 ng/ml---Normal?Not e: Cardiac troponin begins to rise 3-4 hours after the onset of ischemia. Repeat in 4-6 hours if the sample was drawn within 3-4 hours of the onset of the symptom and found normal. Between 0.035 and 0.120 ng/mL--- Borderline. Questionable myocardial injury or necrosis?Note: Serial measurement may be necessary to confirm or exclude the diagnosis of myocardial injury or necrosis; Clinical correlation (symptoms, EKGs, imaging studies, and others) required; Repeat in 4-6 hours if clinically indicated.? Equal or Higher than 0.121 ng/mL---Abnormal. Myocardial Injury or Necrosis Likely? Biotin has been reported to cause a negative bias, interpret results relative to patient's use of biotin.? ? Lab Interpretation Normal (test code = 20342-8) [facility] [id number] 15:02:00 Test Item Value Reference Range Interpretation Comments TROPONIN I (test 0.004 ng/mL See_Comment [Automated code = 9417027567) message] The system which generated this result transmitted reference range : <=0.034. The reference range was not used to interpret this result as normal/abnormal . DEAN (test code = Equal or Less than DEAN) 0.034 ng/ml---Normal?Not e: Cardiac troponin begins to rise 3-4 hours after the onset of ischemia. Repeat in 4-6 hours if the sample was drawn within 3-4 hours of the onset of the symptom and found normal. Between 0.035 and 0.120 ng/mL--- Borderline. Questionable myocardial injury or necrosis?Note: Serial measurement may be necessary to confirm or exclude the diagnosis of myocardial injury or necrosis; Clinical correlation (symptoms, EKGs, imaging studies, and others) required; Repeat in 4-6 hours if clinically indicated.? Equal or Higher than 0.121 ng/mL---Abnormal. Myocardial Injury or Necrosis Likely? Biotin has been reported to cause a negative bias, interpret results relative to patient's use of biotin.? ? Lab Interpretation Normal (test code = 15825-7) [facility] [id number] 10:29:00 Test Item Value Reference Range Interpretation Comments TROPONIN I (test 0.014 ng/mL See_Comment [Automated code = 4793925233) message] The system which generated this result transmitted reference range : <=0.034. The reference range was not used to interpret this result as normal/abnormal . DEAN (test code = Equal or Less than DEAN) 0.034 ng/ml---Normal?Not e: Cardiac troponin begins to rise 3-4 hours after the onset of ischemia. Repeat in 4-6 hours if the sample was drawn within 3-4 hours of the onset of the symptom and found normal. Between 0.035 and 0.120 ng/mL--- Borderline. Questionable myocardial injury or necrosis?Note: Serial measurement may be necessary to confirm or exclude the diagnosis of myocardial injury or necrosis; Clinical correlation (symptoms, EKGs, imaging studies, and others) required; Repeat in 4-6 hours if clinically indicated.? Equal or Higher than 0.121 ng/mL---Abnormal. Myocardial Injury or Necrosis Likely? Biotin has been reported to cause a negative bias, interpret results relative to patient's use of biotin.? ? Lab Interpretation Normal (test code = 32959-9) [facility] [id number] 04:29:00 Test Item Value Reference Range Interpretation Comments TROPONIN I (test 0.006 ng/mL See_Comment [Automated code = 0600772150) message] The system which generated this result transmitted reference range : <=0.034. The reference range was not used to interpret this result as normal/abnormal . DEAN (test code = Equal or Less than DEAN) 0.034 ng/ml---Normal?Not e: Cardiac troponin begins to rise 3-4 hours after the onset of ischemia. Repeat in 4-6 hours if the sample was drawn within 3-4 hours of the onset of the symptom and found normal. Between 0.035 and 0.120 ng/mL--- Borderline. Questionable myocardial injury or necrosis?Note: Serial measurement may be necessary to confirm or exclude the diagnosis of myocardial injury or necrosis; Clinical correlation (symptoms, EKGs, imaging studies, and others) required; Repeat in 4-6 hours if clinically indicated.? Equal or Higher than 0.121 ng/mL---Abnormal. Myocardial Injury or Necrosis Likely? Biotin has been reported to cause a negative bias, interpret results relative to patient's use of biotin.? ? Lab Interpretation Normal (test code = 37018-1) [id number] 04:26:00 Test Item Value Reference Range Interpretation Comments NT-proBNP (test code 294 pg/mL See_Comment H [Autom ated = [id number]) message] The system which generated this result transmitted reference range : <=125. The reference range was not used to interpret this result as normal/abnormal . DEAN (test code = DEAN) Biotin has been reported to cause a negative bias, interpret results relative to patient's use of biotin. Lab Interpretation Abnormal (test code = 86990-2) [facility] (NA, K, CL, CO2, GLUCOSE, BUN, CREATININE, CA)2019-06-22 04:18:00 Test Item Value Reference Range Interpretation Comments NA (test code = 139 mmol/L 135-145 9982511832) K (test code = 3.7 mmol/L 3.5-5 2044591226) CL (test code = 99 mmol/L 98-108 6102552312) CO2 TOTAL (test code = 29 mmol/L 23-31 6749875051) AGAP (test code = 2-16 0098988029) BUN (test code = 7 mg/dL 7-23 6096117591) GLUCOSE (test code = 62 mg/dL 70-110 L 1561394309) CREATININE (test code = 0.68 mg/dL 0.6-1.25 2513829847) CALCIUM (test code = 9.3 mg/dL 8.6-10.6 2363296462) eGFR Calculation mL/min/1.73m2 (Non-) (test code = 7135275956) eGFR Calculation mL/min/1.73m2 () (test code = 4502548076) DAEN (test code = DEAN) Association of Glomerular Filtration Rate (GFR) and Staging of Kidney Disease*+ + + +| GFR (mL/min/1.73 m2)?| With Kidney Damage?|?Without Kidney Damage+ --------+ --------+ +|?>90?|?S tage one?|? Normal?+ ---------+ ---------+ +|?60-89? |?Stage two?|? Decreased GFR? + --+ --+ ------+|?30-59?|?Stage three?|? Stage three? + --+ --+ ------+|?15-29?|?Stage four? |? Stage four?+ -------+ -------+ +|?<15 (or dialysis)?|?Stage five? |? Stage five?+ -------+ -------+ +*Each stage assumes the associated GFR level has been in effect for at least three months.?Stages 1 to 5, with or without kidney disease, indicate chronic kidney disease.Notes: Determination of stages one and two (with eGFR >59mL/min/1.73 m2) requires estimation of kidney damage for at least three months as defined by structural or functional abnormalities of the kidney, manifested by either:Pathological abnormalities or Markers of kidney damage (including abnormalities in the composition of the blood or urine or abnormalities in imaging tests). Lab Interpretation Abnormal (test code = 15653-0) [facility] [id number] 04:18:00 Test Item Value Reference Range Interpretation Comments LIPASE (test code = 0023887946) 78 U/L 0-220 Lab Interpretation (test code = Normal 36372-6) [facility] (ALB, T.PRO, BILI T, BU/BC, ALT, AST, ALK PHOS)2019-06-22 04:17:00 Test Item Value Reference Range Interpretation Comments TOTAL BILI (test code = 8098671509) 0.3 mg/dL 0.1-1.1 BILI UNCON (test code = 0358367640) 0.2 mg/dL 0.1-1.1 BILI CONJ (test code = 6657367299) 0.0 mg/dL 0-0.3 T PROTEIN (test code = 8743406571) 8.0 g/dL 6.3-8.2 ALBUMIN (test code = 3814948323) 4.7 g/dL 3.5-5 ALK PHOS (test code = 1858555491) 80 U/L 34-122 ALT(SGPT) (test code = 2517322932) 24 U/L 9-51 AST(SGOT) (test code = 9465670303) 37 U/L 13-40 Lab Interpretation (test code = Normal 15965-9) [facility] + LACTIC [id number] 04:13:00 Test Item Value Reference Range Interpretation Comments PH (test code = 2) 7.35-7.45 PCO2 (test code = See_Comment [Automat ed 7215189899) message] The sy stem which generated this result transmitted reference range : 35 - 45 mmHg. The reference range was not used to interpret this result as normal/abnormal . PO2 (test code = See_Comment H [Automated 3113373607) message] The sy stem which generated this result transmitted reference range : 80 - 100 mmHg. The reference range was not used to interpret this result as normal/abnormal . HCO3 (test code = See_Comment L [Automate d 8254818045) message] The sy stem which generated this result transmitted reference range : 22 - 26 mEq/L. The reference range was not used to interpret this result as normal/abnormal . BE (test code = See_Comment L [Automated 0979663136) message] The sy stem which generated this result transmitted reference range : -3.0 - 3.0 mEq/ L. The reference r darya was not used to interpret this result as normal/abnormal . THB (test code = 14.3 g/dL 13.5-18 1969431115) %O2HB (test code = 93.0 % 94-99 L 7642561613) %COHB ART (test code = 4.9 % 0-1.5 H 6795160445) %METHB ART (test code = 0.4 % 0.4-1.5 2336096103) VOL%O2 ART (test code = 19.0 % 15-23 6796549541) NA (test code = 132 mmol/L 135-145 L 6224461395) K+ (test code = 3.7 mmol/L 3.5-5 8236968991) AC CA IONZ (test code = 4.50 mg/dL 4.5-5.3 0164826252) GLUCOSE (test code = 91 mg/dL 70-110 4529049693) LACTIC ACID (test code 2.20 mmol/L 0.5-2.2 = 0176439940) Lab Interpretation Abnormal (test code = 51981-9) [facility] 1 [id number] 04:12:41 No acute cardiopulmonary abnormality. IPenny MD., have reviewed this study andagree withthe above report.XR CHEST 1 VW HISTORY: chest pain COMPARISON: None FINDINGS: The lungs are clear. No focal consolidation, pleural effusion orpneumothorax. Right calcified mediastinal lymph nodes. The heart is normal in size. No acute osseous abnormality. [facility], Radiant Results Inft User - 06/21/2019 11:12 PM CDTXR CHEST 1 VWHISTORY: chest pain COMPARISON: NoneFINDINGS:The lungs are clear. No focal consolidation, pleural effusion orpneumothorax. Right calcified mediastinal lymph nodes.The heart is normal in size.No acute osseous abnormality.IMPRESSIONNo acute cardiopulmonary abnormality.I, Addison Fonseca MD., have reviewed this study and agree withthe above report.[facility] 04:09:00 Test Item Value Reference Range Interpretation Comments APTT Patient (test See_Comment [Automat ed code = 3173-2) message] The system which generated this result transmitted reference range : 23 - 38 Seconds . The reference range was not used to interpr et this result as normal/abnormal . DEAN (test code = DEAN) The [facility] patient population mean normal value for aPTT is 30 seconds. Lab Interpretation Normal (test code = 42132-5) [facility] CenterProthrombin Time (PT) / [id number] 04:06:00 Test Item Value Reference Range Interpretation Comments PROTIME PATIENT (test See_Comment [Auto mated message] code = 5964-2) The system wh ich generated this result transmitted ref erence range: 12.0 - 1 4.7 Seconds. The re ference range was not u sed to interpret this result as normal/abnor mal. INR (test code = 6301-6) Nor mal INR <1.1; Warfarin Therap eutic range 2.0 to 3. 0 or 2.5 to 3.5, dep ending upon the indica tions. Lab Interpretation (test Normal code = 38980-6) [facility] CenterCBC WITH [id number] 03:55:00 Test Item Value Reference Range Interpretation Comments WBC (test code = See_Comment [Automated 6690-2) message] The sy stem which generated this result transmitted reference range : 4.20 - 10.70 10*3/?L. The reference range was not used to interpret this result as normal/abnormal . RBC (test code = See_Comment [Automated 789-8) message] The sy stem which generated this result transmitted reference range : 4.26 - 5.52 10*6/?L. The reference range was not used to interpret this result as normal/abnormal . HGB (test code = 15.1 g/dL 12.2-16.4 718-7) HCT (test code = 42.2 % 38.4-49.3 4544-3) MCV (test code = 95.5 fL 81.7-95.6 787-2) MCH (test code = 34.2 pg 26.1-32.7 H 785-6) MCHC (test code = 35.8 g/dL 31.2-35 H 786-4) RDW-SD (test code = 41.3 fL 38.5-51.6 52487-0) RDW-CV (test code = 11.8 % 12.1-15.4 L 788-0) PLT (test code = See_Comment [Automated 777-3) message] The sy stem which generated this result transmitted reference range : 150 - 328 10*3/ ?L. The reference r darya was not used to interpret this result as normal/abnormal . MPV (test code = 10.0 fL 9.8-13 38962-9) NRBC/100 WBC (test See_Comment [Automat ed code = 1861350153) message] The system which generated this result transmitted reference range : 0.0 - 10.0 /100 WBCs. The refer ence range was not u sed to interpret th is result as normal/abnormal . NRBC x10^3 (test code <0.01 See_Comment [Auto mated = 7774080189) message] The s ystem which generated this result transmitted reference range : 10*3/?L. The reference range was not used to interpret this result as normal/abnormal . GRAN MAT (NEUT) % 52.9 % (test code = 770-8) IMM GRAN % (test code 0.40 % = 5083539067) LYMPH % (test code = 35.0 % 736-9) MONO % (test code = 9.8 % 5905-5) EOS % (test code = 1.3 % 713-8) BASO % (test code = 0.6 % 706-2) GRAN MAT x10^3(ANC) 5.20 10*3/uL 1.99-6.95 (test code = 3676255142) IMM GRAN x10^3 (test 0.04 10*3/uL 0-0.06 code = 6878698045) LYMPH x10^3 (test code 3.44 10*3/uL 1.09-3.23 H = 731-0) MONO x10^3 (test code 0.96 10*3/uL 0.36-1.02 = 742-7) EOS x10^3 (test code = 0.13 10*3/uL 0.06-0.53 711-2) BASO x10^3 (test code 0.06 10*3/uL 0.01-0.09 = 704-7) Lab Interpretation Abnormal (test code = 04306-7) [facility]
--- NOTE | 2021-12-08 17:48 | RAD REPORT ---
EXAM DESCRIPTION: CT - Ct Stroke Brain Wo Cont - 12/08/2021 5:41 pm CLINICAL HISTORY: Dizziness;Mental status change COMPARISON: Head Brain Wo Cont dated 09/13/2020 TECHNIQUE: Axial 5 millimeter thick images of the head were obtained without IV contrast. All CT scans are performed using dose optimization technique as appropriate and may include automated exposure control or mA/KV adjustment according to patient size. FINDINGS: No intracranial hemorrhage, mass, or cerebral edema. No acute cortical based infarction se en. No cortical edema or sulcal effacement. Small old lacunar type infarction seen in the left-side t halamus similar to comparison. No extra-axial fluid collections. Rivas matter-white matter differenti ation is preserved.Atrophy changes are minimal. Ventricles are normal size. Minimal cerebral white ma tter chronic ischemic changes match 2020. Postsurgical changes noted bilateral mastoid air cells. No acute mastoid air cell finding. Scattered patchy mucosal thickening changes of the paranasal sinuses noted. No air-fluid levels. Nasal septum d eviation seen. Findings telephoned to Dr Morris 5:44 p.m. IMPRESSION: No CT evidence of acute intracranial process. Intracranial findings detailed above are stable from 2020 imaging. Chronic ischemic changes can mask nonhemorrhagic acute infarction. MR brain followup can be obtained if there is ongoing concern for acute ischemia.
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
[2021-12-08 17:54] LABS: Hematocrit 32.6 % (39.6-49.0); Lymphocytes % 16.7 % (15.3-44.8); MPV 9.1 fL (7.6-11.3); RBC Red Blood Cell Count 3.44 M/uL (4.33-5.43)
[2021-12-08] MEDS ORDERED: NA CHLORIDE 0.9% 1,000 ML with FOLIC ACID 1 MG, THIAMINE HCL 100 MG, MULTIVITAMINS INJ ... IV ONE ×4 (18:00)
[2021-12-08] MEDS ORDERED: NA CHLORIDE 0.9% 250 ML ONE (18:03)
[2021-12-08] MEDS ORDERED: ALTEPLASE 100 ML IV ONE (18:03)
[2021-12-08 18:12] LABS: ALT/SGPT 19 U/L (12-78); AST/SGOT 14 U/L (15-37); Albumin 3.4 g/dL (3.4-5.0); Alkaline Phosphatase 75 U/L (45-117); BUN Blood Urea Nitrogen 12 mg/dL (7-18); Bicarbonate 29 mmol/L (21-32); Bilirubin Direct 0.1 mg/dL (0-0.2); Bilirubin Total 0.3 mg/dL (0.2-1.0); Glucose Level 88 mg/dL (74-106); NT PRO-BNP 256 pg/mL (<125); Protein, Total 6.3 g/dL (6.4-8.2); Sodium Level 138 mmol/L (136-145)
[2021-12-08 18:36] LABS: Protime INR 1.03
--- NOTE | 2021-12-08 19:12 | RAD REPORT ---
EXAM DESCRIPTION: RAD - Chest Single View - 12/08/2021 5:46 pm CLINICAL HISTORY: AMS COMPARISON: Portable 04/09/2021 TECHNIQUE: AP portable chest image was obtained 12/08/2021 5:46 pm . FINDINGS: Patient has severe underlying COPD with no superimposed failure, infiltrate or mass. Hilar regions are stable. Mediastinal calcifications have not changed. Heart and vasculature are normal. No measurable pleural effusion and no pneumothorax. No acute bony abnormality seen. No acute aortic findings suspected. IMPRESSION: No acute cardiopulmonary process. Severe COPD.
[2021-12-08 20:08] VITALS: BP 148/87; TEMP 97.9; O2SAT 95
--- NOTE | 2021-12-09 11:32 | EKG ---
Test Date: 2021-12-08 Test Time: 17:16:05 Slubber Hand: FERNANDO MEASUREMENT RESULTS: Intervals: Rate: 93 OK: 166 QRSD: 82 QT: 370 QTc: 460 [place]: P: 80 OK: 166 QRS: 81 T: 68 INTERPRETIVE STATEMENTS: Normal sinus rhythm Nonspecific ST abnormality Abnormal ECG Compared to ECG 04/09/2021 21:40:31 ST (T wave) deviation now present Sinus arrhythmia no longer present Myocardial infarct finding no longer present Electronically Signed On 12-09-21 11:29:05 VOICE DATA COMMUNICATIONS ENGINEER by Francis Bustos
== END 2021-12-08 19:11 | disposition short-term general hospital (02) ==
LOC: ER 17:00
DX: I69.320 Aphasia following cerebral infarction (principal); I10 Essential (primary) hypertension; F10.10 Alcohol abuse, uncomplicated; R29.703 NIHSS score 3; F17.210 Nicotine dependence, cigarettes, uncomplicated; Z20.822 Contact with and (suspected) exposure to COVID-19
CPT/HCPCS: 36415; 70450; 71045; 80048; 80076; 80320; 80329; 82947; 83735; 83880; 84484; 85025; 85610; 85730; 92977; 93005; 96374; 99285; J2997; J3411; J7030; J7050; U0003

== ENCOUNTER 2022-02-16 17:23 | Emergency (ER) | payer SELFPAY ==
--- OUTSIDE RECORDS SUMMARY | 2022-02-16 17:26 | XMS REPORT | Continuity of Care Document ---
:1960 Author Organization [facility] t Address [address] [place] [address] Care Team Providers Name Role Phone HARISH ZUNIGA Attending Clinician Unavailable ANGLE CHAO Attending Clinician Unavailable NAY MCKEON Attending Clinician Unavailable Moe KOVACS Attending Clinician Fredo KOVACS Attending Clinician HARISH ZUNIGA Admitting Clinician Unavailable Sofiya MOFFETT Admitting Clinician Unavailable Fredo KOVACS Admitting Clinician Payers Payer Name Policy Type Policy Number Effective Date Expiration Date S ource Problems Condition Condition Condition Status Onset Resolution Last Treating Co mments Source Name Details Category Date Date Treatment Clinician Date Leg pain Leg pain Disease Active 2019 Unive rs 9-15 ity of 00:00: [address] Hypertensi Hypertensi Disease Active 2019 U nivers ve urgency ve urgency 9-15 it y of 00:: [address] Other Other Disease Active 2019- Univers chest pain chest pain 9-15 it y of 00:00: [address] Cigarette Cigarette Disease Active 2019- Uni vers smoker smoker 9-15 ity of 00:00: [address] Essential Essential Disease Active 2019 Uni vers hypertensi hypertensi 9-15 it y of on on 00:00: [address] History of History of Disease Active 2019 U nivers arterial arterial 9-15 ity of ischemic ischemic 00:00: [place] stroke stroke [facility] Family Family Disease Active 2019- Univers history of history of 9-15 it y of early CAD [place] CAD [place] [facility] COPD COPD Disease Active Univers exacerbati exacerbati 9-14 it y of on on 00:00: [address] Allergies, Adverse Reactions, Alerts Allergy Allergy Status Severity Reaction(s) Onset Inactive Treating Comm ents Source Name Type Date Date Clinician NO KNOWN Allergy Active [facility] Social History Social Habit Start Date Stop Date Quantity Comments Source Sex Assigned At [facility] [place] Smoking Status Start Date Stop Date Source Current every day smoker 2019-06-23 00:00:00 [facility] [place] Medications Ordered Filled Start Stop Current Ordering Indication Dosage Frequency Signature Comments Components Source Medication Medication Date Date Medication? Clinician (SIG) Name Name nicotine 21 2019- No [id number] 1{patch Apply 1 Univers mg/24 hr 06-24 } Patch to ity of patch 00:00: 04:59 area(s) [place] 00 :00 every 24 Medical ([facility] ur) hours for 30 days. tc 2019- No 40.2mCi 40.2 Univers 99m-tetrofo 06-23 millicurie i ty of smin 14:19: 14:19 , [place] ([facility]) 00 :00 Intravenou Medi farzana injection s, ONCE, 1 Bran ch 40.2 dose, Mon millicurie 06/23/19 at 0930, Routine Regadenoson 2019- No .4mg 0.4 mg, IV Univers (LEXISCAN) 06-23 Push, ity of injection 14:14: 14:23 ONCE, 1 [place] 0.4 mg 00 :00 dose, Mon Medical 06/23/19 at Branch 0915, Routine
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 Restricted medication : [place] COREY tc 2019- No 15.7mCi 15.7 Univers 99m-tetrofo 06-23 millicurie i ty of smin 13:00: 12:54 , [place] ([facility]) 00 :00 Intravenou Medi farzana injection s, ONCE, 1 Bran ch 15.7 dose, Mon millicurie 06/23/19 at 0800, Routine melatonin Yes 6mg 6 mg, Univers (MELATIN) 9-16 Oral, QHS, ity of tablet 6 mg 02:00: First dose [place] 00 on [facility] 06/22/19 at Branch 2100, Until Discontinu ed, Routine temazepam 2019-0 Yes 7.5mg 7.5 mg, Univ ers (RESTORIL) 9-15 Oral, ity of capsule 7.5 18:25: QHSPRN, [place] as mg 35 Starting Medical [facility] 06/22/19 at 1325, Until Discontinu ed, Routine, Insomnia enoxaparin 2019-0 Yes 40mg 40 mg, Unive rs (LOVENOX) 9-15 Subcutaneo ity of injection 14:00: [place] 40 [place] 00 First dose Medical on [facility] 06/22/19 at 0900, Until Discontinu ed, Routine ipratropium 2019-0 Yes 3mL 3 mL, Unive rs -albuterol 9-15 Inhalation ity of (DUONEB) 13:00: , QID, [place] 0.5 mg-3 00 First dose Medic al mg(2.5 mg on [facility] base)/3 mL 06/22/19 at nebulizer 0800, solution 3 Until mL Discontinu ed, Routine nicotine 2019-0 Yes 1{patch 1 Patch, Un vy (NICODERM) 06-22 } Topical, ity o f 21 mg/24 hr 08:15: Administer [place] patch 1 00 over 24 Medical Patch Hours, Branch Q24H, First dose on [facility] 06/22/19 at 0315, Until Discontinu ed, Routine hydralAZINE 2019-0 Yes 10mg 10 mg, Univ ers (APRESOLINE 9-15 Intravenou it y of ) injection 08:10: s, Q6HPRN, [place] 10 mg 57 Starting Medical [facility] 06/22/19 at 0310, Until Discontinu ed, Routine, Hypertensi on, For SBP > 160
Ind ication: Hypertensi ve Emergency ipratropium 2019-0 Yes 3mL 3 mL, Unive rs -albuterol 9-15 Inhalation ity of (DUONEB) 05:20: , QIDPRN, [place] 0.5 mg-3 42 Starting Medical mg(2.5 mg [facility] base)/3 mL 06/22/19 at nebulizer 0020, solution 3 Until mL Discontinu ed, Routine, Wheezing, Shortness of Breath, Bronchospa sm, Chest tightness ondansetron 2018- Yes 4mg 4 mg, Slow Univers (ZOFRAN 06-22 IV Push, ity of (PF)) 05:20: Q6HPRN, [place] injection 4 28 Starting Medi farzana mg [facility] 06/22/19 at 0020, Until Discontinu ed, Routine, Nausea and Vomiting (N/V) traMADol 2019- No 50mg 50 mg, Univer s (ULTRAM) 06-22 Oral, ity of tablet 50 05:20: 05:19 Q8HPRN, [place] mg 20 :20 Starting Medical [facility] 06/22/19 at 0020, Until 06/24/19 at 0019, Routine, Pain (scale 4-6) acetaminoph Yes 650mg 650 mg, Un vy en 06-22 Oral, ity of (TYLENOL) 05:20: Q6HPRN, [place] tablet 650 18 Starting Medic al mg [facility] 06/22/19 at 0020, Until Discontinu ed, Routine, Pain (scale 1-3) methylpredn 2019- No 125mg 125 mg, U nivers isolone sod 06-22 Slow IV ity of succ 05:00: 04:09 Push, ONCE Ree (SOLU-MEDRO 00 :00 NOW, 1 Medica l L) dose, [facility] injection 06/22/19 at 125 mg 0000, GUZMAN ipratropium 2019- No 6mL 6 mL, Univ ers -albuterol 06-22 Inhalation it y of (DUONEB) 04:00: 04:05 , ONCE [place] 0.5 mg-3 00 :00 NOW, 1 Medical mg(2.5 mg dose, Sat Branc h base)/3 mL 06/21/19 at nebulizer 2300, solution 6 Routine mL sulfamethox 2019- No 1{tbl} Take 1 U nivtrent azole-trime 04-20 tablet by it y of thoprim 00:00: 00:00 mouth [place] 800-160 mg 00 :00 every 12 Medic al per tablet (twelve) Branc h hours. Immunizations Ordered Filled Immunization Date Status Comments Sourc e Immunization Name Name Td 2017-04-20 Completed University 00:00:00 [facility] Vital Signs Vital Name Observation Time Observation Value Comments Source WEIGHT 2021-12-08 19:45:00 45.7 kg HEIGHT 2021-12-08 19:45:00 180.3 cm WEIGHT 2021-12-08 19:45:00 45.7 kg HEIGHT 2021-12-08 19:45:00 180.3 cm Systolic blood 2019-06-23 16:57:00 170 mm[Hg] Univer sity of pressure [place] [facility] Diastolic blood 2019-06-23 16:57:00 88 mm[Hg] Unive rsity of pressure [place] [facility] Heart rate 2019-06-23 16:57:00 65 /min Universi ty of [facility] Body temperature 2019-06-23 16:57:00 36.67 Cassy Univ ersity of [place] [facility] Respiratory rate 2019-06-23 16:57:00 20 /min Univ ersity of [place] [facility] Oxygen saturation in 2019-06-23 16:57:00 96 /min University of Arterial blood by [place] StartSampling farzana Pulse oximetry Branch Body height 2019-06-23 14:09:00 180.3 cm Universi ty of [place] [facility] Body weight 2019-06-23 14:09:00 47.174 kg Universi ty of [place] [facility] BMI 2019-06-23 14:09:00 14.51 kg/m2 Universi ty [facility] [place] [facility] Systolic blood 2019-06-23 16:57:00 170 mm[Hg] Univer sity of pressure [place] [facility] Diastolic blood 2019-06-23 16:57:00 88 mm[Hg] Unive rsity of pressure [place] [facility] Heart rate 2019-06-23 16:57:00 65 /min Universi ty [facility] [place] [facility] Body temperature 2019-06-23 16:57:00 36.67 Cassy Univ ersity [facility] [place] [facility] Respiratory rate 2019-06-23 16:57:00 20 /min Univ ersity [facility] [place] [facility] Oxygen saturation in 2019-06-23 16:57:00 96 /min University of Arterial blood by [place] StartSampling farzana Pulse oximetry Branch Body height 2019-06-23 14:09:00 180.3 cm [facility]i [facility] [place] [facility] Body weight 2019-06-23 14:09:00 47.174 kg [facility] BMI 2019-06-23 14:09:00 14.51 kg/m2 [facility] Procedures Procedure Date / Time Performing Clinician Source Performed NM MYOCARDIUM PERFUSION 2019-06-23 15:14:00 [facility] ECHO ROUTINE W/DOPPLER 2019-06-23 13:32:47 [facility] COLOR [facility] BASIC METABOLIC PANEL 2019-06-23 09:20:00 [facility] (NA, K, CL, CO2, Medical Branch GLUCOSE, BUN, CREATININE, CA) CBC WITH DIFFERENTIAL 2019-06-23 09:20:00 [facility] [place] TROPONIN I 2019-06-22 17:09:00 [facility] LIPID PANEL 2019-06-22 17:09:00 Papo [facility] ([id number])(TOTAL [facility] CHOLESTEROL, TRIGLYCERIDES, HDL) TROPONIN I 2019-06-22 13:22:00 [facility] 2019-06-22 09:06:00 [facility] AC PANEL 20 + LACTIC 2019-06-22 04:06:00 Lele Rosa [facility] ACID [facility] XR CHEST 1 VW 2019-06-22 03:58:47 Lele Rosa [facility] ACTIVATED PARTIAL 2019-06-22 03:48:00 Lele Rosa [facility] THRMPLAS MARGARET [facility] N-TERMINAL PRO-BNP 2019-06-22 03:48:00 Lele Rosa [facility] LIPASE 2019-06-22 03:48:00 Moe [facility] TROPONIN I 2019-06-22 03:48:00 Moe Lele [facility] HEPATIC FUNCTION PANEL 2019-06-22 03:48:00 Lele Rosa [facility] ([id number]) (ALB,T.PRO,BILI [facility] T,BU/BC,ALT,AST,ALK PHOS) BASIC METABOLIC PANEL 2019-06-22 03:48:00 Lele Rosa [facility] (NA, K, CL, CO2, Medical Branch GLUCOSE, BUN, CREATININE, CA) CBC WITH DIFFERENTIAL 2019-06-22 03:48:00 Lele Rosa sity [facility] PROTHROMBIN TIME / INR 2019-06-22 03:48:00 Lele Rosa [facility] rsity [facility] EKG-12 LEAD 2019-06-22 03:47:47 Lele Rosa [place] [facility] EKG-12 LEAD 2019-06-22 03:46:40 Lele Rosa [facility] NOTICE OF PRIVACY 2019-06-22 03:41:04 [facility] Un[facility], [facility] CONSENT/REFUSAL FOR 2019-06-22 03:40:38 Doctor Unassigned, No [facility] HOSPITAL ADM - MISC 2019-06-21 05:01:00 Doctor Unassigned, No Un iversity [facility] [place] [facility] Encounters Start End Encounter Admission Attending Care Care Encounter Source Date/Time Date/Time Type Type Clinicians Facility Department ID 2021-12-08 2021-12-10 Inpatient ER [facility] Neurology [id number] [facility] 19:07:00 15:35:00 JEFF 2019-06-21 2019-06-23 Emergency Lele Rosa [facility] [id number]. [id number] 22:40:21 14:49:00 Minoo Yoo [id number] [place] [id number] [place] [address] [id number] [facility] 2019-06-21 2019-06-23 Emergency Lele Rosa [facility] [id number]. [id number] [facility] 22:40:21 14:49:00 Minoo Yoo [id number] ity [facility] [id number] [place] [id number] Results Test Description Test Time Test Comments Results Result Comments Source T3, FREE 2021-12-12 10:03:37 Test Item Value Reference Range Interpretation Comme nts T3 FREE (FILIPPO) (test code = 908) See scanned reportCT, CHEST, WITHOUT [id number] 14:14:00Unlisted Reason for Exam - Click Yes and Enter Reason Below->YesUnlisted Reason for Exam->cachexia w/ nonfocal neurological issues, eval for underlying malignancyCH[facility]: [facility]RAF : 1960 Sex: MFINAL REPORT CT OF THE CHEST, ABDOMEN, AND PELVIS WITHOUT CONTRAST HISTORY: Cachexia, evaluate for underlying malignancy COMPARISON: MRI abdomen of 11/24/2019 TECHNIQUE: CT of the chest, abdomen, and pelvis was performed without contrast. Axial images were generated aswere multiplanar reformatted images in the sagittal and coronal planes. The examination was performed to conform to our departmental dose optimization program which includes automated exposure control,adjustment of the mA and/or kV according to patient size and/or use of iterative reconstruction techniques. FINDINGS: There are mild changes of centrilobular emphysema in the upper lungs bilaterally. There is mild biapical lung parenchymal scarring. There is mild linear peripheral likely scar in the p osterior right upper lobe. There is minor scarring in the right middle lobe. No suspicious pulmonarynodules are visualized. No axillary, mediastinal, or hilar lymphadenopathy are identified. There arecalcified mediastinal and right hilar granulomas. Coronary artery calcifications are present. Thoracic aortic calcifications are present. No pleural or pericardial effusion. Solid organ evaluation is limited without intravenous contrast. Hepatic and splenic calcified granulomas are present. There are diffuse arterial calcifications in the abdomen or pelvis. Small calcification in the left renal hilarregion is likely arterial in nature. No abdominal aortic aneurysm. The gallbladder is unremarkable. Pancreatic ductal dilatation is not as well visualized on this noncontrast CT as it was on the prior MRI. On that examination, it was suspected to be due to prior pancreatitis. Calcifications in the pancreatic head region are likely related to prior pancreatitis. No adrenal mass. No hydronephrosis or hydroureter. No renal mass lesion is identified. No urinary tract calculi are visualized. The latter is unremarkable. The prostate appears normal in size. Gastrointestinal tract evaluation is limited without gastrointestinal contrast. No dilated loops of large or small intestine are identified. No evidence of free intraperitoneal air. No evidence of appendicitis. No gastric distention. No evidence of free intraperitoneal air. No fracture or destructive bone lesion are identified. There are degenerative and hypertrophic changes in the spine. There are degenerative changes in the hips. There are postoperative changes midline in the anterior abdominal wall. No lymphadenopathy is visualized in the abdomen or pelvis. No ascites. IMPRESSION: 1. No acute abnormalities are visualized in the chest, abdomen, or pelvis. 2. Emphysema. 3. No definite noncontrast CT evidence of a malignancy in the chest, abdomen, or pelvis. 4. Findings suggestive of prior pancreatitis. 5. Atherosclerosis. Signed: Ekaterina Wilkinson MDReport Verified Date/Time: 12/10/2021 14:14:38 Reading Location: [address] Transitional Reading Room CT, [id number] 14:14:00Unlisted Reason for Exam - Click Yes and Enter Reason Below->YesUnlisted Reason for Exam->cachexia w/ nonfocal neurological issues, eval for underlying malignancyIs this for enterography?->NoWill this procedure require oral contrast?->No [facility] 1960 Sex: MFINAL REPORT CT OF THE CHEST, ABDOMEN, AND PELVIS WITHOUT CONTRAST HISTORY: Cachexia, evaluate for underlying malignancy COMPARISON: MRI abdomen of 11/24/2019 TECHNIQUE: CT of the chest, abdomen, and pelvis was performed without contrast. Axial images were generated aswere multiplanar reformatted images in the sagittal and coronal planes. The examination was performed to conform to our departmental dose optimization program which includes automated exposure control,adjustment of the mA and/or kV according to patient size and/or use of iterative reconstruction techniques. FINDINGS: There are mild changes of centrilobular emphysema in the upper lungs bilaterally. There is mild biapical lung parenchymal scarring. There is mild linear peripheral likely scar in the p osterior right upper lobe. There is minor scarring in the right middle lobe. No suspicious pulmonarynodules are visualized. No axillary, mediastinal, or hilar lymphadenopathy are identified. There arecalcified mediastinal and right hilar granulomas. Coronary artery calcifications are present. Thoracic aortic calcifications are present. No pleural or pericardial effusion. Solid organ evaluation is limited without intravenous contrast. Hepatic and splenic calcified granulomas are present. There are diffuse arterial calcifications in the abdomen or pelvis. Small calcification in the left renal hilarregion is likely arterial in nature. No abdominal aortic aneurysm. The gallbladder is unremarkable. Pancreatic ductal dilatation is not as well visualized on this noncontrast CT as it was on the prior MRI. On that examination, it was suspected to be due to prior pancreatitis. Calcifications in the pancreatic head region are likely related to prior pancreatitis. No adrenal mass. No hydronephrosis or hydroureter. No renal mass lesion is identified. No urinary tract calculi are visualized. The latter is unremarkable. The prostate appears normal in size. Gastrointestinal tract evaluation is limited without gastrointestinal contrast. No dilated loops of large or small intestine are identified. No evidence of free intraperitoneal air. No evidence of appendicitis. No gastric distention. No evidence of free intraperitoneal air. No fracture or destructive bone lesion are identified. There are degenerative and hypertrophic changes in the spine. There are degenerative changes in the hips. There are postoperative changes midline in the anterior abdominal wall. No lymphadenopathy is visualized in the abdomen or pelvis. No ascites. IMPRESSION: 1. No acute abnormalities are visualized in the chest, abdomen, or pelvis. 2. Emphysema. 3. No definite noncontrast CT evidence of a malignancy in the chest, abdomen, or pelvis. 4. Findings suggestive of prior pancreatitis. 5. Atherosclerosis. Signed: Wells, Ekaterina MDReport Verified Date/Time: 12/10/2021 14:14:38 Reading Location: [address] Transitional Reading Room C-REACTIVE [id number] 06:01:54 Test Item Value Reference Range Interpretation Comments C-REACTIVE PROTEIN (BEAKER) (test 0.43 mg/dL 0.00-0.50 code = 676) Decorating Consultant ID - [id number] 06:01:53 Test Item Value Reference Range Interpretation Comments MAGNESIUM (BEAKER) (test code = 1.8 mg/dL 1.6-2.6 627) Decorating Consultant ID - [id number] 06:01:53 Test Item Value Reference Range Interpretation Comments PHOSPHORUS (BEAKER) (test code = 3.4 mg/dL 2.3-4.7 604) Decorating Consultant ID - ADMINCREATINE KINASE (CK)2021-12-10 06:01:53 Test Item Value Reference Range Interpretation Comments CREATINE KINASE TOTAL (BEAKER) (test 83 U/L 29-200 code = 380) Decorating Consultant ID - ADMINBASIC METABOLIC [id number] 06:01:52 Test Item Value Reference Range Interpretation Comments SODIUM (BEAKER) 139 meq/L 136-145 (test code = 381) POTASSIUM (BEAKER) 3.5 meq/L 3.5-5.1 (test code = 379) CHLORIDE (BEAKER) 108 meq/L 98-107 H (test code = 382) CO2 (BEAKER) (test 25 meq/L 22-29 code = 355) BLOOD UREA NITROGEN 9 mg/dL 7-21 (BEAKER) (test code = 354) CREATININE (BEAKER) 0.51 mg/dL 0.57-1.25 L (test code = 358) GLUCOSE RANDOM 78 mg/dL 70-105 (BEAKER) (test code = 652) CALCIUM (BEAKER) 8.1 mg/dL 8.4-10.2 L (test code = 697) EGFR (BEAKER) (test 165 mL/min/1.73 ESTIM ATED GFR IS code = 1092) sq m NOT ACCURATE CREATININE CLEARANCE IN PREDICTING GLOMERULAR FILTRATION RATE . ESTIMATED GFR I S NOT APPLICABLE FOR DIALYSIS PATIEN TS. Decorating Consultant ID - ADMINCBC W/PLT COUNT & AUTO [id number] 05:21:59 Test Item Value Reference Range Interpretation Comments WHITE BLOOD CELL COUNT (BEAKER) 6.0 K/ L 3.5-10.5 (test code = 775) RED BLOOD CELL COUNT (BEAKER) 3.68 M/ L 4.63-6.08 L (test code = 761) HEMOGLOBIN (BEAKER) (test code = 11.8 GM/DL 13.7-17.5 L 410) HEMATOCRIT (BEAKER) (test code = 34.7 % 40.1-51.0 L 411) MEAN CORPUSCULAR VOLUME (BEAKER) 94.3 fL 79.0-92.2 H (test code = 753) MEAN CORPUSCULAR HEMOGLOBIN 32.1 pg 25.7-32.2 (BEAKER) (test code = 751) MEAN CORPUSCULAR HEMOGLOBIN CONC 34.0 GM/DL 32.3-36.5 (BEAKER) (test code = 752) RED CELL DISTRIBUTION WIDTH 12.4 % 11.6-14.4 (BEAKER) (test code = 412) PLATELET COUNT (BEAKER) (test 182 K/CU MM 150-450 code = 756) MEAN PLATELET VOLUME (BEAKER) 10.4 fL 9.4-12.4 (test code = 754) NUCLEATED RED BLOOD CELLS 0 /100 WBC 0-0 (BEAKER) (test code = 413) NEUTROPHILS RELATIVE PERCENT 63 % (BEAKER) (test code = 429) LYMPHOCYTES RELATIVE PERCENT 24 % (BEAKER) (test code = 430) MONOCYTES RELATIVE PERCENT 11 % (BEAKER) (test code = 431) EOSINOPHILS RELATIVE PERCENT 2 % (BEAKER) (test code = 432) BASOPHILS RELATIVE PERCENT 1 % (BEAKER) (test code = 437) NEUTROPHILS ABSOLUTE COUNT 3.75 K/ L 1.78-5.38 (BEAKER) (test code = 670) LYMPHOCYTES ABSOLUTE COUNT 1.41 K/ L 1.32-3.57 (BEAKER) (test code = 414) MONOCYTES ABSOLUTE COUNT (BEAKER) 0.64 K/ L 0.30-0.82 (test code = 415) EOSINOPHILS ABSOLUTE COUNT 0.12 K/ L 0.04-0.54 (BEAKER) (test code = 416) BASOPHILS ABSOLUTE COUNT (BEAKER) 0.04 K/ L 0.01-0.08 (test code = 417) IMMATURE GRANULOCYTES-RELATIVE 0 % 0-1 PERCENT (BEAKER) (test code = 2801) CT, BRAIN, WITHOUT [id number] 02:14:00Unlisted Reason for Exam - Click Yes and Enter Reason Below->No [facility] 1960 Sex: MFINAL REPORT EXAM/TECHNIQUE: Noncontrast CT of the head. Dose modula tion, iterative reconstruction, and/or weight based adjustment of the mA/kV was utilized to reduce the radiation dose to as low as reasonably achievable. INDICATION: Stroke COMPARISON: CT head from 12/08/2021. FINDINGS: Rivas-white differentiation is preserved. No acute intracranial hemorrhage. No extra-axial fluid collection.Redemonstrated remote left thalamic lacunar infarct. Ventricles are normal inappearance. Basal cisterns are patent. No midline shift. Cerebellar tonsils are normal in appearance. Orbits are normal. Paranasal sinuses are clear. Mastoid air cells are clear. No acute osseous processes or suspicious osseous lesion. Midline structures are normal. Visualized face and neck are unremarkable. Impression: No acute intracranial process. No territorial rivas-white differentiation loss. Signed: Suresh Alves MDReport Verified Date/Time: 12/10/2021 02:14:53 MR, SPINE, LUMBAR, WITHOUT [id number] 19:56:00 Unlisted Reason for Exam - Click Yes and Enter Reason Below->No [facility] 1960 Sex: MFINAL REPORT MR, SPINE, LUMBAR, WITHOUT CONTRAST INDICATION: Lumbosa cral osteoarthritis COMPARISON: None TECHNIQUE: Multiplanar, multisequence MR images of the lumbar spine without contrast. FINDINGS: 5 nonrib-bearing lumbar-type vertebral bodies are present. Alignment of the lumbar spine is within normal limits. Vertebral body height is maintained. Marrow is diffusely heterogeneous without aggressive osseous lesion.Multilevel disc space height loss is present, most conspicuous at L4-L5 and L5-G8Cmjnf terminates at L1.Cauda equina demonstrates normal appearance.Noacute findings in the paraspinal soft tissues. Evaluation of the individual levels demonstrates: L1/L2: Mild disc bulge. No significant canal or foraminal stenosis.L2/L3: Broad-based disc bulge. Ligamentum flavum thickening. Bilateral facet arthropathy and hypertrophy. No significant canal or foraminal stenosis.L3/L4: Broad-based disc bulge. Ligamentum flavum thickening. Bilateral facet arthropathy and hypertrophy. No significant spinal canal stenosis. Moderate right foraminal stenosis with impingement of the right L3 nerve root within the far lateral compartment.L4/L5: Broad-based disc bulge. Ligamentum flavum thickening. Bilateral facet arthropathy and hypertrophy. Moderate right foraminal stenosis with crowding of the exiting right L4 nerve root. No significant spinal canal narrowing.L5/S1: No significant canal or foraminal stenosis. IMPRESSION: Multilevel degenerative changes of the lumbar spine, most prominent at L3-L4 as per above. Signed: Ren White MDReport Verified Date/Time: 12/09/2021 19:56:36 MR, BRAIN, WITHOUT [id number] 19:52:00Unlisted Reason for Exam - Click Yes and Enter Reason Below->No [facility] 1960 Sex: MFINAL REPORT MR, BRAIN, WITHOUT CONTRAST INDICATION: Neuro deficit, acute, stroke suspected TECHNIQUE: Multiplanar, multisequence MR imaging of the brain was obtained. COMPARISON: None FINDINGS:Brain parenchyma is normal in morphology. Midline structures are normally developed. No restricted diffusion to suggest recent ischemic insult. No abnormal susceptibility. Scattered T2/FLAIR hyperintense foci within the periventricular and subcortical white matter are nonspecific, however, statistically represent chronic microvascular ischemic changes. No hydrocephalus. Orbits are within normal limits. No obstructive paranasal sinus disease. IMPRESSION: No acute intracranial findings Signed: Ren White MDReport Verified Date/Time: 12/09/2021 19:52:33 -COV2/RT-PCR ([facility])2021-12-09 19:38:32 Test Item Value Reference Range Interpretation Comments SARS-COV2/RT-PCR (test code = Negative Negative [id number]) Negative result for this test determines that SARS-CoV-2 RNA was not present in the specimen above the Limit of Detection (LOD). However, Negative results do not preclude SARS-CoV-2 infection and should not be used as the sole basis for treatment or patient management decisions. Negative results must be combined with clinical observations, patient history, and epidemiological information. A false negative result may occur if a specimen is improperly collected, transported, or handled. A false negative result should be considered if patient's recent exposures or clinical presentation indicate that COVID-19 (SARS-CoV-2) is likely and diagnostic tests for other causes of illness are negative. Re-testing should be considered in cases of suspected false negatives.The limit of detection for this assay is 100 copies/mL.This SARS-CoV-2 test is a real-time RT_PCR test intended for the qualitative detection of nucleic acid from SARS-CoV-2 in a nasopharyngeal swab specimen collected from individuals suspected of COVID-19 by their healthcare provider.This test has not been Food and Drug Administration (FDA) cleared or approved. This is a modified version of an approved Emergency Use Authorization (EUA) and is in the process of review by the FDA. Once authorized by the FDA, the issued EUA will be effective until the declaration that circumstances exist justifying the authorization of the emergency use of in vitro diagnostic tests for detection and/or diagnosis of COVID-19 is terminated under Section 564(b)(2) of the Act or the EUA is revoked under Section 564(g) of the Act.Testing was performedusing the Sanchez SARS-CoV-2 assay.Fact Sheet for Healthcare Providers:https://www.Divesquare.CambridgeSoft/nabil/RT SARS-CoV-2 HCP Fact Sheet 51- 201745.pdfFact Sheet for Healthcare Patients:https://www.Divesquare.sanchez/nabil/RT SARS-CoV-2 Patient Fact Sheet EN 51-589419D9.pdfVITAMIN D, [id number] 17:16:45 Test Item Value Reference Range Interpretation Comments VITAMIN D 25-OH (LULÚAKER) (test 12.6 ng/mL 6.6-49.9 code = 2764) Effective 07/18/2017: Reference Range ChangeNew: 6.6-49.9 ng/mL Previous: 13.0-47.8 ng/mLRecommended Vitamin D Target Range: 30.0-40.0 ng/mLOperator ID - DBRAD, HIPS, 3 OR 4 VIEWS, [id number] 15:12:00Reason for exam:->Pain [facility] 1960 Sex: MFINAL REPORT TECHNIQUE: RAD, HIPS, 3 OR 4 VIEWS, BILATERAL INDICATION: Pain COMPARISON: None. FINDINGS:No acute fracture or dislocation. There are degenerative changes in the bilateral hips. There are diffuse vascular calcifications. IMPRESSION:No acute osseous abnormality. Signed: Sammy Sher MDReport Verified Date/Time: 12/09/2021 15:12:56 Reading Location: [address] Reading Room [id number] 14:07:35 Test Item Value Reference Range Interpretation Comments RPR SCREEN (BEAKER) (test code = Nonreactive Nonreactive 420) [id number] 12:56:05 Test Item Value Reference Range Interpretation Comments FERRITIN (BEAKER) (test code = 77.77 ng/mL 5.00-275.00 361) Decorating Consultant ID - LILIANA WIRON, TIBC, % SAT. (WITHOUT FERRITIN)2021-12-09 12:35:19 Test Item Value Reference Range Interpretation Comments IRON (BEAKER) (test code = 547) 119.0 ug/dL 40.0-160.0 TOTAL IRON BINDING CAPACITY 224 ug/dL 250-450 L (BEAKER) (test code = 769) IRON % SATURATION (2) (BEAKER) 53 % 20-55 (test code = 2590) Decorating Consultant ID - LILIANA [id number] 12:21:17 Test Item Value Reference Range Interpretation Comments LIPASE (BEAKER) (test code = 749) 25 U/L 8-78 Decorating Consultant ID - AAHAMIDHEPATIC FUNCTION [id number] 12:21:16 Test Item Value Reference Range Interpretation Comments TOTAL PROTEIN (BEAKER) (test code = 5.6 gm/dL 6.0-8.3 L 770) ALBUMIN (BEAKER) (test code = 1145) 3.4 g/dL 3.5-5.0 L BILIRUBIN TOTAL (BEAKER) (test code 0.6 mg/dL 0.2-1.2 = 377) BILIRUBIN DIRECT (BEAKER) (test 0.3 mg/dL 0.1-0.5 code = 706) ALKALINE PHOSPHATASE (BEAKER) (test 73 U/L 40-150 code = 346) AST (SGOT) (BEAKER) (test code = 13 U/L 5-34 353) ALT (SGPT) (BEAKER) (test code = 10 U/L 6-55 347) Decorating Consultant ID - [id number] 12:21:16 Test Item Value Reference Range Interpretation Comments AMYLASE (BEAKER) (test code = 349) 25 U/L 25-125 Decorating Consultant ID - AAHAMIDHEMOGLOBIN [id number] 11:45:20 Test Item Value Reference Range Interpretation Comments HEMOGLOBIN A1C 5.6 % See_Comment [Automated m essage] ELECTROPHORESIS (BEAKER) The system which (test code = 3811) generated this result transmitted ref erence range: <=5.6%. The reference range was not used to int erpret this result as normal/abnormal . "The A1c is measured using a NGSP-certified method. HbA1c value equal to or greater than 6.5% as thediagnosis cutoff for diabetes. An HbA1c value of 5.7- 6.4% indicates increased risk for diabetes (prediabetes)."Decorating Consultant ID - ADMJADE, FEMUR, MIN. 2 VIEWS, [id number] 05:38:00Reason for exam:->C/o pain \\T\\ leg weaknessShould this be performed at the bedside?->Yes [facility] : 1960 Sex: MFINAL REPORT EXAM/TECHNIQUE: RAD, FEMUR, four VIEWS, RIGHT INDICATION: Pain, weakness. COMPARISON: None. FINDINGS: No acute fracture is demonstrated. Grossly normal bone mineralization. No large knee joint effusion. Vascular calcifications are present. Impression: No acute osseous process. Signed: Suresh Alves MDReport Verified Date/Time: 12/09/2021 05:38:16 T4, [id number] 05:34:16 Test Item Value Reference Range Interpretation Comments FREE T4 (BEAKER) (test code = 655) 0.95 ng/dL 0.70-1.48 Decorating Consultant ID Wesley FORD WTSH/FREE T4 IF [id number] 04:56:33 Test Item Value Reference Range Interpretation Comments THYROID STIMULATING HORMONE 0.059 uIU/mL 0.350-4.940 L (BEAKER) (test code = 772) Decorating Consultant ID Wesley FORD [id number] 04:55:31 Test Item Value Reference Range Interpretation Comments HOMOCYSTEINE (BEAKER) (test code = 9.5 umol/L 5.1-15.4 642) Decorating Consultant ID Wesley FORD WVITAMIN B12 AND [id number] 04:55:31 Test Item Value Reference Range Interpretation Comments VITAMIN B12 346 pg/mL 213-816 (BEAKER) (test code = 774) FOLATE (BEAKER) 17.00 ng/mL See_Comment [Automated message] (test code = 362) The system which generated this result transmitted ref erence range: >=7.00. The reference range was not used to interpr et this result as normal/abnormal . Decorating Consultant ID Wesley FORD WLIPID [id number] 03:43:12 Test Item Value Reference Range Interpretation Comments TRIGLYCERIDES (BEAKER) (test code = 46 mg/dL 540) CHOLESTEROL (BEAKER) (test code = 125 mg/dL 631) HDL CHOLESTEROL (BEAKER) (test code 54 mg/dL = 976) LDL CHOLESTEROL CALCULATED (BEAKER) 62 mg/dL (test code = 633) Triglyceride Reference Range: Low Risk <150 Borderline 150-199 High Risk 200-499 Very High Risk >=500Cholesterol Reference Range: Low Risk <200 Borderline 200-239 High Risk >240HDL Cholesterol Reference Range: Low Risk >=60 High Risk <40LDL Cholesterol Reference Range: Optimal <100 Near Optimal 100-129 Borderline 130-159 High 160-189 Very High >=190 Decorating Consultant ID Wesley [id number] 03:43:11 Test Item Value Reference Range Interpretation Comments MAGNESIUM (BEAKER) (test code = 2.0 mg/dL 1.6-2.6 627) Decorating Consultant ID Wesley FORD [id number] 03:43:11 Test Item Value Reference Range Interpretation Comments PHOSPHORUS (BEAKER) (test code = 3.7 mg/dL 2.3-4.7 604) Decorating Consultant ID - LILIANA WBASIC METABOLIC [id number] 03:43:10 Test Item Value Reference Range Interpretation Comments SODIUM (BEAKER) 133 meq/L 136-145 L (test code = 381) POTASSIUM (BEAKER) 4.0 meq/L 3.5-5.1 (test code = 379) CHLORIDE (BEAKER) 101 meq/L 98-107 (test code = 382) CO2 (BEAKER) (test 26 meq/L 22-29 code = 355) BLOOD UREA NITROGEN 10 mg/dL 7-21 (BEAKER) (test code = 354) CREATININE (BEAKER) 0.60 mg/dL 0.57-1.25 (test code = 358) GLUCOSE RANDOM 108 mg/dL 70-105 H (BEAKER) (test code = 652) CALCIUM (BEAKER) 8.8 mg/dL 8.4-10.2 (test code = 697) EGFR (BEAKER) (test 137 mL/min/1.73 ESTIM ATED GFR IS code = 1092) sq m NOT ACCURATE CREATININE CLEARANCE IN PREDICTING GLOMERULAR FILTRATION RATE . ESTIMATED GFR I S NOT APPLICABLE FOR DIALYSIS PATIEN TS. Decorating Consultant ID - LILIANA WURINALYSIS WITH MICROSCOPIC IF [id number] 03:41:46 Test Item Value Reference Range Interpretation Comments COLOR (BEAKER) (test code = 470) Light Yellow CLARITY (BEAKER) (test code = Clear 469) SPECIFIC GRAVITY UA (BEAKER) 1.034 1.001-1.035 (test code = 468) PH UA (BEAKER) (test code = 467) 6.0 5.0-8.0 PROTEIN UA (BEAKER) (test code = Negative Negative 464) GLUCOSE UA (BEAKER) (test code = Negative Negative 365) KETONES UA (BEAKER) (test code = 10 mg/dL Negative A 371) BILIRUBIN UA (BEAKER) (test code Negative Negative = 462) BLOOD UA (BEAKER) (test code = Negative Negative 461) NITRITE UA (BEAKER) (test code = Negative Negative 465) LEUKOCYTE ESTERASE UA (BEAKER) Negative Negative (test code = 466) UROBILINOGEN UA (BEAKER) (test 0.2 mg/dL 0.2-1.0 code = 463) SOURCE(BEAKER) (test code = 2795) Decorating Consultant ID - [auto]Decorating Consultant ID - techRAPID DRUG SCREEN, [id number] 03:39:59 Test Item Value Reference Range Interpretation Comments BARBITURATE URINE (BEAKER) (test Negative Negative code = 725) BENZODIAZEPINE SCREEN URINE (BEAKER) Negative Negative (test code = 726) COCAINE (METAB.) SCREEN (BEAKER) Negative Negative (test code = 1164) METHADONE SCREEN (BEAKER) (test code Negative Negative = 1436) OPIATE SCREEN URINE (BEAKER) (test Positive Negative A code = 734) CANNABINOID SCREEN URINE (BEAKER) Negative Negative (test code = 727) AMPH/METHAMPH SCREEN (BEAKER) (test Negative Negative code = 1438) PHENCYCLIDINE SCREEN URINE (BEAKER) Negative Negative (test code = 608) PH UA (BEAKER) (test code = 467) 6.0 5.0-8.0 DRUG CUTOFF CONC.Cocaine 300 ng/mL Cannabinoid 50 ng/mLBenzodiazepine 200 ng/mLBarbiturate 200 ng/mLPhencyclidine 25 ng/mLOpiate 300 ng/mLMethadone 300 ng/mLAmphetamine/ 1000 ng/mL MethamphetamineThis assay provides an unconfirmed qualitative test result for the clinical management of patients in emergency situations. Chain of custody not maintained. Some scol-tea-nifnchl medications, as well as adulterants, may cause inaccurate results. Clinical correlation should be applied. A more comprehensivedrug screen or confirmation of a detected drug may be performed upon request.Decorating Consultant ID - DBCBC W/PLT COUNT & AUTO [id number] 03:19:40 Test Item Value Reference Range Interpretation Comments WHITE BLOOD CELL COUNT (BEAKER) 5.9 K/ L 3.5-10.5 (test code = 775) RED BLOOD CELL COUNT (BEAKER) 3.83 M/ L 4.63-6.08 L (test code = 761) HEMOGLOBIN (BEAKER) (test code = 12.1 GM/DL 13.7-17.5 L 410) HEMATOCRIT (BEAKER) (test code = 36.7 % 40.1-51.0 L 411) MEAN CORPUSCULAR VOLUME (BEAKER) 95.8 fL 79.0-92.2 H (test code = 753) MEAN CORPUSCULAR HEMOGLOBIN 31.6 pg 25.7-32.2 (BEAKER) (test code = 751) MEAN CORPUSCULAR HEMOGLOBIN CONC 33.0 GM/DL 32.3-36.5 (BEAKER) (test code = 752) RED CELL DISTRIBUTION WIDTH 12.3 % 11.6-14.4 (BEAKER) (test code = 412) PLATELET COUNT (BEAKER) (test 198 K/CU MM 150-450 code = 756) MEAN PLATELET VOLUME (BEAKER) 10.1 fL 9.4-12.4 (test code = 754) NUCLEATED RED BLOOD CELLS 0 /100 WBC 0-0 (BEAKER) (test code = 413) NEUTROPHILS RELATIVE PERCENT 63 % (BEAKER) (test code = 429) LYMPHOCYTES RELATIVE PERCENT 23 % (BEAKER) (test code = 430) MONOCYTES RELATIVE PERCENT 11 % (BEAKER) (test code = 431) EOSINOPHILS RELATIVE PERCENT 2 % (BEAKER) (test code = 432) BASOPHILS RELATIVE PERCENT 1 % (BEAKER) (test code = 437) NEUTROPHILS ABSOLUTE COUNT 3.71 K/ L 1.78-5.38 (BEAKER) (test code = 670) LYMPHOCYTES ABSOLUTE COUNT 1.38 K/ L 1.32-3.57 (BEAKER) (test code = 414) MONOCYTES ABSOLUTE COUNT (BEAKER) 0.64 K/ L 0.30-0.82 (test code = 415) EOSINOPHILS ABSOLUTE COUNT 0.11 K/ L 0.04-0.54 (BEAKER) (test code = 416) BASOPHILS ABSOLUTE COUNT (BEAKER) 0.05 K/ L 0.01-0.08 (test code = 417) IMMATURE GRANULOCYTES-RELATIVE 1 % 0-1 PERCENT (BEAKER) (test code = 2801) HIV-1 ANTIGEN WITH HIV-1/2 [id number] 22:50:03 Test Item Value Reference Range Interpretation Comments HIV-1 ANTIGEN WITH HIV 1\\T\\2 Nonreactive Nonreactive ANTIBODY (2) (BEAKER) (test code = 2586) Decorating Consultant ID - DBB-TYPE NATRIURETIC FACTOR (BNP)2021-12-08 22:10:36 Test Item Value Reference Range Interpretation Comments B-TYPE NATRIURETIC PEPTIDE (BEAKER) 27 pg/mL 0-100 (test code = 700) Decorating Consultant ID - DBHIGH SENSITIVITY TROPONIN [id number] 22:10:16 Test Item Value Reference Range Interpretation Comments HIGH SENSITIVITY < pg/ml See_Comment [Automated message] TROPONIN I (test code = The system which [id number]) generated this result transmitted ref erence range: <=35. Th e reference range was not used to interpr et this result as normal/abnormal . Decorating Consultant ID - DBThe LIVESTOCK LABORER STAT High Sensitivity Troponin-I results should be used in conjunctionwith other diagnostic information such as ECG, clinical observations and information, and patient symptoms to aid in the diagnosis of SD.[id number] 22:03:58 Test Item Value Reference Range Interpretation Comments MAGNESIUM (BEAKER) (test code = 1.9 mg/dL 1.6-2.6 627) Decorating Consultant ID - [id number] 22:03:58 Test Item Value Reference Range Interpretation Comments PHOSPHORUS (BEAKER) (test code = 3.9 mg/dL 2.3-4.7 604) Decorating Consultant ID - DBCOMPREHENSIVE METABOLIC [id number] 22:03:57 Test Item Value Reference Range Interpretation Comments TOTAL PROTEIN 6.3 gm/dL 6.0-8.3 (BEAKER) (test code = 770) ALBUMIN (BEAKER) 3.8 g/dL 3.5-5.0 (test code = 1145) ALKALINE PHOSPHATASE 80 U/L 40-150 (BEAKER) (test code = 346) BILIRUBIN TOTAL 0.4 mg/dL 0.2-1.2 (BEAKER) (test code = 377) SODIUM (BEAKER) (test 134 meq/L 136-145 L code = 381) POTASSIUM (BEAKER) 4.4 meq/L 3.5-5.1 (test code = 379) CHLORIDE (BEAKER) 102 meq/L 98-107 (test code = 382) CO2 (BEAKER) (test 26 meq/L 22-29 code = 355) BLOOD UREA NITROGEN 11 mg/dL 7-21 (BEAKER) (test code = 354) CREATININE (BEAKER) 0.58 mg/dL 0.57-1.25 (test code = 358) GLUCOSE RANDOM 89 mg/dL 70-105 (BEAKER) (test code = 652) CALCIUM (BEAKER) 8.6 mg/dL 8.4-10.2 (test code = 697) AST (SGOT) (BEAKER) 19 U/L 5-34 (test code = 353) ALT (SGPT) (BEAKER) 17 U/L 6-55 (test code = 347) EGFR (BEAKER) (test 142 ESTIMATE D GFR IS code = 1092) mL/min/1.73 sq NOT ACCURA TE m CREATININE CLEARANCE IN PREDICTING GLOMERULAR FILTRATION RATE . ESTIMATED GFR I S NOT APPLICABLE FOR DIALYSIS PATIEN TS. Decorating Consultant ID - DBLACTIC ACID, [id number] 21:59:53 Test Item Value Reference Range Interpretation Comments LACTATE BLOOD VENOUS 1.21 mmol/L 0.50-2.20 Specime n slightly (2) (BEAKER) (test hemolyzed code = 4571) Decorating Consultant ID - [id number] 21:50:48 Test Item Value Reference Range Interpretation Comments PARTIAL THROMBOPLASTIN TIME 27.5 seconds 22.5-36.0 (BEAKER) (test code = 760) PROTHROMBIN TIME/[id number] 21:50:11 Test Item Value Reference Range Interpretation Comments PROTIME (BEAKER) 13.3 seconds 11.9-14.2 (test code = 759) INR (BEAKER) (test 1.03 See_Comment [Automat ed message] code = 370) The system [employer] generated this result transmitted ref erence range: <=5.90. The reference range was not used to int erpret this result as normal/abnormal . RECOMMENDED COUMADIN/WARFARIN INR THERAPY RANGESSTANDARD DOSE: 2.0 - 3.0 Includes: PROPHYLAXIS forvenous thrombosis, systemic embolization; TREATMENT for venous thrombosis and/or pulmonary embolus.HIGH RISK: Target INR is 2.5-3.5 for patients with mechanical heart valves.CBC W/PLT COUNT & AUTO DIFFERENTIAL 2021-12-08 21:43:48 Test Item Value Reference Range Interpretation Comments WHITE BLOOD CELL COUNT (BEAKER) 7.7 K/ L 3.5-10.5 (test code = 775) RED BLOOD CELL COUNT (BEAKER) 3.85 M/ L 4.63-6.08 L (test code = 761) HEMOGLOBIN (BEAKER) (test code = 12.4 GM/DL 13.7-17.5 L 410) HEMATOCRIT (BEAKER) (test code = 36.5 % 40.1-51.0 L 411) MEAN CORPUSCULAR VOLUME (BEAKER) 94.8 fL 79.0-92.2 H (test code = 753) MEAN CORPUSCULAR HEMOGLOBIN 32.2 pg 25.7-32.2 (BEAKER) (test code = 751) MEAN CORPUSCULAR HEMOGLOBIN CONC 34.0 GM/DL 32.3-36.5 (BEAKER) (test code = 752) RED CELL DISTRIBUTION WIDTH 12.3 % 11.6-14.4 (BEAKER) (test code = 412) PLATELET COUNT (BEAKER) (test 202 K/CU MM 150-450 code = 756) MEAN PLATELET VOLUME (BEAKER) 10.0 fL 9.4-12.4 (test code = 754) NUCLEATED RED BLOOD CELLS 0 /100 WBC 0-0 (BEAKER) (test code = 413) NEUTROPHILS RELATIVE PERCENT 77 % (BEAKER) (test code = 429) LYMPHOCYTES RELATIVE PERCENT 13 % (BEAKER) (test code = 430) MONOCYTES RELATIVE PERCENT 9 % (BEAKER) (test code = 431) EOSINOPHILS RELATIVE PERCENT 0 % (BEAKER) (test code = 432) BASOPHILS RELATIVE PERCENT 0 % (BEAKER) (test code = 437) NEUTROPHILS ABSOLUTE COUNT 5.93 K/ L 1.78-5.38 H (BEAKER) (test code = 670) LYMPHOCYTES ABSOLUTE COUNT 0.96 K/ L 1.32-3.57 L (BEAKER) (test code = 414) MONOCYTES ABSOLUTE COUNT (BEAKER) 0.66 K/ L 0.30-0.82 (test code = 415) EOSINOPHILS ABSOLUTE COUNT 0.03 K/ L 0.04-0.54 L (BEAKER) (test code = 416) BASOPHILS ABSOLUTE COUNT (BEAKER) 0.03 K/ L 0.01-0.08 (test code = 417) IMMATURE GRANULOCYTES-RELATIVE 1 % 0-1 PERCENT (BEAKER) (test code = 2801) CALCIUM, [id number] 21:43:10 Test Item Value Reference Range Interpretation Comments CALCIUM IONIZED (BEAKER) (test 1.15 mmol/L 1.12-1.27 code = 698) PH, BLOOD (BEAKER) (test code = 7.30 1810) CT, CTANGIO [id number] 21:34:00Unlisted Reason for Exam - Click Yes and Enter Reason Below->No [facility] 1960 Sex: MFINAL REPORT EXAM/TECHNIQUE: CTA of the head and neck with IV contra st. Noncontrast CT of the head was also performed. MIPS Dose modulation, iterative reconstruction, and/or weight based adjustment of the mA/kV was utilized to reduce the radiation dose to as low as reasonably achievable. INDICATION: Stroke. COMPARISON: Same day CT head. FINDINGS: HEAD Rivas-white differentiation is preserved. No acute intracranial hemorrhage. No extra-axial fluid collection.Status post bilateral canal wall down mastoidectomies. Remote left thalamic lacunar infarct. Remote left cerebellar small thromboembolic infarct. Ventricles are normal in appearance. Basal cisterns are patent. No midline shift. Cerebellar tonsils are normal in appearance. Orbits are normal. Paranasal sinuses are clear. Mastoid air cells are clear. Midline structures are normal. Visualized face and neck are unremarkable. Anterior circulation: Atherosclerotic narrowing of the intracranial internal carotid arteries, severe on the left, moderate on the right. The M1 and M2 branches of the MCA are patent without significant stenosis. The A1 and A2 segments of the anterior cerebral arteries are patent without significant stenosis. Unremarkable appearance of the anterior communicating artery. Distal branches appear patent. No occlusion, significant stenosis, or aneurysm. Posterior circulation: Atherosclerotic dean rowing in the bilateral vertebral arteries without to moderate left stenosis. The bilateral PICAs are patent. AICAs are not well visualized. The basilar artery is patent. The bilateral SCAs are patent.The P1 and P2 segments of the [employer] are patent. Unremarkable appearance of the posterior communicatingarteries. Distal branches appear patent. No occlusion, significant stenosis, or aneurysm. Venous: Nofindings of dural or cortical venous thrombosis. NECK Vessels: Conventional three vessel anatomy of the aortic arch. The bilateral common carotid arteries are patent. There is moderate atherosclerosis at the carotid bifurcations without stenosis by NASCET criteria. There is atherosclerotic calcification at the origin of the vertebral artery with severe left moderate right narrowing. The bilateral cervical vertebral arteries are otherwise patent. No plaque ulceration or intraluminal thrombus. No occlusion or dissection. Lymph nodes: No lymphadenopathy. Glands: Right thyroid mixed attenuation nodule with dystrophic calcification measuring up to 27 mm. Submandibular and parotid glands are unremarkable. Airway: Unremarkable. Dentition: Unremarkable. Osseous: Multilevel spondylosis of the cervical spine with up to severe bilateral neural foraminal narrowing at C5-C6. Upper chest: Centrilobular pulmonary emphysema. No focal consolidation. Impression: 1.No large vessel occlusion. No acute intracranialprocess. CT ASPECT score 10. 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 Severe left moderate right atherosclerotic narrowing of the origins of the vertebral arterie s.4.Right thyroid nodule measuring up to 27 mm. If not previously evaluated, recommend nonemergent thyroid ultrasound.5.Centrilobular pulmonary emphysema. Signed: Suresh Alves MDReport Verified Date/Time: 12/08/2021 21:34:28 CT, CAROTID, [id number] 21:34:00Unlisted Reason for Exam - Click Yes and Enter Reason Below->No[facility] : 1960 Sex: MFINAL REPORT EXAM/TECHNIQUE: CTA of the head and neck with IV contra st. Noncontrast CT of the head was also performed. MIPS Dose modulation, iterative reconstruction, and/or weight based adjustment of the mA/kV was utilized to reduce the radiation dose to as low as reasonably achievable. INDICATION: Stroke. COMPARISON: Same day CT head. FINDINGS: HEAD Rivas-white differentiation is preserved. No acute intracranial hemorrhage. No extra-axial fluid collection.Status post bilateral canal wall down mastoidectomies. Remote left thalamic lacunar infarct. Remote left cerebellar small thromboembolic infarct. Ventricles are normal in appearance. Basal cisterns are patent. No midline shift. Cerebellar tonsils are normal in appearance. Orbits are normal. Paranasal sinuses are clear. Mastoid air cells are clear. Midline structures are normal. Visualized face and neck are unremarkable. Anterior circulation: Atherosclerotic narrowing of the intracranial internal carotid arteries, severe on the left, moderate on the right. The M1 and M2 branches of the MCA are patent without significant stenosis. The A1 and A2 segments of the anterior cerebral arteries are patent without significant stenosis. Unremarkable appearance of the anterior communicating artery. Distal branches appear patent. No occlusion, significant stenosis, or aneurysm. Posterior circulation: Atherosclerotic dean rowing in the bilateral vertebral arteries without to moderate left stenosis. The bilateral PICAs are patent. AICAs are not well visualized. The basilar artery is patent. The bilateral SCAs are patent.The P1 and P2 segments of the [employer] are patent. Unremarkable appearance of the posterior communicatingarteries. Distal branches appear patent. No occlusion, significant stenosis, or aneurysm. Venous: Nofindings of dural or cortical venous thrombosis. NECK Vessels: Conventional three vessel anatomy of the aortic arch. The bilateral common carotid arteries are patent. There is moderate atherosclerosis at the carotid bifurcations without stenosis by NASCET criteria. There is atherosclerotic calcification at the origin of the vertebral artery with severe left moderate right narrowing. The bilateral cervical vertebral arteries are otherwise patent. No plaque ulceration or intraluminal thrombus. No occlusion or dissection. Lymph nodes: No lymphadenopathy. Glands: Right thyroid mixed attenuation nodule with dystrophic calcification measuring up to 27 mm. Submandibular and parotid glands are unremarkable. Airway: Unremarkable. Dentition: Unremarkable. Osseous: Multilevel spondylosis of the cervical spine with up to severe bilateral neural foraminal narrowing at C5-C6. Upper chest: Centrilobular pulmonary emphysema. No focal consolidation. Impression: 1.No large vessel occlusion. No acute intracranialprocess. CT ASPECT score 10. 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 Severe left moderate right atherosclerotic narrowing of the origins of the vertebral arterie s.4.Right thyroid nodule measuring up to 27 mm. If not previously evaluated, recommend nonemergent thyroid ultrasound.5.Centrilobular pulmonary emphysema. Signed: Suresh Alves [facility] Verified Date/Time: 12/08/2021 21:34:28 [facility], BRAIN/STROKE [id number] 20:52:00 [facility] 1960 Sex: MFINAL REPORT CT, BRAIN/STROKE PROTOCOL CLINICAL INDICATION: Cerebral ischemia COMPARISON: None TECHNIQUE: Noncontrast axial CT imaging of the brain and skull. DOSE REDUCTION: Dose modulation, iterative reconstruction, and/or weight-based adjustment of the mA/kV was utilized to reduce the radiation dose to as low as reasonably achievable. FINDINGS:No intracranial hemorrhage, midline shift or mass effect. Midline structures are normally developed. No hydrocephalus.Orbits are within normal limits. Atherosclerotic calcification of the intracranial internal carotid and vertebral arteries. No obstructive paranasal sinus disease. IMPRESSION: No acute intracranial findings If there is persistent clinical concern for intracranial pathology, MR examination is recommended for further characterization. Signed: Ren White MDReport Verified Date/Time: 12/08/2021 20:52:55 RAD, CHEST, 1 VIEW, NON DEPT 2021-12-08 20:21:00Reason for exam:->STROKEShould this be performed at the bedside?->Yes[facility] : 1960 Sex: MFINAL REPORT INDICATION: STROKE COMPARISON: 11/26/2019 TECHNIQUE: Sin gle frontal view of the chest. IMPRESSION: Lungs and pleura: Lungs are hyperinflated which may reflect COPD. No airspace consolidation. No effusion. Heart and mediastinum: Normal heart size. Unremarkable mediastinal contours. Osseous structures: No acute abnormality. Chronic left-sided rib fractures. O ther: None. Signed: Edwina Madison MDReport Verified Date/Time: 12/08/2021 20:21:43 TISSUE [id number] 15:53:00Surgical Pathology Report Case: [id number] Authorizing Provider: Jeferson Weber Collected: 11/26/2019 1316 MD Jordyn Ordering Location: [address] Received: 11/27/2019 6665 Service Pathologist: Manuel Goodwin MD Specimen: Ampulla, AMPULLARY BIOPSY A. AMPULLA, BIOPSY: - BENIGN AMPULLARY/ DUODENAL MUCOSA WITH MILD CHRONIC INFLAMMATION - SMALL FOCUS OF SCAR TISSUE (SEE COMMENT) Signing Pathologist Direct Phone Line: [phone] signed by Manuel Goodwin MD on 11/28/2019 at 3:53 PMPer endoscopy note dated 11/27/19, ampulla was noted to be abnormal with small fibrotic orifice.Deeper levels are examined. There is scar tissue, however no evidence of malignancy is seen.[id number] and postop diagnosis: abnormal imagingAmpullary biopsyReceived in formalin labeled with the patient's name, accession number and "ampulla" are three irregular ballard softtissue fragments each measuring 0.1 cm which are submitted in toto in A1. CG/pl Performed.RAD, CHEST, 2 [id number] 21:20:00Reason for exam:->nodule possible nipple shadow on previous chest xray, [...] nodule.No focal pulmonary consolidation. Signed: Aurelio Simons MDReport Verified Date/Time: 11/26/2019 21:20:17 [place], [id number] 15:10:00Reason for exam:->abnormal imageryFINAL REPORT A fluoroscopic unit was utilized for a procedure performed in the operating room. No interpretation was requested. Please refer to the operative report regarding findings. Please refer to PACS for patient radiation dose information. Signed: Sue Macedoort Verified Date/Time: 11/26/2019 15:10:45 Reading Location: [facility] Radiology Reading Room [id number] 06:08:00 Test Item Value Reference Range Interpretation Comments PHOSPHORUS (BEAKER) (test code = 3.5 mg/dL 2.3-4.7 604) Decorating Consultant ID - KENNY [id number] 06:08:00 Test Item Value Reference Range Interpretation Comments MAGNESIUM (BEAKER) (test code = 1.7 mg/dL 1.6-2.6 627) Decorating Consultant ID - KENNY MBASIC METABOLIC [id number] 06:08:00 Test Item Value Reference Range Interpretation [...] S NOT APPLICABLE FOR DIALYSIS PATIEN TS. Decorating Consultant ID - KENNY EPATIC FUNCTION [id number] 06:08:00 Test Item Value Reference Range Interpretation [...] (test code = 12 U/L 6-55 347) Decorating Consultant ID - KENNY MRAD, CHEST, 1 VIEW, NON [id number] 15:22:00Reason for exam:->smoker, weight lossShould this be [...] Valdez MDReport Verified Date/Time: 15:22:45 Reading Location: [facility] Radiology Reading Room MAGNESIUM 2019-11-25 05:28:00 Test Item Value Reference Range Interpretation Comments MAGNESIUM (BEAKER) 1.8 mg/dL 1.6-2.6 Specimen slightly (test code = 627) hemolyzed Decorating Consultant ID - KENNY [id number] 05:28:00 Test Item Value Reference Range Interpretation Comments PHOSPHORUS (BEAKER) 3.6 mg/dL 2.3-4.7 Specimen slightly (test code = 604) hemolyzed Decorating Consultant ID - KENNY MBASIC METABOLIC [id number] 05:28:00 Test Item Value Reference Range Interpretation [...] S NOT APPLICABLE FOR DIALYSIS PATIEN TS. Decorating Consultant ID - KENNY MHEPATIC FUNCTION [id number] 05:28:00 Test Item Value Reference Range Interpretation [...] Specimen slightly (test code = 347) hemolyzed Decorating Consultant ID - KENNY MMR, ABDOMEN, [id number] 18:08:00Pancreas protocol AND MRCP Anesthesia:->None Deos the [...] Valdez MDReport Verified Date/Time:11/24/2019 18:08:51 Reading Location: [facility] C013Y CT Body Reading Room [id number] 07:18:00 Test Item Value Reference Range Interpretation Comments PHOSPHORUS (BEAKER) (test code = 3.3 mg/dL 2.3-4.7 604) Decorating Consultant ID - [id number] 07:18:00 Test Item Value Reference Range Interpretation Comments MAGNESIUM (BEAKER) (test code = 1.9 mg/dL 1.6-2.6 627) Decorating Consultant ID - LABASIC METABOLIC [id number] 07:18:00 Test Item Value Reference Range Interpretation [...] S NOT APPLICABLE FOR DIALYSIS PATIEN TS. Decorating Consultant ID - LAHEPATIC FUNCTION [id number] 07:18:00 Test Item Value Reference Range Interpretation [...] (test code = 14 U/L 6-55 347) Decorating Consultant ID - LACBC W/PLT COUNT & AUTO [id number] 05:25:00 Test Item Value Reference Range Interpretation [...] (BEAKER) (test code = 2801) HEPATIC FUNCTION [id number] 18:58:00 Test Item Value Reference Range Interpretation [...] (test code = 16 U/L 6-55 347) Decorating Consultant ID - KENNY MBASIC METABOLIC [id number] 18:58:00 Test Item Value Reference Range Interpretation [...] S NOT APPLICABLE FOR DIALYSIS PATIEN TS. Decorating Consultant ID - KENNY MCBC W/PLT COUNT & AUTO [id number] 18:20:00 Test Item Value Reference Range Interpretation [...] = 2801) NM MYOCARDIUM PERFUSION STRESS AND [id number] 18:00:06Impression: Normal myocardial perfusion scan with preserved ejection fraction andnormal wall thickening.I was present for the stress procedure.* * * * * * * * ORIGINAL REPORT * * * * * * * *Pharmacological stress myocardial perfusion imaging report Type: Technetium 99 labeled Myoview rest/stress single isotope SPECTimaging with Ragadenoson pharmacological stress and gated SPECT imaging. Indication: chest pain Clinical history: History of HTN, HLD, [...] ESV = 36 mL; EF = 53%.Rest Values:?EDV = 75 mL; ESV = 33 mL; EF = 56%. [facility], Radiant Results Inft User - 06/23/2019 1:00 PM CDT* * * * * * * * ORIGINAL REPORT * * * * * * * *Pharmacological stress myocardial perfusion imaging reportType: Technetium 99 labeled Myoview rest/stress single isotope SPECTimaging with Ragadenoson phar macological stress and gated SPECT imaging.Indication: chest painClinical [...] thicke I was present for the stress procedure.[facility] Basic Metabolic Panel (NA, K, CL, CO2, GLUCOSE, BUN, CREATININE, CA)2019-06-23 11:47:00 Test Item Value Reference Range Interpretation Comments NA (test code = 140 mmol/L 135-145 2516576922) K (test code = 3.8 mmol/L 3.5-5 2058703752) CL (test code = 107 mmol/L 98-108 4843294895) CO2 TOTAL (test code = 27 mmol/L 23-31 2637751999) AGAP (test code = 2-16 6967726162) BUN (test code = 10 mg/dL 7-23 1854609132) GLUCOSE (test code = 101 mg/dL 70-110 4699983458) CREATININE (test code = 0.44 mg/dL 0.6-1.25 L 3674096624) CALCIUM (test code = 9.1 mg/dL 8.6-10.6 5545142938) eGFR Calculation mL/min/1.73m2 (Non-) (test code = 4406320034) eGFR Calculation mL/min/1.73m2 () (test code = 9718235084) DEAN (test code = DEAN) Association of [...] tests). Lab Interpretation Abnormal (test code = 05602-9) [facility] WITH [id number] 11:05:00 Test Item Value Reference Range Interpretation Comments WBC (test code = See_Comment [Automated 4879-2) message] The sy stem which generated this result transmitted reference range : 4.20 - 10.70 10*3/?L. The reference range was not used to interpret this result as normal/abnormal . RBC (test code = See_Comment L [Automated 379-8) message] The sy stem which generated this [...] RDW-SD (test code = 42.8 fL 38.5-51.6 34245-4) RDW-CV (test code = 12.2 % 12.1-15.4 788-0) PLT (test code = See_Comment [Automated 777-3) message] The sy stem which generated this result transmitted reference range : 150 - 328 10*3/ ?L. The reference r darya was not used to interpret this result as normal/abnormal . MPV (test code = 10.9 fL 9.8-13 77010-4) NRBC/100 WBC (test See_Comment [Automat ed code = 8645067960) message] The system which generated this result transmitted reference range : 0.0 - 10.0 /100 WBCs. The refer ence range was not u sed to interpret th is result as normal/abnormal . NRBC x10^3 (test code <0.01 See_Comment [Auto mated = 9758050374) message] The s ystem which generated this result transmitted reference range : 10*3/?L. The reference range was not used to interpret this result as normal/abnormal . GRAN MAT (NEUT) % 66.9 % (test code = 770-8) IMM GRAN % (test code 0.40 % = 5906247915) LYMPH % (test code = 22.8 % 736-9) MONO % (test code = 9.5 % 5905-5) EOS % (test code = 0.2 % 713-8) BASO % (test code = 0.2 % 706-2) GRAN MAT x10^3(ANC) 5.54 10*3/uL 1.99-6.95 (test code = 7300120088) IMM GRAN x10^3 (test 0.03 10*3/uL 0-0.06 code = 2478149094) LYMPH x10^3 (test code 1.89 10*3/uL 1.09-3.23 = 731-0) MONO x10^3 (test code 0.79 10*3/uL 0.36-1.02 = 742-7) EOS x10^3 (test code = <0.03 0.06-0.53 L 711-2) BASO x10^3 (test code <0.03 0.01-0.09 = 704-7) Lab Interpretation Abnormal (test code = 24023-0) [facility] ([facility])(TOTAL CHOLESTEROL, TRIGLYCERIDES, HDL)2019-06-23 02:47:00 Test Item Value Reference Range Interpretation Comments CHOL (test code = 131 mg/dL 120-200 0854799735) HDL (test code = 85 mg/dL >40 6113111022) HDLC RATIO (test code = See_Comment [Au tomated message] 9667400562) The system [employer] generated this result transmit manjinder reference range : <=5.0. The refe rence range was not u sed to interpret th is result as normal/abnormal . TRIG (test code = 57 mg/dL 30-170 0055784526) LDL CHOL (test code = 35 mg/dL See_Comment [Auto mated message] 78169-1) The system [employer] generated this result transmit manjinder reference range : <=160. The refe rence range was not u sed to interpret th is result as normal/abnormal . VLDL (test code = 11 mg/dL 5-60 5276817170) Lab Interpretation (test Normal code = 72217-8) [facility] [id number] 17:56:00 Test Item Value Reference Range Interpretation Comments TROPONIN I (test 0.002 ng/mL See_Comment [Automated code = 8472087321) message] The system which generated this result [...] ? Lab Interpretation Normal (test code = 97035-1) [facility] [id number] 15:02:00 Test Item Value Reference Range Interpretation Comments TROPONIN I (test 0.004 ng/mL See_Comment [Automated code = 8881305419) message] The system which generated this result [...] ? Lab Interpretation Normal (test code = 91212-4) [facility] [id number] 10:29:00 Test Item Value Reference Range Interpretation Comments TROPONIN I (test 0.014 ng/mL See_Comment [Automated code = 0728651313) message] The system which generated this result transmitted reference range : <=0.034. The reference range was not used to interpret this result as normal/abnormal . DAEN (test code = Equal or Less than [...] ? Lab Interpretation Normal (test code = 02744-7) [facility] [id number] 04:29:00 Test Item Value Reference Range Interpretation Comments TROPONIN I (test 0.006 ng/mL See_Comment [Automated code = 7427163239) message] The system which generated this result [...] ? Lab Interpretation Normal (test code = 18975-0) [facility] [id number] 04:26:00 Test Item Value Reference Range Interpretation Comments NT-proBNP (test code 294 pg/mL See_Comment H [Autom ated = 9227754227) message] The system which generated this result transmitted reference range : <=125. The reference range was not used to interpret this result as normal/abnormal . DEAN (test code = DEAN) Biotin has been reported to cause a negative bias, interpret results relative to patient's use of biotin. Lab Interpretation Abnormal (test code = 06489-9) [facility] Metabolic Panel (NA, K, CL, CO2, GLUCOSE, BUN, CREATININE, CA)2019-06-22 04:18:00 Test Item Value Reference Range Interpretation Comments NA (test code = 139 mmol/L 135-145 7872093962) K (test code = 3.7 mmol/L 3.5-5 1613968754) CL (test code = 99 mmol/L 98-108 3625780687) CO2 TOTAL (test code = 29 mmol/L 23-31 3750094835) AGAP (test code = 2-16 5049438364) BUN (test code = 7 mg/dL 7-23 0783503123) GLUCOSE (test code = 62 mg/dL 70-110 L 6769892688) CREATININE (test code = 0.68 mg/dL 0.6-1.25 2030687008) CALCIUM (test code = 9.3 mg/dL 8.6-10.6 5477177933) eGFR Calculation mL/min/1.73m2 (Non-) (test code = 4036520032) eGFR Calculation mL/min/1.73m2 () (test code = 0633114362) DEAN (test code = DEAN) Association of [...] tests). Lab Interpretation Abnormal (test code = 85601-9) [facility] HospitalLipase [id number] 04:18:00 Test Item Value Reference Range Interpretation Comments LIPASE (test code = 5319573608) 78 U/L 0-220 Lab Interpretation (test code = Normal 15510-3) [facility] (ALB, T.PRO, BILI T, BU/BC, ALT, AST, ALK PHOS)2019-06-22 04:17:00 Test Item Value Reference Range Interpretation Comments TOTAL BILI (test code = 6622598324) 0.3 mg/dL 0.1-1.1 BILI UNCON (test code = 6885718836) 0.2 mg/dL 0.1-1.1 BILI CONJ (test code = 0217206067) 0.0 mg/dL 0-0.3 T PROTEIN (test code = 5147386194) 8.0 g/dL 6.3-8.2 ALBUMIN (test code = 5546382083) 4.7 g/dL 3.5-5 ALK PHOS (test code = 4693715015) 80 U/L 34-122 ALT(SGPT) (test code = 5978952923) 24 U/L 9-51 AST(SGOT) (test code = 8846961732) 37 U/L 13-40 Lab Interpretation (test code = Normal 54245-8) [facility] HospitalAC [facility] 20 + LACTIC [id number] 04:13:00 Test Item Value Reference Range Interpretation Comments PH (test code = 2) 7.35-7.45 PCO2 (test code = See_Comment [Automat ed 3545883353) message] The sy stem which generated this result transmitted reference range : 35 - 45 mmHg. The reference range was not used to interpret this result as normal/abnormal . PO2 (test code = See_Comment H [Automated 3753086979) message] The sy stem which generated this result transmitted reference range : 80 - 100 mmHg. The reference range was not used to interpret this result as normal/abnormal . HCO3 (test code = See_Comment L [Automate d 1474725288) message] The sy stem which generated this result transmitted reference range : 22 - 26 mEq/L. The reference range was not used to interpret this result as normal/abnormal . BE (test code = See_Comment L [Automated 0468251672) message] The sy stem which generated this result transmitted reference range : -3.0 - 3.0 mEq/ L. The reference r darya was not used to interpret this result as normal/abnormal . THB (test code = 14.3 g/dL 13.5-18 4246541164) %O2HB (test code = 93.0 % 94-99 L 8053426430) %COHB ART (test code = 4.9 % 0-1.5 H 6674966142) %METHB ART (test code = 0.4 % 0.4-1.5 4154090495) VOL%O2 ART (test code = 19.0 % 15-23 4697436078) NA (test code = 132 mmol/L 135-145 L 9919045044) K+ (test code = 3.7 mmol/L 3.5-5 6694554452) AC CA IONZ (test code = 4.50 mg/dL 4.5-5.3 6953148843) GLUCOSE (test code = 91 mg/dL 70-110 7463097263) LACTIC ACID (test code 2.20 mmol/L 0.5-2.2 = 5155159467) Lab Interpretation Abnormal (test code = 15420-1) [facility] 1 [id number] 04:12:41 No acute cardiopulmonary abnormality. Penny Schroeder MD., have reviewed this study andagree withthe above report.XR CHEST 1 VW HISTORY: chest pain COMPARISON: None FINDINGS: The lungs are clear. No focal consolidation, pleural effusion orpneumothorax. Right calcified mediastinal lymph nodes. The heart is normal in size. No acute osseous abnormality. [facility], Radiant Results Inft User - 06/21/2019 11:12 PM CDTXR CHEST 1 VWHISTORY: chest pain COMPARISON: NoneFINDINGS:The lungs are clear. No focal consolidation, pleural effusion orpneumothorax. Right calcified mediastinal lymph nodes.The heart is normal in size.No acute osseous abnormality.IMPRESSIONNo acute cardiopulmonary abnormality.Addison Schroeder MD., have reviewed this study and agree withthe above report.[facility]aPTT2019-[facility] 04:09:00 Test Item Value Reference Range Interpretation Comments APTT Patient (test See_Comment [Automat ed code = 3173-2) message] The system which generated this result transmitted reference range : 23 - 38 Seconds . The reference range was not used to interpr et this result as normal/abnormal . DEAN (test code = DEAN) The [facility] patient population mean normal value for aPTT is 30 seconds. Lab Interpretation Normal (test code = 72431-9) [facility] HospitalProthrombin Time (PT) / [id number] 04:06:00 Test Item Value Reference Range Interpretation [...] tions. Lab Interpretation (test Normal code = 75565-7) [facility]CB WITH [id number] 03:55:00 Test Item Value Reference Range Interpretation Comments WBC (test code = See_Comment [Automated 5590-2) message] The sy stem which generated this result transmitted reference range : 4.20 - 10.70 10*3/?L. The reference range was not used to interpret this result as normal/abnormal . RBC (test code = See_Comment [Automated 729-8) message] The sy stem which generated this [...] RDW-SD (test code = 41.3 fL 38.5-51.6 27712-0) RDW-CV (test code = 11.8 % 12.1-15.4 L 788-0) PLT (test code = See_Comment [Automated 777-3) message] The sy stem which generated this result transmitted reference range : 150 - 328 10*3/ ?L. The reference r darya was not used to interpret this result as normal/abnormal . MPV (test code = 10.0 fL 9.8-13 03006-9) NRBC/100 WBC (test See_Comment [Automat ed code = 0039762070) message] The system which generated this result transmitted reference range : 0.0 - 10.0 /100 WBCs. The refer ence range was not u sed to interpret th is result as normal/abnormal . NRBC x10^3 (test code <0.01 See_Comment [Auto mated = 1093258115) message] The s ystem which generated this result transmitted reference range : 10*3/?L. The reference range was not used to interpret this result as normal/abnormal . GRAN MAT (NEUT) % 52.9 % (test code = 770-8) IMM GRAN % (test code 0.40 % = 3663557973) LYMPH % (test code = 35.0 % 736-9) MONO % (test code = 9.8 % 5905-5) EOS % (test code = 1.3 % 713-8) BASO % (test code = 0.6 % 706-2) GRAN MAT x10^3(ANC) 5.20 10*3/uL 1.99-6.95 (test code = 2393137637) IMM GRAN x10^3 (test 0.04 10*3/uL 0-0.06 code = 4061533049) LYMPH x10^3 (test code 3.44 10*3/uL 1.09-3.23 H = 731-0) MONO x10^3 (test code 0.96 10*3/uL 0.36-1.02 = 742-7) EOS x10^3 (test code = 0.13 10*3/uL 0.06-0.53 711-2) BASO x10^3 (test code 0.06 10*3/uL 0.01-0.09 = 704-7) Lab Interpretation Abnormal (test code = 56822-6) [facility]
[2022-02-16] MEDS ORDERED: MORPHINE 2 MG/ML SYR ONE (20:39)
[2022-02-16] MEDS ORDERED: MORPHINE 4 MG/ML SYR ONE (20:39)
--- NOTE | 2022-02-16 21:29 | RAD REPORT ---
EXAM DESCRIPTION: USExtrem Venous W Compress Bil02/16/2022 8:50 pm CLINICAL HISTORY: Leg pain COMPARISON: none FINDINGS: The common femoral, superficial femoral, popliteal and posterior tibial veins bilaterally are compressible and demonstrate augmentation. Doppler demonstrates good flow. Grayscale, color and spectral analysis performed on all vessels IMPRESSION: No evidence of deep venous thrombosis involving either lower extremity.
--- NOTE | 2022-02-16 21:31 | RAD REPORT ---
EXAM DESCRIPTION: CT - C Spine Wo Con - 02/16/2022 9:02 pm CLINICAL HISTORY: Ataxia/neck pain COMPARISON: 2014 TECHNIQUE: Computed axial tomography of the cervical spine were obtained with sagittal and coronal r econstruction images generated and reviewed. All CT scans are performed using dose optimization technique as appropriate and may include automated exposure control or mA/KV adjustment according to patient size. FINDINGS: A cervical fracture is not seen. No dislocation. Spondylosis C5-6 results in moderate bilateral foraminal stenosis. IMPRESSION: A cervical fracture is not seen. Spondylosis C5-6 results in moderate bilateral foraminal stenosis If the patient symptoms persist MRI would be recommended.
--- NOTE | 2022-02-16 21:33 | RAD REPORT ---
EXAM DESCRIPTION: CTSpine Lumbar Wo Con02/16/2022 9:02 pm CLINICAL HISTORY: Ataxia/back pain COMPARISON: None TECHNIQUE: Computed axial tomography lumbar spine was obtained with coronal and sagittal reconstruct ion. All CT scans are performed using dose optimization technique as appropriate and may include automated exposure control or mA/KV adjustment according to patient size. FINDINGS: No fracture is seen. No dislocation is noted. Spondylosis involves lumbar spine resulting multilevel mild to moderate central and foraminal stenosi s IMPRESSION: Negative for a lumbar fracture. Spondylosis resulting in multilevel [id number]-hg-[id number] central and foraminal stenosis If patient's symptoms persist MRI would be recommended
--- NOTE | 2022-02-16 21:33 | RAD REPORT ---
EXAM DESCRIPTION: CTThoracic Spine W/o Cont02/16/2022 9:02 pm CLINICAL HISTORY: Ataxia/back pain COMPARISON: None TECHNIQUE: Computed axial tomography of thoracic spine was obtained with coronal and sagittal recons truction. All CT scans are performed using dose optimization technique as appropriate and may include automated exposure control or mA/KV adjustment according to patient size. FINDINGS: No fracture is seen. No dislocation is noted. Mild kyphosis. No significant central/foraminal stenosis is seen. IMPRESSION: Negative for a thoracic fracture No significant central/foraminal stenosis seen If the patient's clinical symptoms persist MRI would be recommended
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
[2022-02-16] MEDS ORDERED: HYDROCODONE/APAP 7.5/325 MG TAB ONE (22:55)
[2022-02-16] MEDS ORDERED: LIDOCAINE 4% PATCH ONE (22:56)
[2022-02-16] MEDS ORDERED: KETOROLAC 30 MG/ML INJ ONE (22:56)
[2022-02-17 03:15] VITALS: TEMP 97.9
[2022-02-17 03:18] VITALS: O2SAT 97
[2022-02-17 03:20] VITALS: BP 163/86
== END 2022-02-16 22:58 | disposition home or self-care (01) ==
LOC: ER 17:23
DX: M54.17 Radiculopathy, lumbosacral region (principal); M54.50 Low back pain, unspecified; I10 Essential (primary) hypertension; Z86.73 Personal history of transient ischemic attack (TIA), and cerebral infarction without residual deficits
CPT/HCPCS: 72125; 72128; 72131; 93970; 96372; 99283; J2270

== ENCOUNTER 2023-02-25 18:05 | Emergency (ER) | payer SELFPAY ==
--- OUTSIDE RECORDS SUMMARY | 2023-02-25 18:11 | XMS REPORT | Continuity of Care Document ---
:1960 Author Organization [facility] t Address [address] [facility] [facility] [place] [address] Care Team Providers Name Role Phone Marialuisa Arana Primary Care Physician Dorene Arredondo Attending Clinician Unavailable CAROLA HOWARD Attending Clinician Unavailable Carola Howard MD Attending Clinician SILVIA WARREN Attending Clinician Unavailable JAZIEL GARCIA K.HCandy Attending Clinician Unavailable Doctor Unassigned, [place] Attending Clinician Unavailable Marialuisa Arana Attending Clinician [facility] Attending Clinician Unavailable Jaziel Garcia MD K.H. Attending Clinician MARIALUISA VIRAMONTES Attending Clinician Unavailable Kamryn Gonsalves MD Attending Clinician Lab, Ang - Db Attending Clinician Unavailable Only, Adc Test Attending Clinician Unavailable FADI DE LEON Attending Clinician Unavailable FADI DE LEON Attending Clinician Unavailable Fadi De Leon MD Attending Clinician Zuhair SMITH, Lynn Ferreira Attending Clinician Unavailable EKATERINA HAINES Attending Clinician Unavailable Joanne Rene DO Attending Clinician Ekaterina Haines DO Attending Clinician Dru Nj MD Attending Clinician JOANNE RENE Attending Clinician Unavailable Rochelle Lucio Attending Clinician ROCHELLE MARROQUIN Attending Clinician Unavailable AVINASH ZUNIGA Attending Clinician Unavailable JEFF CHAO Attending Clinician Unavailable LAURO MCKEON Attending Clinician Unavailable Lele Rosa MD Attending Clinician Minoo Yoo MD Attending Clinician JOSE SENDMINA K.H. Admitting Clinician Unavailable Jaziel Garcia MD K.H. Admitting Clinician EKATERINA HAINES Admitting Clinician Unavailable Ekaterina Haines DO Admitting Clinician AVINASH ZUNIGA Admitting Clinician Unavailable DANNY MOFFETT Admitting Clinician Unavailable Minoo Yoo MD Admitting Clinician Payers Payer Name Policy Type Policy Number Effective Date [place] [id number] 2022 2022 C 00:00:00 00:00:00 Problems Condition Condition Condition Status Onset Resolution Last Treating Co mments Source Name Details Category Date Date Treatment Clinician Date Herniated Herniated Disease Active Uni vers lumbar lumbar 8-30 ity [place] interverte [place]verte 00:00[place] bral disc bral disc 00 Medi farzana Branch Restless Restless Disease Active Unive rs leg leg 8-30 ity of syndrome syndrome 00:00: [place] [facility] Chronic Chronic Disease Active Univers pain pain 8-30 ity of syndrome syndrome 00:00: [place] 00 Medical Branch Arthritis, Arthritis, Disease Active U nivers multiple multiple 8-30 ity of joint joint 00:00: [place] involvemen involvemen 00 Me dical t t Branch Pain Pain Disease Active Univers management management 8-30 it y of contract contract 00:00: [place] signed signed 00 Medical Branch Dyslipidem Dyslipidem Disease Active Overview : Univers ia ia 7-26 Formattin ity of 00:00: g of this note Medical might be Branch different from the original. Added automatic ally from request for surgery [id number] Mixed Mixed Disease Active Univers hyperlipid hyperlipid 6-23 it y of emia emia 00:00: [place] [facility] Bilateral Bilateral Disease Active Uni vers hearing hearing 6-23 ity of loss, loss, 00:00: [place] unspecifie unspecifie 00 Me dical d hearing d hearing Bran ch loss type loss type SOB SOB Disease Active Univers (shortness (shortness 6-16 it y of of breath[place] breath[place] 00 [facility] COVID-19 COVID-19 Disease Active Unive rs 6-16 ity of 00:00: [place] [facility] HTN HTN Disease Recurre [facility] (hypertens (hypertens nce 3-04 [place] ion) ion) 00:00: [facility] 00 [place] Acute Acute Disease Active [facility] ischemic ischemic [address] [facility] stroke stroke 00:00: [facility] 00 Center S/P admn S/P admn Disease Active [facility] diff fac diff fac 00:00: Medica l w/n last w/n last 00 Center 24 hr bef 24 hr bef adm to adm to crnt fac crnt fac Intracrani Intracrani Disease Active [facility] al al 3[facility]04 [facility] atheroscle atheroscle 00:00: [place] dical rosis rosis 00 [place] Dilation Dilation Disease Active [facility] of biliary of biliary 2-16 [place] tract tract 00:00: [facility] 00 [place] E46 E46 Disease Active Univers Unspecifie Unspecifie 9-16 it y of d severe d severe 00:00: [place] protein-ca protein-ca 00 Nd dical milka milka Branch malnutriti malnutriti on on Leg pain Leg pain Disease Active Unive rs 9-15 ity of 00:00: [place] [address] Medical Branch Other Other Disease Active Univers chest pain chest pain 9-15 it y of 00:00: [place] [address] Medical Branch Essential Essential Disease Active Uni vers hypertensi hypertensi 9-15 it y of on on 00:00: [place] [facility] Branch Cigarette Cigarette Disease Active [facility] smoker [facility] 00:00: Medical 00 [place] Family Family Disease Active [facility] history of history of 15 [place] early CAD early CAD 00:00: Medi farzana 00 Center History of History of Disease Active [facility] arterial arterial 15 [facility] ischemic ischemic 00:00: Medica l stroke stroke 00 [place] Hypertensi Hypertensi Disease Active [facility] ve urgency ve urgency 15 [place] kes 00:00: Medical 00 [place] COPD COPD Disease Active Univers exacerbati exacerbati 9-14 it y of on on 00:00: [address] Allergies, Adverse Reactions, Alerts Allergy Allergy Status Severity Reaction(s) Onset Inactive Treating Comm ents Source Name Type Date Date Clinician NO KNOWN Drug Active Univers ALLERGIE Class ity of S [facility] NO KNOWN Allergy Active [facility] ALLERGIE S Social History Social Habit Start Date Stop Date Quantity Comments Source History of tobacco Cigarette Smoker University of use [facility] Exposure to 2022-06-05 2022-06-15 Not sure University of SARS-CoV-2 (event) 00:00:00 10:22:00 [facility] Tobacco use and 2022-03-23 2022-03-23 Smokeless Universit y of exposure 00:00:00 00:00:00 tobacco non-user [facility] Alcohol intake 2021-12-09 2021-12-09 [facility] (finding) Cigarettes smoked 2019-11-26 2019-11-[address] [facility] current (pack per 00:00:00 00:00:00 [facility] day) - Reported Cigarette 2019-11-26 2019-11-[address] [facility] pack-years 00:00:00 00:00:00 [facility] Sex Assigned At [address] [place] fraga 00:00:00 00:00:00 [facility] Smoking Status Start Date Stop Date Source Smokes tobacco daily 2019-11-26 00:00:00 [facility] Medications Ordered Filled Start Stop Current Ordering Indication Dosage Frequency Signature Comments Components Source Medication Medication Date Date Medication? Clinician (SIG) Name Name traMADoL 50 2021-10- No 50mg Take 50 mg Univers mg tablet 0-03 10-03 by mouth ity o f 11:20: 00:00 every 6 [place] 09 :00 (six) Medical hours as Branch needed. traMADoL 50 2021-10- 50mg Take 50 mg Univers mg tablet 0-03 10-03 by mouth ity o f 11:20: 00:00 every 6 [place] 09 :00 (six) Medical hours as Branch needed. gabapentin 2021-10 Yes [id number] 100mg Take 1 Univers 100 mg 0-03 capsule by ity of capsule 00:00: mouth in [address] morning [place] and 1 capsule at noon and 1 capsule in the evening. gabapentin 2021-10 Yes [id number] 100mg Take 1 Univers 100 mg 0-03 capsule by ity of capsule 00:00: mouth in [address] morning [place] and 1 capsule at noon and 1 capsule in the evening. gabapentin 2021-10 Yes [id number] 100mg Take 1 Univers 100 mg 0-03 capsule by ity of capsule 00:00: mouth in [address] morning [place] and 1 capsule at noon and 1 capsule in the evening. gabapentin 2021-10 Yes [id number] 100mg Take 1 Univers 100 mg 0-03 capsule by ity of capsule 00:00: mouth in [address] morning [place] and 1 capsule at noon and 1 capsule in the evening. gabapentin 2021-10 Yes [id number] 100mg Take 1 Univers 100 mg 0-03 capsule by ity of capsule 00:00: mouth in [address] morning [place] and 1 capsule at noon and 1 capsule in the evening. gabapentin 2021-10 Yes [id number] 100mg Take 1 Univers 100 mg 0-03 capsule by ity of capsule 00:00: mouth in [address] morning [place] and 1 capsule at noon and 1 capsule in the evening. gabapentin 2021-10 Yes [id number] 100mg Take 1 Univers 100 mg 0-03 capsule by ity of capsule 00:00: mouth in [address] and 1 capsule at noon and 1 capsule in the evening. gabapentin 2021- Yes [id number] 100mg Take 1 Univers 100 mg 0-03 capsule by ity of capsule 00:00: mouth in [address] morning [place] and 1 capsule at noon and 1 capsule in the evening. gabapentin 2021-1 Yes [id number] 100mg Take 1 Univers 100 mg 0-03 capsule by ity of capsule 00:00: mouth in [place] 00 the Medical morning Branch and 1 capsule at noon and 1 capsule in the evening. gabapentin 2021-1 Yes [id number] 100mg Take 1 Univers 100 mg 0-03 capsule by ity of capsule 00:00: mouth in [place] 00 the Medical morning Branch and 1 capsule at noon and 1 capsule in the evening. aspirin 81 2-0 2022- No 81mg Take 81 mg Univers mg chewable 06-15-08 by mouth ity of tablet 10:57: 00:00 daily. [place] 27 :00 Medical Branch metoprolol 2021-0 Yes [id number] 25mg Take 1 Univers succinate 9-08 tablet by ity o f XL 25 mg 24 00:00: mouth in [place] hr tablet 00 the Medical morning. Branch ezetimibe 2021-0 Yes [id number] 10mg Take 1 U nivers 10 mg 9-08 tablet by ity of tablet 00:00: mouth in [place] 00 the Medical morning. Branch losartan 50 2021-0 Yes [id number] 50mg Take 1 Univers mg tablet 9-08 tablet by ity o f 00:00: mouth in [place] the Medical morning. Branch amLODIPine 2021-0 Yes [id number] 5mg Take 1 Univers 5 mg tablet 9-08 tablet by ity of 00:00: mouth in [place] the Medical morning. Branch metoprolol 2021-0 Yes [id number] 25mg Take 1 Univers succinate 9-08 tablet by ity o f XL 25 mg 24 00:00: mouth in [place] hr tablet 00 the Medical morning. Branch ezetimibe 2-0 Yes [id number] 10mg Take 1 U nivers 10 mg 9-08 tablet by ity of tablet 00:00: mouth in [place] 00 the Medical morning. Branch losartan 50 2-0 Yes [id number] 50mg Take 1 Univers mg tablet 9-08 tablet by ity o f 00:00: mouth in [place] 00 the Medical morning. Branch amLODIPine 2-0 Yes [id number] 5mg Take 1 Univers 5 mg tablet 9-08 tablet by ity of 00:00: mouth in [place] 00 the Medical morning. Branch metoprolol 2-0 Yes [id number] 25mg Take 1 Univers succinate 9-08 tablet by ity o f XL 25 mg 24 00:00: mouth in [place] hr tablet 00 the Medical morning. Branch ezetimibe 2022-0 Yes [id number] 10mg Take 1 U nivers 10 mg 9-08 tablet by ity of tablet 00:00: mouth in [place] 00 the Medical morning. Branch losartan 50 2-0 Yes [id number] 50mg Take 1 Univers mg tablet 9-08 tablet by ity o f 00:00: mouth in [place] 00 the Medical morning. Branch amLODIPine 2-0 Yes [id number] 5mg Take 1 Univers 5 mg tablet 9-08 tablet by ity of 00:00: mouth in [place] the Medical morning. Branch metoprolol 2-0 Yes [id number] 25mg Take 1 Univers succinate 9-08 tablet by ity o f XL 25 mg 24 00:00: mouth in [place] hr tablet 00 the Medical morning. Branch ezetimibe 2-0 Yes [id number] 10mg Take 1 U nivers 10 mg 9-08 tablet by ity of tablet 00:00: mouth in [place] the Medical morning. Branch losartan 50 2-0 Yes [id number] 50mg Take 1 Univers mg tablet 9-08 tablet by ity o f 00:00: mouth in [place] the Medical morning. Branch amLODIPine 2-0 Yes [id number] 5mg Take 1 Univers 5 mg tablet 9-08 tablet by ity of 00:00: mouth in [place] the Medical morning. Branch metoprolol 2-0 Yes [id number] 25mg Take 1 Univers succinate 9-08 tablet by ity o f XL 25 mg 24 00:00: mouth in [place] hr tablet 00 the Medical morning. Branch ezetimibe 2-0 Yes [id number] 10mg Take 1 U nivers 10 mg 9-08 tablet by ity of tablet 00:00: mouth in [place] 00 the Medical morning. Branch losartan 50 2-0 Yes [id number] 50mg Take 1 Univers mg tablet 9-08 tablet by ity o f 00:00: mouth in [place] 00 the Medical morning. Branch amLODIPine 2022-0 Yes [id number] 5mg Take 1 Univers 5 mg tablet 9-08 tablet by ity of 00:00: mouth in [place] 00 the Medical morning. Branch metoprolol 2022-0 Yes [id number] 25mg Take 1 Univers succinate 9-08 tablet by ity o f XL 25 mg 24 00:00: mouth in [place] hr tablet 00 the Medical morning. Branch ezetimibe 2022-0 Yes [id number] 10mg Take 1 U nivers 10 mg 9-08 tablet by ity of tablet 00:00: mouth in [place] 00 the Medical morning. Branch losartan 50 2-0 Yes [id number] 50mg Take 1 Univers mg tablet 9-08 tablet by ity o f 00:00: mouth in [place] 00 the Medical morning. Branch amLODIPine 2022-0 Yes [id number] 5mg Take 1 Univers 5 mg tablet 9-08 tablet by ity of 00:00: mouth in [place] 00 the Medical morning. Branch metoprolol 2022-0 Yes [id number] 25mg Take 1 Univers succinate 9-08 tablet by ity o f XL 25 mg 24 00:00: mouth in [place] hr tablet 00 the Medical morning. Branch ezetimibe 2-0 Yes [id number] 10mg Take 1 U nivers 10 mg 9-08 tablet by ity of tablet 00:00: mouth in [place] the Medical morning. Branch losartan 50 2-0 Yes [id number] 50mg Take 1 Univers mg tablet 9-08 tablet by ity o f 00:00: mouth in [place] the Medical morning. Branch amLODIPine 2-0 Yes [id number] 5mg Take 1 Univers 5 mg tablet 9-08 tablet by ity of 00:00: mouth in [place] the Medical morning. Branch metoprolol 2022-0 Yes [id number] 25mg Take 1 Univers succinate 9-08 tablet by ity o f XL 25 mg 24 00:00: mouth in [place] hr tablet 00 the Medical morning. Branch ezetimibe 2022-0 Yes [id number] 10mg Take 1 U nivers 10 mg 9-08 tablet by ity of tablet 00:00: mouth in [place] 00 the Medical morning. Branch losartan 50 2-0 Yes [id number] 50mg Take 1 Univers mg tablet 9-08 tablet by ity o f 00:00: mouth in [place] 00 the Medical morning. Branch amLODIPine 2022-0 Yes [id number] 5mg Take 1 Univers 5 mg tablet 9-08 tablet by ity of 00:00: mouth in [place] 00 the Medical morning. Branch metoprolol 2-0 Yes [id number] 25mg Take 1 Univers succinate 9-08 tablet by ity o f XL 25 mg 24 00:00: mouth in [place] hr tablet 00 the Medical morning. Branch ezetimibe 2-0 Yes [id number] 10mg Take 1 U nivers 10 mg 9-08 tablet by ity of tablet 00:00: mouth in [place] 00 the Medical morning. Branch losartan 50 2-0 Yes [id number] 50mg Take 1 Univers mg tablet 9-08 tablet by ity o f 00:00: mouth in [place] 00 the Medical morning. Branch amLODIPine 2-0 Yes [id number] 5mg Take 1 Univers 5 mg tablet 9-08 tablet by ity of 00:00: mouth in [place] 00 the Medical morning. Branch metoprolol 2-0 Yes [id number] 25mg Take 1 Univers succinate 9-08 tablet by ity o f XL 25 mg 24 00:00: mouth in [place] hr tablet 00 the Medical morning. Branch ezetimibe 2-0 Yes [id number] 10mg Take 1 U nivers 10 mg 9-08 tablet by ity of tablet 00:00: mouth in [place] 00 the Medical morning. Branch losartan 50 2-0 Yes [id number] 50mg Take 1 Univers mg tablet 9-08 tablet by ity o f 00:00: mouth in [place] 00 the Medical morning. Branch amLODIPine 2-0 Yes [id number] 5mg Take 1 Univers 5 mg tablet 9-08 tablet by ity of 00:00: mouth in [place] 00 the Medical morning. Branch metoprolol 2-0 Yes [id number] 25mg Take 1 Univers succinate 9-08 tablet by ity o f XL 25 mg 24 00:00: mouth in [place] hr tablet 00 the Medical morning. Branch ezetimibe 2022-0 Yes [id number] 10mg Take 1 U nivers 10 mg 9-08 tablet by ity of tablet 00:00: mouth in [place] 00 the Medical morning. Branch losartan 50 2-0 Yes [id number] 50mg Take 1 Univers mg tablet 9-08 tablet by ity o f 00:00: mouth in [place] 00 the Medical morning. Branch amLODIPine 2-0 Yes [id number] 5mg Take 1 Univers 5 mg tablet 9-08 tablet by ity of 00:00: mouth in [place] 00 the Medical morning. Branch metoprolol 2022-0 Yes [id number] 25mg Take 1 Univers succinate 9-08 tablet by ity o f XL 25 mg 24 00:00: mouth in [place] hr tablet 00 the Medical morning. Branch ezetimibe 2022-0 Yes [id number] 10mg Take 1 U nivers 10 mg 9-08 tablet by ity of tablet 00:00: mouth in [place] 00 the Medical morning. Branch losartan 50 2-0 Yes [id number] 50mg Take 1 Univers mg tablet 9-08 tablet by ity o f 00:00: mouth in [place] 00 the Medical morning. Branch amLODIPine 2-0 Yes [id number] 5mg Take 1 Univers 5 mg tablet 9-08 tablet by ity of 00:00: mouth in [place] the Medical morning. Branch metoprolol 2-0 Yes [id number] 25mg Take 1 Univers succinate 9-08 tablet by ity o f XL 25 mg 24 00:00: mouth in [place] hr tablet 00 the Medical morning. Branch ezetimibe 2-0 Yes [id number] 10mg Take 1 U nivers 10 mg 9-08 tablet by ity of tablet 00:00: mouth in [place] 00 the Medical morning. Branch losartan 50 2-0 Yes [id number] 50mg Take 1 Univers mg tablet 9-08 tablet by ity o f 00:00: mouth in [place] the Medical morning. Branch amLODIPine 2-0 Yes [id number] 5mg Take 1 Univers 5 mg tablet 9-08 tablet by ity of 00:00: mouth in [place] 00 the Medical morning. Branch metoprolol 2022-0 Yes [id number] 25mg Take 1 Univers succinate 9-08 tablet by ity o f XL 25 mg 24 00:00: mouth in [place] hr tablet 00 the Medical morning. Branch ezetimibe 2022-0 Yes [id number] 10mg Take 1 U nivers 10 mg 9-08 tablet by ity of tablet 00:00: mouth in [place] 00 the Medical morning. Branch losartan 50 2-0 Yes [id number] 50mg Take 1 Univers mg tablet 9-08 tablet by ity o f 00:00: mouth in [place] 00 the Medical morning. Branch amLODIPine 2-0 Yes [id number] 5mg Take 1 Univers 5 mg tablet 9-08 tablet by ity of 00:00: mouth in [place] the Medical morning. Branch metoprolol 2-0 Yes [id number] 25mg Take 1 Univers succinate 9-08 tablet by ity o f XL 25 mg 24 00:00: mouth in [place] hr tablet 00 the Medical morning. Branch ezetimibe 2-0 Yes [id number] 10mg Take 1 U nivers 10 mg 9-08 tablet by ity of tablet 00:00: mouth in [place] 00 the Medical morning. Branch losartan 50 2-0 Yes [id number] 50mg Take 1 Univers mg tablet 9-08 tablet by ity o f 00:00: mouth in [place] 00 the Medical morning. Branch amLODIPine 2-0 Yes [id number] 5mg Take 1 Univers 5 mg tablet 9-08 tablet by ity of 00:00: mouth in [place] the Medical morning. Branch metoprolol 2-0 Yes [id number] 25mg Take 1 Univers succinate 9-08 tablet by ity o f XL 25 mg 24 00:00: mouth in [place] hr tablet 00 the Medical morning. Branch ezetimibe 2-0 Yes [id number] 10mg Take 1 U nivers 10 mg 9-08 tablet by ity of tablet 00:00: mouth in [place] the Medical morning. Branch losartan 50 2-0 Yes [id number] 50mg Take 1 Univers mg tablet 9-08 tablet by ity o f 00:00: mouth in [place] the Medical morning. Branch amLODIPine 2-0 Yes [id number] 5mg Take 1 Univers 5 mg tablet 9-08 tablet by ity of 00:00: mouth in [place] the Medical morning. Branch tiZANidine 2021-0 Yes [id number] 2mg Take 1 Univers 2 mg tablet 8-30 103 tablet by ity of 00:00: mouth [place] 00 every 8 Medical (eight) Branch hours as needed (muscle spasms). Diclofenac 2021-0 Yes [id number] Apply to Univers Sodium 8-30 103 area(s) 4 ity of (VOLTAREN) 00:00: (four) [place] 1 % gel 00 times Medical daily. Branch Apply 4 g QID on affected areas Lidocaine 5 2021-0 Yes [id number] Apply to Univers % cream 8-30 103 area(s) 2 ity of 00:00: (two) [place] 00 times Medical daily as Branch needed for Pain (scale 4-6). Apply 5g to affected areas BID PRN rOPINIRole 0 Yes [id number] .25mg Take 1 Univers 0.25 mg 8-30 tablet by ity of tablet 00:00: mouth at [place] 00 bedtime. Medical Branch traMADoL-ac Yes [id number] 1{tbl} Take 1 Un vy etaminophen 8-30 tablet by ity of 37.5-325 mg 00:00: mouth [place] per tablet 00 every 8 Medica l (eight) Branch hours as needed for Pain. Indication s: chronic pain, Chronic Pain Syndrome tiZANidine Yes [id number] 2mg Take 1 Univers 2 mg tablet 8-30 103 tablet by ity of 00:00: mouth [place] 00 every 8 Medical (eight) Branch hours as needed (muscle spasms). Diclofenac 0 Yes [id number] Apply to Univers Sodium 8-30 103 area(s) 4 ity of (VOLTAREN) 00:00: (four) [place] 1 % gel 00 times Medical daily. Branch Apply 4 g QID on affected areas Lidocaine 5 2021-0 Yes [id number] Apply to Univers % cream 8-30 103 area(s) 2 ity of 00:00: (two) [place] 00 times Medical daily as Branch needed for Pain (scale 4-6). Apply 5g to affected areas BID PRN rOPINIRole 2021-0 Yes [id number] .25mg Take 1 Univers 0.25 mg 8-30 tablet by ity of tablet 00:00: mouth at [place] 00 bedtime. Medical Branch traMADoL-ac 2021-0 Yes [id number] 1{tbl} Take 1 Un vy etaminophen 8-30 tablet by ity of 37.5-325 mg 00:00: mouth [place] per tablet 00 every 8 Medica l (eight) Branch hours as needed for Pain. Indication s: chronic pain, Chronic Pain Syndrome tiZANidine 0 Yes [id number] 2mg Take 1 Univers 2 mg tablet 8-30 103 tablet by ity of 00:00: mouth [place] 00 every 8 Medical (eight) Branch hours as needed (muscle spasms). Diclofenac 2021-0 Yes [id number] Apply to Univers Sodium 8-30 103 area(s) 4 ity of (VOLTAREN) 00:00: (four) [place] 1 % gel 00 times Medical daily. Branch Apply 4 g QID on affected areas Lidocaine 5 2021-0 Yes [id number] Apply to Univers % cream 8-30 103 area(s) 2 ity of 00:00: (two) [place] 00 times Medical daily as Branch needed for Pain (scale 4-6). Apply 5g to affected areas BID PRN rOPINIRole 2021-0 Yes [id number] .25mg Take 1 Univers 0.25 mg 8-30 tablet by ity of tablet 00:00: mouth at [place] 00 bedtime. Medical Branch traMADoL-ac 0 Yes [id number] 1{tbl} Take 1 Un vy etaminophen 8-30 tablet by ity of 37.5-325 mg 00:00: mouth [place] per tablet 00 every 8 Medica l (eight) Branch hours as needed for Pain. Indication s: chronic pain, Chronic Pain Syndrome tiZANidine 0 Yes [id number] 2mg Take 1 Univers 2 mg tablet 8-30 103 tablet by ity of 00:00: mouth [place] 00 every 8 Medical (eight) Branch hours as needed (muscle spasms). Diclofenac 2021-0 Yes [id number] Apply to Univers Sodium 8-30 103 area(s) 4 ity of (VOLTAREN) 00:00: (four) [place] 1 % gel 00 times Medical daily. Branch Apply 4 g QID on affected areas Lidocaine 5 2021-0 Yes [id number] Apply to Univers % cream 8-30 103 area(s) 2 ity of 00:00: (two) [place] 00 times Medical daily as Branch needed for Pain (scale 4-6). Apply 5g to affected areas BID PRN rOPINIRole 2021-0 Yes [id number] .25mg Take 1 Univers 0.25 mg 8-30 tablet by ity of tablet 00:00: mouth at [place] 00 bedtime. Medical Branch traMADoL-ac 2021-0 Yes [id number] 1{tbl} Take 1 Un vy etaminophen 8-30 tablet by ity of 37.5-325 mg 00:00: mouth [place] per tablet 00 every 8 Medica l (eight) Branch hours as needed for Pain. Indication s: chronic pain, Chronic Pain Syndrome tiZANidine 0 Yes [id number] 2mg Take 1 Univers 2 mg tablet 8-30 103 tablet by ity of 00:00: mouth [place] 00 every 8 Medical (eight) Branch hours as needed (muscle spasms). Diclofenac 0 Yes [id number] Apply to Univers Sodium 8-30 103 area(s) 4 ity of (VOLTAREN) 00:00: (four) [place] 1 % gel 00 times Medical daily. Branch Apply 4 g QID on affected areas Lidocaine 5 2021-0 Yes [id number] Apply to Univers % cream 8-30 103 area(s) 2 ity of 00:00: (two) [place] 00 times Medical daily as Branch needed for Pain (scale 4-6). Apply 5g to affected areas BID PRN rOPINIRole 0 Yes [id number] .25mg Take 1 Univers 0.25 mg 8-30 tablet by ity of tablet 00:00: mouth at [place] 00 bedtime. Medical Branch traMADoL-ac 0 Yes [id number] 1{tbl} Take 1 Un vy etaminophen 8-30 tablet by ity of 37.5-325 mg 00:00: mouth [place] per tablet 00 every 8 Medica l (eight) Branch hours as needed for Pain. Indication s: chronic pain, Chronic Pain Syndrome tiZANidine 0 Yes [id number] 2mg Take 1 Univers 2 mg tablet 8-30 103 tablet by ity of 00:00: mouth [place] 00 every 8 Medical (eight) Branch hours as needed (muscle spasms). Diclofenac 0 Yes [id number] Apply to Univers Sodium 8-30 103 area(s) 4 ity of (VOLTAREN) 00:00: (four) [place] 1 % gel 00 times Medical daily. Branch Apply 4 g QID on affected areas Lidocaine 5 2021-0 Yes [id number] Apply to Univers % cream 8-30 103 area(s) 2 ity of 00:00: (two) [place] 00 times Medical daily as Branch needed for Pain (scale 4-6). Apply 5g to affected areas BID PRN rOPINIRole 0 Yes [id number] .25mg Take 1 Univers 0.25 mg 8-30 tablet by ity of tablet 00:00: mouth at [place] 00 bedtime. Medical Branch traMADoL-ac Yes [id number] 1{tbl} Take 1 Un vy etaminophen 8-30 tablet by ity of 37.5-325 mg 00:00: mouth [place] per tablet 00 every 8 Medica l (eight) Branch hours as needed for Pain. Indication s: chronic pain, Chronic Pain Syndrome tiZANidine Yes [id number] 2mg Take 1 [facility] 2 mg tablet 8-30 103 tablet by [facility] of 00:00: mouth [place] 00 every 8 Medical (eight) Branch hours as needed (muscle spasms). Diclofenac Yes [id number] Apply to [facility] Sodium 8-30 103 area(s) 4 ity of (VOLTAREN) 00:00: (four) [place] 1 % gel 00 times Medical daily. Branch Apply 4 g QID on affected areas Lidocaine 5 Yes [id number] Apply to [facility] % cream 8-30 103 area(s) 2 ity of 00:00: (two) [place] 00 times Medical daily as Branch needed for Pain (scale 4-6). Apply 5g to affected areas BID PRN rOPINIRole Yes [id number] .25mg Take 1 [facility] 0.25 mg 8-30 tablet by ity of tablet 00:00: mouth at [place] 00 bedtime. Medical Branch tiZANidine Yes [id number] 2mg Take 1 [facility] 2 mg tablet 8-30 103 tablet by ity of 00:00: mouth [place] 00 every 8 Medical (eight) Branch hours as needed (muscle spasms). Diclofenac 2021-0 Yes [id number] Apply to [facility] Sodium 8-30 103 area(s) 4 ity of (VOLTAREN) 00:00: (four) [place] 1 % gel 00 times Medical daily. Branch Apply 4 g QID on affected areas Lidocaine 5 2021-0 Yes [id number] Apply to [facility] % cream 8-30 103 area(s) 2 ity of 00:00: (two) [place] 00 times Medical daily as Branch needed for Pain (scale 4-6). Apply 5g to affected areas BID PRN rOPINIRole 2021-0 Yes [id number] .25mg Take 1 [facility] 0.25 mg 8-30 tablet by ity of tablet 00:00: mouth at [place] 00 bedtime. Medical Branch tiZANidine 2021-0 Yes [id number] 2mg Take 1 [facility] 2 mg tablet 8-30 103 tablet by it[facility] of 00:00: mouth [place] 00 every 8 Medical (eight) Branch hours as needed (muscle spasms). Diclofenac 2021-0 Yes [id number] Apply to [facility] Sodium 8-30 103 area(s) 4 ity of (VOLTAREN) 00:00: (four) [place] 1 % gel 00 times Medical daily. Branch Apply 4 g QID on affected areas Lidocaine 5 2021-0 Yes [id number] Apply to [facility] % cream 8-30 103 area(s) 2 ity of 00:00: (two) [place] 00 times Medical daily as Branch needed for Pain (scale 4-6). Apply 5g to affected areas BID PRN rOPINIRole 2021-0 Yes [id number] .25mg Take 1 [facility] 0.25 mg 8-30 tablet by it[facility] of tablet 00:00: mouth at [place] 00 bedtime. Medical Branch tiZANidine 2021-0 Yes [id number] 2mg Take 1 [facility] 2 mg tablet 8-30 103 tablet by it[facility] of 00:00: mouth [place] 00 every 8 Medical (eight) Branch hours as needed (muscle spasms). Diclofenac 2021-0 Yes [id number] Apply to [facility] Sodium 8-30 103 area(s) 4 ity of (VOLTAREN) 00:00: (four) [place] 1 % gel 00 times Medical daily. Branch Apply 4 g QID on affected areas Lidocaine 5 2021-0 Yes [id number] Apply to [facility] % cream 8-30 103 area(s) 2 ity of 00:00: (two) [place] 00 times Medical daily as Branch needed for Pain (scale 4-6). Apply 5g to affected areas BID PRN rOPINIRole 2-0 Yes [id number] .25mg Take 1 [facility] 0.25 mg 8-30 tablet by it[facility] of tablet 00:00: mouth at [place] 00 bedtime. Medical Branch tiZANidine 2021-0 Yes [id number] 2mg Take 1 [facility] 2 mg tablet 8-30 103 tablet by [facility] of 00:00: mouth [place] 00 every 8 Medical (eight) Branch hours as needed (muscle spasms). Diclofenac 2022-0 Yes [id number] Apply to [facility] Sodium 8-30 103 area(s) 4 ity of (VOLTAREN) 00:00: (four) [place] 1 % gel 00 times Medical daily. Branch Apply 4 g QID on affected areas Lidocaine 5 2021-0 Yes [id number] Apply to [facility] % cream 8-30 103 area(s) 2 ity of 00:00: (two) [place] 00 times Medical daily as Branch needed for Pain (scale 4-6). Apply 5g to affected areas BID PRN rOPINIRole 2021-0 Yes [id number] .25mg Take 1 [facility] 0.25 mg 8-30 tablet by ity of tablet 00:00: mouth at [place] 00 bedtime. Medical Branch tiZANidine 2021-0 Yes [id number] 2mg Take 1 [facility] 2 mg tablet 8-30 103 tablet by it[facility] of 00:00: mouth [place] 00 every 8 Medical (eight) Branch hours as needed (muscle spasms). Diclofenac 2021-0 Yes [id number] Apply to [facility] Sodium 8-30 103 area(s) 4 ity of (VOLTAREN) 00:00: (four) [place] 1 % gel 00 times Medical daily. Branch Apply 4 g QID on affected areas Lidocaine 5 2021-0 Yes [id number] Apply to [facility] % cream 8-30 103 area(s) 2 ity of 00:00: (two) [place] 00 times Medical daily as Branch needed for Pain (scale 4-6). Apply 5g to affected areas BID PRN rOPINIRole 2021-0 Yes [id number] .25mg Take 1 [facility] 0.25 mg 8-30 tablet by ity of tablet 00:00: mouth at [place] 00 bedtime. Medical Branch tiZANidine 2021-0 Yes [id number] 2mg Take 1 [facility] 2 mg tablet 8-30 103 tablet by it[facility] of 00:00: mouth [place] 00 every 8 Medical (eight) Branch hours as needed (muscle spasms). Diclofenac 2021-0 Yes [id number] Apply to [facility] Sodium 8-30 103 area(s) 4 ity of (VOLTAREN) 00:00: (four) [place] 1 % gel 00 times Medical daily. Branch Apply 4 g QID on affected areas Lidocaine 5 2021-0 Yes [id number] Apply to [facility] % cream 8-30 103 area(s) 2 ity of 00:00: (two) [place] 00 times Medical daily as Branch needed for Pain (scale 4-6). Apply 5g to affected areas BID PRN rOPINIRole 2-0 Yes [id number] .25mg Take 1 [facility] 0.25 mg 8-30 tablet by ity of tablet 00:00: mouth at [place] 00 bedtime. Medical Branch tiZANidine 2021-0 Yes [id number] 2mg Take 1 [facility] 2 mg tablet 8-30 103 tablet by ity of 00:00: mouth [place] 00 every 8 Medical (eight) Branch hours as needed (muscle spasms). Diclofenac 2021-0 Yes [id number] Apply to [facility] Sodium 8-30 103 area(s) 4 ity of (VOLTAREN) 00:00: (four) [place] 1 % gel 00 times Medical daily. Branch Apply 4 g QID on affected areas Lidocaine 5 2021-0 Yes [id number] Apply to [facility] % cream 8-30 103 area(s) 2 ity of 00:00: (two) [place] 00 times Medical daily as Branch needed for Pain (scale 4-6). Apply 5g to affected areas BID PRN rOPINIRole 2-0 Yes [id number] .25mg Take 1 [facility] 0.25 mg 8-30 tablet by ity of tablet 00:00: mouth at [place] 00 bedtime. Medical Branch tiZANidine 2021-0 Yes [id number] 2mg Take 1 [facility] 2 mg tablet 8-30 103 tablet by ity of 00:00: mouth [place] 00 every 8 Medical (eight) Branch hours as needed (muscle spasms). Diclofenac 2-0 Yes [id number] Apply to [facility] Sodium 8-30 103 area(s) 4 ity of (VOLTAREN) 00:00: (four) [place] 1 % gel 00 times Medical daily. Branch Apply 4 g QID on affected areas Lidocaine 5 2022-0 Yes [id number] Apply to [facility] % cream 8-30 103 area(s) 2 ity of 00:00: (two) [place] 00 times Medical daily as Branch needed for Pain (scale 4-6). Apply 5g to affected areas BID PRN rOPINIRole 2022-0 Yes [id number] .25mg Take 1 [facility] 0.25 mg 8-30 tablet by ity of tablet 00:00: mouth at [place] 00 bedtime. Medical Branch tiZANidine Yes [id number] 2mg Take 1 [facility] 2 mg tablet 8-30 103 tablet by ity of 00:00: mouth [place] 00 every 8 Medical (eight) Branch hours as needed (muscle spasms). Diclofenac Yes [id number] Apply to [facility] Sodium 8-30 103 area(s) 4 ity of (VOLTAREN) 00:00: (four) [place] 1 % gel 00 times Medical daily. Branch Apply 4 g QID on affected areas Lidocaine 5 Yes [id number] Apply to [facility] % cream 8-30 103 area(s) 2 ity of 00:00: (two) [place] 00 times Medical daily as Branch needed for Pain (scale 4-6). Apply 5g to affected areas BID PRN rOPINIRole Yes [id number] .25mg Take 1 [facility] 0.25 mg 8-30 tablet by ity of tablet 00:00: mouth at [place] 00 bedtime. Medical Branch traMADoL-ac 2021- No 2745 1{tbl} Take 1 [facility] n[facility] etaminophen 8-30 10-03 tablet by it y of 37.5-325 mg 00:00: 00:00 mouth [place] per tablet 00 :00 every 8 Medica l (eight) Branch hours as needed for Pain. Indication s: chronic pain, Chronic Pain Syndrome traMADoL-ac 2021- No 2745 1{tbl} Take 1 [facility] nivers etaminophen 8-30 10-03 tablet by it y of 37.5-325 mg 00:00: 00:00 mouth [place] per tablet 00 :00 every 8 Medica l (eight) Branch hours as needed for Pain. Indication s: chronic pain, Chronic Pain Syndrome traMADoL 50 Yes 50mg Take 50 mg [facility] mg tablet 8-25 by mouth ity of 11:45: every 6 [place] 20 (six) Medical hours as Branch needed. traMADoL 50 Yes 50mg Take 50 mg [facility] mg tablet 8-25 by mouth ity of 11:45: every 6 [place] 20 (six) Medical hours as Branch needed. traMADoL 50 Yes 50mg Take 50 mg [facility] mg tablet 8-25 by mouth ity of 11:45: every 6 [place] 20 (six) Medical hours as Branch needed. traMADoL 50 Yes 50mg Take 50 mg [facility] mg tablet 8-25 by mouth ity of 11:45: every 6 [place] 20 (six) Medical hours as Branch needed. traMADoL 50 Yes 50mg Take 50 mg [facility] mg tablet 8-25 by mouth ity of 11:45: every 6 [place] 20 (six) Medical hours as Branch needed. traMADoL 50 Yes 50mg Take 50 mg [facility] mg tablet 8-25 by mouth ity of 11:45: every 6 [place] 20 (six) Medical hours as Branch needed. atorvastati Yes [id number] 80mg Take 1 [facility] n 80 mg 6-23 tablet by ity of tablet 00:00: mouth at [place] 00 bedtime. Medical Branch foLIC acid Yes [id number] 1mg Take 1 [facility] 1 mg tablet 6-23 tablet by ity of 00:00: mouth [place] 00 daily. Medical Branch thiamine Yes [id number] 100mg Take 1 [facility] nivers 100 mg 6-23 tablet by ity of tablet 00:00: mouth [place] 00 daily. Medical Branch clopidogreL Yes [id number] 75mg Take 1 [facility] 75 mg 6-23 tablet by ity of tablet 00:00: mouth [place] 00 daily. Medical Branch cholecalcif Yes [id number] 2000U Take 2 [facility] nima, 6-23 tablets by ity of vitamin D3, 00:00: mouth [place] 25 mcg 00 daily. Medical (1,000 Branch unit) tablet fluticasone Yes [id number] 1{puff} Inhale 1 [facility] propion-nabil 6-23 9101 Puff every it y of meteroL 00:00: 12 [place] (ADVAIR 00 (twelve) Medical DISKUS) hours. Branch 250-50 mcg/dose inhalation disk atorvastati Yes [id number] 80mg Take 1 [facility] n 80 mg 6-23 tablet by ity of tablet 00:00: mouth at [place] 00 bedtime. Medical Branch foLIC acid Yes [id number] 1mg Take 1 [facility] 1 mg tablet 6-23 tablet by ity of 00:00: mouth [place] 00 daily. Medical Branch thiamine Yes [id number] 100mg Take 1 [facility] nivers 100 mg 6-23 tablet by ity of tablet 00:00: mouth [place] 00 daily. Medical Branch clopidogreL 2021-0 Yes [id number] 75mg Take 1 [facility] 75 mg 6-23 tablet by ity of tablet 00:00: mouth [place] 00 daily. Medical Branch cholecalcif 2021-0 Yes [id number] 2000U Take 2 [facility] nima, 6-23 tablets by ity of vitamin D3, 00:00: mouth [place] 25 mcg 00 daily. Medical (1,000 Branch unit) tablet fluticasone 2021-0 Yes [id number] 1{puff} Inhale 1 [facility] propion-nabil 6-23 9101 Puff every it y of meteroL 00:00: 12 [place] (ADVAIR 00 (twelve) Medical DISKUS) hours. Branch 250-50 mcg/dose inhalation disk atorvastati 2021-0 Yes [id number] 80mg Take 1 [facility] n 80 mg 6-23 tablet by ity of tablet 00:00: mouth at [place] 00 bedtime. Medical Branch foLIC acid 2021-0 Yes [id number] 1mg Take 1 [facility] 1 mg tablet 6-23 tablet by ity of 00:00: mouth [place] 00 daily. Medical Branch thiamine 2021-0 Yes [id number] 100mg Take 1 [facility] nivers 100 mg 6-23 tablet by ity of tablet 00:00: mouth [place] 00 daily. Medical Branch clopidogreL 2021-0 Yes [id number] 75mg Take 1 [facility] 75 mg 6-23 tablet by ity of tablet 00:00: mouth [place] 00 daily. Medical Branch cholecalcif 2021-0 Yes [id number] 2000U Take 2 [facility] nima, 6-23 tablets by ity of vitamin D3, 00:00: mouth [place] 25 mcg 00 daily. Medical (1,000 Branch unit) tablet fluticasone 2021-0 Yes [id number] 1{puff} Inhale 1 [facility] propion-nabil 6-23 9101 Puff every it y of meteroL 00:00: 12 [place] (ADVAIR 00 (twelve) Medical DISKUS) hours. Branch 250-50 mcg/dose inhalation disk atorvastati 2021-0 Yes [id number] 80mg Take 1 [facility] n 80 mg 6-23 tablet by ity of tablet 00:00: mouth at [place] 00 bedtime. Medical Branch foLIC acid 2021-0 Yes [id number] 1mg Take 1 [facility] 1 mg tablet 6-23 tablet by ity of 00:00: mouth [place] 00 daily. Medical Branch thiamine 2021-0 Yes [id number] 100mg Take 1 [facility] nivers 100 mg 6-23 tablet by ity of tablet 00:00: mouth [place] 00 daily. Medical Branch clopidogreL 2021-0 Yes [id number] 75mg Take 1 [facility] 75 mg 6-23 tablet by ity of tablet 00:00: mouth [place] 00 daily. Medical Branch cholecalcif 2021-0 Yes [id number] 2000U Take 2 [facility] nima, 6-23 tablets by ity of vitamin D3, 00:00: mouth [place] 25 mcg 00 daily. Medical (1,000 Branch unit) tablet fluticasone 2021-0 Yes [id number] 1{puff} Inhale 1 [facility] propion-nabil 6-23 9101 Puff every it y of meteroL 00:00: 12 [place] (ADVAIR 00 (twelve) Medical DISKUS) hours. Branch 250-50 mcg/dose inhalation disk atorvastati 2021-0 Yes [id number] 80mg Take 1 [facility] n 80 mg 6-23 tablet by ity of tablet 00:00: mouth at [place] 00 bedtime. Medical Branch foLIC acid 2021-0 Yes [id number] 1mg Take 1 [facility] 1 mg tablet 6-23 tablet by ity of 00:00: mouth [place] 00 daily. Medical Branch thiamine 2021-0 Yes [id number] 100mg Take 1 [facility] nivers 100 mg 6-23 tablet by ity of tablet 00:00: mouth [place] 00 daily. Medical Branch clopidogreL 2021-0 Yes [id number] 75mg Take 1 [facility] 75 mg 6-23 tablet by ity of tablet 00:00: mouth [place] 00 daily. Medical Branch cholecalcif 2021-0 Yes [id number] 2000U Take 2 [facility] nima, 6-23 tablets by ity of vitamin D3, 00:00: mouth [place] 25 mcg 00 daily. Medical (1,000 Branch unit) tablet fluticasone 2021-0 Yes [id number] 1{puff} Inhale 1 [facility] propion-nabil 6-23 9101 Puff every it y of meteroL 00:00: 12 [place] (ADVAIR 00 (twelve) Medical DISKUS) hours. Branch 250-50 mcg/dose inhalation disk atorvastati Yes [id number] 80mg Take 1 [facility] n 80 mg 6-23 tablet by ity of tablet 00:00: mouth at [place] 00 bedtime. Medical Branch foLIC acid Yes [id number] 1mg Take 1 [facility] 1 mg tablet 6-23 tablet by ity of 00:00: mouth [place] 00 daily. Medical Branch thiamine 0 Yes [id number] 100mg Take 1 [facility] nivers 100 mg 6-23 tablet by ity of tablet 00:00: mouth [place] 00 daily. Medical Branch clopidogreL Yes [id number] 75mg Take 1 [facility] 75 mg 6-23 tablet by ity of tablet 00:00: mouth [place] 00 daily. Medical Branch cholecalcif Yes [id number] 2000U Take 2 [facility] nima, 6-23 tablets by ity of vitamin D3, 00:00: mouth [place] 25 mcg 00 daily. Medical (1,000 Branch unit) tablet fluticasone Yes [id number] 1{puff} Inhale 1 [facility] propion-nabil 6-23 9101 Puff every it y of meteroL 00:00: 12 [place] (ADVAIR 00 (twelve) Medical DISKUS) hours. Branch 250-50 mcg/dose inhalation disk atorvastati Yes [id number] 80mg Take 1 [facility] n 80 mg 6-23 tablet by ity of tablet 00:00: mouth at [place] 00 bedtime. Medical Branch foLIC acid Yes [id number] 1mg Take 1 [facility] 1 mg tablet 6-23 tablet by ity of 00:00: mouth [place] 00 daily. Medical Branch thiamine 0 Yes [id number] 100mg Take 1 [facility] nivers 100 mg 6-23 tablet by ity of tablet 00:00: mouth [place] 00 daily. Medical Branch clopidogreL 0 Yes [id number] 75mg Take 1 [facility] 75 mg 6-23 tablet by ity of tablet 00:00: mouth [place] 00 daily. Medical Branch cholecalcif 0 Yes [id number] 2000U Take 2 [facility] nima, 6-23 tablets by ity of vitamin D3, 00:00: mouth [place] 25 mcg 00 daily. Medical (1,000 Branch unit) tablet fluticasone Yes [id number] 1{puff} Inhale 1 [facility] propion-nabil 6-23 9101 Puff every it y of meteroL 00:00: 12 [place] (ADVAIR 00 (twelve) Medical DISKUS) hours. Branch 250-50 mcg/dose inhalation disk atorvastati 2021-0 Yes [id number] 80mg Take 1 [facility] n 80 mg 6-23 tablet by ity of tablet 00:00: mouth at [place] 00 bedtime. Medical Branch foLIC acid 2021-0 Yes [id number] 1mg Take 1 [facility] 1 mg tablet 6-23 tablet by ity of 00:00: mouth [place] 00 daily. Medical Branch thiamine 2021-0 Yes [id number] 100mg Take 1 [facility] nivers 100 mg 6-23 tablet by ity of tablet 00:00: mouth [place] 00 daily. Medical Branch clopidogreL 2021-0 Yes [id number] 75mg Take 1 [facility] 75 mg 6-23 tablet by ity of tablet 00:00: mouth [place] 00 daily. Medical Branch cholecalcif 2021-0 Yes [id number] 2000U Take 2 [facility] nima, 6-23 tablets by ity of vitamin D3, 00:00: mouth [place] 25 mcg 00 daily. Medical (1,000 Branch unit) tablet fluticasone 0 Yes [id number] 1{puff} Inhale 1 [facility] propion-nabil 6-23 9101 Puff every it y of meteroL 00:00: 12 [place] (ADVAIR 00 (twelve) Medical DISKUS) hours. Branch 250-50 mcg/dose inhalation disk atorvastati 2021-0 Yes [id number] 80mg Take 1 [facility] n 80 mg 6-23 tablet by ity of tablet 00:00: mouth at [place] 00 bedtime. Medical Branch foLIC acid 2021-0 Yes [id number] 1mg Take 1 [facility] 1 mg tablet 6-23 tablet by ity of 00:00: mouth [place] 00 daily. Medical Branch thiamine 2021-0 Yes [id number] 100mg Take 1 [facility] nivers 100 mg 6-23 tablet by ity of tablet 00:00: mouth [place] 00 daily. Medical Branch clopidogreL 2021-0 Yes [id number] 75mg Take 1 [facility] 75 mg 6-23 tablet by ity of tablet 00:00: mouth [place] 00 daily. Medical Branch cholecalcif 2021-0 Yes [id number] 2000U Take 2 [facility] nima, 6-23 tablets by ity of vitamin D3, 00:00: mouth [place] 25 mcg 00 daily. Medical (1,000 Branch unit) tablet fluticasone 0 Yes [id number] 1{puff} Inhale 1 [facility] propion-nabil 6-23 9101 Puff every it y of meteroL 00:00: 12 [place] (ADVAIR 00 (twelve) Medical DISKUS) hours. Branch 250-50 mcg/dose inhalation disk atorvastati 0 Yes [id number] 80mg Take 1 [facility] n 80 mg 6-23 tablet by ity of tablet 00:00: mouth at [place] 00 bedtime. Medical Branch foLIC acid 0 Yes [id number] 1mg Take 1 [facility] 1 mg tablet 6-23 tablet by ity of 00:00: mouth [place] 00 daily. Medical Branch thiamine 0 Yes [id number] 100mg Take 1 [facility] nivers 100 mg 6-23 tablet by ity of tablet 00:00: mouth [place] 00 daily. Medical Branch clopidogreL 0 Yes [id number] 75mg Take 1 [facility] 75 mg 6-23 tablet by ity of tablet 00:00: mouth [place] 00 daily. Medical Branch cholecalcif 0 Yes [id number] 2000U Take 2 [facility] nima, 6-23 tablets by ity of vitamin D3, 00:00: mouth [place] 25 mcg 00 daily. Medical (1,000 Branch unit) tablet fluticasone 0 Yes [id number] 1{puff} Inhale 1 [facility] propion-nabil 6-23 9101 Puff every it y of meteroL 00:00: 12 [place] (ADVAIR 00 (twelve) Medical DISKUS) hours. Branch 250-50 mcg/dose inhalation disk atorvastati 0 Yes [id number] 80mg Take 1 [facility] n 80 mg 6-23 tablet by ity of tablet 00:00: mouth at [place] 00 bedtime. Medical Branch foLIC acid 2021-0 Yes [id number] 1mg Take 1 [facility] 1 mg tablet 6-23 tablet by ity of 00:00: mouth [place] 00 daily. Medical Branch thiamine 2021-0 Yes [id number] 100mg Take 1 [facility] nivers 100 mg 6-23 tablet by ity of tablet 00:00: mouth [place] 00 daily. Medical Branch clopidogreL 2022-0 Yes [id number] 75mg Take 1 [facility] 75 mg 6-23 tablet by ity of tablet 00:00: mouth [place] 00 daily. Medical Branch cholecalcif 2021-0 Yes [id number] 2000U Take 2 [facility] nima, 6-23 tablets by ity of vitamin D3, 00:00: mouth [place] 25 mcg 00 daily. Medical (1,000 Branch unit) tablet fluticasone 2021-0 Yes [id number] 1{puff} Inhale 1 [facility] propion-nabil 6-23 9101 Puff every it y of meteroL 00:00: 12 [place] (ADVAIR 00 (twelve) Medical DISKUS) hours. Branch 250-50 mcg/dose inhalation disk atorvastati 2021-0 Yes [id number] 80mg Take 1 [facility] n 80 mg 6-23 tablet by ity of tablet 00:00: mouth at [place] 00 bedtime. Medical Branch foLIC acid 2021-0 Yes [id number] 1mg Take 1 [facility] 1 mg tablet 6-23 tablet by ity of 00:00: mouth [place] 00 daily. Medical Branch thiamine 2021-0 Yes [id number] 100mg Take 1 [facility] nivers 100 mg 6-23 tablet by ity of tablet 00:00: mouth [place] 00 daily. Medical Branch clopidogreL 2021-0 Yes [id number] 75mg Take 1 [facility] 75 mg 6-23 tablet by ity of tablet 00:00: mouth [place] 00 daily. Medical Branch cholecalcif 2021-0 Yes [id number] 2000U Take 2 [facility] nima, 6-23 tablets by ity of vitamin D3, 00:00: mouth [place] 25 mcg 00 daily. Medical (1,000 Branch unit) tablet fluticasone 2021-0 Yes [id number] 1{puff} Inhale 1 [facility] propion-nabil 6-23 9101 Puff every it y of meteroL 00:00: 12 [place] (ADVAIR 00 (twelve) Medical DISKUS) hours. Branch 250-50 mcg/dose inhalation disk atorvastati 2021-0 Yes [id number] 80mg Take 1 [facility] n 80 mg 6-23 tablet by ity of tablet 00:00: mouth at [place] 00 bedtime. Medical Branch foLIC acid 2021-0 Yes [id number] 1mg Take 1 [facility] 1 mg tablet 6-23 tablet by ity of 00:00: mouth [place] 00 daily. Medical Branch thiamine 2021-0 Yes [id number] 100mg Take 1 [facility] nivers 100 mg 6-23 tablet by ity of tablet 00:00: mouth [place] 00 daily. Medical Branch clopidogreL 2021-0 Yes [id number] 75mg Take 1 [facility] 75 mg 6-23 tablet by ity of tablet 00:00: mouth [place] 00 daily. Medical Branch cholecalcif 2021-0 Yes [id number] 2000U Take 2 [facility] nima, 6-23 tablets by ity of vitamin D3, 00:00: mouth [place] 25 mcg 00 daily. Medical (1,000 Branch unit) tablet fluticasone 2021-0 Yes [id number] 1{puff} Inhale 1 [facility] propion-nabil 6-23 9101 Puff every it y of meteroL 00:00: 12 [place] (ADVAIR 00 (twelve) Medical DISKUS) hours. Branch 250-50 mcg/dose inhalation disk atorvastati 2021-0 Yes [id number] 80mg Take 1 [facility] n 80 mg 6-23 tablet by ity of tablet 00:00: mouth at [place] 00 bedtime. Medical Branch foLIC acid 2021-0 Yes [id number] 1mg Take 1 [facility] 1 mg tablet 6-23 tablet by ity of 00:00: mouth [place] 00 daily. Medical Branch thiamine 2021-0 Yes [id number] 100mg Take 1 [facility] nivers 100 mg 6-23 tablet by ity of tablet 00:00: mouth [place] 00 daily. Medical Branch clopidogreL 2021-0 Yes [id number] 75mg Take 1 [facility] 75 mg 6-23 tablet by ity of tablet 00:00: mouth [place] 00 daily. Medical Branch cholecalcif 2021-0 Yes [id number] 2000U Take 2 [facility] nima, 6-23 tablets by ity of vitamin D3, 00:00: mouth [place] 25 mcg 00 daily. Medical (1,000 Branch unit) tablet fluticasone 2021-0 Yes [id number] 1{puff} Inhale 1 [facility] propion-nabil 6-23 9101 Puff every it y of meteroL 00:00: 12 [place] (ADVAIR 00 (twelve) Medical DISKUS) hours. Branch 250-50 mcg/dose inhalation disk atorvastati 2021-0 Yes [id number] 80mg Take 1 [facility] n 80 mg 6-23 tablet by ity of tablet 00:00: mouth at [place] 00 bedtime. Medical Branch foLIC acid 2021-0 Yes [id number] 1mg Take 1 [facility] 1 mg tablet 6-23 tablet by ity of 00:00: mouth [place] 00 daily. Medical Branch thiamine 2021-0 Yes [id number] 100mg Take 1 [facility] nivers 100 mg 6-23 tablet by ity of tablet 00:00: mouth [place] 00 daily. Medical Branch clopidogreL 0 Yes [id number] 75mg Take 1 [facility] 75 mg 6-23 tablet by ity of tablet 00:00: mouth [place] 00 daily. Medical Branch cholecalcif 2021-0 Yes [id number] 2000U Take 2 [facility] inma, 6-23 tablets by ity of vitamin D3, 00:00: mouth [place] 25 mcg 00 daily. Medical (1,000 Branch unit) tablet fluticasone 0 Yes [id number] 1{puff} Inhale 1 [facility] propion-nabil 6-23 9101 Puff every it y of meteroL 00:00: 12 [place] (ADVAIR 00 (twelve) Medical DISKUS) hours. Branch 250-50 mcg/dose inhalation disk atorvastati 0 Yes [id number] 80mg Take 1 [facility] n 80 mg 6-23 tablet by ity of tablet 00:00: mouth at [place] 00 bedtime. Medical Branch foLIC acid 0 Yes [id number] 1mg Take 1 [facility] 1 mg tablet 6-23 tablet by ity of 00:00: mouth [place] 00 daily. Medical Branch thiamine 2021-0 Yes [id number] 100mg Take 1 [facility] nivers 100 mg 6-23 tablet by ity of tablet 00:00: mouth [place] 00 daily. Medical Branch clopidogreL 2021-0 Yes [id number] 75mg Take 1 [facility] 75 mg 6-23 tablet by ity of tablet 00:00: mouth [place] 00 daily. Medical Branch cholecalcif 2021-0 Yes [id number] 2000U Take 2 [facility] nima, 6-23 tablets by ity of vitamin D3, 00:00: mouth [place] 25 mcg 00 daily. Medical (1,000 Branch unit) tablet fluticasone 2021-0 Yes [id number] 1{puff} Inhale 1 [facility] propion-nabil 6-23 9101 Puff every it y of meteroL 00:00: 12 [place] (ADVAIR 00 (twelve) Medical DISKUS) hours. Branch 250-50 mcg/dose inhalation disk amLODIPine 2021- No [id number] 5mg Take 1 [facility] 5 mg tablet 03-30 tablet by it y of 00:00: 00:00 mouth [place] 00 :00 daily. Medical Branch losartan 50 2021- No [id number] 50mg Take 1 [facility] mg tablet 03-30 tablet by ity of 00:00: 00:00 mouth [place] 00 :00 daily. Medical Branch dexAMETHaso Yes [id number] 6mg Take 1 [facility] ne 6 mg 6-19 tablet by ity of tablet 00:00: mouth [place] 00 daily. Medical Branch dexAMETHaso Yes [id number] 6mg Take 1 [facility] ne 6 mg 6-19 tablet by ity of tablet 00:00: mouth [place] 00 daily. Medical Branch dexAMETHaso Yes [id number] 6mg Take 1 [facility] ne 6 mg 6-19 tablet by ity of tablet 00:00: mouth [place] 00 daily. Medical Branch dexAMETHaso Yes [id number] 6mg Take 1 [facility] ne 6 mg 6-19 tablet by ity of tablet 00:00: mouth [place] 00 daily. Medical Branch dexAMETHaso Yes [id number] 6mg Take 1 [facility] ne 6 mg 6-19 tablet by ity of tablet 00:00: mouth [place] 00 daily. Medical Branch dexAMETHaso Yes [id number] 6mg Take 1 [facility] ne 6 mg 6-19 tablet by ity of tablet 00:00: mouth [place] 00 daily. Medical Branch dexAMETHaso 0 Yes [id number] 6mg Take 1 [facility] ne 6 mg 6-19 tablet by ity of tablet 00:00: mouth [place] 00 daily. Medical Branch dexAMETHaso 0 Yes [id number] 6mg Take 1 [facility] ne 6 mg 6-19 tablet by ity of tablet 00:00: mouth [place] 00 daily. Medical Branch dexAMETHaso Yes [id number] 6mg Take 1 [facility] ne 6 mg 6-19 tablet by ity of tablet 00:00: mouth [place] 00 daily. Medical Branch dexAMETHaso Yes [id number] 6mg Take 1 Univers ne 6 mg 6-19 tablet by ity of tablet 00:00: mouth [place] 00 daily. Medical Branch dexAMETHaso 0 Yes [id number] 6mg Take 1 Univers ne 6 mg 6-19 tablet by ity of tablet 00:00: mouth [place] 00 daily. Medical Branch dexAMETHaso 0 Yes [id number] 6mg Take 1 Univers ne 6 mg 6-19 tablet by ity of tablet 00:00: mouth [place] 00 daily. Medical Branch dexAMETHaso 0 Yes [id number] 6mg Take 1 Univers ne 6 mg 6-19 tablet by ity of tablet 00:00: mouth [place] 00 daily. [facility] Branch dexAMETHaso 0 Yes [id number] 6mg Take 1 Univers ne 6 mg 6-19 tablet by ity of tablet 00:00: mouth [place] 00 daily. [facility] Branch dexAMETHaso Yes [id number] 6mg Take 1 Univers ne 6 mg 6-19 tablet by ity of tablet 00:00: mouth [place] 00 daily. [facility] Branch dexAMETHaso Yes [id number] 6mg Take 1 Univers ne 6 mg 6-19 tablet by ity of tablet 00:00: mouth [place] 00 daily. Medical Branch ascorbic 2021-0 Yes [id number] 500mg Take 1 U nivers acid, 6-18 tablet by ity of vitamin C, 00:00: mouth [place] 500 [place] 00 (two) Medical tablet times Branch daily. ascorbic 2021-0 Yes [id number] 500mg Take 1 U nivers acid, 6-18 tablet by ity of vitamin C, 00:00: mouth [place] 500 mg 00 (two) Medical tablet times Branch daily. ascorbic 2021-0 Yes [id number] 500mg Take 1 U nivers acid, 6-18 tablet by ity of vitamin C, 00:00: mouth [place] 500 mg 00 (two) Medical tablet times Branch daily. ascorbic 2021-0 Yes [id number] 500mg Take 1 U nivers acid, 6-18 tablet by ity of vitamin C, 00:00: mouth [place] 500 mg 00 (two) Medical tablet times Branch daily. ascorbic 2021-0 Yes [id number] 500mg Take 1 U nivers acid, 6-18 tablet by ity of vitamin C, 00:00: mouth [place] 500 mg 00 (two) Medical tablet times Branch daily. ascorbic 2021-0 Yes [id number] 500mg Take 1 U nivers acid, 6-18 tablet by ity of vitamin C, 00:00: mouth [place] 500 mg 00 (two) Medical tablet times Branch daily. ascorbic 2021-0 Yes [id number] 500mg Take 1 U nivers acid, 6-18 tablet by ity of vitamin C, 00:00: mouth [place] 500 mg 00 (two) Medical tablet times Branch daily. ascorbic 2021-0 Yes [id number] 500mg Take 1 U nivers acid, 6-18 tablet by ity of vitamin C, 00:00: mouth [place] 500 mg 00 (two) Medical tablet times Branch daily. ascorbic 2021-0 Yes [id number] 500mg Take 1 U nivers acid, 6-18 tablet by ity of vitamin C, 00:00: mouth [place] 500 mg 00 (two) Medical tablet times Branch daily. ascorbic 2021-0 Yes [id number] 500mg Take 1 U nivers acid, 6-18 tablet by ity of vitamin C, 00:00: mouth [place] 500 mg 00 (two) Medical tablet times Branch daily. ascorbic 2021-0 Yes [id number] 500mg Take 1 U nivers acid, 6-18 tablet by ity of vitamin C, 00:00: mouth [place] 500 mg 00 (two) Medical tablet times Branch daily. ascorbic 2021-0 Yes [id number] 500mg Take 1 U nivers acid, 6-18 tablet by ity of vitamin C, 00:00: mouth [place] 500 mg 00 (two) Medical tablet times Branch daily. ascorbic 2021-0 Yes [id number] 500mg Take 1 U nivers acid, 6-18 tablet by ity of vitamin C, 00:00: mouth [place] 500 mg 00 (two) Medical tablet times Branch daily. ascorbic 2021-0 Yes [id number] 500mg Take 1 U nivers acid, 6-18 tablet by ity of vitamin C, 00:00: mouth [place] 500 mg 00 (two) Medical tablet times Branch daily. ascorbic 2022-0 Yes [id number] 500mg Take 1 U nivers acid, 6-18 tablet by ity of vitamin C, 00:00: mouth [place] 500 mg 00 (two) Medical tablet times Branch daily. ascorbic 2022-0 Yes [id number] 500mg Take 1 U nivers acid, 6-18 tablet by ity of vitamin C, 00:00: mouth [place] 500 mg 00 (two) Medical tablet times Branch daily. aspirin 81 2021-0 Yes 81mg QD Take [facility] che[facility]able [facility]-06 tablet (81 [place] [facility] tablet 00:00: mg total) Medica l 00 by mouth Center daily. clopidogreL 2021-0 Yes 75mg QD Take [address] [facility] (PLAVIX) 75 3-06 tablet (75 [place] mg tablet 00:00: mg total) Med ical 00 by mouth Center daily. folic acid 2021-0 Yes 1mg QD Take 1 [facility] (FOLVITE) 1 3-06 tablet (1 [place] [facility] MG tablet 00:00: mg total) Med ical 00 by mouth Center daily. thiamine 2021-0 Yes 100mg QD Take [address] [facility] 100 MG 3-06 tablet [facility] tablet 00:00: (100 mg Medical 00 total) by Center mouth daily. atorvastati 2021-0 Yes 80mg QD Take [address] [facility] (LIPITOR) 3-05 tablet (80 [place] kes 80 MG 00:00: mg total) Medical tablet 00 by mouth Center nightly. amLODIPine 2021-0 Yes 5mg QD Take 1 [facility] (NORVASC) 5 3-05 tablet (5 [place] [facility] MG tablet 00:00: mg total) Med ical 00 by mouth Center daily. Immunizations Ordered Filled Immunization Date Status Comments [facility] e Immunization Name Name Remdesivir 2022-03-24 Completed University of 00:00:00 [facility] Remdesivir 2022-03-24 Completed University of 00:00:00 [facility] Remdesivir 2022-03-24 Completed University of 00:00:00 [facility] Remdesivir 2022-03-24 Completed University of 00:00:00 [facility] Remdesivir 2022-03-24 Completed University of 00:00:00 [facility] Remdesivir 2022-03-24 Completed University of 00:00:00 [place] [facility] Remdesivir 2022-03-24 Completed University of 00:00:00 [place] [facility] Remdesivir 2022-03-24 Completed University of 00:00:00 [place] [facility] Remdesivir 2022-03-24 Completed University of 00:00:00 [place] [facility] Remdesivir 2022-03-24 Completed University of 00:00:00 [place] [facility] Remdesivir 2022-03-24 Completed University of 00:00:00 [place] [facility] Remdesivir 2022-03-24 Completed University of 00:00:00 [place] [facility] Remdesivir 2022-03-24 Completed University of 00:00:00 [place] [facility] Remdesivir 2022-03-24 Completed University of 00:00:00 [place] [facility] Remdesivir 2022-03-24 Completed University of 00:00:00 [place] [facility] Remdesivir 2022-03-24 Completed University of 00:00:00 [place] [facility] Remdesivir 2022-03-23 Completed University of 00:00:00 [place] [facility] Remdesivir 2022-03-23 Completed University of 00:00:00 [place] [facility] Remdesivir 2022-03-23 Completed University of 00:00:00 [place] [facility] Remdesivir 2022-03-23 Completed University of 00:00:00 [place] [facility] Remdesivir 2022-03-23 Completed University of 00:00:00 [place] [facility] Remdesivir 2022-03-23 Completed University of 00:00:00 [place] [facility] Remdesivir 2022-03-23 Completed University of 00:00:00 [place] [facility] Remdesivir 2022-03-23 Completed University of 00:00:00 [place] [facility] Remdesivir 2022-03-23 Completed University of 00:00:00 [place] [facility] Remdesivir 2022-03-23 Completed University of 00:00:00 [place] [facility] Remdesivir 2022-03-23 Completed University of 00:00:00 [place] [facility] Remdesivir 2022-03-23 Completed University of 00:00:00 [place] [facility] Remdesivir 2022-03-23 Completed University of 00:00:00 [place] [facility] Remdesivir 2022-03-23 Completed University of 00:00:00 [place] [facility] Remdesivir 2022-03-23 Completed University of 00:00:00 [place] [facility] Remdesivir 2022-03-23 Completed University of 00:00:00 [place] [facility] Td 2017-04-20 Completed University of 00:00:00 [place] [facility] Td 2017-04-20 Completed University of 00:00:00 [place] [facility] Td 2017-04-20 Completed University of 00:00:00 [place] [facility] Td 2017-04-20 Completed University of 00:00:00 [place] [facility] Td 2017-04-20 Completed University of 00:00:00 [place] [facility] Td 2017-04-20 Completed University of 00:00:00 [place] [facility] Td 2017-04-20 Completed University of 00:00:00 [place] [facility] Td 2017-04-20 Completed University of 00:00:00 [place] [facility] Td 2017-04-20 Completed University of 00:00:00 [place] [facility] Td 2017-04-20 Completed University of 00:00:00 [place] [facility] Td 2017-04-20 Completed University of 00:00:00 [place] [facility] Td 2017-04-20 Completed University of 00:00:00 [place] [facility] Td 2017-04-20 Completed University of 00:00:00 [place] [facility] Td 2017-04-20 Completed University of 00:00:00 [place] [facility] Td 2017-04-20 Completed University of 00:00:00 [facility] TD, NOS 2017-04-20 Completed University of 00:00:00 [facility] Vital Signs Vital Name Observation Time Observation Value Comments Source Systolic blood 2022-06-15 15:37:00 124 mm[Hg] Univer sity of pressure [facility] Diastolic blood 2022-06-15 15:37:00 79 mm[Hg] Unive rsity of pressure [facility] Heart rate 2022-06-15 15:37:00 89 /min [facility] Body temperature 2022-06-15 15:37:00 36.44 Cassy [facility] Respiratory rate 2022-06-15 15:37:00 17 /min [facility] Body weight 2022-06-15 15:37:00 45.45 kg [facility] BMI 2022-06-15 15:37:00 13.78 kg/m2 [facility] Oxygen saturation in 2022-06-15 15:37:00 97 /min University of Arterial blood by [facility] Pulse oximetry Branch WEIGHT 2021-12-08 19:45:00 45.7 kg HEIGHT 2021-12-08 19:45:00 180.3 cm WEIGHT 2021-12-08 19:45:00 45.7 kg HEIGHT 2021-12-08 19:45:00 180.3 cm Procedures Procedure Date / Time Performing Clinician Source Performed INSURANCE CORRESPONDENCE 2022-08-09 05:01:00 Doctor Unassigned, [facility] [place] [facility] REFERRAL- 2022-07-06 05:01:00 Doctor Unassigned, [facility] REQUEST/RESPONSE [place] [facility] MEDICATION CORRESPONDENCE 2022-06-26 05:01:00 Doctor Unassigned, [facility] [place] [facility] Plan of Care Planned Activity Planned Date Details Comments Source Future Scheduled 2024-12-09 Lipid panel (procedure) [facility] 00:00:00 [code = 78208890] Medical Ce nter Future Scheduled 2023-06-[address] [facility] 00:00:00 (Season Ended) [code = Medic al Center INFLUENZA VACCINE (Season Ended)] Future Scheduled 2022-12-[address] [facility] 00:00:00 Counseling and Medical Cente r Screening (12+) [code = Tobacco Cessation Counseling and Screening (12+)] Future Scheduled 2022-10-[address] [facility] 00:00:00 (12+) [code = Medical Center DEPRESSION SCREENING (12+)] Future Scheduled 2009 SHINGLES VACCINES ([address] [facility] 00:00:00 2) [code = SHINGLES Medical Center VACCINES (1 of 2)] Future Scheduled 1978 DTAP/TDAP/TD VACCINES [facility] 00:00:00 (1 - Tdap) [code = Medical C enter DTAP/TDAP/TD VACCINES (1 - Tdap)] Future Scheduled 1977 HEPATITIS C SCREENING [facility] 00:00:00 [code = HEPATITIS C Medical Center SCREENING] Future Scheduled [address] [facility] 00:00:00 0-64 YRS (1 - PCV) Medical C enter [code = PNEUMOCOCCAL VACCINE 0-64 YRS (1 - PCV)] Future Scheduled 1960-02-29 COVID-19 VACCINE (#1) [facility] 00:00:00 [code = COVID-[address] VACCINE (#1)] Future Scheduled 1959 CT Colonography (combo) [facility] 00:00:00 [code = CT Colonography [facility] Center (combo)] Future Scheduled 1959 Screening for malignant [facility] Test 00:00:00 neoplasm of colon Medical Ce nter (procedure) [code = 106381213] Future Scheduled 1959 Screening for malignant [facility] Test 00:00:00 neoplasm of colon Medical Ce nter (procedure) [code = 127751539] Future Scheduled 1959 Screening for malignant [facility] Test 00:00:00 neoplasm of colon Medical Ce nter (procedure) [code = 426283372] Future Scheduled 1959 Screening for malignant [facility] Test 00:00:00 neoplasm of colon Medical Ce nter (procedure) [code = 237916386] Future Scheduled 1959 Sigmoidoscopy [code = [facility] Sigmoidoscopy] Medical Cente r Encounters Start End Encounter Admission Attending Care Care Encounter Source Date/Time Date/Time Type Type Clinicians Facility Department ID 2022-11-01 2022-11-01 Telephone ALEX Arredondo 1.2.840.114 [id number] [facility] 00:00:00 00:00:00 Dorene LOCO 350.1.13.10 i ty of [place] [id number] [place] [id number] Branch 2022-09-07 2022-09-07 [id number] Univers 13:20:00 13:20:00 CAROLA [facility] 2022-09-07 2022-09-07 [facility] [id number] Univers 13:20:00 13:20:00 CAROLA [facility] 2022-08-29 2022-08-29 Telephone Herb [facility] 1.2.840.114 [id number] Univers 00:00:00 00:00:00 [facility] 350.1.13.10 it y of [place] 4.2.7.2.686 [place] AVTAR?BLEA [id number] [facility] YAR[address] MEDICAL OFFICE [facility] 2022-08-15 2022-08-15 Outpatient R [facility] [id number] Univers 11:30:00 11:30:00 SENDIL ity [facility] 2022-08-15 2022-08-15 Outpatient Julianna [facility] [id number] Univers 11:30:00 11:30:00 SENDIL ity [facility] 2022-08-09 2022-08-09 Orders Doctor CLYDE 1.2.840.114 [id number] Univers 00:00:00 00:00:00 Only Unassigned, [place] 350.1.13.10 ity of [place] [facility] 4.2.7.2.686 [place] as [id number] [address] 2022-08-09 2022-08-09 Case ALEX Arredondo 1.2.840.114 [id number] Univers 00:00:00 00:00:00 Management Dorene A LOCO 350.1.13.10 [place] [id number] [address] 2022-08-09 2022-08-09 Telephone [facility] 1.2.840.114 [id number] Univers 00:00:00 00:00:00 Carola BOSS 350.1.13.10 i ty of [place].7.2.[place] [id number] [address] 2022-08-09 2022-08-09 Telephone ALEX Arredondo 1.2.840.114 [id number] Univers 00:00:00 00:00:00 Dorene A LOCO 350.1.13.10 i [place] [id number] [address] 2022-07-31 2022-07-31 Outpatient Julianna [facility] [id number] Univers 11:00:00 11:00:00 SENDIL ity of [facility] 2022-07-26 2022-07-26 Telephone [facility] 1.2.288.034 [id number] Univers 00:00:00 00:00:00 Marialuisa HEALTH 350.1.13.10 it y of [place] 4.2.7.2.686 [place] AVTAR?BLEA [id number] [address] MEDICAL OFFICE [facility] 2022-07-13 2022-07-13 ALEX Cosme 1.2.840.114 [id number] Univers 00:00:00 00:00:00 Management Sandee EGANY 350.1.13.10 [place]y [place] [id number] [facility] [address] [place] 2022-07-06 2022-07-06 Orders Doctor CLYDE 1.2.840.114 [id number] Univers 00:00:00 00:00:00 Only Unassigned, [place] 350.1.13.10 ity of [place] [facility] 4.2.7.2.686 [place] as [id number] [facility] [address] [place] 2022-06-30 2022-06-30 Telephone [facility] 1.2.702.330 [id number] Univers 00:00:00 00:00:00 Marialuisa HEALTH 350.1.13.10 it y of [place] 4.2.7.2.686 [place] AVTAR?BLEA [id number] [address] 2022-06-27 2022-06-27 Telephone [facility] [id number] [id number] Univers 00:00:00 00:00:00 Marialuisa HEALTH 350.1.13.10 it y of [place] 4.2.7.2.686 [place] AVTAR?BLEA [id number] [address] 2022-06-26 2022-06-26 Orders Doctor CLYDE 1.2.840.114 [id number] Univers 00:00:00 00:00:00 Only Unassigned, [place] 350.1.13.10 ity of [place] [facility] 4.2.7.2.686 [place] [id number] [facility] [address] [place] 2022-06-22 2022-06-22 Telephone [facility] 1.2.957.227 [id number] Univers 00:00:00 00:00:00 Marialuisa HEALTH 350.1.13.10 it y of [facility] 4.2.7.2.686 [place] AVTAR?BLEA [id number] [facility] [address] [place] MEDICAL OFFICE [facility] 2022-06-19 2022-06-19 Telephone [facility] 1.2.437.818 [id number] Univers 00:00:00 00:00:00 Marialuisa HEALTH 350.1.13.10 it y of [place] 4.2.7.2.686 [place] as AVTAR?BLEA [id number] [facility] 044 [facility] OFFICE [facility] 2022-06-15 2022-06-15 Office [facility] 1.2.840.114 [id number] Univers 10:30:00 11:07:49 Visit Sendmina BOSS 350.1.13.10 [facility] [place] [id number] [facility] 059 [facility] 2022-06-15 2022-06-15 Outpatient Julianna [facility] [id number] Univers 10:30:00 11:07:49 SENDIL ity [facility] 2022-06-15 2022-06-15 Outpatient Julianna [facility] [id number] Univers 10:30:00 10:30:00 SENDIL ity [facility] 2022-06-15 2022-06-15 Outpatient R [facility] [id number] Univers 10:30:00 10:30:00 SENDIL ity [facility] 2022-06-15 2022-06-15 Outpatient Julianna [facility] [id number] Univers 10:30:00 10:30:00 SENDIL ity [facility] 2022-06-15 2022-06-15 Telephone [facility] 1.2.840.114 [id number] Univers 00:00:00 00:00:00 Carola BOSS 350.1.13.10 i ty [place] PROF[place] [id number] Nd dical NAL [address] [place] [address] 2022-06-06 2022-06-06 Outpatient R [facility] [id number] Univers 13:00:00 14:15:01 CAROLA silverio [facility] 2022-06-06 2022-06-06 Office [facility] 1.2.840.114 [id number] Univers 13:00:00 14:15:01 Visit Carola BOSS 350.1.13.10 i ty [place] [id number] [address] 2022-06-05 2022-06-05 Outpatient R [facility] [id number] Univers 08:00:00 08:00:00 MARIALUISA oconnellblair [facility] 2022-06-01 2022-06-01 Outpatient [facility] [id number] Univers 06:32:00 11:45:00 SENDIL ity [facility] 2022-06-01 2022-06-01 Hospital DAYNA Garcia 1.2.840.114 [id number] Univers 06:32:00 11:45:00 Encounter Jaziel CARMNE 350.1.13.10 ity of [address]686 [place] [id number] [address] 2022-06-01 2022-06-01 Surgery Kamryn Gonsalves 1.2.840.114 [id number] Univers 08:00:00 11:00:00 KERMIT 350.1.13.10 it y of [facility] 42.7.2.686 [place] [id number] [address] 2022-06-01 2022-06-01 Orders Doctor TANG 1.2.840.114 [id number] Univers 00:00:00 00:00:00 Only Unassigned, [place] 350.1.13.10 ity of [place] [facility] 42.7.2.686 [place] as [id number] [facility] [address] [place] 2022-05-30 2022-05-30 Sales And Service Consultant Lab, Ang - Db [facility] 1.2.840.1 [id number] Univers 09:45:00 10:00:00 Visit Jaziel Garcia K.HCandy HEALTH 350.1.13.1 0 ity of [facility] 4.2.7.2.686 [place] AVTAR?BLEA [id number] [facility] [address] [place] MEDICAL OFFICE [facility] 2022-05-30 2022-05-30 Outpatient R [facility] [id number] Univers 09:45:00 09:45:00 [facility] 2022-[facility]-30 2022-05-30 Laboratory Only, Adc Test [facility] 1.2.840. 114 [id number] Univers 09:15:00 09:30:00 Only Jaziel Garcia K.HCandy [facility] 350.1.13. 10 ity of [place] 4.2.7.2.686 [place] [facility] [id number] [address] 2022-05-30 2022-05-30 Outpatient [facility] [id number] Univers 09:15:00 [facility] 2022-[facility]-05 2022-05-05 Outpatient R [facility] [id number] Univers 08:40:00 09:18:44 FADI DE LEON [facility] 2022-05-05 2022-05-05 Office Moises [facility] 1.2.840.114 [id number] Univers 08:40:00 09:18:44 Visit [facility] 350.1.13.10 ity of [place] 4.2.7.2.686 [place] AVTAR?BLEA [id number] [place] 095152 [facility] OFFICE [facility] 2022-05-05 2022-05-05 Outpatient R [facility] [id number] Univers 08:40:00 08:40:00 FADI DE LEON [facility] 2022-05-02 2022-05-02 Telephone DAYNA Garcia 1.2.851.082 [id number] Univers 00:00:00 00:00:00 Sendil K.HCandy [place] 350.1.13.10 ity of [facility] 4.2.7.2.686 [place] [id number] [address] 2022-05-02 2022-05-02 Telephone [facility] 1.2.165.994 [id number] Univers 00:00:00 00:00:00 Sendil K.HCandy [place] 350.1.13.10 ity [place] [id number] [address] 2022-04-25 2022-04-25 Outpatient R [facility] [id number] Univers 09:39:09 23:59:00 SENDIL ity [facility] 2022-04-25 2022-04-25 Outpatient R [facility] [id number] Univers 09:39:09 09:39:09 SENDIL ity [facility] 2022-04-25 2022-04-25 Refill [facility] 1.2.840.114 [id number] Univers 00:00:00 00:00:00 Marialuisa HEALTH 350.1.13.10 it y of [place] 4.2.7.2.686 [place] as AVTAR?BLEA [id number] [address] MEDICAL OFFICE [facility] 2022-04-20 2022-04-20 Hyacinth [facility] 1.2.584.011 [id number] Univers 00:00:00 00:00:00 Marialuisa HEALTH 350.1.13.10 it y of [place] 4.2.7.2.686 [place] AVTAR?BLEA [id number] [address] MEDICAL OFFICE [facility] 2022-04-19 2022-04-19 [facility]phone [facility] 1.2.370.727 [id number] Univers 00:00:00 00:00:00 Sendil RobbHCandy [place] 350.1.13.10 ity of [place] [id number] Nd dical NAL 9 [facility] 2022-04-12 2022-04-12 Outpatient R [facility] [id number] Univers 08:30:00 08:57:31 SENDIL ity [facility] 2022-04-12 2022-04-12 Office [facility] 1.2.840.114 [id number] Univers 08:30:00 08:57:31 Visit Sendil James BOSS 350.1.13.10 ity of [place] 4[place] [id number] [facility] NAL [address] [place] [address] 2022-04-12 2022-04-12 Outpatient R [facility] [id number] Univers 08:30:00 08:57:31 SENDIL ity [facility] 2022-04-12 2022-04-12 Outpatient R [facility] [id number] Univers 08:30:00 08:57:31 SENDIL ity [facility] 2022-04-12 2022-04-12 Office [facility] 1.2.840.114 [id number] Univers 08:30:00 08:57:31 Visit Sendmina BOSS 350.1.13.10 ity of [place] 4[place].2.[place] [id number] [facility] NAL 059 [facility] 2022-04-12 2022-04-12 Orders Doctor CLYDE 1.2.840.114 [id number] Univers 00:00:00 00:00:00 Only Unassigned, [place]ER[place] 350.1.13.10 ity of [place] [facility] 4.2.7.2.686 [place] as [id number] [address] 2022-04-07 2022-04-07 Telephone [facility] 1.2.483.386 [id number] Univers 00:00:00 00:00:00 [facility] 350.1.13.10 it y of [place] 4.2.7.2.686 [place] as AVTAR?BLEA [id number] Nd león TRAN 044 [facility] 2022-03-30 2022-03-30 Outpatient R [facility] [id number] Univers 09:45:00 09:56:24 MARIALUISA silverio [facility] 2022-03-30 2022-03-30 Sales And Service Consultant Lab, Ang - Db [facility] 1.2.840.1 [id number] Univers 09:45:00 09:56:24 Visit Marialuisa Viramontes 350.1.13.10 ity of [place] 4.2.7.2.686 [place] AVTAR?BLEA [id number] [facility] [address] MEDICAL OFFICE [facility] 2022-03-30 2022-03-30 Outpatient R [facility] [id number] Univers 08:30:00 09:45:27 MARIALUISA silverio The [facility] 2022-03-30 2022-03-30 [facility] 1.2.840.114 [id number] Univers 08:30:00 09:45:27 Visit Marialuisa ROJAS 350.1.13.10 it y of [place] 4.2.7.2.686 Nilo as AVTAR?BLEA [phone] [address] MEDICAL OFFICE [facility] 2022-03-30 2022-03-30 Telephone Wander [facility] 1.2.975.084 [id number] Univers 00:00:00 00:00:00 Marialuisa HEALTH 350.1.13.10 it y of [place] 4.2.7.2.686 Nilo as AVTAR?BLEA [phone] [address] OFFICE [facility] 2022-03-27 2022-03-27 Transition ALEX Moffett 1.2.840.114 [id number] Univers 00:00:00 00:00:00 of Care Lynn L LOCO 350.1.13.10 i [place] [phone] [address] 2022-03-23 2022-03-25 Inpatient X [facility] [id number] Univers 14:30:00 16:15:00 EKATERINA silverio [facility] 2022-03-23 2022-03-25 Hospital Joanne Rene [facility] 1.2.84 0.114 [id number] Univers 14:30:00 16:15:00 Encounter Ekaterina Haines 350.1.13.10 ity of [place] 4.2.7.2.686 [facility] [phone] [facility] [address] [place] 2022-03-23 2022-03-23 Emergency X ANJU [facility] ERT [id number] Univers 14:30:00 14:30:00 JOANNE silverio [facility] 2022-03-23 2022-03-23 Office [facility] 1.2.840.114 [id number] Univers 13:00:00 13:53:32 Visit Rochelle A [facility] 350.1.13.10 i ty of [place] 4.2.7.2.686 Nilo as AVTAR?BLEA [phone] Nd [address] MEDICAL OFFICE BUILDING 2022-03-23 2022-03-23 Outpatient R [facility] [id number] Univers 13:00:00 13:53:32 [facility] 2022-03-23 Orders Doctor CLYDE 1.2.840.114 [id number] Univers 00:00:00 00:00:00 Only Unassigned, KERMIT 350.1.13.10 ity of [place] [facility] 4.2.7.2.686 Nilo as [phone] [facility] [address] [place] 2021-12-08 2021-12-10 Inpatient ER [facility] Neurology [id number] [facility] 19:07:00 15:35:00 JEFF 2019-06-21 2019-06-23 Emergency Lele Rosa [facility] 1.2.840. 114 [id number] 22:40:21 14:49:00 Minoo Yoo 350.1.13.10 An[place] 4.2.7.2.686 [place] [id number] [id number] 2019-06-21 2019-06-23 Emergency Lele Rosa [facility] 1.2.840. 114 [id number] Univers 22:40:21 14:49:00 Minoo Yoo 350.1.13.10 ity of [place] 4.2.7.2.686 [facility] [phone] [facility] [address] Results Test Description Test Time Test Comments Results Result Comments Source T3, FREE 2021-12-12 10:03:37 Test Item Value Reference Range Interpretation Comme nts T3 FREE (FILIPPO) (test code = 908) See scanned reportCT, CHEST, WITHOUT [id number] 14:14:00Unlisted Reason for Exam - Click Yes and Enter Reason Below->YesUnlisted Reason for Exam->cachexia w/ nonfocal neurological issues, eval for underlying malignancyKA[facility]: [facility]RAF : 1960 Sex: MFINAL REPORT CT OF THE CHEST, ABDOMEN, AND PELVIS WITHOUT CONTRAST HISTORY: Cachexia, evaluate for underlying malignancy COMPARISON: MRI abdomen of 11/24/2019 TECHNIQUE: CT of the chest, abdomen, and pelvis was performed without contrast. Axial images were generated as were multiplanarreformatted images in the sagittal and coronal planes. The examination was performed to conform to our departmental dose optimization program which includes automated exposure control, adjustment of the mA and/or kV according to patient size and/or use of iterative reconstruction techniques. FINDINGS:There are mild changes of centrilobular emphysema in the upper lungs bilaterally. There is mild biapical lung parenchymal scarring. There is mild linear peripheral likely scar in the posterior right upper lobe. There is minor scarring in the right middle lobe. No suspicious pulmonary nodules are visualized. No axillary, mediastinal, or hilar lymphadenopathy are identified. There are calcified mediastinal and right hilar granulomas. Coronary artery calcifications are present. Thoracic aortic calcifications are present. No pleural or pericardial effusion. Solid organ evaluation is limited without intravenous contrast. Hepatic and splenic calcified granulomas are present. There are diffuse arterial calcifications in the abdomen or pelvis. Small calcification in the left renal hilar region is likely arterial in nature. No abdominal [...] lesion are identified. There are degenerative and hypertrophicchanges in the spine. There are degenerative changes [...] prior pancreatitis. 5. Atherosclerosis. Signed: Ekaterina Wilkinson Verified D ate/Time: 12/10/2021 14:14:38 Reading Location: [address] Reading Room , [id number] 14:14:00Unlisted Reason for Exam - Click Yes and Enter Reason Below->YesUnlisted Reason for Exam->cachexia w/ nonfocal neurological issues, eval for underlying malignancyIs this for enterography?->NoWill this procedure require oral contrast?->No [facility] : 1960 Sex: MFINAL REPORT CT OF THE CHEST, ABDOMEN, AND PELVIS WITHOUT CONTRAST HISTORY: Cachexia, evaluate for underlying malignancy COMPARISON: MRI abdomen of 11/24/2019 TECHNIQUE: CT of the chest, abdomen, and pelvis was performed without contrast. Axial images were generated as were multiplanarreformatted images in the sagittal and coronal planes. The examination was performed to conform to our departmental dose optimization program which includes automated exposure control, adjustment of the mA and/or kV according to patient size and/or use of iterative reconstruction techniques. FINDINGS:There are mild changes of centrilobular emphysema in the upper lungs bilaterally. There is mild biapical lung parenchymal scarring. There is mild linear peripheral likely scar in the posterior right upper lobe. There is minor scarring in the right middle lobe. No suspicious pulmonary nodules are visualized. No axillary, mediastinal, or hilar lymphadenopathy are identified. There are calcified mediastinal and right hilar granulomas. Coronary artery calcifications are present. Thoracic aortic calcifications are present. No pleural or pericardial effusion. Solid organ evaluation is limited without intravenous contrast. Hepatic and splenic calcified granulomas are present. There are diffuse arterial calcifications in the abdomen or pelvis. Small calcification in the left renal hilar region is likely arterial in nature. No abdominal [...] lesion are identified. There are degenerative and hypertrophicchanges in the spine. There are degenerative changes [...] 5. Atherosclerosis. Signed: Ekaterina Wilkinson MDReport Verified D ate/Time: 12/10/2021 14:14:38 Reading Location: [address] Transitional Reading Room C-REACTIVE [id number] 06:01:54 Test Item Value Reference Range Interpretation Comments C-REACTIVE PROTEIN (BEAKER) (test 0.43 mg/dL 0.00-0.50 code = 676) Fire Systems Inspector ID - [id number] 06:01:53 Test Item Value Reference Range Interpretation Comments MAGNESIUM (BEAKER) (test code = 1.8 mg/dL 1.6-2.6 627) Fire Systems Inspector ID - [id number] 06:01:53 Test Item Value Reference Range Interpretation Comments PHOSPHORUS (BEAKER) (test code = 3.4 mg/dL 2.3-4.7 604) Fire Systems Inspector ID - ADMINCREATINE KINASE (CK)2021-12-10 06:01:53 Test Item Value Reference Range Interpretation Comments CREATINE KINASE TOTAL (BEAKER) (test 83 U/L 29-200 code = 380) Fire Systems Inspector ID - ADMINBASIC METABOLIC [id number] 06:01:52 Test Item Value Reference Range Interpretation [...] S NOT APPLICABLE FOR DIALYSIS PATIEN TS. Fire Systems Inspector ID - ADMINCBC W/PLT COUNT & AUTO [id number] 05:21:59 Test Item Value Reference Range Interpretation [...] (test code = 2801) CT, BRAIN, WITHOUT [id number] 02:14:00Unlisted Reason for Exam - Click Yes and Enter Reason Below->No [facility] 1960 Sex: MFINAL REPORT EXAM/TECHNIQUE: Noncontrast CT of the head. Dose modulation, iterativereconstruction, and/or weight based adjustment of the mA/kV was utilized to reduce the radiation dose to as low as reasonably achievable. INDICATION: Stroke COMPARISON: CT head from 12/08/2021. FINDINGS:Rivas-white differentiation is preserved. No acute intracranial hemorrhage. No extra-axial fluid collection.Redemonstrated remote left thalamic lacunar infarct. Ventricles are normal in appearance. Basal cisterns are patent. No midline shift. Cerebellar tonsils are normal in appearance. Orbits are normal. Paranasal sinuses are clear. Mastoid air cells are clear. No acute osseous processes or suspicious osseous lesion. Midline structures are normal. Visualized face and neck are unremarkable. Impression: No acute intracranial process. No territorial rivas-white differentiation loss. Signed: [facility]ures[facility]ves [facility] Verified Date/Time: 12/10/2021 02:14:53 MR, SPINE, LUMBAR, WITHOUT [id number] 19:56:00 Unlisted Reason for Exam - Click Yes and Enter Reason Below->No [facility] : 1960 Sex: MFINAL REPORT MR, SPINE, LUMBAR, WITHOUT CONTRAST INDICATION: Lumbosacral osteoarthritis COMPARISON: None TECHNIQUE: Multiplanar, multisequence MR images of the lumbar spine without contrast. FINDINGS: 5 nonrib-bearing lumbar-type vertebral bodies are present. Alignment of the lumbar spine is within normal limits. Vertebral body height is maintained. Marrow is diffusely heterogeneous w ithout aggressive osseous lesion.Multilevel disc space height loss is present, most conspicuous at L4-L5 and L5-J9Uvogk terminates at L1.Cauda equina demonstrates normal appearance.No acute findings inthe paraspinal soft tissues. Evaluation of the individual [...] No significant spinal canal narrowing.L5/S1: No significant canalor foraminal stenosis. IMPRESSION: Multilevel degenerative changes of the lumbar spine, most prominent at L3-L4 as per above. Signed: Ramona White Verified Date/Time: 12/09/2021 19:56:36 MR, BRAIN, WITHOUT [id number] 19:52:00Unlisted Reason for Exam - Click Yes and Enter Reason Below->NoKA[facility]ER [facility]Name: [facility] : 1960 Sex: MFINAL REPORT MR, BRAIN, WITHOUT CONTRAST INDICATION: Neuro deficit, acute, stroke suspected TECHNIQUE: Multiplanar, multisequence MR imaging of the brain was obtained. COMPARISON: NoneFINDINGS:Brain parenchyma is normal in morphology. Midline structures are normally developed. No restricted diffusion to suggest recent ischemic insult. No abnormal susceptibility. Scattered T2/FLAIR hyperintense foci within the periventricular and subcortical white matter are nonspecific, however, statistically represent chronic microvascular ischemic changes. No hydrocephalus. Orbits are within normal limits. No obstructive paranasal sinus disease. IMPRESSION: No acute intracranial findings Signed: Ramona White Verified Date/Time: 12/09/2021 19:52:33 -COV2/RT-PCR ([facility])2021-12-09 19:38:32 Test Item Value Reference Range Interpretation Comments SARS-COV2/RT-PCR (test code = Negative Negative [id number]) Negative result for this test determines that [...] under Section 564(g) of the Act.Testing was performed using Tech21 SARS-CoV-2 assay.Fact Sheet for Healthcare Providers:https://www.BeCouply.sanchez/nabil/RT SARS-CoV-2 HCP Fact Sheet 51- 972827.pdfFact Sheet for Healthcare Patients:https://www.BeCouply.sanchez/nabil/RT SARS-CoV-2 Patient Fact Sheet EN 51-715918Z8.pdfVITAMIN D, [id number] 17:16:45 Test Item Value Reference Range Interpretation Comments VITAMIN D 25-OH (LULÚAKER) (test 12.6 ng/mL 6.6-49.9 code = 2764) Effective 07/18/2017: Reference Range ChangeNew: 6.6-49.9 ng/mL Previous: 13.0- 47.8 ng/mLRecommendedVitamin D Target Range: 30.0-40.0 ng/mLOperator ID - DBRAD, HIPS, 3 OR 4 VIEWS, [id number] 15:12:00Reason for exam:->Pain [facility] : 1960 Sex: MFINAL REPORT TECHNIQUE: RAD, HIPS, 3 OR 4 VIEWS, BILATERAL INDICATION: Pain COMPARISON: None. FINDINGS:No acute fracture or dislocation. There are degenerative changes in the bilateralhips. There are diffuse vascular calcifications. IMPRESSION:No acute osseous abnormality. Signed: Sammy Sher MDReport Verified Date/Time: 12/09/2021 15:12:56 Reading Location: [address] Reading Room [id number] 14:07:35 Test Item Value Reference Range Interpretation Comments RPR SCREEN (BEAKER) (test code = Nonreactive Nonreactive 420) [id number] 12:56:05 Test Item Value Reference Range Interpretation Comments FERRITIN (BEAKER) (test code = 77.77 ng/mL 5.00-275.00 361) Fire Systems Inspector ID - LILIANA KEYES, TIBC, % SAT. (WITHOUT FERRITIN)2021-12-09 12:35:19 Test Item Value Reference Range Interpretation Comments IRON (BEAKER) (test code = 547) 119.0 ug/dL 40.0-160.0 TOTAL IRON BINDING CAPACITY 224 ug/dL 250-450 L (BEAKER) (test code = 769) IRON % SATURATION (2) (BEAKER) 53 % 20-55 (test code = 2590) Fire Systems Inspector ID - LILIANA [id number] 12:21:17 Test Item Value Reference Range Interpretation Comments LIPASE (BEAKER) (test code = 749) 25 U/L 8-78 Fire Systems Inspector ID - LINDAIDHEPATIC FUNCTION [id number] 12:21:16 Test Item Value Reference Range Interpretation [...] (test code = 10 U/L 6-55 347) Fire Systems Inspector ID - [id number] 12:21:16 Test Item Value Reference Range Interpretation Comments AMYLASE (BEAKER) (test code = 349) 25 U/L 25-125 Fire Systems Inspector ID - AANESSIDHEMOGLOBIN [id number] 11:45:20 Test Item Value Reference Range Interpretation [...] 5.7- 6.4% indicates increased risk for diabetes (prediabetes)."Fire Systems Inspector ID - DENIA, FEMUR, MIN. 2 VIEWS, [id number] 05:38:00Reason for exam:->C/o pain \\T\\ leg weaknessShould this be performed at the bedside?->Yes [facility] : 1960 Sex: MFINAL REPORT EXAM/TECHNIQUE: RAD, FEMUR, four VIEWS, RIGHT INDICATION: Pain, weakness. COMPARISON: None. FINDINGS: No acute fracture is demonstrated. Grossly normal bone mineralization. No large knee joint effusion. Vascular calcifications are present. Impression: No acute osseous process. Signed: Suresh Alves [facility] Verified Date/Time: 12/09/2021 05:38:16 T4, [id number] 05:34:16 Test Item Value Reference Range Interpretation Comments FREE T4 (BEAKER) (test code = 655) 0.95 ng/dL 0.70-1.48 Fire Systems Inspector ID - LILIANA WTSH/FREE T4 IF [id number] 04:56:33 Test Item Value Reference Range Interpretation Comments THYROID STIMULATING HORMONE 0.059 uIU/mL 0.350-4.940 L (BEAKER) (test code = 772) Fire Systems Inspector ID - LILIANA [id number] 04:55:31 Test Item Value Reference Range Interpretation Comments HOMOCYSTEINE (BEAKER) (test code = 9.5 umol/L 5.1-15.4 642) Fire Systems Inspector ID - LILIANA WVITAMIN B12 AND [id number] 04:55:31 Test Item Value Reference Range Interpretation Comments VITAMIN B12 346 pg/mL 213-816 (BEAKER) (test code = 774) FOLATE (BEAKER) 17.00 ng/mL See_Comment [Automated message] (test code = 362) The system which generated this result transmitted ref erence range: >=7.00. The reference range was not used to interpr et this result as normal/abnormal . Fire Systems Inspector ID Wesley FORD WLIPID [id number] 03:43:12 Test Item Value Reference Range Interpretation Comments TRIGLYCERIDES (BEAKER) (test code = 46 mg/dL 540) CHOLESTEROL (BEAKER) (test code = 125 mg/dL 631) HDL CHOLESTEROL (BEAKER) (test code 54 mg/dL = 976) LDL CHOLESTEROL CALCULATED (BEAKER) 62 mg/dL (test code = 633) Triglyceride Reference Range: Low Risk <150 Borderline 150-199 High Risk 200- 499 Very High Risk >=500Cholesterol Reference Range: Low Risk <200 Borderline 200-239 High Risk >240HDL Cholesterol Reference Range: Low Risk >=60 High Risk <40LDL Cholesterol Reference Range: Optimal <100 Near Optimal 100-129 Borderline 130-159 High 160-189 Very High >=190 Fire Systems Inspector ID Wesley FORD [id number] 03:43:11 Test Item Value Reference Range Interpretation Comments MAGNESIUM (BEAKER) (test code = 2.0 mg/dL 1.6-2.6 627) Fire Systems Inspector ID Wesley FORD [id number] 03:43:11 Test Item Value Reference Range Interpretation Comments PHOSPHORUS (BEAKER) (test code = 3.7 mg/dL 2.3-4.7 604) Fire Systems Inspector ID Wesley FORD WBASIC METABOLIC [id number] 03:43:10 Test Item Value Reference Range Interpretation [...] S NOT APPLICABLE FOR DIALYSIS PATIEN TS. Fire Systems Inspector ID - LILIANA WURINALYSIS WITH MICROSCOPIC IF [id number] 03:41:46 Test Item Value Reference Range Interpretation [...] = 463) SOURCE(BEAKER) (test code = 2795) Fire Systems Inspector ID - [auto]Fire Systems Inspector ID - techRAPID DRUG SCREEN, [id number] 03:39:59 Test Item Value Reference Range Interpretation [...] situations. Chain of custody not maintained. Some shhf-jfp-hdcsbxp medications, as well as adulterants, may cause inaccurate results. Clinical correlation should be applied. A more comprehensive drug screen or confirmation of a detected drug may be performed upon request.Fire Systems Inspector ID - DBCBC W/PLT COUNT & AUTO [id number] 03:19:40 Test Item Value Reference Range Interpretation [...] code = 2801) HIV-1 ANTIGEN WITH HIV-1/2 [id number] 22:50:03 Test Item Value Reference Range Interpretation Comments HIV-1 ANTIGEN WITH HIV 1\\T\\2 Nonreactive Nonreactive ANTIBODY (2) (BEAKER) (test code = 2586) Fire Systems Inspector ID - DBB-TYPE NATRIURETIC FACTOR (BNP)2021-12-08 22:10:36 Test Item Value Reference Range Interpretation Comments B-TYPE NATRIURETIC PEPTIDE (BEAKER) 27 pg/mL 0-100 (test code = 700) Fire Systems Inspector ID - DBHIGH SENSITIVITY TROPONIN [id number] 22:10:16 Test Item Value Reference Range Interpretation Comments HIGH SENSITIVITY < pg/ml See_Comment [Automated message] TROPONIN I (test code = The system which [id number]) generated this result transmitted ref erence range: <=35. Th e reference range was not used to interpr et this result as normal/abnormal . Fire Systems Inspector ID - DBThe BETTING AGENCY MANAGER STAT High Sensitivity Troponin-I results should be used in conjunctionwith other diagnostic information such as ECG, clinical observations and information, and patient symptoms to aid in the diagnosis of [place].[id number] 22:03:58 Test Item Value Reference Range Interpretation Comments MAGNESIUM (BEAKER) (test code = 1.9 mg/dL 1.6-2.6 627) Fire Systems Inspector ID - [id number] 22:03:58 Test Item Value Reference Range Interpretation Comments PHOSPHORUS (BEAKER) (test code = 3.9 mg/dL 2.3-4.7 604) Fire Systems Inspector ID - DBCOMPREHENSIVE METABOLIC [id number] 22:03:57 Test Item Value Reference Range Interpretation [...] S NOT APPLICABLE FOR DIALYSIS PATIEN TS. Fire Systems Inspector ID - DBLACTIC ACID, [id number] 21:59:53 Test Item Value Reference Range Interpretation Comments LACTATE BLOOD VENOUS 1.21 mmol/L 0.50-2.20 Specime n slightly (2) (BEAKER) (test hemolyzed code = 7280) Fire Systems Inspector ID - [id number] 21:50:48 Test Item Value Reference Range Interpretation Comments PARTIAL THROMBOPLASTIN TIME 27.5 seconds 22.5-36.0 (BEAKER) (test code = 760) PROTHROMBIN TIME/[id number] 21:50:11 Test Item Value Reference Range Interpretation Comments PROTIME (BEAKER) 13.3 seconds 11.9-14.2 (test code = 759) INR (BEAKER) (test 1.03 See_Comment [Automat ed message] code = 370) The system [employer] generated this result transmitted ref erence range: <=5.90. The reference range was not used to int erpret this result as normal/abnormal . RECOMMENDED COUMADIN/WARFARIN INR THERAPY RANGESSTANDARD DOSE: 2.0 - 3.0 Includes: PROPHYLAXIS for venous thrombosis, systemic embolization; TREATMENT for venous thrombosis and/or pulmonary embolus.HIGH RISK: Target INR is 2.5-3.5 for patients with mechanical heart valves.CBC W/PLT COUNT & AUTO [id number] 21:43:48 Test Item Value Reference Range Interpretation [...] PERCENT (BEAKER) (test code = 2801) CALCIUM, [id number] 21:43:10 Test Item Value Reference Range Interpretation Comments CALCIUM IONIZED (BEAKER) (test 1.15 mmol/L 1.12-1.27 code = 698) PH, BLOOD (BEAKER) (test code = 7.30 1810) CT, CTANGIO [id number] 21:34:00Unlisted Reason for Exam - Click Yes and Enter Reason Below->No [facility] 1960 Sex: MFINAL REPORT EXAM/TECHNIQUE: CTA of the head and neck with IV contrast. Noncontrast CT of the head was also [...] appearance. Basal cisterns are patent. No midline shift.Cerebellar tonsils are normal in appearance. Orbits are normal. Paranasal sinuses are clear. Mastoidair cells are clear. Midline structures are normal. [...] significant stenosis, or aneurysm. Posterior circulation: Atherosclerotic narrowing in the bilateral vertebral arteries without to moderate left stenosis. The bilateral PICAs are patent. AICAs are not well visualized. The basilar artery is patent. The bilateral SCAs are patent. The P1 and P2 segments of the GLOBAL PROGRAM MANAGER are patent. Unremarkable appearance of the posterior communicating arteries. Distal branches appear patent. No occlusion, significant stenosis, or aneurysm. Venous: No findings of dural or cortical venous thrombosis. NECK Vessels: Conventional three vessel anatomy of the aortic arch.The bilateral common carotid arteries are patent. There is moderate atherosclerosis at the carotid bifurcations without stenosis by NASCET criteria. There is atherosclerotic calcification at the originof the vertebral artery with severe left moderate [...] Impression: 1.No large vessel occlusion. No acute intracranial process. CT ASPECT score 10. 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 Severeleft moderate right atherosclerotic narrowing of the origins of the vertebral arteries.4.Right thyroid nodule measuring up to 27 mm. If not previously evaluated, recommend nonemergent thyroid ultrasound.5.Centrilobular pulmonary emphysema. Signed: Suresh Alves MDReport Verified Date/Time: 12/08/2021 21:34:28 CT, CAROTID, [id number] 21:34:00Unlisted Reason for Exam - Click Yes and Enter Reason Below->No [facility] : 1960 Sex: MFINAL REPORT EXAM/TECHNIQUE: CTA of the head and neck with IV contrast. NoncontrastCT of the head was also performed. MIPS [...] significant stenosis, or aneurysm. Posterior circulation: Atherosclerotic narrowing in the bilateral vertebral arteries without to moderate left stenosis. The bilateral PICAs are patent. AICAs are not well visualized. The basilar artery is patent. The bilateral SCAs are patent. The P1 and P2 segments of the GLOBAL PROGRAM MANAGER are patent. Unremarkable appearance of the posterior communicating arteries. Distalbranches appear patent. No occlusion, significant stenosis, or aneurysm. Venous: No findings of dural or cortical venous thrombosis. NECK [...] at C5-C6. Upper chest: Centrilobular pulmonary emphysema. Nofocal consolidation. Impression: 1.No large vessel occlusion. No acute intracranial process. CT ASPECT score 10. 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 Severe left moderate right atherosclerotic narrowing of the origins of the vertebral arteries.4.Right thyroid nodule measuring up to 27 mm. If not previously evaluated, recommend nonemergent thyroid ultrasound.5.Centrilobular pulmonary emphysema. Signed: Sruesh Alves [facility] Verified Date/Time: 221:34:28 [facility] 2021-12-08 20:52:00 [facility] 1960 Sex: MFINAL REPORT [...] effect. Midline structures are normally developed. No hydrocephalus. Orbits are within normal limits. Atherosclerotic calcification of the intracranial internal carotid and vertebral arteries. No obstructive paranasal sinus disease. IMPRESSION: No acute intracranial findings If there is persistent clinical concern for intracranial pathology, MR examination is recommended for further characterization. Signed: Ramona White MDReport Verified Date/Time: 12/08/2021 20:52:55 RAD, CHEST, 1 VIEW, NON DEPT 2021-12-08 20:21:00Reason for exam:->STROKEShould this be performed at the bedside?->Yes[facility] : 1960 Sex: MFINAL REPORT INDICATION: STROKE COMPARISON: 11/26/2019 TECHNIQUE: Single frontal view of the chest. IMPRESSION: Lungs and pleura: Lungs are hyperinflated which may reflect COPD. No airspace consolidation. No effusion. Heart and mediastinum: Normal heart size. Unremarkable mediastinal contours. Osseous structures: No acute abnormality. Chronic left-sided rib fractures. Other: None. Signed: Edwina Madison MDReport Verified Date/Time: 12/08/2021 20:21:43 TISSUE EXAM 2019-11-28 15:53:00Surgical Pathology Report Case: [id number] Authorizing Provider: Jeferson Weber Collected: 11/26/2019 Teri Cobb MD Ordering Location: [address] Received: 11/27/2019 [facility] Service Pathologist: Manuel Goodwin MD Specimen: Ampulla, AMPULLARY BIOPSY A. AMPULLA, BIOPSY: - BENIGN AMPULLARY/ DUODENAL MUCOSA WITH MILD CHRONIC INFLAMMATION - SMALL FOCUS OF SCAR TISSUE (SEE COMMENT) Signing Pathologist Direct Phone Line: [phone] signed by Manuel Goodwin MD on 11/28/2019 at 3:53 PMPer endoscopy note dated 11/27/19, ampulla was noted to be abnormal with small fibrotic orifice.Deeper levels are examined. There is scar tissue, however no evidence of malignancy is seen.[id number] and postop diagnosis: abnormal imagingAmpullary biopsyReceived in formalin labeled with the patient's name, accession number and "ampulla" are three irregular ballard soft tissue fragments each measuring 0.1 cm which are submitted in toto in A1. CG/pl Performed.RAD, CHEST, 2 [id number] 21:20:00Reason for exam:->nodule possible nipple shadow on previous chest xray, repeat cxr with nipple markersFINAL REPORT Exam: Chest x-ray, PA and lateral views Clinical History: Lung nodule; possible nipple shadow on prior chest radiograph. Comparison: Chest radiograph 11/25/2019. Technique: Frontal and lateral views of the chest were obtained with nipple markers. Findings: The heart isnormal in size. There are calcified right paratracheal lymph node nodes from prior granulomatous disease. There is no discrete lung nodule. There is no focal pulmonary consolidation, pleural effusion or pneumothorax. There is no pulmonary edema. The bony thorax is demineralized. There are healed bilateral rib fractures. Impression:No discrete lung nodule.No focal pulmonary consolidation. Signed: Aurelio Simons Verified Date/Time: 11/26/2019 21:20:17 FL, [id number] 15:10:00Reason for exam:->abnormal imageryFINAL REPORT A fluoroscopic unit was utilized for a procedure performed in the operating room. No interpretation was requested. Please refer to the operative report regarding findings. Please refer to PACS for patient radiation dose information. Signed: Sue Macedo Verified Date/Time: 11/26/2019 15:10:45 Reading Location: [facility] Radiology Reading Room [id number] 06:08:00 Test Item Value Reference Range Interpretation Comments PHOSPHORUS (BEAKER) (test code = 3.5 mg/dL 2.3-4.7 604) Fire Systems Inspector ID - KENNY [id number] 06:08:00 Test Item Value Reference Range Interpretation Comments MAGNESIUM (BEAKER) (test code = 1.7 mg/dL 1.6-2.6 627) Fire Systems Inspector ID - KENNY MBASIC METABOLIC [id number] 06:08:00 Test Item Value Reference Range Interpretation [...] S NOT APPLICABLE FOR DIALYSIS PATIEN TS. Fire Systems Inspector ID - KENNY EPATIC FUNCTION [id number] 06:08:00 Test Item Value Reference Range Interpretation [...] (test code = 12 U/L 6-55 347) Fire Systems Inspector ID - KENNY MRAD, CHEST, 1 VIEW, NON [id number] 15:22:00Reason for exam:->smoker, weight lossShould this be performed at the bedside?->Yes FINAL REPORT TECHNIQUE: Frontal view of the chest. INDICATION: smoker, weight loss. COMPARISON: None. FINDINGS: LINES/TUBES: None. LUNGS: The lung bases are hyperlucent, and the lungs are hyperexpanded. And nodular opacity of the left base is most likely a nipple. PLEURA: No pneumo thorax or significant pleural effusion. HEART AND MEDIASTINUM: [...] is most likely due to chronic obstructive pulmonarydisease. There is a nodular opacity of the left base which is most likely nipple. A follow-up chest radiograph with nipple markers is recommended. Signed: Aldo Valdez MDReport Verified Date/Time: 11/25/2019 15:22:45 Reading Location: [facility] Radiology Reading Room [id number] 05:28:00 Test Item Value Reference Range Interpretation Comments MAGNESIUM (BEAKER) 1.8 mg/dL 1.6-2.6 Specimen slightly (test code = 627) hemolyzed Fire Systems Inspector ID - KENNY [id number] 05:28:00 Test Item Value Reference Range Interpretation Comments PHOSPHORUS (BEAKER) 3.6 mg/dL 2.3-4.7 Specimen slightly (test code = 604) hemolyzed Fire Systems Inspector ID - KENNY MBASIC METABOLIC [id number] 05:28:00 Test Item Value Reference Range Interpretation [...] S NOT APPLICABLE FOR DIALYSIS PATIEN TS. Fire Systems Inspector ID - KENNY MHEPATIC FUNCTION [id number] 05:28:00 Test Item Value Reference Range Interpretation [...] Specimen slightly (test code = 347) hemolyzed Fire Systems Inspector ID - KENNY MMR, ABDOMEN, [id number] 18:08:00Pancreas protocol AND MRCP Anesthesia:->None Deos the [...] May be of the sidebranches are mildly dilated.Pancreas divisum. There is diffuse loss of T1 weighted signal throughout the pancreas. ADRENALS: No adrenal nodules.KIDNEYS/URETERS: No hydronephrosis or solid mass lesions. A right interpolar simple renal cyst measures 0.4 cm. PERITONEUM/RETROPERITONEUM: No free fluid.LYMPH NODES: No lymphadenopathy.VESSELS: At least moderate atherosclerotic changes of the infrarenal abdominal aorta. GI TRACT: No dis tention or wall thickening. BONES AND SOFT TISSUES: Prior midline laparotomy. IMPRESSION: 1.The diffuse pancreatic ductal dilation is most likely due to a combination of pancreas divisum and chronic pancreatitis. No definite underlying mass is seen. However, further evaluation with ERCP and/or endoscopic ultrasound is recommended to exclude an underlying mass. 2.Mild intra and extrahepatic biliary ductal dilation. 3.Static bile in the gallbladder. Signed: Aldo Valdez MDReport Verified Date/Time: 11/24/2019 18:08:51 Reading Location: [address] Body Reading Room [id number] 07:18:00 Test Item Value Reference Range Interpretation Comments PHOSPHORUS (BEAKER) (test code = 3.3 mg/dL 2.3-4.7 604) Fire Systems Inspector ID - [id number] 07:18:00 Test Item Value Reference Range Interpretation Comments MAGNESIUM (BEAKER) (test code = 1.9 mg/dL 1.6-2.6 627) Fire Systems Inspector ID - LABASIC METABOLIC [id number] 07:18:00 Test Item Value Reference Range Interpretation [...] S NOT APPLICABLE FOR DIALYSIS PATIEN TS. Fire Systems Inspector ID - LAHEPATIC FUNCTION [id number] 07:18:00 Test Item Value Reference Range Interpretation [...] (test code = 14 U/L 6-55 347) Fire Systems Inspector ID - LACBC W/PLT COUNT & AUTO [id number] 05:25:00 Test Item Value Reference Range Interpretation [...] (BEAKER) (test code = 2801) HEPATIC FUNCTION [id number] 18:58:00 Test Item Value Reference Range Interpretation [...] (test code = 16 U/L 6-55 347) Fire Systems Inspector ID - KENNY MBASIC METABOLIC [id number] 18:58:00 Test Item Value Reference Range Interpretation [...] S NOT APPLICABLE FOR DIALYSIS PATIEN TS. Fire Systems Inspector ID - KENNY MCBC W/PLT COUNT & AUTO [id number] 18:20:00 Test Item Value Reference Range Interpretation [...] % 0-1 PERCENT (BEAKER) (test code = 4550)
[2023-02-25] MEDS ORDERED: MORPHINE 2 MG/ML SYR ONE (19:05)
[2023-02-25] MEDS ORDERED: LEVALBUTEROL 1.25 MG/3 ML NEB ONE (19:05)
[2023-02-25] MEDS ORDERED: METHYLPREDNISOLONE 125 MG INJ ONE (19:06)
[2023-02-25] MEDS ORDERED: ONDANSETRON 4 MG/2 ML VIAL ONE (19:06)
[2023-02-25 20:15] LABS: Absolute Lymphocytes (CBC) 0.9 K/uL (0.7-4.9); Hematocrit 40.5 % (39.6-49.0); Lymphocytes % 8.5 % (15.3-44.8); MCV 94.3 fL (80-100); MPV 8.1 fL (7.6-11.3); RBC Red Blood Cell Count 4.29 M/uL (4.33-5.43)
--- NOTE | 2023-02-25 20:15 | RAD REPORT ---
EXAM DESCRIPTION: RAD - Chest Single View - 02/25/2023 8:05 pm CLINICAL HISTORY: sob, chest pain Chest pain. COMPARISON: <Comparisons> FINDINGS: Portable technique limits examination quality. Advanced COPD is seen. The heart is normal in size. No displaced fractures. IMPRESSION: Advanced COPD.
[2023-02-25 20:18] LABS: Protime INR 1.15
[2023-02-25 20:35] LABS: Albumin 2.5 g/dL (3.4-5.0); Bilirubin Direct 0.1 mg/dL (0-0.2); Bilirubin Indirect, Calculated 0.3 mg/dL (0.2-0.8); Bilirubin Total 0.4 mg/dL (0.2-1.0); Magnesium 2.3 mg/dL (1.6-2.4); Potassium 3.5 mEq/L (3.5-5.1); Protein, Total 7.2 g/dL (6.4-8.2); Troponin High Sensitivity 8.8 pg/mL (<58.9)
[2023-02-25 20:44] LABS: SARS-CoV-2 Antigen Rapid Res Negative (Negative)
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
[2023-02-25] MEDS ORDERED: AZITHROMYCIN 250 MG TAB ONE (22:14)
[2023-02-25] MEDS ORDERED: HYDROMORPHONE HCL 0.5 MG/0.5 ML INJ ONE (22:14)
[2023-02-25] MEDS ORDERED: CEFTRIAXONE 1000 MG/VIAL ONE (22:15)
[2023-02-25 22:52] VITALS: TEMP 98.3
[2023-02-25 22:59] VITALS: BP 134/84; O2SAT 96
== END 2023-02-25 22:22 | disposition home or self-care (01) ==
LOC: ER 18:05
DX: J44.1 Chronic obstructive pulmonary disease with (acute) exacerbation (principal)
CPT/HCPCS: 36415; 71045; 80048; 80076; 83735; 83880; 84484; 85025; 85610; 87811; 93005; J0696; J1170; J2270; J2405; J2930; J7614

== ENCOUNTER 2023-05-30 11:29 | Emergency (ER) | payer SELFPAY ==
--- OUTSIDE RECORDS SUMMARY | 2023-05-30 11:37 | XMS REPORT | Continuity of Care Document ---
:1960 Author Organization [facility] t Address [address] [facility] [address] [place] [address] Care Team Providers Name Role Phone No, Pcp [facility] Primary Care Physician Unavailable Dorene Arredondo Attending Clinician Unavailable CAROLA HOWARD Attending Clinician Unavailable Carola Howard MD Attending Clinician SILVIA WARREN Attending Clinician Unavailable JAZIEL GARCIA K.HCandy Attending Clinician Unavailable Doctor Unassigned, [place] Attending Clinician Unavailable Marialuisa Arana Attending Clinician Demetrice [facility] Attending Clinician Unavailable Jaziel Garcia MD K.H. Attending Clinician MARIALUISA VIRAMONTES Attending Clinician Unavailable Kamryn Gonsalves MD Attending Clinician Lab, Ang - Db Attending Clinician Unavailable Only, Adc Test Attending Clinician Unavailable FADI DE LEON Attending Clinician Unavailable FADI DE LEON Attending Clinician Unavailable Fadi De Leon MD Attending Clinician Lynn Moffett RN Attending Clinician Unavailable EKATERINA HAINES Attending Clinician Unavailable Joanne Rene DO Attending Clinician Ekaterina Haines DO Attending Clinician Dru Nj MD Attending Clinician JOANNE RENE Attending Clinician Unavailable Rochelle Lucio Attending Clinician ROCHELLE MARROQUIN Attending Clinician Unavailable AVINASH ZUNIGA Attending Clinician Unavailable JEFF CHAO Attending Clinician Unavailable LAURO MCKEON Attending Clinician Unavailable Lele Rosa MD Attending Clinician Fredo KOVACS, Minoo Attending Clinician JAZILE GARCIA K.H. Admitting Clinician Unavailable Jaziel Garcia MD K.H. Admitting Clinician EKATERINA HAINES Admitting Clinician Unavailable Ekaterina Haines DO Admitting Clinician AVINASH ZUNIGA Admitting Clinician Unavailable DANNY MOFFETT Admitting Clinician Unavailable Fredo KOVACS, Minoo Admitting Clinician Payers Payer Name Policy Type Policy Number Effective Date Expiration Date [facility] [place] [id number] 2022 2022 C 00:00:00 00:00:00 Problems Condition Condition Condition Status Onset Resolution Last Treating Co mments Source Name Details Category Date Date Treatment Clinician Date Herniated Herniated Disease Active Uni vers lumbar lumbar 8-30 [place] interverte [place]verte [place] bral disc bral disc 00 Medi farzana Branch Restless Restless Disease Active Unive rs leg leg 8-30 ity of syndrome syndrome 00:00: [place] 00 Medical Branch Chronic Chronic Disease Active Univers pain pain 8-30 ity of syndrome syndrome 00:00: [place] 00 Medical Branch Arthritis, Arthritis, Disease Active U nivers multiple multiple 8-30 ity of joint joint 00:00: [place] involvemen involvemen 00 Me dical t t Branch Pain Pain Disease Active Univers management management 8-30 it y of contract contract 00:00: [place] signed signed 00 Medical Branch Dyslipidem Dyslipidem Disease Active Overview : Univers ia ia 7 Formattin ity of 00:00: g of this 00 note Medical might be Branch different from the original. Added automatic ally from request for surgery [id number] Mixed Mixed Disease Active Univers hyperlipid hyperlipid 6-23 it y of emia emia 00:00: [place] [address] Medical Branch Bilateral Bilateral Disease Active Uni vers hearing hearing 6-23 ity of loss, loss, 00:00: [place] unspecifie unspecifie 00 Me dical d hearing d hearing Bran ch loss type loss type SOB SOB Disease Active Univers (shortness (shortness 6-16 it y of of breath[place] breath[place] 00 [facility] Branch COVID-19 COVID-19 Disease Active Unive rs 6-16 ity of 00:00: [address] Branch HTN HTN Disease Recurre [facility] (hypertens (hypertens nce 3-04 [place] ion) ion) 00:00: [address] Acute Acute Disease Active [facility] ischemic ischemic [facility] stroke stroke 00:00: [facility] 00 [place] S/P admn S/P admn Disease Active [facility] tPA in tPA in [address] [facility] diff fac diff fac 00:00: Medica l w/n last w/n last 00 Center 24 hr bef 24 hr bef adm to adm to crnt fac crnt fac Intracrani Intracrani Disease Active [facility] al al 3-04 [facility] atheroscle atheroscle 00:00: Me dical rosis rosis 00 [place] Dilation Dilation Disease Active [facility] of biliary of biliary 2-16 [place] tract tract 00:00: [facility] 00 [place] E46 E46 Disease Active Univers Unspecifie Unspecifie 9-16 it y of d severe d severe 00:00: [place] protein-ca protein-ca 00 Nh dical milka milka Branch malnutriti malnutriti on on Leg pain Leg pain Disease Active Unive rs 9-15 ity of 00:00: [address] Branch Other Other Disease Active Univers chest pain chest pain 9-15 it y of 00:00: [place] [address] Medical Branch Essential Essential Disease Active Uni vers hypertensi hypertensi 9-15 it y of on on 00:00: [address] Branch Cigarette Cigarette Disease Active [facility] Family Family Disease Active [facility] history of history of 15 [place] early CAD early CAD 00:00: Medi farzana 00 Center History of History of Disease Active [facility] arterial arterial 9-15 [facility] ischemic ischemic 00:00: Medica l stroke stroke 00 Center Hypertensi Hypertensi Disease Active [facility] ve urgency ve urgency 9-15 [place] 00:00: [facility] 00 [place] COPD COPD Disease Active Univers exacerbati exacerbati 9-14 it y of on on 00:00: [address] Allergies, Adverse Reactions, Alerts Allergy Allergy Status Severity Reaction(s) Onset Inactive Treating Comm ents Source Name Type Date Date Clinician NO KNOWN Drug Active Univers ALLERGIE Class ity of S [facility] NO KNOWN Allergy Active [facility] ALLERGIE S Social History Social Habit Start Date Stop Date Quantity Comments Source History of tobacco Cigarette Smoker University of use [facility] Exposure to 2022-06-05 2022-06-15 Not sure [facility] SARS-CoV-2 (event) 00:00:00 10:22:00 [facility] Tobacco use and 2022-03-23 2022-03-23 Smokeless Universit y of exposure 00:00:00 00:00:00 tobacco non-user [facility] Alcohol intake 2021-12-09 2021-12-09 [facility]00 of alcohol [facility] (finding) Cigarettes smoked 2019-11-26 2019-11-[address] [facility] current (pack per 00:00:00 00:00:00 [facility] day) - Reported Cigarette 2019-11-26 2019-11-[address] [facility] pack-years 00:00:00 00:00:00 [facility] Sex Assigned At [address] [place] 00:00:00 00:00:00 [facility] Smoking Status Start Date Stop Date Source Smokes tobacco daily 2019-11-26 00:00:00 [facility] Medications Ordered Filled Start Stop Current Ordering Indication Dosage Frequency Signature Comments Components Source Medication Medication Date Date Medication? Clinician (SIG) Name Name traMADoL 50 2021-10- No 50mg Take 50 mg Univers mg tablet 07-10 by mouth ity o f 11:20: 00:00 every 6 [place] 09 :00 (six) Medical hours as Branch needed. traMADoL 50 2021-10- No 50mg Take 50 mg Univers mg tablet 0-03 10-03 by mouth ity o f 11:20: 00:00 every 6 [place] 09 :00 (six) Medical hours as Branch needed. gabapentin 2021-10 Yes [id number] 100mg Take 1 Univers 100 mg 0-03 capsule by ity of capsule 00:00: mouth in [address] morning [place] and 1 capsule at noon and 1 capsule in the evening. gabapentin 2021-10 Yes [id number] 100mg Take 1 Univers 100 mg 0-03 capsule by ity of capsule 00:00: mouth in [address] and 1 capsule at noon and 1 capsule in the evening. gabapentin 2021- Yes [id number] 100mg Take 1 Univers 100 mg 0-03 capsule by ity of capsule 00:00: mouth in [address] and 1 capsule at noon and 1 capsule in the evening. gabapentin 2021-10 Yes [id number] 100mg Take 1 Univers 100 mg 0-03 capsule by ity of capsule 00:00: mouth in [address] and 1 capsule at noon and 1 capsule in the evening. gabapentin 2021-10 Yes [id number] 100mg Take 1 Univers 100 mg 0-03 capsule by ity of capsule 00:00: mouth in [address] and 1 capsule at noon and 1 capsule in the evening. gabapentin 2021-10 Yes [id number] 100mg Take 1 Univers 100 mg 0-03 capsule by ity of capsule 00:00: mouth in [address] and 1 capsule at noon and 1 capsule in the evening. gabapentin 2021-10 Yes [id number] 100mg Take 1 Univers 100 mg 0-03 capsule by ity of capsule 00:00: mouth in [address] and 1 capsule at noon and 1 capsule in the evening. gabapentin 2021- Yes [id number] 100mg Take 1 Univers 100 mg 0-03 capsule by ity of capsule 00:00: mouth in [address] and 1 capsule at noon and 1 capsule in the evening. gabapentin 2021- Yes [id number] 100mg Take 1 Univers 100 mg 0-03 capsule by ity of capsule 00:00: mouth in [place] 00 the Medical morning Branch and 1 capsule at noon and 1 capsule in the evening. gabapentin 2021-1 Yes [id number] 100mg Take 1 Univers 100 mg 0-03 capsule by ity of capsule 00:00: mouth in [place] 00 the Medical morning Branch and 1 capsule at noon and 1 capsule in the evening. aspirin 81 2-0 2- No 81mg Take 81 mg Univers mg chewable 06-15-08 by mouth ity of tablet 10:57: 00:00 daily. [place] 27 :00 Medical Branch metoprolol 2-0 Yes [id number] 25mg Take 1 Univers succinate 9-08 tablet by ity o f XL 25 mg 24 00:00: mouth in [place] hr tablet 00 the Medical morning. Branch ezetimibe 2021-0 Yes [id number] 10mg Take 1 U nivers 10 mg 9-08 tablet by ity of tablet 00:00: mouth in [place] the Medical morning. Branch losartan 50 2021-0 Yes [id number] 50mg Take 1 Univers mg tablet 9-08 tablet by ity o f 00:00: mouth in [place] the Medical morning. Branch amLODIPine 2021-0 Yes [id number] 5mg Take 1 Univers 5 mg tablet 9-08 tablet by ity of 00:00: mouth in [place] the Medical morning. Branch metoprolol 2-0 Yes [id number] 25mg Take 1 Univers succinate 9-08 tablet by ity o f XL 25 mg 24 00:00: mouth in [place] hr tablet 00 the Medical morning. Branch ezetimibe 2-0 Yes [id number] 10mg Take 1 U nivers 10 mg 9-08 tablet by ity of tablet 00:00: mouth in [place] 00 the Medical morning. Branch losartan 50 2-0 Yes [id number] 50mg Take 1 Univers mg tablet 9-08 tablet by ity o f 00:00: mouth in [place] the Medical morning. Branch amLODIPine 2-0 Yes [id number] 5mg Take 1 Univers 5 mg tablet 9-08 tablet by ity of 00:00: mouth in [place] 00 the Medical morning. Branch metoprolol 2-0 Yes [id number] 25mg Take 1 Univers succinate 9-08 tablet by ity o f XL 25 mg 24 00:00: mouth in [place] hr tablet 00 the Medical morning. Branch ezetimibe 2-0 Yes [id number] 10mg Take 1 U nivers 10 mg 9-08 tablet by ity of tablet 00:00: mouth in [place] 00 the Medical morning. Branch losartan 50 2-0 Yes [id number] 50mg Take 1 Univers mg tablet 9-08 tablet by ity o f 00:00: mouth in [place] 00 the Medical morning. Branch amLODIPine 2-0 Yes [id number] 5mg Take 1 Univers 5 mg tablet 9-08 tablet by ity of 00:00: mouth in [place] 00 the Medical morning. Branch metoprolol 2-0 Yes [id number] 25mg Take 1 Univers succinate 9-08 tablet by ity o f XL 25 mg 24 00:00: mouth in [place] hr tablet 00 the Medical morning. Branch ezetimibe 2-0 Yes [id number] 10mg Take 1 U nivers 10 mg 9-08 tablet by ity of tablet 00:00: mouth in [place] the Medical morning. Branch losartan 50 2-0 Yes [id number] 50mg Take 1 Univers mg tablet 9-08 tablet by ity o f 00:00: mouth in [place] the Medical morning. Branch amLODIPine 2-0 Yes [id number] 5mg Take 1 Univers 5 mg tablet 9-08 tablet by ity of 00:00: mouth in [place] the Medical morning. Branch metoprolol 2-0 Yes [id number] 25mg Take 1 Univers succinate 9-08 tablet by ity o f XL 25 mg 24 00:00: mouth in [place] hr tablet 00 the Medical morning. Branch ezetimibe 2-0 Yes [id number] 10mg Take 1 U nivers 10 mg 9-08 tablet by ity of tablet 00:00: mouth in [place] 00 the Medical morning. Branch losartan 50 2-0 Yes [id number] 50mg Take 1 Univers mg tablet 9-08 tablet by ity o f 00:00: mouth in [place] 00 the Medical morning. Branch amLODIPine 2022-0 Yes [id number] 5mg Take 1 Univers 5 mg tablet 9-08 tablet by ity of 00:00: mouth in [place] 00 the Medical morning. Branch metoprolol 2022-0 Yes [id number] 25mg Take 1 Univers succinate 9-08 tablet by ity o f XL 25 mg 24 00:00: mouth in [place] hr tablet 00 the Medical morning. Branch ezetimibe 2022-0 Yes [id number] 10mg Take 1 U nivers 10 mg 9-08 tablet by ity of tablet 00:00: mouth in [place] 00 the Medical morning. Branch losartan 50 2-0 Yes [id number] 50mg Take 1 Univers mg tablet 9-08 tablet by ity o f 00:00: mouth in [place] 00 the Medical morning. Branch amLODIPine 2-0 Yes [id number] 5mg Take 1 Univers 5 mg tablet 9-08 tablet by ity of 00:00: mouth in [place] 00 the Medical morning. Branch metoprolol 2022-0 Yes [id number] 25mg Take 1 Univers succinate 9-08 tablet by ity o f XL 25 mg 24 00:00: mouth in [place] hr tablet 00 the Medical morning. Branch ezetimibe 2-0 Yes [id number] 10mg Take 1 U nivers 10 mg 9-08 tablet by ity of tablet 00:00: mouth in [place] 00 the Medical morning. Branch losartan 50 2-0 Yes [id number] 50mg Take 1 Univers mg tablet 9-08 tablet by ity o f 00:00: mouth in [place] 00 the Medical morning. Branch amLODIPine 2-0 Yes [id number] 5mg Take 1 Univers 5 mg tablet 9-08 tablet by ity of 00:00: mouth in [place] 00 the Medical morning. Branch metoprolol 2022-0 Yes [id number] 25mg Take 1 Univers succinate 9-08 tablet by ity o f XL 25 mg 24 00:00: mouth in [place] hr tablet 00 the Medical morning. Branch ezetimibe 2022-0 Yes [id number] 10mg Take 1 U nivers 10 mg 9-08 tablet by ity of tablet 00:00: mouth in [place] 00 the Medical morning. Branch losartan 50 2-0 Yes [id number] 50mg Take 1 Univers mg tablet 9-08 tablet by ity o f 00:00: mouth in [place] 00 the Medical morning. Branch amLODIPine 2022-0 Yes [id number] 5mg Take 1 Univers 5 mg tablet 9-08 tablet by ity of 00:00: mouth in [place] 00 the Medical morning. Branch metoprolol 2022-0 Yes [id number] 25mg Take 1 Univers succinate 9-08 tablet by ity o f XL 25 mg 24 00:00: mouth in [place] hr tablet 00 the Medical morning. Branch ezetimibe 2022-0 Yes [id number] 10mg Take 1 U nivers 10 mg 9-08 tablet by ity of tablet 00:00: mouth in [place] 00 the Medical morning. Branch losartan 50 2-0 Yes [id number] 50mg Take 1 Univers mg tablet 9-08 tablet by ity o f 00:00: mouth in [place] 00 the Medical morning. Branch amLODIPine 2-0 Yes [id number] 5mg Take 1 Univers 5 mg tablet 9-08 tablet by ity of 00:00: mouth in [place] 00 the Medical morning. Branch metoprolol 2-0 Yes [id number] 25mg Take 1 Univers succinate 9-08 tablet by ity o f XL 25 mg 24 00:00: mouth in [place] hr tablet 00 the Medical morning. Branch ezetimibe 2-0 Yes [id number] 10mg Take 1 U nivers 10 mg 9-08 tablet by ity of tablet 00:00: mouth in [place] 00 the Medical morning. Branch losartan 50 2-0 Yes [id number] 50mg Take 1 Univers mg tablet 9-08 tablet by ity o f 00:00: mouth in [place] 00 the Medical morning. Branch amLODIPine 2-0 Yes [id number] 5mg Take 1 Univers 5 mg tablet 9-08 tablet by ity of 00:00: mouth in [place] 00 the Medical morning. Branch metoprolol 2022-0 Yes [id number] 25mg Take 1 Univers succinate 9-08 tablet by ity o f XL 25 mg 24 00:00: mouth in [place] hr tablet 00 the Medical morning. Branch ezetimibe 2022-0 Yes [id number] 10mg Take 1 U nivers 10 mg 9-08 tablet by ity of tablet 00:00: mouth in [place] 00 the Medical morning. Branch losartan 50 2-0 Yes [id number] 50mg Take 1 Univers mg tablet 9-08 tablet by ity o f 00:00: mouth in [place] 00 the Medical morning. Branch amLODIPine 2022-0 Yes [id number] 5mg Take 1 Univers 5 mg tablet 9-08 tablet by ity of 00:00: mouth in [place] 00 the Medical morning. Branch metoprolol 2-0 Yes [id number] 25mg Take 1 Univers succinate 9-08 tablet by ity o f XL 25 mg 24 00:00: mouth in [place] hr tablet 00 the Medical morning. Branch ezetimibe 2-0 Yes [id number] 10mg Take 1 U nivers 10 mg 9-08 tablet by ity of tablet 00:00: mouth in [place] 00 the Medical morning. Branch losartan 50 2-0 Yes [id number] 50mg Take 1 Univers mg tablet 9-08 tablet by ity o f 00:00: mouth in [place] 00 the Medical morning. Branch amLODIPine 2-0 Yes [id number] 5mg Take 1 Univers 5 mg tablet 9-08 tablet by ity of 00:00: mouth in [place] 00 the Medical morning. Branch metoprolol 2-0 Yes [id number] 25mg Take 1 Univers succinate 9-08 tablet by ity o f XL 25 mg 24 00:00: mouth in [place] hr tablet 00 the Medical morning. Branch ezetimibe 2-0 Yes [id number] 10mg Take 1 U nivers 10 mg 9-08 tablet by ity of tablet 00:00: mouth in [place] the Medical morning. Branch losartan 50 2-0 Yes [id number] 50mg Take 1 Univers mg tablet 9-08 tablet by ity o f 00:00: mouth in [place] 00 the Medical morning. Branch amLODIPine 2-0 Yes [id number] 5mg Take 1 Univers 5 mg tablet 9-08 tablet by ity of 00:00: mouth in [place] 00 the Medical morning. Branch metoprolol 2-0 Yes [id number] 25mg Take 1 Univers succinate 9-08 tablet by ity o f XL 25 mg 24 00:00: mouth in [place] hr tablet 00 the Medical morning. Branch ezetimibe 2-0 Yes [id number] 10mg Take 1 U nivers 10 mg 9-08 tablet by ity of tablet 00:00: mouth in [place] 00 the Medical morning. Branch losartan 50 2-0 Yes [id number] 50mg Take 1 Univers mg tablet 9-08 tablet by ity o f 00:00: mouth in [place] 00 the Medical morning. Branch amLODIPine 2-0 Yes [id number] 5mg Take 1 Univers 5 mg tablet 9-08 tablet by ity of 00:00: mouth in [place] 00 the Medical morning. Branch metoprolol 2-0 Yes [id number] 25mg Take 1 Univers succinate 9-08 tablet by ity o f XL 25 mg 24 00:00: mouth in [place] hr tablet 00 the Medical morning. Branch ezetimibe 2-0 Yes [id number] 10mg Take 1 U nivers 10 mg 9-08 tablet by ity of tablet 00:00: mouth in [place] 00 the Medical morning. Branch losartan 50 2021-0 Yes [id number] 50mg Take 1 Univers mg tablet 9-08 tablet by ity o f 00:00: mouth in [place] 00 the Medical morning. Branch amLODIPine 2-0 Yes [id number] 5mg Take 1 Univers 5 mg tablet 9-08 tablet by ity of 00:00: mouth in [place] 00 the Medical morning. Branch metoprolol 2-0 Yes [id number] 25mg Take 1 Univers succinate 9-08 tablet by ity o f XL 25 mg 24 00:00: mouth in [place] hr tablet 00 the Medical morning. Branch ezetimibe 2-0 Yes [id number] 10mg Take 1 U nivers 10 mg 9-08 tablet by ity of tablet 00:00: mouth in [place] 00 the Medical morning. Branch losartan 50 2-0 Yes [id number] 50mg Take 1 Univers mg tablet 9-08 tablet by ity o f 00:00: mouth in [place] 00 the Medical morning. Branch amLODIPine 2021-0 Yes [id number] 5mg Take 1 Univers 5 mg tablet 9-08 tablet by ity of 00:00: mouth in [place] 00 the Medical morning. Branch tiZANidine 2021-0 Yes [id number] 2mg Take 1 Univers 2 mg tablet 8-30 103 tablet by ity of 00:00: mouth [place] 00 every 8 Medical (eight) Branch hours as needed (muscle spasms). Diclofenac 2021-0 Yes [id number] Apply to Univers Sodium 8-30 103 area(s) 4 ity of (VOLTAREN) 00:00: (four) [place] 1 % gel 00 times Medical daily. Branch Apply 4 g QID on affected areas Lidocaine 5 2021-0 Yes [id number] Apply to Univers % cream 8-30 103 area(s) 2 ity of 00:00: (two) [place] 00 times Medical daily as Branch needed for Pain (scale 4-6). Apply 5g to affected areas BID PRN rOPINIRole 2021-0 Yes [id number] .25mg Take 1 Univers 0.25 mg 8-30 tablet by ity of tablet 00:00: mouth at [place] 00 bedtime. Medical Branch traMADoL-ac 2021-0 Yes [id number] 1{tbl} Take 1 Un vy etaminophen 8-30 tablet by ity of 37.5-325 mg 00:00: mouth [place] per tablet 00 every 8 Medica l (eight) Branch hours as needed for Pain. Indication s: chronic pain, Chronic Pain Syndrome tiZANidine 0 Yes [id number] 2mg Take 1 Univers 2 mg tablet 8-30 103 tablet by ity of 00:00: mouth [place] 00 every 8 Medical (eight) Branch hours as needed (muscle spasms). Diclofenac 0 Yes [id number] Apply to Univers Sodium 8-30 103 area(s) 4 ity of (VOLTAREN) 00:00: (four) [place] 1 % gel 00 times Medical daily. Branch Apply 4 g QID on affected areas Lidocaine 5 2021-0 Yes [id number] Apply to Univers % cream 8-30 103 area(s) 2 ity of 00:00: (two) [place] 00 times Medical daily as Branch needed for Pain (scale 4-6). Apply 5g to affected areas BID PRN rOPINIRole 2021-0 Yes [id number] .25mg Take 1 Univers 0.25 mg 8-30 tablet by ity of tablet 00:00: mouth at [place] 00 bedtime. Medical Branch traMADoL-ac 2021-0 Yes [id number] 1{tbl} Take 1 Un vy etaminophen 8-30 tablet by ity of 37.5-325 mg 00:00: mouth [place] per tablet 00 every 8 Medica l (eight) Branch hours as needed for Pain. Indication s: chronic pain, Chronic Pain Syndrome tiZANidine 2021-0 Yes [id number] 2mg Take 1 Univers 2 mg tablet 8-30 103 tablet by ity of 00:00: mouth [place] 00 every 8 Medical (eight) Branch hours as needed (muscle spasms). Diclofenac 2021-0 Yes [id number] Apply to Univers Sodium 8-30 103 area(s) 4 ity of (VOLTAREN) 00:00: (four) [place] 1 % gel 00 times Medical daily. Branch Apply 4 g QID on affected areas Lidocaine 5 2021-0 Yes [id number] Apply to Univers % cream 8-30 103 area(s) 2 ity of 00:00: (two) [place] 00 times Medical daily as Branch needed for Pain (scale 4-6). Apply 5g to affected areas BID PRN rOPINIRole Yes [id number] .25mg Take 1 Univers 0.25 mg 8-30 tablet by ity of tablet 00:00: mouth at [place] 00 bedtime. Medical Branch traMADoL-ac Yes [id number] 1{tbl} Take 1 Un vy etaminophen 8-30 tablet by ity of 37.5-325 mg 00:00: mouth [place] per tablet 00 every 8 Medica l (eight) Branch hours as needed for Pain. Indication s: chronic pain, Chronic Pain Syndrome tiZANidine Yes [id number] 2mg Take 1 Univers 2 mg tablet 8-30 103 tablet by ity of 00:00: mouth [place] 00 every 8 Medical (eight) Branch hours as needed (muscle spasms). Diclofenac Yes [id number] Apply to Univers Sodium 8-30 103 area(s) 4 ity of (VOLTAREN) 00:00: (four) [place] 1 % gel 00 times Medical daily. Branch Apply 4 g QID on affected areas Lidocaine 5 Yes [id number] Apply to Univers % cream 8-30 103 area(s) 2 ity of 00:00: (two) [place] 00 times Medical daily as Branch needed for Pain (scale 4-6). Apply 5g to affected areas BID PRN rOPINIRole 0 Yes [id number] .25mg Take 1 Univers 0.25 mg 8-30 tablet by ity of tablet 00:00: mouth at [place] 00 bedtime. Medical Branch traMADoL-ac 2021-0 Yes [id number] 1{tbl} Take 1 Un vy etaminophen 8-30 tablet by ity of 37.5-325 mg 00:00: mouth [place] per tablet 00 every 8 Medica l (eight) Branch hours as needed for Pain. Indication s: chronic pain, Chronic Pain Syndrome tiZANidine 0 Yes [id number] 2mg Take 1 Univers 2 mg tablet 8-30 103 tablet by ity of 00:00: mouth [place] 00 every 8 Medical (eight) Branch hours as needed (muscle spasms). Diclofenac 2021-0 Yes [id number] Apply to Univers Sodium 8-30 103 area(s) 4 ity of (VOLTAREN) 00:00: (four) [place] 1 % gel 00 times Medical daily. Branch Apply 4 g QID on affected areas Lidocaine 5 2021-0 Yes [id number] Apply to Univers % cream 8-30 103 area(s) 2 ity of 00:00: (two) [place] 00 times Medical daily as Branch needed for Pain (scale 4-6). Apply 5g to affected areas BID PRN rOPINIRole 0 Yes [id number] .25mg Take 1 Univers 0.25 mg 8-30 tablet by ity of tablet 00:00: mouth at [place] 00 bedtime. Medical Branch traMADoL-ac 0 Yes [id number] 1{tbl} Take 1 Un vy etaminophen 8-30 tablet by ity of 37.5-325 mg 00:00: mouth [place] per tablet 00 every 8 Medica l (eight) Branch hours as needed for Pain. Indication s: chronic pain, Chronic Pain Syndrome tiZANidine 0 Yes [id number] 2mg Take 1 Univers 2 mg tablet 8-30 103 tablet by ity of 00:00: mouth [place] 00 every 8 Medical (eight) Branch hours as needed (muscle spasms). Diclofenac 0 Yes [id number] Apply to Univers Sodium 8-30 103 area(s) 4 ity of (VOLTAREN) 00:00: (four) [place] 1 % gel 00 times Medical daily. Branch Apply 4 g QID on affected areas Lidocaine 5 2021-0 Yes [id number] Apply to Univers % cream 8-30 103 area(s) 2 ity of 00:00: (two) [place] 00 times Medical daily as Branch needed for Pain (scale 4-6). Apply 5g to affected areas BID PRN rOPINIRole 2021-0 Yes [id number] .25mg Take 1 Univers 0.25 mg 8-30 tablet by ity of tablet 00:00: mouth at [place] 00 bedtime. Medical Branch traMADoL-ac 0 Yes [id number] 1{tbl} Take 1 Un vy etaminophen 8-30 tablet by ity of 37.5-325 mg 00:00: mouth [place] per tablet 00 every 8 Medica l (eight) Branch hours as needed for Pain. Indication s: chronic pain, Chronic Pain Syndrome tiZANidine 2021-0 Yes [id number] 2mg Take 1 Univers 2 mg tablet 8-30 103 tablet by ity of 00:00: mouth [place] 00 every 8 Medical (eight) Branch hours as needed (muscle spasms). Diclofenac 2021-0 Yes [id number] Apply to [facility] Sodium 8-30 103 area(s) 4 ity of (VOLTAREN) 00:00: (four) [place] 1 % gel 00 times Medical daily. Branch Apply 4 g QID on affected areas Lidocaine 5 2021-0 Yes [id number] Apply to [facility] % cream 8-30 103 area(s) 2 ity of 00:00: (two) [place] 00 times Medical daily as Branch needed for Pain (scale 4-6). Apply 5g to affected areas BID PRN rOPINIRole 2021-0 Yes [id number] .25mg Take 1 [facility] 0.25 mg 8-30 tablet by ity of tablet 00:00: mouth at [place] 00 bedtime. Medical Branch tiZANidine 0 Yes [id number] 2mg Take 1 [facility] 2 mg tablet 8-30 103 tablet by ity of 00:00: mouth [place] 00 every 8 Medical (eight) Branch hours as needed (muscle spasms). Diclofenac 2021-0 Yes [id number] Apply to [facility] Sodium 8-30 103 area(s) 4 ity of (VOLTAREN) 00:00: (four) [place] 1 % gel 00 times Medical daily. Branch Apply 4 g QID on affected areas Lidocaine 5 2021-0 Yes [id number] Apply to [facility] % cream 8-30 103 area(s) 2 ity of 00:00: (two) [place] 00 times Medical daily as Branch needed for Pain (scale 4-6). Apply 5g to affected areas BID PRN rOPINIRole 2021-0 Yes [id number] .25mg Take 1 [facility] 0.25 mg 8-30 tablet by ity of tablet 00:00: mouth at [place] 00 bedtime. Medical Branch tiZANidine 0 Yes [id number] 2mg Take 1 [facility] 2 mg tablet 8-30 103 tablet by ity of 00:00: mouth [place] 00 every 8 Medical (eight) Branch hours as needed (muscle spasms). Diclofenac 2021-0 Yes [id number] Apply to [facility] Sodium 8-30 103 area(s) 4 ity of (VOLTAREN) 00:00: (four) [place] 1 % gel 00 times Medical daily. Branch Apply 4 g QID on affected areas Lidocaine 5 2021-0 Yes [id number] Apply to [facility] % cream 8-30 103 area(s) 2 ity of 00:00: (two) [place] 00 times Medical daily as Branch needed for Pain (scale 4-6). Apply 5g to affected areas BID PRN rOPINIRole 2021-0 Yes [id number] .25mg Take 1 [facility] 0.25 mg 8-30 tablet by ity of tablet 00:00: mouth at [place] 00 bedtime. Medical Branch tiZANidine 0 Yes [id number] 2mg Take 1 [facility] 2 mg tablet 8-30 103 tablet by ity of 00:00: mouth [place] 00 every 8 Medical (eight) Branch hours as needed (muscle spasms). Diclofenac 2021-0 Yes [id number] Apply to [facility] Sodium 8-30 103 area(s) 4 ity of (VOLTAREN) 00:00: (four) [place] 1 % gel 00 times Medical daily. Branch Apply 4 g QID on affected areas Lidocaine 5 2021-0 Yes [id number] Apply to [facility] % cream 8-30 103 area(s) 2 ity of 00:00: (two) [place] 00 times Medical daily as Branch needed for Pain (scale 4-6). Apply 5g to affected areas BID PRN rOPINIRole 2021-0 Yes [id number] .25mg Take 1 [facility] 0.25 mg 8-30 tablet by ity of tablet 00:00: mouth at [place] 00 bedtime. Medical Branch tiZANidine 0 Yes [id number] 2mg Take 1 [facility] 2 mg tablet 8-30 103 tablet by ity of 00:00: mouth [place] 00 every 8 Medical (eight) Branch hours as needed (muscle spasms). Diclofenac 2021-0 Yes [id number] Apply to [facility] Sodium 8-30 103 area(s) 4 ity of (VOLTAREN) 00:00: (four) [place] 1 % gel 00 times Medical daily. Branch Apply 4 g QID on affected areas Lidocaine 5 2-0 Yes [id number] Apply to [facility] % cream 8-30 103 area(s) 2 ity of 00:00: (two) [place] 00 times Medical daily as Branch needed for Pain (scale 4-6). Apply 5g to affected areas BID PRN rOPINIRole 2-0 Yes [id number] .25mg Take 1 [facility] 0.25 mg 8-30 tablet by ity of tablet 00:00: mouth at [place] 00 bedtime. Medical Branch tiZANidine 2021-0 Yes [id number] 2mg Take 1 [facility] 2 mg tablet 8-30 103 tablet by ity of 00:00: mouth [place] 00 every 8 Medical (eight) Branch hours as needed (muscle spasms). Diclofenac 2021-0 Yes [id number] Apply to [facility] Sodium 8-30 103 area(s) 4 ity of (VOLTAREN) 00:00: (four) [place] 1 % gel 00 times Medical daily. Branch Apply 4 g QID on affected areas Lidocaine 5 2021-0 Yes [id number] Apply to [facility] % cream 8-30 103 area(s) 2 ity of 00:00: (two) [place] 00 times Medical daily as Branch needed for Pain (scale 4-6). Apply 5g to affected areas BID PRN rOPINIRole 2-0 Yes [id number] .25mg Take 1 [facility] 0.25 mg 8-30 tablet by ity of tablet 00:00: mouth at [place] 00 bedtime. Medical Branch tiZANidine 2-0 Yes [id number] 2mg Take 1 [facility] 2 mg tablet 8-30 103 tablet by ity of 00:00: mouth [place] 00 every 8 Medical (eight) Branch hours as needed (muscle spasms). Diclofenac 2022-0 Yes [id number] Apply to [facility] Sodium 8-30 103 area(s) 4 ity of (VOLTAREN) 00:00: (four) [place] 1 % gel 00 times Medical daily. Branch Apply 4 g QID on affected areas Lidocaine 5 2-0 Yes [id number] Apply to [facility] % cream 8-30 103 area(s) 2 ity of 00:00: (two) [place] 00 times Medical daily as Branch needed for Pain (scale 4-6). Apply 5g to affected areas BID PRN rOPINIRole 2021-0 Yes [id number] .25mg Take 1 [facility] 0.25 mg 8-30 tablet by ity of tablet 00:00: mouth at [place] 00 bedtime. Medical Branch tiZANidine 2021-0 Yes [id number] 2mg Take 1 [facility] 2 mg tablet 8-30 103 tablet by ity of 00:00: mouth [place] 00 every 8 Medical (eight) Branch hours as needed (muscle spasms). Diclofenac 2021-0 Yes [id number] Apply to [facility] Sodium 8-30 103 area(s) 4 ity of (VOLTAREN) 00:00: (four) [place] 1 % gel 00 times Medical daily. Branch Apply 4 g QID on affected areas Lidocaine 5 2021-0 Yes [id number] Apply to [facility] % cream 8-30 103 area(s) 2 ity of 00:00: (two) [place] 00 times Medical daily as Branch needed for Pain (scale 4-6). Apply 5g to affected areas BID PRN rOPINIRole 2021-0 Yes [id number] .25mg Take 1 [facility] 0.25 mg 8-30 tablet by ity of tablet 00:00: mouth at [place] 00 bedtime. Medical Branch tiZANidine 2021-0 Yes [id number] 2mg Take 1 [facility] 2 mg tablet 8-30 103 tablet by ity of 00:00: mouth [place] 00 every 8 Medical (eight) Branch hours as needed (muscle spasms). Diclofenac 2021-0 Yes [id number] Apply to [facility] Sodium 8-30 103 area(s) 4 ity of (VOLTAREN) 00:00: (four) [place] 1 % gel 00 times Medical daily. Branch Apply 4 g QID on affected areas Lidocaine 5 2021-0 Yes [id number] Apply to [facility] % cream 8-30 103 area(s) 2 ity of 00:00: (two) [place] 00 times Medical daily as Branch needed for Pain (scale 4-6). Apply 5g to affected areas BID PRN rOPINIRole 2-0 Yes [id number] .25mg Take 1 [facility] 0.25 mg 8-30 tablet by ity of tablet 00:00: mouth at [place] 00 bedtime. Medical Branch tiZANidine 2021-0 Yes [id number] 2mg Take 1 [facility] 2 mg tablet 8-30 103 tablet by ity of 00:00: mouth [place] 00 every 8 Medical (eight) Branch hours as needed (muscle spasms). Diclofenac Yes [id number] Apply to [facility] Sodium 8-30 103 area(s) 4 ity of (VOLTAREN) 00:00: (four) [place] 1 % gel 00 times Medical daily. Branch Apply 4 g QID on affected areas Lidocaine 5 Yes [id number] Apply to [facility] % cream 8-30 103 area(s) 2 ity of 00:00: (two) [place] 00 times Medical daily as Branch needed for Pain (scale 4-6). Apply 5g to affected areas BID PRN rOPINIRole Yes [id number] .25mg Take 1 [facility] 0.25 mg 8-30 tablet by ity of tablet 00:00: mouth at [place] 00 bedtime. Medical Branch traMADoL-ac 2021- No [...] by mouth ity of 11:45: every 6 [place] 20 (six) Medical hours as Branch needed. traMADoL 50 Yes 50mg Take 50 mg [facility] mg tablet 8-25 by mouth ity of 11:45: every 6 [place] 20 (six) Medical hours as Branch needed. traMADoL 50 Yes 50mg Take 50 mg [facility] mg tablet 8-25 by mouth ity of 11:45: every 6 [place] 20 (six) Medical hours as Branch needed. [...] Medical hours as Branch needed. atorvastati Yes [id number] 80mg Take 1 [facility] n 80 mg 6-23 tablet by ity of tablet 00:00: mouth at [place] 00 bedtime. Medical Branch foLIC acid Yes [id number] 1mg Take 1 [facility] 1 mg tablet 6-23 tablet by ity of 00:00: mouth [place] 00 daily. Medical Branch thiamine Yes [id number] 100mg Take 1 [facility] nivers 100 mg 6-23 tablet by ity of tablet 00:00: mouth [place] 00 daily. Medical Branch clopidogreL Yes [id number] 75mg Take 1 [facility] 75 mg 6-23 tablet by ity of tablet 00:00: mouth [place] 00 daily. Medical Branch cholecalcif Yes [id number] 2000U Take 2 [facility] nima, 6-23 tablets by ity of vitamin D3, 00:00: mouth [place] 25 mcg 00 daily. Medical (1,000 Branch unit) tablet fluticasone Yes [id number] 1{puff} Inhale 1 [facility] propion-nabil 6-23 9101 Puff every it y of meteroL 00:00: 12 [place] (ADVAIR 00 (twelve) Medical DISKUS) hours. Branch 250-50 mcg/dose inhalation disk atorvastati Yes [id number] 80mg Take 1 [facility] n 80 mg 6-23 tablet by ity of tablet 00:00: mouth at [place] 00 bedtime. Medical Branch foLIC acid Yes [id number] 1mg Take 1 [facility] 1 mg tablet 6-23 tablet by ity of 00:00: mouth [place] 00 daily. Medical Branch thiamine Yes [id number] 100mg Take 1 [facility] nivers 100 mg 6-23 tablet by ity of tablet 00:00: mouth [place] 00 daily. Medical Branch clopidogreL 2021-0 Yes [id number] 75mg Take 1 [facility] 75 mg 6-23 tablet by ity of tablet 00:00: mouth [place] 00 daily. Medical Branch cholecalcif 2021-0 Yes [id number] 2000U Take 2 [facility] nima, 6-23 tablets by ity of vitamin D3, 00:00: mouth [place] 25 mcg 00 daily. Medical (1,000 Branch unit) tablet fluticasone 2021-0 Yes [id number] 1{puff} Inhale 1 [facility] propion-nabil 6-23 9101 Puff every it y of meteroL 00:00: 12 [place] (ADVAIR 00 (twelve) Medical DISKUS) hours. Branch 250-50 mcg/dose inhalation disk atorvastati 2021-0 Yes [id number] 80mg Take 1 [facility] n 80 mg 6-23 tablet by ity of tablet 00:00: mouth at [place] 00 bedtime. Medical Branch foLIC acid 2021-0 Yes [id number] 1mg Take 1 [facility] 1 mg tablet 6-23 tablet by ity of 00:00: mouth [place] 00 daily. Medical Branch thiamine 2021-0 Yes [id number] 100mg Take 1 [facility] nivers 100 mg 6-23 tablet by ity of tablet 00:00: mouth [place] 00 daily. Medical Branch clopidogreL 2021-0 Yes [id number] 75mg Take 1 [facility] 75 mg 6-23 tablet by ity of tablet 00:00: mouth [place] 00 daily. Medical Branch cholecalcif 2021-0 Yes [id number] 2000U Take 2 [facility] nima, 6-23 tablets by ity of vitamin D3, 00:00: mouth [place] 25 mcg 00 daily. Medical (1,000 Branch unit) tablet fluticasone 2021-0 Yes [id number] 1{puff} Inhale 1 [facility] propion-nabil 6-23 9101 Puff every it y of meteroL 00:00: 12 [place] (ADVAIR 00 (twelve) Medical DISKUS) hours. Branch 250-50 mcg/dose inhalation disk atorvastati 2021-0 Yes [id number] 80mg Take 1 [facility] n 80 mg 6-23 tablet by ity of tablet 00:00: mouth at [place] 00 bedtime. Medical Branch foLIC acid 2021-0 Yes [id number] 1mg Take 1 [facility] 1 mg tablet 6-23 tablet by ity of 00:00: mouth [place] 00 daily. Medical Branch thiamine 2021-0 Yes [id number] 100mg Take 1 U nivers 100 mg 6-23 tablet by ity of tablet 00:00: mouth [place] 00 daily. Medical Branch clopidogreL 2021-0 Yes [id number] 75mg Take 1 [facility] 75 mg 6-23 tablet by ity of tablet 00:00: mouth [place] 00 daily. Medical Branch cholecalcif 2021-0 Yes [id number] 2000U Take 2 [facility] nima, 6-23 tablets by ity of vitamin D3, 00:00: mouth [place] 25 mcg 00 daily. Medical (1,000 Branch unit) tablet fluticasone 2021-0 Yes [id number] 1{puff} Inhale 1 [facility] propion-nabil 6-23 9101 Puff every it y of meteroL 00:00: 12 [place] (ADVAIR 00 (twelve) Medical DISKUS) hours. Branch 250-50 mcg/dose inhalation disk atorvastati 2021-0 Yes [id number] 80mg Take 1 [facility] n 80 mg 6-23 tablet by ity of tablet 00:00: mouth at [place] 00 bedtime. Medical Branch foLIC acid 2021-0 Yes [id number] 1mg Take 1 [facility] 1 mg tablet 6-23 tablet by ity of 00:00: mouth [place] 00 daily. Medical Branch thiamine 2021-0 Yes [id number] 100mg Take 1 [facility] nivers 100 mg 6-23 tablet by ity of tablet 00:00: mouth [place] 00 daily. Medical Branch clopidogreL 2021-0 Yes [id number] 75mg Take 1 [facility] 75 mg 6-23 tablet by ity of tablet 00:00: mouth [place] 00 daily. Medical Branch cholecalcif 2021-0 Yes [id number] 2000U Take 2 [facility] nima, 6-23 tablets by ity of vitamin D3, 00:00: mouth [place] 25 mcg 00 daily. Medical (1,000 Branch unit) tablet fluticasone 2021-0 Yes [id number] 1{puff} Inhale 1 [facility] propion-nabil 6-23 9101 Puff every it y of meteroL 00:00: 12 [place] (ADVAIR 00 (twelve) Medical DISKUS) hours. Branch 250-50 mcg/dose inhalation disk atorvastati 2021-0 Yes [id number] 80mg Take 1 [facility] n 80 mg 6-23 tablet by ity of tablet 00:00: mouth at [place] 00 bedtime. Medical Branch foLIC acid 0 Yes [id number] 1mg Take 1 [facility] 1 mg tablet 6-23 tablet by ity of 00:00: mouth [place] 00 daily. Medical Branch thiamine 2021-0 Yes [id number] 100mg Take 1 U nivers 100 mg 6-23 tablet by ity of tablet 00:00: mouth [place] 00 daily. Medical Branch clopidogreL 0 Yes [id number] 75mg Take 1 [facility] 75 mg 6-23 tablet by ity of tablet 00:00: mouth [place] 00 daily. Medical Branch cholecalcif 0 Yes [id number] 2000U Take 2 [facility] nima, 6-23 tablets by ity of vitamin D3, 00:00: mouth [place] 25 mcg 00 daily. Medical (1,000 Branch unit) tablet fluticasone 0 Yes [id number] 1{puff} Inhale 1 [facility] propion-nabil 6-23 9101 Puff every it y of meteroL 00:00: 12 [place] (ADVAIR 00 (twelve) Medical DISKUS) hours. Branch 250-50 mcg/dose inhalation disk atorvastati Yes [id number] 80mg Take 1 [facility] n 80 mg 6-23 tablet by ity of tablet 00:00: mouth at [place] 00 bedtime. Medical Branch foLIC acid Yes [id number] 1mg Take 1 [facility] 1 mg tablet 6-23 tablet by ity of 00:00: mouth [place] 00 daily. Medical Branch thiamine 2021-0 Yes [id number] 100mg Take 1 [facility] nivers 100 mg 6-23 tablet by ity of tablet 00:00: mouth [place] 00 daily. Medical Branch clopidogreL 2021-0 Yes [id number] 75mg Take 1 [facility] 75 mg 6-23 tablet by ity of tablet 00:00: mouth [place] 00 daily. Medical Branch cholecalcif 2021-0 Yes [id number] 2000U Take 2 [facility] nima, 6-23 tablets by ity of vitamin D3, 00:00: mouth [place] 25 mcg 00 daily. Medical (1,000 Branch unit) tablet fluticasone 2021-0 Yes [id number] 1{puff} Inhale 1 [facility] propion-nabil 6-23 9101 Puff every it y of meteroL 00:00: 12 [place] (ADVAIR 00 (twelve) Medical DISKUS) hours. Branch 250-50 mcg/dose inhalation disk atorvastati 2021-0 Yes [id number] 80mg Take 1 [facility] n 80 mg 6-23 tablet by ity of tablet 00:00: mouth at [place] 00 bedtime. Medical Branch foLIC acid 2021-0 Yes [id number] 1mg Take 1 [facility] 1 mg tablet 6-23 tablet by ity of 00:00: mouth [place] 00 daily. Medical Branch thiamine 2021-0 Yes [id number] 100mg Take 1 U nivers 100 mg 6-23 tablet by ity of tablet 00:00: mouth [place] 00 daily. Medical Branch clopidogreL 2021-0 Yes [id number] 75mg Take 1 [facility] 75 mg 6-23 tablet by ity of tablet 00:00: mouth [place] 00 daily. Medical Branch cholecalcif 2021-0 Yes [id number] 2000U Take 2 [facility] nima, 6-23 tablets by ity of vitamin D3, 00:00: mouth [place] 25 mcg 00 daily. Medical (1,000 Branch unit) tablet fluticasone 0 Yes [id number] 1{puff} Inhale 1 [facility] propion-nabil 6-23 9101 Puff every it y of meteroL 00:00: 12 [place] (ADVAIR 00 (twelve) Medical DISKUS) hours. Branch 250-50 mcg/dose inhalation disk atorvastati 0 Yes [id number] 80mg Take 1 [facility] n 80 mg 6-23 tablet by ity of tablet 00:00: mouth at [place] 00 bedtime. Medical Branch foLIC acid 2021-0 Yes [id number] 1mg Take 1 [facility] 1 mg tablet 6-23 tablet by ity of 00:00: mouth [place] 00 daily. Medical Branch thiamine 2021-0 Yes [id number] 100mg Take 1 U nivers 100 mg 6-23 tablet by ity of tablet 00:00: mouth [place] 00 daily. Medical Branch clopidogreL 2021-0 Yes [id number] 75mg Take 1 [facility] 75 mg 6-23 tablet by ity of tablet 00:00: mouth [place] 00 daily. Medical Branch cholecalcif 2021-0 Yes [id number] 2000U Take 2 [facility] nima, 6-23 tablets by ity of vitamin D3, 00:00: mouth [place] 25 mcg 00 daily. Medical (1,000 Branch unit) tablet fluticasone Yes [id number] 1{puff} Inhale 1 [facility] propion-nabil 6-23 9101 Puff every it y of meteroL 00:00: 12 [place] (ADVAIR 00 (twelve) Medical DISKUS) hours. Branch 250-50 mcg/dose inhalation disk atorvastati 0 Yes [id number] 80mg Take 1 [facility] n 80 mg 6-23 tablet by ity of tablet 00:00: mouth at [place] 00 bedtime. Medical Branch foLIC acid 0 Yes [id number] 1mg Take 1 [facility] 1 mg tablet 6-23 tablet by ity of 00:00: mouth [place] 00 daily. Medical Branch thiamine 2021-0 Yes [id number] 100mg Take 1 U nivers 100 mg 6-23 tablet by ity of tablet 00:00: mouth [place] 00 daily. Medical Branch clopidogreL 2021-0 Yes [id number] 75mg Take 1 [facility] 75 mg 6-23 tablet by ity of tablet 00:00: mouth [place] 00 daily. Medical Branch cholecalcif 0 Yes [id number] 2000U Take 2 [facility] nima, 6-23 tablets by ity of vitamin D3, 00:00: mouth [place] 25 mcg 00 daily. Medical (1,000 Branch unit) tablet fluticasone Yes [id number] 1{puff} Inhale 1 [facility] propion-nabil 6-23 9101 Puff every it y of meteroL 00:00: 12 [place] (ADVAIR 00 (twelve) Medical DISKUS) hours. Branch 250-50 mcg/dose inhalation disk atorvastati 2021-0 Yes [id number] 80mg Take 1 [facility] n 80 mg 6-23 tablet by ity of tablet 00:00: mouth at [place] 00 bedtime. Medical Branch foLIC acid 2021-0 Yes [id number] 1mg Take 1 [facility] 1 mg tablet 6-23 tablet by ity of 00:00: mouth [place] 00 daily. Medical Branch thiamine 2021-0 Yes [id number] 100mg Take 1 U nivers 100 mg 6-23 tablet by ity of tablet 00:00: mouth [place] 00 daily. Medical Branch clopidogreL 2021-0 Yes [id number] 75mg Take 1 [facility] 75 mg 6-23 tablet by ity of tablet 00:00: mouth [place] 00 daily. Medical Branch cholecalcif 2021-0 Yes [id number] 2000U Take 2 [facility] nima, 6-23 tablets by ity of vitamin D3, 00:00: mouth [place] 25 mcg 00 daily. Medical (1,000 Branch unit) tablet fluticasone 2021-0 Yes [id number] 1{puff} Inhale 1 [facility] propion-nabil 6-23 9101 Puff every it y of meteroL 00:00: 12 [place] (ADVAIR 00 (twelve) Medical DISKUS) hours. Branch 250-50 mcg/dose inhalation disk atorvastati 2021-0 Yes [id number] 80mg Take 1 [facility] n 80 mg 6-23 tablet by ity of tablet 00:00: mouth at [place] 00 bedtime. Medical Branch foLIC acid 2021-0 Yes [id number] 1mg Take 1 [facility] 1 mg tablet 6-23 tablet by ity of 00:00: mouth [place] 00 daily. Medical Branch thiamine 2021-0 Yes [id number] 100mg Take 1 U nivers 100 mg 6-23 tablet by ity of tablet 00:00: mouth [place] 00 daily. Medical Branch clopidogreL 2021-0 Yes [id number] 75mg Take 1 [facility] 75 mg 6-23 tablet by ity of tablet 00:00: mouth [place] 00 daily. Medical Branch cholecalcif 2021-0 Yes [id number] 2000U Take 2 [facility] nima, 6-23 tablets by ity of vitamin D3, 00:00: mouth [place] 25 mcg 00 daily. Medical (1,000 Branch unit) tablet fluticasone 2021-0 Yes [id number] 1{puff} Inhale 1 [facility] propion-nabil 6-23 9101 Puff every it y of meteroL 00:00: 12 [place] (ADVAIR 00 (twelve) Medical DISKUS) hours. Branch 250-50 mcg/dose inhalation disk atorvastati 2021-0 Yes [id number] 80mg Take 1 [facility] n 80 mg 6-23 tablet by ity of tablet 00:00: mouth at [place] 00 bedtime. Medical Branch foLIC acid 2021-0 Yes [id number] 1mg Take 1 [facility] 1 mg tablet 6-23 tablet by ity of 00:00: mouth [place] 00 daily. Medical Branch thiamine 2021-0 Yes [id number] 100mg Take 1 U nivers 100 mg 6-23 tablet by ity of tablet 00:00: mouth [place] 00 daily. Medical Branch clopidogreL 2021-0 Yes [id number] 75mg Take 1 [facility] 75 mg 6-23 tablet by ity of tablet 00:00: mouth [place] 00 daily. Medical Branch cholecalcif 2021-0 Yes [id number] 2000U Take 2 [facility] nima, 6-23 tablets by ity of vitamin D3, 00:00: mouth [place] 25 mcg 00 daily. Medical (1,000 Branch unit) tablet fluticasone 2021-0 Yes [id number] 1{puff} Inhale 1 [facility] propion-nabil 6-23 9101 Puff every it y of meteroL 00:00: 12 [place] (ADVAIR 00 (twelve) Medical DISKUS) hours. Branch 250-50 mcg/dose inhalation disk atorvastati 2021-0 Yes [id number] 80mg Take 1 [facility] n 80 mg 6-23 tablet by ity of tablet 00:00: mouth at [place] 00 bedtime. Medical Branch foLIC acid 2021-0 Yes [id number] 1mg Take 1 [facility] 1 mg tablet 6-23 tablet by ity of 00:00: mouth [place] 00 daily. Medical Branch thiamine 2021-0 Yes [id number] 100mg Take 1 U nivers 100 mg 6-23 tablet by ity of tablet 00:00: mouth [place] 00 daily. Medical Branch clopidogreL 2021-0 Yes [id number] 75mg Take 1 [facility] 75 mg 6-23 tablet by ity of tablet 00:00: mouth [place] 00 daily. Medical Branch cholecalcif 2021-0 Yes [id number] 2000U Take 2 [facility] nima, 6-23 tablets by ity of vitamin D3, 00:00: mouth [place] 25 mcg 00 daily. Medical (1,000 Branch unit) tablet fluticasone 2021-0 Yes [id number] 1{puff} Inhale 1 [facility] propion-nabil 6-23 9101 Puff every it y of meteroL 00:00: 12 [place] (ADVAIR 00 (twelve) Medical DISKUS) hours. Branch 250-50 mcg/dose inhalation disk atorvastati 2021-0 Yes [id number] 80mg Take 1 [facility] n 80 mg 6-23 tablet by ity of tablet 00:00: mouth at [place] 00 bedtime. Medical Branch foLIC acid 2021-0 Yes [id number] 1mg Take 1 [facility] 1 mg tablet 6-23 tablet by ity of 00:00: mouth [place] 00 daily. Medical Branch thiamine 2021-0 Yes [id number] 100mg Take 1 U nivers 100 mg 6-23 tablet by ity of tablet 00:00: mouth [place] 00 daily. Medical Branch clopidogreL 2021-0 Yes [id number] 75mg Take 1 [facility] 75 mg 6-23 tablet by ity of tablet 00:00: mouth [place] 00 daily. Medical Branch cholecalcif 2021-0 Yes [id number] 2000U Take 2 [facility] nima, 6-23 tablets by ity of vitamin D3, 00:00: mouth [place] 25 mcg 00 daily. Medical (1,000 Branch unit) tablet fluticasone 2021-0 Yes [id number] 1{puff} Inhale 1 [facility] propion-nabil 6-23 9101 Puff every it y of meteroL 00:00: 12 [place] (ADVAIR 00 (twelve) Medical DISKUS) hours. Branch 250-50 mcg/dose inhalation disk atorvastati 2021-0 Yes [id number] 80mg Take 1 [facility] n 80 mg 6-23 tablet by ity of tablet 00:00: mouth at [place] 00 bedtime. Medical Branch foLIC acid 2021-0 Yes [id number] 1mg Take 1 [facility] 1 mg tablet 6-23 tablet by ity of 00:00: mouth [place] 00 daily. Medical Branch thiamine 2021-0 Yes [id number] 100mg Take 1 U nivers 100 mg 6-23 tablet by ity of tablet 00:00: mouth [place] 00 daily. Medical Branch clopidogreL 2021-0 Yes [id number] 75mg Take 1 [facility] 75 mg 6-23 tablet by ity of tablet 00:00: mouth [place] 00 daily. Medical Branch cholecalcif 2021-0 Yes [id number] 2000U Take 2 [facility] nima, 6-23 tablets by ity of vitamin D3, 00:00: mouth [place] 25 mcg 00 daily. Medical (1,000 Branch unit) tablet fluticasone 2021-0 Yes [id number] 1{puff} Inhale 1 [facility] propion-nabil 6-23 9101 Puff every it y of meteroL 00:00: 12 [place] (ADVAIR 00 (twelve) Medical DISKUS) hours. Branch 250-50 mcg/dose inhalation disk amLODIPine 2021- No [id number] 5mg Take 1 [facility] 5 mg tablet 03-30 tablet by it y of 00:00: 00:00 mouth [place] 00 :00 daily. Medical Branch losartan 50 2021- No [id number] 50mg Take 1 [facility] mg tablet 03-30 tablet by ity of 00:00: 00:00 mouth [place] 00 :00 daily. Medical Branch dexAMETHaso Yes [id number] 6mg Take 1 [facility] ne 6 mg 6-19 tablet by ity of tablet 00:00: mouth [place] 00 daily. Medical Branch dexAMETHaso Yes [id number] 6mg Take 1 [facility] ne 6 mg 6-19 tablet by ity of tablet 00:00: mouth [place] 00 daily. Medical Branch dexAMETHaso Yes [id number] 6mg Take 1 [facility] ne 6 mg 6-19 tablet by ity of tablet 00:00: mouth [place] 00 daily. Medical Branch dexAMETHaso Yes [id number] 6mg Take 1 [facility] ne 6 mg 6-19 tablet by ity of tablet 00:00: mouth [place] 00 daily. Medical Branch dexAMETHaso Yes [id number] 6mg Take 1 [facility] ne 6 mg 6-19 tablet by ity of tablet 00:00: mouth [place] 00 daily. Medical Branch dexAMETHaso Yes [id number] 6mg Take 1 [facility] ne 6 mg 6-19 tablet by ity of tablet 00:00: mouth [place] 00 daily. Medical Branch dexAMETHaso Yes [id number] 6mg Take 1 [facility] ne 6 mg 6-19 tablet by ity of tablet 00:00: mouth [place] 00 daily. Medical Branch dexAMETHaso Yes [id number] 6mg Take 1 [facility] ne 6 mg 6-19 tablet by ity of tablet 00:00: mouth [place] 00 daily. Medical Branch dexAMETHaso Yes [id number] 6mg Take 1 [facility] ne 6 mg 6-19 tablet by ity of tablet 00:00: mouth [place] 00 daily. Medical Branch dexAMETHaso Yes [id number] 6mg Take 1 [facility] ne 6 mg 6-19 tablet by ity of tablet 00:00: mouth [place] 00 daily. Medical Branch dexAMETHaso 2021-0 Yes [id number] 6mg Take 1 [facility] ne 6 mg 6-19 tablet by ity of tablet 00:00: mouth [place] 00 daily. Medical Branch dexAMETHaso 2021-0 Yes [id number] 6mg Take 1 [facility] ne 6 mg 6-19 tablet by ity of tablet 00:00: mouth [place] 00 daily. Medical Branch dexAMETHaso 2021-0 Yes [id number] 6mg Take 1 [facility] ne 6 mg 6-19 tablet by ity of tablet 00:00: mouth [place] 00 daily. Medical Branch dexAMETHaso 2021-0 Yes [id number] 6mg Take 1 [facility] ne 6 mg 6-19 tablet by ity of tablet 00:00: mouth [place] 00 daily. Medical Branch dexAMETHaso 2021-0 Yes [id number] 6mg Take 1 [facility] ne 6 mg 6-19 tablet by ity of tablet 00:00: mouth [place] 00 daily. Medical Branch dexAMETHaso 2021-0 Yes [id number] 6mg Take 1 [facility] ne 6 mg 6-19 tablet by ity of tablet 00:00: mouth [place] 00 daily. Medical Branch ascorbic 2021-0 Yes [id number] 500mg Take 1 U nivers acid, 6-18 tablet by ity of vitamin C, 00:[place] 2 [place] (two) Medical tablet times Branch daily. ascorbic 2021-0 Yes [id number] 500mg Take 1 U nivers acid, 6-18 tablet by ity of vitamin C, 00:[place] 00 (two) Medical tablet times Branch daily. ascorbic 2021-0 Yes [id number] 500mg Take 1 U nivers acid, 6-18 tablet by ity of vitamin [place], 00:[place] 00 (two) Medical tablet times Branch daily. ascorbic 2022-0 Yes [id number] 500mg Take 1 U nivers acid, 6-18 tablet by ity of vitamin C, 00:[place] 00 (two) Medical tablet times Branch daily. ascorbic 2-0 Yes [id number] 500mg Take 1 U nivers acid, 6-18 tablet by ity of vitamin [place], 00:00: [place] 00 (two) Medical tablet times Branch daily. ascorbic 2021-0 Yes [id number] 500mg Take 1 U nivers acid, 6-18 tablet by ity of vitamin [place], 00:00: [place] 00 (two) Medical tablet times Branch daily. ascorbic 2021-0 Yes [id number] 500mg Take 1 U nivers acid, 6-18 tablet by ity of vitamin [place], 00:[place] 00 (two) Medical tablet times Branch daily. ascorbic 2021-0 Yes [id number] 500mg Take 1 U nivers acid, 6-18 tablet by ity of vitamin [place], 00:00: [place] 00 (two) Medical tablet times Branch daily. ascorbic 2021-0 Yes [id number] 500mg Take 1 U nivers acid, 6-18 tablet by ity of vitamin [place], 00:00: [place] 00 (two) Medical tablet times Branch daily. ascorbic 2021-0 Yes [id number] 500mg Take 1 U nivers acid, 6-18 tablet by ity of vitamin [place], [place] 00 (two) Medical tablet times Branch daily. ascorbic 2021-0 Yes [id number] 500mg Take 1 U nivers acid, 6-18 tablet by ity of vitamin C, 00:00: [place] 00 (two) Medical tablet times Branch daily. ascorbic 2021-0 Yes [id number] 500mg Take 1 U nivers acid, 6-18 tablet by ity of vitamin C, 00:00: [place] 500 mg 00 (two) Medical tablet times Branch daily. ascorbic 2021-0 Yes [id number] 500mg Take 1 U nivers acid, 6-18 tablet by ity of vitamin C, 00:00: [place] 00 (two) Medical tablet times Branch daily. ascorbic 2021-0 Yes [id number] 500mg Take 1 U nivers acid, 6-18 tablet by ity of vitamin C, 00:00: [place] 00 (two) Medical tablet times Branch daily. ascorbic 2021-0 Yes [id number] 500mg Take 1 U nivers acid, 6-18 tablet by ity of vitamin C, 00:00: [place] 00 (two) Medical tablet times Branch daily. ascorbic 2022-0 Yes [id number] 500mg Take 1 U nivers acid, 6-18 tablet by ity of vitamin C, 00:00[place] 00 (two) Medical tablet times Branch daily. aspirin 81 2022-0 Yes 81mg QD [facility] (81 [place] tablet 00:00: mg total) Medica l 00 by mouth Center daily. clopidogreL 2022-0 Yes 75mg QD Take [address] [facility] (PLAVIX) 75 3-06 tablet (75 [place] mg tablet 00:00: mg total) Med ical 00 by mouth Center daily. folic acid 2022-0 Yes 1mg QD Take 1 [facility] (FOLVITE) 1 3-06 tablet (1 [place] [facility] MG tablet 00:00: mg total) Med ical 00 by mouth Center daily. thiamine 2022-0 Yes 100mg QD Take [address] [facility] 100 MG 3-06 tablet [facility] 00:[facility]: (100 mg Medical 00 total) by Center mouth daily. aspirin 81 2022-0 Yes 81mg QD Take 1 [facility] chewable 3-06 tablet (81 [place] tablet 00:00: mg total) Medica l 00 by mouth Center daily. clopidogreL 2022-0 Yes 75mg QD Take [address] [facility] (PLAVIX) 75 3-06 tablet (75 [place] mg tablet 00:00: mg total) Med ical 00 by mouth Center daily. folic acid 2022-0 Yes 1mg QD Take 1 [facility] (FOLVITE) 1 3-06 tablet (1 [place] [facility] MG tablet 00:00: mg total) Med ical 00 by mouth Center daily. thiamine 2022-0 Yes 100mg QD Take [address] [facility] 100 MG 3-06 tablet [facility] tablet 00:00: (100 mg Medical 00 total) by Center mouth daily. atorvastati 2022-0 Yes 80mg QD Take [address] [facility] (LIPITOR) 3-05 tablet (80 [place] 80 MG 00:00: mg total) Medical tablet 00 by mouth Center nightly. amLODIPine 2022-0 Yes 5mg QD Take 1 [facility] (NORVASC) 5 3-05 tablet (5 [place] [facility] MG tablet 00:00: mg total) Med ical 00 by mouth Center daily. atorvastati 2021-0 Yes 80mg QD Take [...] Filled Immunization Date Status Comments [facility] e Immunization Name Name Remdesivir 2022-03-24 Completed [facility] 00:00:00 [facility] Remdesivir 2022-03-24 Completed University [facility] 00:00:00 [facility] Remdesivir 2022-03-24 Completed University of 00:00:00 [facility] Remdesivir 2022-03-24 Completed University of 00:00:00 [facility] Remdesivir 2022-03-24 Completed University of 00:00:00 [facility] Remdesivir 2022-03-24 Completed University of 00:00:00 [facility] Remdesivir 2022-03-24 Completed University [facility] 00:00:00 [facility] Remdesivir 2022-03-24 Completed University of 00:00:00 [facility] Remdesivir 2022-03-24 Completed University of 00:00:00 [facility] Branch Remdesivir 2022-03-24 Completed University of 00:00:00 [facility] Remdesivir 2022-03-24 Completed University of 00:00:00 [facility] Remdesivir 2022-03-24 Completed University [facility] 00:00:00 [facility] Remdesivir 2022-03-24 Completed University of 00:00:00 [facility] Remdesivir 2022-03-24 Completed University [facility] 00:00:00 [facility] Remdesivir 2022-03-24 Completed University of 00:00:00 [facility] Remdesivir 2022-03-24 Completed University of 00:00:00 [facility] Branch Remdesivir 2022-03-23 Completed University of 00:00:00 [facility] Branch Remdesivir 2022-03-23 Completed University of 00:00:00 [facility] Branch Remdesivir 2022-03-23 Completed University of 00:00:00 [facility] Remdesivir 2022-03-23 Completed University of 00:00:00 [facility] Remdesivir 2022-03-23 Completed University of 00:00:00 [facility] Remdesivir 2022-03-23 Completed University of 00:00:00 [facility] Remdesivir 2022-03-23 Completed University of 00:00:00 [facility] Remdesivir 2022-03-23 Completed University of 00:00:00 [facility] Remdesivir 2022-03-23 Completed University of 00:00:00 [facility] Remdesivir 2022-03-23 Completed University of 00:00:00 [facility] Remdesivir 2022-03-23 Completed University of 00:00:00 [facility] Remdesivir 2022-03-23 Completed University of 00:00:00 [facility] Remdesivir 2022-03-23 Completed University of 00:00:00 [facility] Branch Remdesivir 2022-03-23 Completed University of 00:00:00 [facility] Remdesivir 2022-03-23 Completed University of 00:00:00 [facility] Branch Remdesivir 2022-03-23 Completed University of 00:00:00 [facility] Td 2017-04-20 Completed University of 00:00:00 [facility] Td 2017-04-20 Completed University of 00:00:00 [facility] Td 2017-04-20 Completed University of 00:00:00 [facility] Td 2017-04-20 Completed University of 00:00:00 [facility] Branch Td 2017-04-20 Completed University of 00:00:00 [facility] Branch Td 2017-04-20 Completed University of 00:00:00 [facility] Branch Td 2017-04-20 Completed University of 00:00:00 [facility] Branch Td 2017-04-20 Completed University of 00:00:00 [facility] Branch Td 2017-04-20 Completed University of 00:00:00 [facility] Td 2017-04-20 Completed University of 00:00:00 [facility] Td 2017-04-20 Completed University of 00:00:00 [facility] Td 2017-04-20 Completed University of 00:00:00 [facility] Td 2017-04-20 Completed University of 00:00:00 [facility] Td 2017-04-20 Completed University of 00:00:00 [facility] Td 2017-04-20 Completed University 00:00:00 [facility] TD, NOS 2017-04-20 Completed [facility] 00:00:00 [facility] Vital Signs Vital Name Observation Time Observation Value Comments Source Systolic blood 2022-06-15 15:37:00 124 mm[Hg] Univer sity of pressure [facility] Diastolic blood 2022-06-15 15:37:00 79 mm[Hg] Unive rsity of pressure [facility] Heart rate 2022-06-15 15:37:00 89 /min [facility] Body temperature 2022-06-15 15:37:00 36.44 Cassy [facility] Res[facility] rate 2022-06-15 15:37:00 17 /min [facility] Body weight 2022-06-15 15:37:00 45.45 kg [facility] BMI 2022-06-15 15:37:00 13.78 kg/m2 [facility] Oxygen saturation in 2022-06-15 15:37:00 97 /min [facility] blood by [facility] Pulse oximetry Branch WEIGHT 2021-12-08 19:45:00 45.7 kg HEIGHT 2021-12-08 19:45:00 180.3 cm WEIGHT 2021-12-08 19:45:00 45.7 kg HEIGHT 2021-12-08 19:45:00 180.3 cm Procedures Procedure Date / Time Performing Clinician Source Performed INSURANCE CORRESPONDENCE 2022-08-09 05:01:00 Doctor Unafarhanaigned, [facility] [place] [facility] REFERRAL- 2022-07-06 05:01:00 Doctor Unafarhanaigned, [facility] REQUEST/RESPONSE [place] [facility] MEDICATION CORRESPONDENCE 2022-06-26 05:01:00 Doctor Adrianaigned, [facility] [place] [facility] Plan of Care Planned Activity Planned Date Details Comments Source Future Scheduled 2024-12-09 Lipid panel (procedure) [facility] 00:00:00 [code = 44673100] Medical Ce nter Future Scheduled 2024-12-09 Lipid panel (procedure) [facility] 00:00:00 [code = 34980582] Medical Ce nter Future Scheduled 2023-06-08 Influenza Vaccine (#1) [facility]00 [code = Influenza Vaccine Me dical Center (#1)] Future Scheduled 2023-06-08 INFLUENZA VACCINE (Season [facility] 00:00:00 Ended) [code = INFLUENZA Med ical Center VACCINE (Season Ended)] Future Scheduled 2022-12-[address] [facility] 00:00:00 Counseling and Screening Med ical Center (12+) [code = Tobacco Cessation Counseling and Screening (12+)] Future Scheduled 2022-12-[address] [facility] 00:00:00 Counseling and Screening Med ical Center (12+) [code = Tobacco Cessation Counseling and Screening (12+)] Future Scheduled 2022-10-[address] [facility] 00:00:00 (12+) [code = DEPRESSION Med ical Center SCREENING (12+)] Future Scheduled 2022-10-[address] [facility] 00:00:00 (12+) [code = DEPRESSION Med ical Center SCREENING (12+)] Future Scheduled 2009 SHINGLES VACCINES ([address] [facility] 00:00:00 2) [code = SHINGLES Medical Center VACCINES (1 of 2)] Future Scheduled 2009 SHINGLES VACCINES ([address] [facility] 00:00:00 2) [code = SHINGLES Medical Center VACCINES (1 of 2)] Future Scheduled 1978 DTAP/TDAP/TD VACCINES ([address] [facility] 00:00:00 - Tdap) [code = Medical Cent er DTAP/TDAP/TD VACCINES (1 - Tdap)] Future Scheduled 1978 DTAP/TDAP/TD VACCINES ([address] [facility] 00:00:00 - Tdap) [code = Medical Cent er DTAP/TDAP/TD VACCINES (1 - Tdap)] Future Scheduled 1977 HEPATITIS C SCRE[facility]ING [facility] 00:00:00 [code = HEPATITIS C Medical Center SCREENING] Future Scheduled 1977 HEPATITIS C [facility]CRE[facility]ING [facility] 00:00:00 [code = HEPATITIS C Medical Center SCREENING] Future Scheduled [address] [facility] 00:00:00 virus screening Medical Cent er (procedure) [code = 715958330] Future Scheduled 1965 Pneumococcal Vaccine: [facility] 00:00:00 0-64 Years (1 - PCV) Medical Center [code = Pneumococcal Vaccine: 0-64 Years (1 - PCV)] Future Scheduled 1965 PNEUMOCOCCAL VACCINE 0-[address] [facility] 00:00:00 YRS (1 - PCV) [code = Medica l Center PNEUMOCOCCAL VACCINE 0-64 YRS (1 - PCV)] Future Scheduled 1960-02-29 COVID-19 VACCINE (#1) [facility] 00:[facility]:00 [code = COVID-19 VACCINE Med ical Center (#1)] Future Scheduled 1960-02-29 COVID-19 VACCINE (#1) [facility] 00:00:00 [code = COVID-19 VACCINE Med ical Center (#1)] Future Scheduled 1959 CT Colonography (combo) [facility] 00:00:00 [code = CT Colonography [facility] (combo)] Future Scheduled 1959 Screening for malignant [facility] 00:00:00 neoplasm of colon Medical Ce nter (procedure) [code = 735831482] Future Scheduled 1959 Screening for malignant [facility] 00:00:00 neoplasm of colon Medical Ce nter (procedure) [code = 679838232] Future Scheduled 1959 Screening for malignant [facility] 00:00:00 neoplasm of colon Medical Ce nter (procedure) [code = 356692884] Future Scheduled 1959 Screening for malignant [facility] 00:00:00 neoplasm of colon Medical Ce nter (procedure) [code = 480699817] Future Scheduled 1959 Sigmoidoscopy [code = [facility] Sigmoidoscopy] Medical Cente r Future Scheduled 1959 CT Colonography (combo) [facility] 00:00:00 [code = CT Colonography [facility] (combo)] Future Scheduled 1959 Screening for malignant [facility] 00:00:00 neoplasm of colon Medical Ce nter (procedure) [code = 460753139] Future Scheduled 1959 Screening for malignant [facility] 00:00:00 neoplasm of colon Medical Ce nter (procedure) [code = 777308702] Future Scheduled 1959 Screening for malignant [facility] 00:00:00 neoplasm of colon Medical Ce nter (procedure) [code = 165916388] Future Scheduled 1959 Screening for malignant [facility] 00:00:00 neoplasm of colon Medical Ce nter (procedure) [code = 685484498] Future Scheduled 1959 Sigmoidoscopy [code = [facility] Sigmoidoscopy] Medical Cente r Encounters Start End Encounter Admission Attending Care Care Encounter Source Date/Time Date/Time Type Type Clinicians Facility Department ID 2022-11-01 2022-11-01 Telephone ALEX Arredondo 1.2.840.114 [id number] Univers 00:00:00 00:00:00 Dorene LOCO 350.1.13.10 [place] [id number] [address] 2022-09-07 2022-09-07 Outpatient R [facility] [id number] Univers 13:20:00 13:20:00 CAROLA [facility] 2022-09-07 2022-09-07 [facility] [id number] Univers 13:20:00 13:20:00 CAROLA [facility] 2022-08-29 2022-08-29 [facility]phone [facility] 1.2.840.114 [id number] Univers 00:00:00 00:00:00 [facility] 350.1.13.10 it y of [place] 4.2.7.2.686 [place] AVTAR?BLEA [id number] [address] MEDICAL OFFICE BUILDING 2022-08-15 2022-08-15 Outpatient [facility] [id number] Univers 11:30:00 11:30:[address] [facility] [place] 2022-08-15 2022-08-15 Outpatient [facility] [id number] Univers 11:30:00 11:30:00 SENDIL ity of [facility] 2022-08-09 2022-08-09 Orders Doctor CLYDE 1.2.840.114 [id number] Univers 00:00:00 00:00:00 Only Unassigned, [place] 350.1.13.10 ity of [place] [facility] 4.2.7.2.686 [place] [id number] [address] 2022-08-09 2022-08-09 Case ALEX Arredondo 1.2.840.114 [id number] Univers 00:00:00 00:00:00 Management Dorene A LOCO 350.1.13.10 [id number] [address] 2022-08-09 2022-08-09 Telephone Herb [facility] 1.2.840.114 [id number] Univers 00:00:00 00:00:00 Carola BOSS 350.1.13.10 i ty [facility] [place] [id number] [facility] ANA [address] [place] [address] 2022-08-09 2022-08-09 Telephone ALEX Arredondo 1.2.840.114 [id number] Univers 00:00:00 00:00:00 Dorene A LOCO 350.1.13.10 [place] [id number] [address] 2022-07-31 2022-07-31 Outpatient R JOSE, [facility] [id number] Univers 11:00:00 11:00:00 SENDIL ity of [facility] 2022-07-26 2022-07-26 Telephone [facility] [id number] Univers 00:00:00 00:00:00 Marialuisa HEALTH 350.1.13.10 it y of [place] 4.2.7.2.686 [place] AVTAR?BLEA [id number] Nh dicri YARELIEY [address] [place] [address] MEDICAL OFFICE BUILDING 2022-07-13 2022-07-13 ALEX Cosme 1.2.840.114 [id number] Univers 00:00:00 00:00:00 Management Sandee Levine LOCO 350.1.13.10 [place] [id number] [place] [address] [place] 2022-07-06 2022-07-06 Orders Doctor CLYDE 1.2.840.114 [id number] Univers 00:00:00 00:00:00 Only Unassigned, KERMIT 350.1.13.10 ity of [place] [facility] 4.2.7.2.686 [place] [id number] [address] 2022-06-30 2022-06-30 Telephone [facility] [id number] Univers 00:00:00 00:00:00 Marialuisa HEALTH 350.1.13.10 it y of [place] 4.2.7.2.686 [place] AV[place]AR?BLEA [id number] [address] OFFICE [facility] 2022-06-27 2022-06-27 Telephone [facility] [id number] Univers 00:00:00 00:00:00 Marialuisa HEALTH 350.1.13.10 it y of [place] 4.2.7.2.686 [place] AVTAR?BLEA [id number] [address] OFFICE [facility] 2022-06-26 2022-06-26 Orders Doctor CLYDE 1.2.840.114 [id number] Univers 00:00:00 00:00:00 Only Unassigned, KERMIT 350.1.13.10 ity of [place] [facility] 4.2.7.2.686 [place] [id number] [address] 2022-06-22 2022-06-22 Telephone [facility] [id number] [id number] Univers 00:00:00 00:00:00 Marialuisa HEALTH 350.1.13.10 it y of [place] 4.2.7.2.686 [place] AVTAR?BLEA [id number] [address] OFFICE [facility] 2022-06-19 2022-06-19 Telephone [facility] [id number] Univers 00:00:00 00:00:00 [facility] 350.1.13.10 it y of [facility] 4.2.7.2.686 [place] AVTAR?BLEA [phone] Nh león TRAN 044 [facility] OFFICE [facility] 2022-06-15 2022-06-15 Office [facility] 1.2.840.114 [id number] Univers 10:30:00 11:07:49 Visit Sendil Renita.Nasima LAOZULLY 350.1.13.10 ity of [facility] [place].2.[place] [id number] Nh brandiri NAL 059 [facility] 2022-06-15 2022-06-15 [facility] [id number] Univers 10:30:00 11:07:[address] [facility] [place] [place] 2022-06-15 2022-06-15 [facility] [id number] Univers 10:30:00 10:30:[address] [facility] [place] 2022-06-15 2022-06-15 [facility] [id number] Univers 10:30:00 10:30:[address] [facility] [place] 2022-06-15 2022-06-15 [facility] [id number] Univers 10:30:00 10:30:00 [facility]-15 2022-06-15 Telephone [facility] .2.840.114 [id number] Univers 00:00:00 00:00:00 Carola SHILOZULLY 350.1.13.10 i ty of [facility] 4[place] [id number] [address] 2022-06-06 2022-06-06 Outpatient [facility] [id number] Univers 13:00:00 14:15:[address] [facility] [place] [place] 2022-06-06 2022-06-06 Office [facility] 1.2.840.114 [id number] Univers 13:00:00 14:15:01 Visit Carola KARYN 350.1.13.10 i ty of [facility] 4.[place] [id number] Nh león PEREZ 044 Branch BUILDING 2022-06-05 2022-06-05 Outpatient R WANDER [facility] [id number] Univers 08:00:00 08:00:[address] [facility] [place] [place] 2022-06-01 2022-06-01 [facility] [id number] Univers 06:32:00 11:45:[address] [facility] [place] 2022-06-01 2022-06-01 Hospital DAYNA Garcia 1.2.840.114 [id number] Univers 06:32:00 11:45:00 Encounter Jaziel CARMEN 350.1.13.10 ity of [facility] 4.2.7.2.686 [place] [phone] [facility] [address] 2022-06-01 2022-06-01 Surgery Kamryn Gonsalves 1.2.840.114 [id number] Univers 08:00:00 11:00:00 KERMIT 350.1.13.10 it y of [facility] 4.2.7.2.686 [place] [id number] [facility] [address] 2022-06-01 2022-06-01 Orders Doctor CLYDE 1.2.840.114 [id number] Univers 00:00:00 00:00:00 Only Unassigned, KERMIT 350.1.13.10 ity of [place] [facility] 4.2.7.2.686 [place] [id number] [facility] 009 Branch 2022-05-30 2022-05-30 Collection Card Clerk Lab, Karl - Yung [facility] 1.2.840.1 [id number] Univers 09:45:00 10:00:00 Visit Jaziel Garcia K.HCandy [facility] 350.1.13.1 0 ity of [place] 4.2.7.2.686 [place] AVTAR?BLEA [id number] Nh dical KNEY [address] MEDICAL OFFICE BUILDING 2022-05-302022-05-30 Outpatient R JOSE [facility] [id number] Univers 09:45:00 09:45:[address] [facility] [place] [place] 2022-05-30 2022-05-30 Laboratory Only, Adc Test [facility] 1.2.840. 114 [id number] Univers 09:15:00 09:30:00 Only Jaziel Garcia 350.1.13. 10 ity of [place] 4.2.7.2.686 [facility] [id number] [facility] [address] 2022-05-30 2022-05-30 Outpatient R [facility] [id number] Univers 09:15:00 09:15:[address] [facility] [place] [place] 2022-05-05 2022-05-05 Outpatient R FADI DE LEON [facility] [id number] Univers 08:40:00 09:18:44 FADI DE LEON [facility] 2022-05-05 2022-05-05 Office Moises [facility] 1.2.840.[id number] [facility] 08:40:00 09:18:44 Visit Fadi [facility] 350.1.13.10 ity of [place] 4.2.7.2.686 [place] AVTAR?BLEA [id number] Nh brandi[address] MEDICAL OFFICE BUILDING 2022-05-05 2022-05-05 Outpatient R FADI DE LEON [facility] [id number] Univers 08:40:00 08:40:00 FADI DE LEON [facility] 2022-05-02 2022-05-02 Telephone DAYNA Garcia .[id number] Univers 00:00:00 00:00:00 Jaziel CARMEN 350.1.13.10 ity of [facility] 4.2.7.2.686 [place] [id number] [facility] [address] 2022-05-02 2022-05-02 Telephone Jose [facility] [id number] [id number] Univers 00:00:00 00:00:00 Jaziel BOSS 350.1.13.10 ity [place] [phone] [place] [address] [facility] 2022-04-25 2022-04-25 Outpatient R JOSE [facility] [id number] Univers 09:39:09 23:59:[address] [facility] [place] [place] 2022-04-25 2022-04-25 Outpatient R JOSE [facility] [id number] Univers 09:39:09 09:39:[address] [facility] [place] 2022-04-25 2022-04-25 Refill [facility] 1.2.840.114 [id number] Univers 00:00:00 00:00:00 Marialuisa HEALTH 350.1.13.10 it y of [place] 4.2.7.2.686 [place] AVTAR?BLEA [id number] [address] OFFICE [facility] 2022-04-20 2022-04-20 Telephone [facility] [id number] [id number] Univers 00:00:00 00:00:00 Marialuisa HEALTH 350.1.13.10 it y of [place] 4.2.7.2.686 [place] AVTAR?BLEA [id number] [address] OFFICE [facility] 2022-04-19 2022-04-19 Telephone [facility] 1.2.841.090 [id number] Univers 00:00:00 00:00:00 Sendil James BOSS 350.1.13.10 ity [place] [id number] [address] 2022-04-12 2022-04-12 [facility] [id number] Univers 08:30:00 08:57:[address] [facility] [place] 2022-04-12 2022-04-12 [facility] 1.2.840.114 [id number] Univers 08:30:00 08:57:31 Visit Sendil James BOSS 350.1.13.10 ity [place] [phone] Nh dical NAL 059 [facility] 2022-04-12 2022-04-12 Outpatient R JOSE [facility] [id number] Univers 08:30:00 08:57:[address] [facility] [place] 2022-04-12 2022-04-12 Outpatient R OJSE [facility] [id number] Univers 08:30:00 08:57:[address] [facility] [place] 2022-04-12 2022-04-12 Office [facility] 1.2.840.114 [id number] Univers 08:30:00 08:57:31 Visit Sendil James BOSS 350.1.13.10 it[place] [phone] Nh dicri NAL 9 [facility] 2022-04-12 2022-04-12 Orders Doctor CLYDE 1.2.840.114 [id number] Univers 00:00:00 00:00:00 Only Unassigned, KERMIT 350.1.13.10 ity of [place] [facility] 4.2.7.2.686 Nilo as [id number] [address] 2022-04-07 2022-04-07 Telephone [facility] [id number] [facility] 00:00:00 00:00:00 Marialuisa HEALTH 350.1.13.10 it y of [place] 4.2.7.2.686 Nilo as AVTAR?BLEA [phone] [facility] [address] MEDICAL OFFICE [facility] 2022-03-30 2022-03-30 Outpatient R WANDER [facility] [id number] Univers 09:45:00 09:56:[address] [facility] [place] 2022-03-30 2022-03-30 Collection Card Clerk Lab, Karl - Yung [facility] 1.2.840.1 [id number] Univers 09:45:00 09:56:24 Visit Marialuisa Viramontes HEALTH 350.1.13.10 ity of [place] 4.2.7.2.686 Nilo as AVTAR?BLEA [phone] [facility] [address] MEDICAL OFFICE [facility] 2022-03-30 2022-03-30 Outpatient R WANDER [facility] [id number] Univers 08:30:00 09:45:[address] [facility] [place] 2022-03-30 2022-03-30 Office Wander [facility] 1.2.840.114 [id number] Univers 08:30:00 09:45:27 Visit Marialuisa HEALTH 350.1.13.10 it y of [place] 4.2.7.2.686 [place]ilo as AVTAR?BLEA [id number] [address] OFFICE [facility] 2022-03-30 2022-03-30 Telephone Wander [facility] 1.2.211.456 [id number] Univers 00:00:00 00:00:00 Marialuisa HEALTH 350.1.13.10 it y of [place] 4.2.7.2.686 [place] AVTAR?BLEA [phone] [address] OFFICE [facility] 2022-03-27 2022-03-27 Transition ALEX Moffett 1.2.840.114 [id number] Univers 00:00:00 00:00:00 of Care Lynn Hanna LOCO 350.1.13.10 i ty of [place] 4[place] [id number] [facility] [address] 2022-03-23 2022-03-25 Inpatient X ZAKI [facility] DIANNA [id number] Univers 14:30:00 16:15:[address] [facility] [place] [place] 2022-03-23 2022-03-25 Hospital Joanne Rene [facility] 1.2.84 0.114 [id number] Univers 14:30:00 16:15:00 Encounter Ekaterina Haines 350.1.13.10 ity of [place] 4.2.7.2.686 [facility] [phone] [facility] [address] 2022-03-23 2022-03-23 Emergency X ANJU [facility] ERT [id number] Univers 14:30:00 14:30:[address] [facility] [place] 2022-03-23 2022-03-23 Office [facility] 1.2.840.114 [id number] Univers 13:00:00 13:53:32 Visit Rochelle Santana [facility] 350.1.13.10 i ty of [place] 4.2.7.2.686 [place] AVTAR?BLEA [phone] Nh dicnikolay [address] MEDICAL OFFICE BUILDING 2022-03-23 2022-03-23 [facility] [id number] Univers 13:00:00 13:53:32 ROCHELLE itblair of [facility] 2022-03-23 2022-03-23 Orders Doctor CLYDE 1.2.840.114 [id number] Univers 00:00:00 00:00:00 Only Unassigned, KERMIT 350.1.13.10 ity of [place] [facility] 4.2.7.2.686 Nilo as [phone] [address] 2021-12-08 2021-12-10 Inpatient ER [facility] Neurology [id number] [facility] 19:07:00 15:35:00 JEFF 2019-06-21 2019-06-23 Emergency Lele Rosa [facility] 1.2.840. 114 [id number] 22:40:21 14:49:00 Minoo Yoo 350.1.13.10 [place] 4.2.7.2.686 [place] [phone] [facility] 2019-06-21 2019-06-23 Emergency Lele Rosa [facility] 1.2.840. [id number] [facility] 22:40:21 14:49:00 Minoo Yoo 350.1.13.10 ity of [place] 4.2.7.2.686 [facility] [id number] [address] Results Test Description Test Time Test Comments Results Result Comments Source T3, FREE 2021-12-12 10:03:37 Test Item Value Reference Range Interpretation Comme nts T3 FREE (LULÚERICA) (test code = 908) See scanned reportCT, CHEST, WITHOUT [id number] 14:14:00Unlisted Reason for Exam - Click Yes and Enter Reason Below->YesUnlisted Reason for Exam->cachexia w/ nonfocal neurological issues, eval for underlying malignancyH[facility] : 1960 Sex: MFINAL [...] of prior pancreatitis. 5. Atherosclerosis. Signed: Ekaterina Wilkinsonepelliott Verified D ate/Time: 12/10/2021 14:14:38 Reading Location: [address] Reading Room , [id number] 14:14:00Unlisted Reason for Exam - Click Yes and Enter Reason Below->YesUnlisted Reason for Exam->cachexia w/ nonfocal neurological issues, eval for underlying malignancyIs this for enterography?->NoWill this procedure require oral contrast?->No [facility] : 1960 Sex: MFINAL [...] Verified D ate/Time: 12/10/2021 14:14:38 Reading Location: [facility] C013T Transitional Reading Room C-REACTIVE [id number] 06:01:54 Test Item Value Reference Range Interpretation Comments C-REACTIVE PROTEIN (BEAKER) (test 0.43 mg/dL 0.00-0.50 code = 676) Clay Preparation Supervisor ID - [id number] 06:01:53 Test Item Value Reference Range Interpretation Comments MAGNESIUM (BEAKER) (test code = 1.8 mg/dL 1.6-2.6 627) Clay Preparation Supervisor ID - [id number] 06:01:53 Test Item Value Reference Range Interpretation Comments PHOSPHORUS (BEAKER) (test code = 3.4 mg/dL 2.3-4.7 604) Clay Preparation Supervisor ID - ADMINCREATINE KINASE (CK)2021-12-10 06:01:53 Test Item Value Reference Range Interpretation Comments CREATINE KINASE TOTAL (BEAKER) (test 83 U/L 29-200 code = 380) Clay Preparation Supervisor ID - ADMINBASIC METABOLIC [id number] 06:01:52 Test Item Value Reference Range Interpretation [...] S NOT APPLICABLE FOR DIALYSIS PATIEN TS. Clay Preparation Supervisor ID - ADMINCBC W/PLT COUNT & AUTO [id number] 05:21:59 Test Item Value Reference Range Interpretation [...] (test code = 2801) CT, BRAIN, WITHOUT [id number] 02:14:00Unlisted Reason for Exam - Click Yes and Enter Reason Below->No [facility]ALE [facility]SHRAF : 1960 Sex: MFINAL [...] Date/Time: 12/10/2021 02:14:53 MR, SPINE, LUMBAR, WITHOUT [id number] 19:56:00 Unlisted Reason for Exam - Click Yes and Enter Reason Below->No [facility] 1960 Sex: MFINAL [...] is present, most conspicuous at L4-L5 and L5-J2Mucyb terminates at L1.Cauda equina demonstrates normal appearance.No [...] L3-L4 as per above. Signed: Ramona White MDReport Verified Date/Time: 12/09/2021 19:56:36 MR, BRAIN, WITHOUT [id number] 19:52:00Unlisted Reason for Exam - Click Yes and Enter Reason Below->No[facility]IKA [facility] : 1960 Sex: [...] No acute intracranial findings Signed: Ramona White MDReport Verified Date/Time: 12/09/2021 19:52:33 -COV2/RT-PCR ([facility])2021-12-09 19:38:32 Test Item Value Reference Range Interpretation Comments SARS-COV2/RT-PCR (test code = Negative Negative [id number]) Negative result for this test determines that [...] 564(g) of the Act.Testing was performed using [employer] It SARS-CoV-2 assay.Fact Sheet for Healthcare Providers:https://www.YourEncore.MyBeautyCompare/nabil/RT SARS-CoV-2 HCP Fact Sheet 51- 714456.pdfFact Sheet for Healthcare Patients:https://www.YourEncore.MyBeautyCompare/nabil/RT SARS-CoV-2 Patient Fact Sheet EN 51-682009S6.pdfVITAMIN D, [id number] 17:16:45 Test Item Value Reference Range Interpretation Comments VITAMIN D 25-OH (FILIPPO) (test 12.6 ng/mL 6.6-49.9 code = 2764) Effective 07/18/2017: Reference Range ChangeNew: 6.6-49.9 ng/mL Previous: 13.0- 47.8 ng/mLRecommendedVitamin D Target Range: 30.0-40.0 ng/mLOperator ID - DBRAD, HIPS, 3 OR 4 VIEWS, [id number] 15:12:00Reason for exam:->Pain [facility] 1960 Sex: MFINAL REPORT TECHNIQUE: RAD, HIPS, 3 OR 4 VIEWS, BILATERAL INDICATION: Pain COMPARISON: None. FINDINGS:No acute fracture or dislocation. There are degenerative changes in the bilateralhips. There are diffuse vascular calcifications. IMPRESSION:No acute osseous abnormality. Signed: Sammy Sher Verified Date/Time: 12/09/2021 15:12:56 Reading Location: [address] Reading Room [id number] 14:07:35 Test Item Value Reference Range Interpretation Comments RPR SCREEN (BEAKER) (test code = Nonreactive Nonreactive 420) [id number] 12:56:05 Test Item Value Reference Range Interpretation Comments FERRITIN (BEAKER) (test code = 77.77 ng/mL 5.00-275.00 361) Clay Preparation Supervisor ID - LILIANA KEYES, TIBC, % SAT. (WITHOUT FERRITIN)2021-12-09 12:35:19 Test Item Value Reference Range Interpretation Comments IRON (BEAKER) (test code = 547) 119.0 ug/dL 40.0-160.0 TOTAL IRON BINDING CAPACITY 224 ug/dL 250-450 L (BEAKER) (test code = 769) IRON % SATURATION (2) (BEAKER) 53 % 20-55 (test code = 2590) Clay Preparation Supervisor ID - LILIANA [id number] 12:21:17 Test Item Value Reference Range Interpretation Comments LIPASE (BEAKER) (test code = 749) 25 U/L 8-78 Clay Preparation Supervisor ID - AAHAMIDHEPATIC FUNCTION [id number] 12:21:16 Test Item Value Reference Range Interpretation [...] (test code = 10 U/L 6-55 347) Clay Preparation Supervisor ID - [id number] 12:21:16 Test Item Value Reference Range Interpretation Comments AMYLASE (BEAKER) (test code = 349) 25 U/L 25-125 Clay Preparation Supervisor ID - AAHAMIDHEMOGLOBIN [id number] 11:45:20 Test Item Value Reference Range Interpretation [...] 5.7- 6.4% indicates increased risk for diabetes (prediabetes)."Clay Preparation Supervisor ID - ADMRAD, FEMUR, MIN. 2 VIEWS, [id number] 05:38:00Reason for exam:->C/o pain \\T\\ leg weaknessShould this be performed at the bedside?->Yes [facility] 1960 Sex: MFINAL REPORT EXAM/TECHNIQUE: RAD, FEMUR, four VIEWS, RIGHT INDICATION: Pain, weakness. COMPARISON: None. FINDINGS: No acute fracture is demonstrated. Grossly normal bone mineralization. No large knee joint effusion. Vascular calcifications are present. Impression: No acute osseous process. Signed: Suresh Alves MDReport Verified Date/Time: 12/09/2021 05:38:16 T4, [id number] 05:34:16 Test Item Value Reference Range Interpretation Comments FREE T4 (BEAKER) (test code = 655) 0.95 ng/dL 0.70-1.48 Clay Preparation Supervisor ID Wesley FORD WTSH/FREE T4 IF [id number] 04:56:33 Test Item Value Reference Range Interpretation Comments THYROID STIMULATING HORMONE 0.059 uIU/mL 0.350-4.940 L (BEAKER) (test code = 772) Clay Preparation Supervisor ID - LILIANA [id number] 04:55:31 Test Item Value Reference Range Interpretation Comments HOMOCYSTEINE (BEAKER) (test code = 9.5 umol/L 5.1-15.4 642) Clay Preparation Supervisor ID - LILIANA WVITAMIN B12 AND [id number] 04:55:31 Test Item Value Reference Range Interpretation Comments VITAMIN B12 346 pg/mL 213-816 (BEAKER) (test code = 774) FOLATE (BEAKER) 17.00 ng/mL See_Comment [Automated message] (test code = 362) The system which generated this result transmitted ref erence range: >=7.00. The reference range was not used to interpr et this result as normal/abnormal . Clay Preparation Supervisor ID - LILIANA WLIPID [id number] 03:43:12 Test Item Value Reference Range Interpretation [...] Borderline 130-159 High 160-189 Very High >=190 Clay Preparation Supervisor ID Wesley FORD [id number] 03:43:11 Test Item Value Reference Range Interpretation Comments MAGNESIUM (BEAKER) (test code = 2.0 mg/dL 1.6-2.6 627) Clay Preparation Supervisor ID Wesley FORD [id number] 03:43:11 Test Item Value Reference Range Interpretation Comments PHOSPHORUS (BEAKER) (test code = 3.7 mg/dL 2.3-4.7 604) Clay Preparation Supervisor ID Wesley FORD WBASIC METABOLIC [id number] 03:43:10 Test Item Value Reference Range Interpretation [...] S NOT APPLICABLE FOR DIALYSIS PATIEN TS. Clay Preparation Supervisor ID - LILIANA WURINALYSIS WITH MICROSCOPIC IF [id number] 03:41:46 Test Item Value Reference Range Interpretation [...] = 463) SOURCE(BEAKER) (test code = 2795) Clay Preparation Supervisor ID - [auto]Clay Preparation Supervisor ID - techRAPID DRUG SCREEN, [id number] 03:39:59 Test Item Value Reference Range Interpretation [...] situations. Chain of custody not maintained. Some zufv-etn-baqdfyn medications, as well as adulterants, may cause inaccurate results. Clinical correlation should be applied. A more comprehensive drug screen or confirmation of a detected drug may be performed upon request.Clay Preparation Supervisor ID - DBCBC W/PLT COUNT & AUTO [id number] 03:19:40 Test Item Value Reference Range Interpretation [...] code = 2801) HIV-1 ANTIGEN WITH HIV-1/2 [id number] 22:50:03 Test Item Value Reference Range Interpretation Comments HIV-1 ANTIGEN WITH HIV 1\\T\\2 Nonreactive Nonreactive ANTIBODY (2) (BEAKER) (test code = 2586) Clay Preparation Supervisor ID - DBB-TYPE NATRIURETIC FACTOR (BNP)2021-12-08 22:10:36 Test Item Value Reference Range Interpretation Comments B-TYPE NATRIURETIC PEPTIDE (BEAKER) 27 pg/mL 0-100 (test code = 700) Clay Preparation Supervisor ID - DBHIGH SENSITIVITY TROPONIN [id number] 22:10:16 Test Item Value Reference Range Interpretation Comments HIGH SENSITIVITY < pg/ml See_Comment [Automated message] TROPONIN I (test code = The system which [id number]) generated this result transmitted ref erence range: <=35. Th e reference range was not used to interpr et this result as normal/abnormal . Clay Preparation Supervisor ID - DBThe DIGITAL COMPOSER STAT High Sensitivity Troponin-I results should be used in conjunctionwith other diagnostic information such as ECG, clinical observations and information, and patient symptoms to aid in the diagnosis of [place].[id number] 22:03:58 Test Item Value Reference Range Interpretation Comments MAGNESIUM (BEAKER) (test code = 1.9 mg/dL 1.6-2.6 627) Clay Preparation Supervisor ID - [id number] 22:03:58 Test Item Value Reference Range Interpretation Comments PHOSPHORUS (BEAKER) (test code = 3.9 mg/dL 2.3-4.7 604) Clay Preparation Supervisor ID - DBCOMPREHENSIVE METABOLIC [id number] 22:03:57 Test Item Value Reference Range Interpretation [...] S NOT APPLICABLE FOR DIALYSIS PATIEN TS. Clay Preparation Supervisor ID - DBLACTIC ACID, [id number] 21:59:53 Test Item Value Reference Range Interpretation Comments LACTATE BLOOD VENOUS 1.21 mmol/L 0.50-2.20 Specime n slightly (2) (BEAKER) (test hemolyzed code = 0656) Clay Preparation Supervisor ID - [id number] 21:50:48 Test Item Value Reference Range Interpretation Comments PARTIAL THROMBOPLASTIN TIME 27.5 seconds 22.5-36.0 (BEAKER) (test code = 760) PROTHROMBIN TIME/[id number] 21:50:11 Test Item Value Reference Range Interpretation Comments PROTIME (BEAKER) 13.3 seconds 11.9-14.2 (test code = 759) INR (BEAKER) (test 1.03 See_Comment [Automat ed message] code = 370) The system whic h generated this result transmitted ref erence range: <=5.90. The reference range was not used to int erpret this result as normal/abnormal . RECOMMENDED COUMADIN/WARFARIN INR THERAPY RANGESSTANDARD DOSE: 2.0 - 3.0 Includes: PROPHYLAXIS for venous thrombosis, systemic embolization; TREATMENT for venous thrombosis and/or pulmonary embolus.HIGH RISK: Target INR is 2.5-3.5 for patients with mechanical heart valves.CBC W/PLT COUNT & AUTO [id number] 21:43:48 Test Item Value Reference Range Interpretation [...] PERCENT (BEAKER) (test code = 2801) CALCIUM, [id number] 21:43:10 Test Item Value Reference Range Interpretation Comments CALCIUM IONIZED (BEAKER) (test 1.15 mmol/L 1.12-1.27 code = 698) PH, BLOOD (BEAKER) (test code = 7.30 1810) CT, CTANGIO [id number] 21:34:00Unlisted Reason for Exam - Click Yes and Enter Reason Below->No [facility] 1960 Sex: MFINAL [...] The P1 and P2 segments of the DRAPERY ESTIMATOR are patent. Unremarkable appearance of the posterior [...] thyroid ultrasound.5.Centrilobular pulmonary emphysema. Signed: Suresh Alves [facility] Verified Date/Time: :34:28 CT, CAROTID, [id number] 21:34:00Unlisted Reason for Exam - Click Yes and Enter Reason Below->No [facility] : 1960 Sex: MFINAL REPORT [...] The P1 and P2 segments of the DRAPERY ESTIMATOR are patent. Unremarkable appearance of the posterior [...] thyroid ultrasound.5.Centrilobular pulmonary emphysema. Signed: Suresh Alves [facility] Verified Date/Time: 221:34:28 [facility]STROKE PROTOCOL 2021-12-08 20:52:00 [facility] 1960 Sex: MFINAL [...] recommended for further characterization. Signed: Ramona White Verified Date/Time: 12/08/2021 20:52:55 Electronicallysigned by: RAMONA WHITE MD on 12/08/2021 08:52 PMRAD, CHEST, 1 VIEW, NON DEPT 2021-12-08 20:21:00Reason for exam:->STROKEShould this be performed at the bedside?->Yes[facility] : 1960 Sex: MFINAL REPORT INDICATION: STROKE COMPARISON: 11/26/2019 TECHNIQUE: Single frontal view of the chest. IMPRESSION: Lungs and pleura: Lungs are hyperinflated which may reflect COPD. No airspace consolidation. No effusion. Heart and mediastinum: Normal heart size. Unremarkable mediastinal contours. Osseous structures: No acute abnormality. Chronic left-sided rib fractures. Other: None. Signed: Edwina Madison Verified Date/Time: 12/08/2021 20:21:43 TISSUE EXAM 2019-11-28 15:53:00Surgical Pathology Report Case: [id number] Authorizing Provider: GusJeferson Gus Collected: 11/26/2019 Teri Cobb MD Ordering Location: [address] Received: 11/27/2019 0758 Service Pathologist: Manuel Goodwin MD Specimen: Ampulla, AMPULLARY BIOPSY A. AMPULLA, BIOPSY: - BENIGN AMPULLARY/ DUODENAL MUCOSA WITH MILD CHRONIC INFLAMMATION - SMALL FOCUS OF SCAR TISSUE (SEE COMMENT) Signing Pathologist Direct Phone Line: [phone] signed by Manuel Goodwin MD on 11/28/2019 at 3:53 PMPer endoscopy note dated 11/27/19, ampulla was noted to be abnormal with small fibrotic orifice.Deeper levels are examined. There is scar tissue, however no evidence of malignancy is seen.[id number] and postop diagnosis: abnormal imagingAmpullary biopsyReceived in formalin labeled with the patient's name, accession number and "ampulla" are three irregular ballard soft tissue fragments e ach measuring 0.1 cm which are submitted in toto in A1. CG/pl Performed.RAD, CHEST, 2 [id number] 21:20:00Reason for exam:->nodule possible nipple shadow on [...] discrete lung nodule.No focal pulmonary consolidation. Signed: Amuta, Aurelio MDReport Verified Date/Time: 11/26/2019 21:20:17 [place], [id number] 15:10:00Reason for exam:->abnormal imageryFINAL REPORT A fluoroscopic unit was utilized for a procedure performed in the operating room. No interpretation was requested. Please refer to the operative report regarding findings. Please refer to PACS for patient radiation dose information. Signed: Sue Macedo MDReport Verified Date/Time: 11/26/2019 15:10:45 Reading Location: [facility] Radiology Reading Room [id number] 06:08:00 Test Item Value Reference Range Interpretation Comments PHOSPHORUS (BEAKER) (test code = 3.5 mg/dL 2.3-4.7 604) Clay Preparation Supervisor ID - KENNY [id number] 06:08:00 Test Item Value Reference Range Interpretation Comments MAGNESIUM (BEAKER) (test code = 1.7 mg/dL 1.6-2.6 627) Clay Preparation Supervisor ID - KENNY MBASIC METABOLIC [id number] 06:08:00 Test Item Value Reference Range Interpretation [...] S NOT APPLICABLE FOR DIALYSIS PATIEN TS. Clay Preparation Supervisor ID - KENNY EPATIC FUNCTION [id number] 06:08:00 Test Item Value Reference Range Interpretation [...] (test code = 12 U/L 6-55 347) Clay Preparation Supervisor ID - KENNY MRAD, CHEST, 1 VIEW, NON [id number] 15:22:00Reason for exam:->smoker, weight lossShould this be [...] MDReport Verified Date/Time: 11/25/2019 15:22:45 Reading Location: [facility] Radiology Reading Room [id number] 05:28:00 Test Item Value Reference Range Interpretation Comments MAGNESIUM (BEAKER) 1.8 mg/dL 1.6-2.6 Specimen slightly (test code = 627) hemolyzed Clay Preparation Supervisor ID - KENNY [id number] 05:28:00 Test Item Value Reference Range Interpretation Comments PHOSPHORUS (BEAKER) 3.6 mg/dL 2.3-4.7 Specimen slightly (test code = 604) hemolyzed Clay Preparation Supervisor ID - KENNY MBASIC METABOLIC [id number] 05:28:00 Test Item Value Reference Range Interpretation [...] S NOT APPLICABLE FOR DIALYSIS PATIEN TS. Clay Preparation Supervisor ID - KENNY MHEPATIC FUNCTION [id number] 05:28:00 Test Item Value Reference Range Interpretation [...] Specimen slightly (test code = 347) hemolyzed Clay Preparation Supervisor ID - KENNY MMR, ABDOMEN, [id number] 18:08:00Pancreas protocol AND MRCP Anesthesia:->None Deos the [...] MDReport Verified Date/Time: 11/24/2019 18:08:51 Reading Location: [facility] B1 C013Y CT Body Reading Room [id number] 07:18:00 Test Item Value Reference Range Interpretation Comments PHOSPHORUS (BEAKER) (test code = 3.3 mg/dL 2.3-4.7 604) Clay Preparation Supervisor ID - [id number] 07:18:00 Test Item Value Reference Range Interpretation Comments MAGNESIUM (BEAKER) (test code = 1.9 mg/dL 1.6-2.6 627) Clay Preparation Supervisor ID - LABASIC METABOLIC [id number] 07:18:00 Test Item Value Reference Range Interpretation [...] S NOT APPLICABLE FOR DIALYSIS PATIEN TS. Clay Preparation Supervisor ID - LAHEPATIC FUNCTION [id number] 07:18:00 Test Item Value Reference Range Interpretation [...] (test code = 14 U/L 6-55 347) Clay Preparation Supervisor ID - LACBC W/PLT COUNT & AUTO [id number] 05:25:00 Test Item Value Reference Range Interpretation [...] (BEAKER) (test code = 2801) HEPATIC FUNCTION [id number] 18:58:00 Test Item Value Reference Range Interpretation [...] (test code = 16 U/L 6-55 347) Clay Preparation Supervisor ID - KENNY MBASIC METABOLIC [id number] 18:58:00 Test Item Value Reference Range Interpretation [...] S NOT APPLICABLE FOR DIALYSIS PATIEN TS. Clay Preparation Supervisor ID - KENNY MCBC W/PLT COUNT & AUTO [id number] 18:20:00 Test Item Value Reference Range Interpretation [...]
[2023-05-30] MEDS ORDERED: FOLIC ACID 1 MG, MULTIVITAMINS INJ 10 ML, THIAMINE HCL 100 MG in NA CHLORIDE 0.9% 1,000 ML IV ONE (12:00)
[2023-05-30] MEDS ORDERED: MORPHINE 2 MG/ML SYR ONE ×2 (12:02→13:38)
[2023-05-30] MEDS ORDERED: ONDANSETRON 4 MG/2 ML VIAL ONE ×2 (12:03→18:54)
[2023-05-30] MEDS ORDERED: GABAPENTIN 300 MG CAP ONE (12:03)
[2023-05-30] MEDS ORDERED: KETOROLAC 30 MG/ML INJ ONE (12:03)
[2023-05-30 12:34] LABS: Absolute Lymphocytes (CBC) 1.8 K/uL (0.7-4.9); Hematocrit 42.4 % (39.6-49.0); Lymphocytes % 31.4 % (15.3-44.8); MCV 96.5 fL (80-100); Platelets 189 thou/uL (152-406)
[2023-05-30 12:58] LABS: Albumin 3.5 g/dL (3.4-5.0); Bilirubin Total 0.3 mg/dL (0.2-1.0); Magnesium 1.8 mg/dL (1.6-2.4); Protein, Total 6.6 g/dL (6.4-8.2); Troponin High Sensitivity 5.3 pg/mL (<58.9)
--- NOTE | 2023-05-30 13:53 | RAD REPORT ---
EXAM DESCRIPTION: CTAbdomen Pelvis W Contrast - 05/30/2023 1:18 pm CLINICAL HISTORY: Abdominal pain. back, abd pain COMPARISON: No comparisons TECHNIQUE: Biphasic CT imaging of the abdomen and pelvis was performed with 100 ml non-ionic IV cont rast. All CT scans are performed using dose optimization technique as appropriate and may include automated exposure control or mA/KV adjustment according to patient size. FINDINGS: The lung bases are clear. Mild fatty liver is seen. The spleen, adrenal glands and kidneys are within normal limits. There is i rregular dilatation of the pancreatic duct with multiple pancreatic calcifications/ stone present. No bowel obstruction, free air, free fluid or abscess. Nonvisualized appendix. Aortoiliac atheroscle rosis No evidence of significant lymphadenopathy. No suspicious bony findings. IMPRESSION: Mild fatty liver. Irregular pancreatic ductal dilatation is seen with multiple calcifications/ calculi present in the p ancreatic ductal system. ERCP may be helpful further evaluation.
[2023-05-30] MEDS ORDERED: FENTANYL CITR 100 MCG/2 ML ONE (14:44)
[2023-05-30] MEDS ORDERED: DIAZEPAM 5 MG TABLET ONE (15:35)
--- NOTE | 2023-05-30 18:39 | RAD REPORT ---
EXAM DESCRIPTION: MRI - C Spine W/Wo Cont- 05/30/2023 6:09 pm CLINICAL HISTORY: back, neuropathic pain Radiculopathy. COMPARISON: No comparisons FINDINGS: Cervical vertebral bodies are normal in height and alignment. No suspicious marrow edema or marrow replacing process. No fracture or traumatic subluxation. The craniocervical junction is normal. C2-3 level: 3 mm central disc herniation is present. This attenuates the anterior subarachnoid space. C3-4 level: Small posterior osteophyte/ disc complex is present attenuating the anterior subarachnoid space. Right-sided facet and uncovertebral spurring narrows the right exit foramen moderately. C4-5 level: 4 mm central disc protrusion is present attenuating the anterior subarachnoid space and c ontacting and deforming the cord. Right-sided facet and uncovertebral spurring narrows the right late rally. C5-6 level: Moderate posterior osteophyte/ disc complex is present attenuating the anterior subarachn oid space and flat. Moderate facet and uncovertebral spurring moderately narrows both exit foramina. . C6-7 level: Small central disc herniation is present attenuating the anterior subarachnoid space slig htly deforming the anterior cord. Mild left-sided uncovertebral spurring mildly narrows the exit fora roberto. C7-T1 level: No significant findings. Cervical cord is normal in size and signal.No pathologic post-contrast enhancement seen. IMPRESSION: Moderate midcervical degenerative changes as detailed. No severe canal or foraminal sten osis at any level.
--- NOTE | 2023-05-30 18:44 | RAD REPORT ---
EXAM DESCRIPTION: MRI - Thoracic Spine W/Wo Contr - 05/30/2023 6:09 pm CLINICAL HISTORY: back, neuropathic pain COMPARISON: Abdomen Pelvis W Contrast dated 05/30/2023; C Spine Wo Con dated 02/16/2022; Thoracic Sp ine W/o Cont dated 02/16/2022; Spine Lumbar Wo Con dated 02/16/2022 FINDINGS: The vertebral body heights and disc spaces are maintained. Marrow pattern of the thoracic spine is within normal limits. Small central disc herniation is seen T6-7. There is no significant canal stenosis or foraminal narro wing at any level. No paraspinal mass or hematoma. The right posterior T7 rib as it articulates with the spinal column d emonstrates a 2.5 x 2.3 cm T1 hyperintense lesion. Review of recent CT study show this to demonstrate bony characteristics with ground-glass internal matrix suggesting fibrous dysplasia. The thoracic cord is normal in size and signal. No concerning areas of post-contrast enhancement. IMPRESSION: No concerning pathologic abnormality seen.
--- NOTE | 2023-05-30 18:51 | RAD REPORT ---
EXAM DESCRIPTION: MRI - Spine Lumbar W/Wo Cont- 05/30/2023 6:11 pm CLINICAL HISTORY: Back, neuropathic pain Back pain, radiculopathy COMPARISON: C Spine Wo Con dated 02/16/2022; Thoracic Spine W/o Cont dated 02/16/2022; Spine Lumbar Wo Con dated 02/16/2022 FINDINGS: Vertebral body heights are within normal limits. Rounded 10 mm lesion T12 vertebral body with T2 hyperintensity and postcontrast enhancement is probab ly atypical hemangioma but is nonspecific. No fracture is suspected. The conus medullaris terminates at a normal level. No thickening of the cauda equina or clumping of n erve roots seen. L1-2 level: Minimal posterior disc bulge. L2-3 level: Mild posterior disc bulge. L3-4 level: Mild posterior disc bulge with mild facet and ligamentum flavum hypertrophy. L4-5 level: 3 mm retrolisthesis with 7 mm left paracentral/ foraminal disc protrusion present. This r esults in left lateral recess stenosis. L5-S1 level: No significant findings. There is no evidence of pathologic post-contrast enhancement. IMPRESSION: Left paracentral disc protrusion at L4-5 results left lateral recess stenosis.
[2023-05-30] MEDS ORDERED: MORPHINE 4 MG/ML SYR ONE (18:54)
[2023-05-30] MEDS ORDERED: dexAMETHasone 10 MG/ML VIAL ONE (19:24)
[2023-05-30] MEDS ORDERED: FAMOTIDINE 20 MG/2 ML VIAL IV ONE (19:24)
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
[2023-05-30 20:06] LABS: Specific Gravity > 1.030 (1.005-1.030); Urine Bilirubin NEGATIVE (Negative); Urine Blood Negative (Negative); Urine Clarity Clear (Clear); Urine Color Light-Yellow (Yellow); Urine Glucose NEGATIVE (Negative); Urine Protein NEGATIVE (Negative); Urine Urobilinogen Normal (Normal)
[2023-05-30 20:35] VITALS: TEMP 97.7
[2023-05-30 20:46] VITALS: BP 132/81; O2SAT 96
--- NOTE | 2023-05-31 12:40 | EKG ---
Test Date: 2023-05-30 Test Time: 11:59:09 Funeral Pre Arrangement Specialist: CLAUDIA MEASUREMENT RESULTS: Intervals: Rate: 69 PA: 196 QRSD: 78 QT: 372 QTc: 398 Weikert: P: 91 PA: 196 QRS: 89 T: 80 INTERPRETIVE STATEMENTS: Normal sinus rhythm Cannot rule out Anterior infarct, age undetermined Abnormal ECG Compared to ECG 02/25/2023 19:19:43 Atrial abnormality no longer present ST (T wave) deviation no longer present Myocardial infarct finding still present Electronically Signed On 05-31-23 12:37:20 CDT by German Araya
== END 2023-05-30 20:23 | disposition home or self-care (01) ==
LOC: ER 11:29
DX: J44.9 Chronic obstructive pulmonary disease, unspecified (principal); M51.86 Other intervertebral disc disorders, lumbar region; Z72.0 Tobacco use; Z71.6 Tobacco abuse counseling
CPT/HCPCS: 36415; 72156; 72157; 72158; 74177; 80053; 81003; 82550; 83690; 83735; 84484; 85025; 93005; A9577; J1100; J2270; J2405; J3010; J3411; J7030

== ENCOUNTER 2023-11-27 18:03 | Inpatient (IN) | payer MEDICAID, SELFPAY ==
--- NOTE | 2023-11-27 19:04 | RAD REPORT ---
EXAM DESCRIPTION: CT - Head Brain Wo Cont - 11/27/2023 6:47 pm CLINICAL HISTORY: Headache COMPARISON: 2021 TECHNIQUE: Computed axial tomography of the head was obtained. IV contrast was not requested. All CT scans are performed using dose optimization technique as appropriate and may include automated exposure control or mA/KV adjustment according to patient size. FINDINGS: An intracranial bleed is not seen The ventricles are normal in caliber No extra-axial fluid collection is noted. Mild low-density areas within periventricular, deep and subcortical white matter likely represent isc hemic changes secondary to small vessel disease. Postsurgical changes mastoids. Fluid within sinuses is not seen IMPRESSION: No acute intracranial abnormality is seen If patient's symptoms persist MRI of the brain would be recommended
--- NOTE | 2023-11-27 19:06 | RAD REPORT ---
EXAM DESCRIPTION: [place] Single View11/27/2023 6:50 pm CLINICAL HISTORY: Chest pain COMPARISON: 2022 FINDINGS: Lungs are moderately to markedly hyperaerated. The lungs appear clear of acute infiltrate. The heart is normal size IMPRESSION: COPD visualization of an acute abnormality
[2023-11-27 19:09] LABS: Absolute Lymphocytes (CBC) 1.5 K/uL (0.7-4.9); Hematocrit 43.2 % (39.6-49.0); Lymphocytes % 23.7 % (15.3-44.8); MPV 8.1 fL (7.6-11.3); Platelets 211 thou/uL (152-406)
[2023-11-27 19:44] LABS: Bilirubin Direct 0.2 mg/dL (0-0.2); Bilirubin Indirect, Calculated 0.7 mg/dL (0.2-0.8); Bilirubin Total 0.9 mg/dL (0.2-1.0); Potassium 3.9 mEq/L (3.5-5.1); Protein, Total 7.2 g/dL (6.4-8.2)
[2023-11-27 20:03] LABS: Troponin High Sensitivity 6.3 pg/mL (<58.9)
[2023-11-27] MEDS ORDERED: ASPIRIN 81 MG CHEWABLE TABLET ONE (20:25)
[2023-11-27] MEDS ORDERED: NITROGLYCERIN 0.4 MG/TAB SL ONE (20:26)
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
[2023-11-27] MEDS ORDERED: NA CHLORIDE 0.9% 1,000 ML ONE (20:41)
[2023-11-27] MEDS ORDERED: ONDANSETRON 4 MG/2 ML VIAL IV PRN (22:31)
[2023-11-27] MEDS ORDERED: HYDROCODONE/APAP 7.5/325 MG TAB ONE (23:37)
[2023-11-27] MEDS: HYDROCODONE/APAP 7.5/325 MG TAB PO PRN (23:42)
--- NOTE | 2023-11-28 01:54 | P.HP ---
Certification for Inpatient Patient admitted to: Inpatient With expected LOS: >2 Midnights Practitioner: I am a practitioner with admitting privileges, knowledge of patient current condition, hospital course, and medical plan of care. Services: Services provided to patient in accordance with Admission requirements found in Title 42 Section 412.3 of the Code of Federal Regulations Patient History Date of Service: 11/27/23 Reason for admission: Chest Pain History of Present Illness: 63-year-old male with a history of COPD, tobacco use, HTN and CVA presented to the ED with 2 days of intermittent substernal chest pain that radiated to the left arm and became more persistent today. Patient also complained of throbbing headache behind the back like a sledge hammer behind his head, has noted decreased vision on the left eye along with pain and paresthesias on the left upper and lower extremities. Patient has had 1 month of bilateral flank pain, abdominal pain and intermittent constipation. He is unsure of weight loss. He drinks 2 beers a day states he smokes occasionally. On arrival to the ED, vitals were within normal. Only abnormal lab finding is Na of 124. Head CT has no acute intracranial abnormality and chest x-ray showed hyperaerated lungs. Allergies No Known Drug Allergies Allergy (Unverified 04/25/15 20:14) Unknown Review of Systems 10-point ROS is otherwise unremarkable Physical Examination - Vital Signs Temperature: 98.1 F Blood Pressure: 156/74 Pulse: 80 Respirations: 18 Pulse Ox (%): 100 - Physical Exam General: Alert, In no apparent distress, Oriented x3 HEENT: Atraumatic, Normocephalic, Mucous membr. moist/pink Neck: Supple, JVD not distended Respiratory: Clear to auscultation bilaterally, Normal air movement Cardiovascular: Regular rate/rhythm, Normal S1 S2 Gastrointestinal: Normal bowel sounds, Non-distended, Tenderness (Bilateral lower quadrants and CVA tenderness) Musculoskeletal: No swelling, No erythema, No tenderness, No warmth Integumentary: No rashes Neurological: Normal speech, Other (4/5 strength on left lower extremity) - Studies Laboratory Data (last 24 hrs) 11/27/23 11/27/23 18:58 18:58 WBC 6.60 Hgb 14.9 Hct 43.2 Plt Count 211 Sodium 124 L Potassium 3.9 BUN 6 L Creatinine 0.62 L Glucose 97 Magnesium 2.0 Total Bilirubin 0.9 AST 17 ALT 21 Alkaline Phosphatase 73 Assessment and Plan - Plan Chest pain Left upper and lower extremity paresthesia Left eye loss of vision COPD w/o exacerbation Hypertension Hyponatremia Tobacco use Plan Admit to telemetry Repeat troponin, follow-up echo, lipid panel Urine sodium and urine osmolality MRI brain CT C/A/P to evaluate unexplained weight loss Bronchodilators, PRN labetalol, nicotine patch aspirin - Advance Directives Does patient have a Living Will: No Does patient have a Durable POA for Healthcare: No
[2023-11-28] MEDS ORDERED: IPRATROPIUM BROM 0.5MG/2.5ML NEB PRN (01:57)
[2023-11-28] MEDS ORDERED: ALBUTEROL 2.5 MG/3 ML NEB SOL NEB PRN (01:57)
[2023-11-28] MEDS ORDERED: LABETALOL 20 MG/4ML SYRINGE IV PRN (01:57)
[2023-11-28] MEDS ORDERED: NITROGLYCERIN 0.4 MG/TAB SL PRN (01:57)
[2023-11-28 02:33] VITALS: BMI 13.1
[2023-11-28 05:05] LABS: Absolute Lymphocytes (CBC) 1.5 K/uL (0.7-4.9); Lymphocytes % 26.9 % (15.3-44.8); MCV 93.6 fL (80-100); MPV 8.2 fL (7.6-11.3); Platelets 202 thou/uL (152-406); RBC Red Blood Cell Count 4.48 M/uL (4.33-5.43)
[2023-11-28] MEDS ORDERED: HYDROCODONE/APAP 7.5/325 MG TAB ONE ×2 (05:06→11:15)
[2023-11-28 05:29] LABS: Albumin 3.4 g/dL (3.4-5.0); Bilirubin Total 0.8 mg/dL (0.2-1.0); Phosphorus 2.5 mg/dL (2.5-4.9); Protein, Total 6.3 g/dL (6.4-8.2); Thyroid Stimulating Hormone 0.025 uIU/mL (0.358-3.740); Troponin High Sensitivity 6.7 pg/mL (<58.9); Uric Acid 2.5 mg/dL (3.5-7.2)
[2023-11-28] MEDS: PANTOPRAZOLE 40MG TABLET PO SCH (06:30)
[2023-11-28] MEDS ORDERED: PANTOPRAZOLE 40MG TABLET PO ONE (06:32)
[2023-11-28] MEDS ORDERED: LORazepam 2 MG/ML VIAL ONE (07:59)
[2023-11-28] MEDS: LORazepam 2 MG/ML VIAL IV ONE (08:03)
[2023-11-28] MEDS ORDERED: ASPIRIN EC 81 MG TAB PO ONE (08:10)
--- NOTE | 2023-11-28 08:40 | RAD REPORT ---
EXAM DESCRIPTION: MRI - Brain Wo Cont - 11/28/2023 8:30 am CLINICAL HISTORY: Left-sided numbness COMPARISON: Head CT November 27, 2023 TECHNIQUE: Axial, sagittal, and coronal magnetic resonance images of the brain were obtained. FINDINGS: Mild signal within periventricular, deep and subcortical white matter probably ischemic c hanges secondary to small vessel disease Old lacunar infarction left thalamus. Small area of increased signal left aspect of the siri may repr esent an old lacunar infarction. Diffusion-weighted/ADC mapping does not reveal evidence of acute infarction. The ventricles are normal caliber. An extra-axial fluid collection is not noted. Fluid within the sinuses/mastoids is not seen IMPRESSION: No acute intracranial abnormality noted
[2023-11-28] MEDS: NICOTINE 14 MG/PAT TD SCH (08:45)
[2023-11-28] MEDS: ASPIRIN EC 81 MG TAB PO SCH (08:45)
--- NOTE | 2023-11-28 12:20 | RAD REPORT ---
EXAM DESCRIPTION: CT - CT CHEST,ABD,PELVIS W/WO - 11/28/2023 6:51 am CLINICAL HISTORY: The patient is 63 years old and is Male; Unexplained weight loss, chronic abdomen and back TECHNIQUE: Axial computed tomography images of the chest, abdomen and pelvis without and with intrav enous contrast. Sagittal and coronal reformatted images were created and reviewed. This CT exam w as performed using one or more of the following dose reduction techniques: automated exposure contr ol, adjustment of the mA and/or kV according to patient size, and/or use of iterative reconstruction technique. COMPARISON: CT the abdomen and pelvis May 30, 2023 FINDINGS: CHEST: TRACHEA: The tracheobronchial tree is patent. LUNGS: The lungs are hyperinflated with emphysematous changes. There is no lobar consolidation or mass. PLEURAL SPACE: Unremarkable. No significant effusion. No pneumothorax. HEART: No cardiomegaly. No pericardial effusion. ABDOMEN: LIVER: Multiple hepatic granuloma are present. GALLBLADDER AND BILE DUCTS: The gallbladder is contracted. No calcified gallstones or ductal dila tation is seen. PANCREAS: The pancreas is atrophic with pancreatic calcifications. Diffuse dilatation of the panc reatic duct is noted, unchanged from prior exam. Large calcification near the pancreatic head is rede monstrated. SPLEEN: Multiple splenic granuloma are present. ADRENALS: Unremarkable. No mass. KIDNEYS AND URETERS: Unremarkable. The kidneys enhance symmetrically. No obstructing renal or u reteral calculus is seen. No hydronephrosis or hydroureter. No perinephric fluid or stranding. STOMACH AND BOWEL: The stomach is decompressed. The small bowel is relatively normal in caliber. A moderate amount of stool is present throughout the colon. There is no mucosal thickening or evidenc e of obstruction. PELVIS: APPENDIX: No findings to suggest acute appendicitis. BLADDER: The bladder is well distended. No stones. REPRODUCTIVE: Unremarkable as visualized. CHEST, ABDOMEN and PELVIS: INTRAPERITONEAL SPACE: Unremarkable. No significant fluid collection. No free air. BONES/JOINTS: Evidence of healed rib fractures is present. Multilevel degenerative change of the spine is present. There is no acute fracture. SOFT TISSUES: Evidence of prior anterior abdominal wall incision is noted. VASCULATURE: Atherosclerosis of the aorta is present. No aortic aneurysm. LYMPH NODES: Calcified mediastinal and right hilar lymph nodes are present. IMPRESSION: 1. Redemonstration of the diffuse pancreatic ductal dilatation with coarse pancreatic calcifications and atrophic pancreas. A discrete mass is not seen. However, consider further evaluati on with EUS and correlation with tumor markers. 2. Chronic findings as detailed above. Electronically signed by: Kiki Banda MD 11/28/2023 12:01 AM SPECIMEN PROCESSOR Due to temporary technical issues with the PACS/Fluency reporting system, reports are being signed by the in house radiologist without review as a courtesy to ensure prompt reporting. The interpreting r adiologist is fully responsible for the content of the report.
--- NOTE | 2023-11-28 13:24 | ECHO ---
HEIGHT: 5 ft 11 in WEIGHT: 94 lb 0 oz DATE OF STUDY: 11/28/[address]: Julien Barber MD 2-DIMENSIONAL: YES M.MODE: YES DOPPLER: YES COLOR FLOW: YES TDS: PORTABLE: YES DEFINITY: BUBBLE STUDY: DIAGNOSIS: CHEST PAIN CARDIAC HISTORY: CATHERIZATION: YES SURGERY: NO PROSTHETIC VALVE: NO PACEMAKER: NO MEASUREMENTS (cm) DIASTOLIC (NORMALS) SYSTOLIC (NORMALS) IVSd 0.9 (0.6-1.2) LA Diam 1.9 (1.9-4.0) LVEF 74% LVIDd 3.9 (3.5-5.7) LVIDs 2.3 (2.0-3.5) %FS 42% LVPWd 1.0 (0.6-1.2) Ao Diam 2.6 (2.0-3.7) 2 DIMENSIONAL ASSESSMENT: RIGHT ATRIUM: NORMAL LEFT ATRIUM: NORMAL RIGHT VENTRICLE: NORMAL LEFT VENTRICLE: NORMAL TRICUSPID VALVE: MILD TRICUSPID REGURGITATION MITRAL VALVE: NORMAL PULMONIC VALVE: NOT VISUALIZED AORTIC VALVE: NORMAL PERICARDIAL EFFUSION: SMALL AORTIC ROOT: NORMAL LEFT VENTRICULAR WALL MOTION: NORMAL, HYPERDYNAMIC DOPPLER/COLOR FLOW: NORMAL COMMENTS: 1. HYPERDYNAMIC LEFT VENTRICLE, EJECTION FRACTION 65-70%, NORMAL WALL MOTION 2. NORMAL DIASTOLIC FUNCTION 3. SEVERE PULMONARY HYPERTENSION (RIGHT VENTRICULAR SYSTOLIC PRESSURE 55-60 mmHg) TECHNOLOGIST: TRIPP RENE
[2023-11-28 15:50] VITALS: O2SAT 100
--- NOTE | 2023-11-28 19:33 | P.PN ---
Subjective Date of Service: 11/28/23 Chief Complaint: Chest Pain Patient has no new complaint. He states his numbness have resolved. He has been able to ambulate to and from bathroom. Physical Examination - Vital Signs Temperature: 97.4 F Blood Pressure: 167/95 Pulse: 79 Respirations: 18 Pulse Ox (%): 98 - Physical Exam General: Alert, In no apparent distress, Oriented x3 HEENT: Mucous membr. moist/pink Neck: Supple, JVD not distended Respiratory: Clear to auscultation bilaterally, Normal air movement Cardiovascular: No edema, Regular rate/rhythm, Normal S1 S2 Gastrointestinal: Soft and benign, Non-distended, No tenderness Musculoskeletal: No swelling Integumentary: No rashes, No cyanosis Neurological: Normal speech, Normal strength at 5/5 x4 extr, Cranial nerves 3-12 intact Lymphatics: No axilla or inguinal lymphadenopathy - Studies Laboratory Data (last 24 hrs) 11/27/23 18:58 Sodium 124 L Potassium 3.9 BUN 6 L Creatinine 0.62 L Glucose 97 Magnesium 2.0 Total Bilirubin 0.9 AST 17 ALT 21 Alkaline Phosphatase 73 Assessment And Plan - Current Problems (Diagnosis) (1) TIA (transient ischemic attack) Current Visit: Yes Status: Acute (2) Hyperthyroidism Current Visit: Yes Status: Acute (3) Hyponatremia Current Visit: Yes Status: Acute - Plan TIA Neurology symptoms resolved. MRI of the brain shows no acute CVA Aspirin, Plavix, Lipitor. PT evaluation No problem with speech. f Hyperthyroidism Markedly reduced TSH, normal free T4. Patient is symptomatic with palpitation. Newly diagnosed hyperthyroidism Start methimazole Follow-up with endocrinology as outpatient. Hyponatremia Likely secondary to dehydration. Sodium level improved with IV normal saline given in the ED Continue to monitor renal function DVT prophylaxis: Lovenox
[2023-11-28] MEDS: ATORVASTATIN 40 MG TAB PO SCH (20:05)
[2023-11-29 04:26] LABS: Absolute Lymphocytes (CBC) 1.2 K/uL (0.7-4.9); Hematocrit 40.7 % (39.6-49.0); Lymphocytes % 22.1 % (15.3-44.8); MCV 93.6 fL (80-100); MPV 8.4 fL (7.6-11.3); Platelets 185 thou/uL (152-406); RBC Red Blood Cell Count 4.35 M/uL (4.33-5.43)
[2023-11-29] MEDS: CLOPIDOGREL 75 MG TABLET PO SCH (09:52)
[2023-11-29] MEDS: ENSURE ENLIVE 237 ML CAN PO SCH (14:00)
[2023-11-29 15:57] VITALS: BP 165/80; TEMP 97.4
--- NOTE | 2023-11-29 16:11 | EKG ---
Test Date: 2023-11-27 Test Time: 18:27:27 Supercharger Repair Supervisor: JENNY MEASUREMENT RESULTS: Intervals: Rate: 81 [place]: 168 QRSD: 94 QT: 378 QTc: 439 [place]: P: 84 [place]: 168 QRS: 91 T: 84 INTERPRETIVE STATEMENTS: Normal sinus rhythm Right atrial enlargement Rightward axis Pulmonary disease pattern Abnormal ECG Compared to ECG 05/30/2023 11:59:09 Atrial abnormality now present Right-axis deviation now present Myocardial infarct finding no longer present Electronically Signed On 11-29-23 16:05:40 ANALYTICAL LEAD by German Araya
[2023-11-29 16:18] LABS: Urine Bacteria None Seen /HPF (<20); Urine Mucus Slight /HPF (None Seen); Urine RBC None Seen /HPF (None Seen)
[2023-11-29 16:20] LABS: Specific Gravity 1.025 (1.005-1.030); Urine Bilirubin NEGATIVE (Negative); Urine Blood Negative (Negative); Urine Clarity Clear (Clear); Urine Color Yellow (Yellow); Urine Glucose 2+ (Negative); Urine Protein NEGATIVE (Negative); Urine Urobilinogen 1+ (Normal)
--- NOTE | 2023-11-29 16:37 | RAD REPORT ---
EXAM DESCRIPTION: CT - C Spine Wo Con - 11/29/2023 1:31 pm CLINICAL HISTORY: Left UE numbness COMPARISON: 02/16/2022. TECHNIQUE: Axial thin cut noncontrast CT images of the cervical spine were obtained with sagittal an d coronal reconstruction images generated and reviewed. All CT scans are performed using dose optimization technique as appropriate and may include automated exposure control or mA/KV adjustment according to patient size. FINDINGS: Cervical body height and alignment are normal. No fracture or acute bony abnormality. Mild multilevel degenerative changes with disc height loss at C5-6. Uncovertebral joint spurring most pronounced at that level contribute to moderate neural foraminal narrowing as well. Moderate degener ative changes of the atlantodental articulation. No paraspinal mass or hematoma. Mild centrilobular emphysematous changes. IMPRESSION: No acute cervical spine fracture or subluxation. Mild to moderate degenerative changes a s above.
[2023-11-29] MEDS: ENOXAPARIN 40 MG/0.4 ML SQ SCH (17:00)
--- NOTE | 2023-11-29 17:25 | P.DS ---
Admission Date: 11/27/23 Discharge Date: 11/29/23 Disposition: ROUTINE DISCHARGE Discharge Condition: FAIR Reason for Admission: Chest Pain - Problems (1) TIA (transient ischemic attack) Current Visit: Yes Status: Acute (2) Hyperthyroidism Current Visit: Yes Status: Acute (3) Hyponatremia Current Visit: Yes Status: Acute Brief History of Present Illness: 63-year-old male with a history of COPD, tobacco use, HTN and CVA presented to the ED with 2 days of intermittent substernal chest pain that radiated to the left arm and became more persistent. Patient also complained of throbbing headache behind the back like a sledge hammer behind his head. has noted decreased vision on the left eye along with pain and paresthesias on the left upper and lower extremities. Patient has had 1 month of bilateral flank pain, abdominal pain and intermittent constipation. He is unsure of weight loss. He drinks 2 beers a day states he smokes occasionally. On arrival to the ED, vitals were within normal. Only abnormal lab finding is Na of 124. Head CT has no acute intracranial abnormality and chest x-ray showed hyperaerated lungs. Patient was hospitalized for further management. Hospital Course: Patient admitted to the medical floor and the following medical problems addressed: TIA Neurology symptoms resolved. MRI of the brain shows no acute CVA CT cervical spine did not show any evidence of radiculopathy or spinal stenosis Lipid profile showed LDL of 40 which is well below target. Patient seen and evaluated by PT. No problem with speech or swallow. Patient placed on folic acid and aspirin. Hyperthyroidism Markedly reduced TSH, normal free T4. Patient is symptomatic with palpitation. Newly diagnosed hyperthyroidism Methimazole recommended but patient has no means of follow-up as outpatient and lab monitoring. I had a meeting with the patient and his sister. They have decided to follow-up at the [facility] for treatment and lab monitoring. Patient also informed he will need to see an primer supervisor to do more tests and to treat his hyperthyroidism Hyponatremia Likely secondary to dehydration. Sodium level improved with IV normal saline given in the ED Pulmonary hypertension Chest x-ray demonstrated hyperinflated heart indicating emphysema and likelihood of COPD. He is a smoker. Follow-up as outpatient for further management. Severe protein calorie malnutrition Patient seen and evaluated by dietitian. Nutritional supplementation prescribed Weight loss could also be related to hyperthyroidism Vital Signs/Physical Exam: Temp Pulse Resp BP Pulse Ox 97.4 F 97 H 15 165/80 H 99 11/29/23 15:35 11/29/23 15:35 11/29/23 15:35 11/29/23 15:35 11/29/23 15:35 General: Alert, In no apparent distress, Oriented x3, Cachectic HEENT: Mucous membr. moist/pink Neck: Supple, JVD not distended Respiratory: Clear to auscultation bilaterally, Normal air movement Cardiovascular: No edema, Regular rate/rhythm, Normal S1 S2 Gastrointestinal: Normal bowel sounds, Soft and benign, Non-distended, No tenderness Musculoskeletal: No swelling Integumentary: No rashes, No cyanosis Neurological: Normal speech, Normal strength at 5/5 x4 extr Laboratory Data at Discharge: WBC 5.50 thou/uL (4.3-10.9) 11/29/23 04:00 Hgb 14.1 g/dL (13.6-17.9) 11/29/23 04:00 Hct 40.7 % (39.6-49.0) 11/29/23 04:00 Plt Count 185 thou/uL (152-406) 11/29/23 04:00 Sodium 135 mEq/L (136-145) L D 11/29/23 04:00 Potassium 4.0 mEq/L (3.5-5.1) 11/29/23 04:00 BUN 11 mg/dL (7-18) 11/29/23 04:00 Creatinine 0.69 mg/dL (0.70-1.30) L 11/29/23 04:00 Glucose 99 mg/dL (74-106) 11/29/23 04:00 Uric Acid 2.5 mg/dL (3.5-7.2) L 11/28/23 04:35 Phosphorus 2.5 mg/dL (2.5-4.9) 11/28/23 04:35 Magnesium 2.0 mg/dL (1.6-2.4) 11/28/23 04:35 Total Bilirubin 0.8 mg/dL (0.2-1.0) 11/28/23 04:35 AST 14 U/L (15-37) L 11/28/23 04:35 ALT 19 U/L (16-61) 11/28/23 04:35 Alkaline Phosphatase 66 U/L (45-117) 11/28/23 04:35 Triglycerides 58 mg/dL (<150) 11/29/23 04:00 Cholesterol 124 mg/dL (<200) 11/29/23 04:00 HDL Cholesterol 72 mg/dL (40-60) H 11/29/23 04:00 Cholesterol/HDL Ratio 1.72 11/29/23 04:00 Home Medications: Aspirin [Aspirin EC] 81 mg PO DAILY #30 tab 11/29/23 Ensure Enlive 237 ml PO TID #60 can 11/29/23 Folic Acid 1 mg PO DAILY #30 tab 11/29/23 Propranolol [Inderal*] 40 mg PO BID #60 tab 11/29/23 New Medications: Aspirin [Aspirin EC] 81 mg PO DAILY #30 tab Ensure Enlive 237 ml PO TID #60 can Folic Acid 1 mg PO DAILY #30 tab Propranolol [Inderal*] 40 mg PO BID #60 tab Physician Discharge Instructions: Have been diagnosed with hyperthyroidism which means your thyroid is producing more hormones than you need. You will need medication called methimazole to control the thyroid hormone production. Methimazole counts with some side effects which include reducing your bone marrow production red blood cells for hemoglobin, and white blood cell which helps to fight infection. For this reason, you need your complete blood count and your blood chemistry monitored routinely while you are taking this medication. You need to see an primer supervisor to do more testing on your thyroid and also to prescribe you this medication. You have been prescribed propranolol which will help control the symptoms associated with the hyperthyroidism and also help treat your hypertension. You need to establish care with a primary care physician to treat and coordinate your medical problems. Diet: AHA Activity: Fall precautions Followup: NONE,NONE [Primary Care Provider] - 1-2 Weeks Time spent managing pt's care (in minutes): 36
--- NOTE | 2023-11-29 17:57 | P.CNS ---
Date of Consult: 11/29/23 Chief Complaint: Chest Pain History of Present Illness: patient with PMH of COPD, CVA, presented with chest pain, sharp in nature has been going on for months, wax and wean, denies any other cardiac symptoms. Allergies No Known Drug Allergies Allergy (Verified 11/28/23 10:02) Unknown Home Medications: Aspirin [Aspirin EC] 81 mg PO DAILY #30 tab 11/29/23 Ensure Enlive 237 ml PO TID #60 can 11/29/23 Folic Acid 1 mg PO DAILY #30 tab 11/29/23 Propranolol [Inderal*] 40 mg PO BID #60 tab 11/29/23 - Past Medical/Surgical History Diabetic: No - Social History Smoking Status: Current every day smoker Place of Residence: Home Review of Systems 10-point ROS is otherwise unremarkable Physical Examination Temp Pulse Resp BP Pulse Ox 97.4 F 97 H 15 165/80 H 99 11/29/23 15:35 11/29/23 15:35 11/29/23 15:35 11/29/23 15:35 11/29/23 15:35 General: Alert HEENT: Atraumatic Neck: Supple Respiratory: Clear to auscultation bilaterally Cardiovascular: No edema, Normal S1 S2 Gastrointestinal: Normal bowel sounds - Problems (1) Chest pain Current Visit: Yes Status: Acute Plan: Troponin x3 are negative. Normal Echo ACS ruled out. Patient can follow up with cardiology as outpatient. Continue ASA 81 mg daily Continue Lipitor 40 mg daily
== END 2023-11-29 18:00 | disposition home or self-care (01) | DRG 69 ==
LOC: ER 18:03 → ERHOLD 22:28 → 2ND 11-28 15:15
PROVIDERS: ADMIT Internal Medicine; ATTEND Internal Medicine
DX: G45.9 Transient cerebral ischemic attack, unspecified (principal); E43 Unspecified severe protein-calorie malnutrition; E87.1 Hypo-osmolality and hyponatremia; Z68.1 Body mass index [BMI] 19.9 or less, adult; R64 Cachexia; I10 Essential (primary) hypertension; E86.0 Dehydration; E03.9 Hypothyroidism, unspecified; I27.20 Pulmonary hypertension, unspecified; H54.62 Unqualified visual loss, left eye, normal vision right eye; J44.9 Chronic obstructive pulmonary disease, unspecified; F17.210 Nicotine dependence, cigarettes, uncomplicated; R20.2 Paresthesia of skin; Z79.82 Long term (current) use of aspirin; Z86.73 Personal history of transient ischemic attack (TIA), and cerebral infarction without residual deficits; Z79.899 Other long term (current) drug therapy
CPT/HCPCS: 36415; 70450; 70551; 71045; 71270; 72125; 74178; 80048; 80053; 80061; 80076; 81003; 82077; 82550; 82570; 82947; 83735; 83935; 84100; 84300; 84439; 84443; 84484; 84550; 85025; 93005; 93306; 96360; 97116; 97161; 99285; J7030; Q9967

== ENCOUNTER 2024-11-18 15:41 | Inpatient (IN) | payer OTHER ==
[2024-11-18] MEDS ORDERED: LEVALBUTEROL 1.25 MG/3 ML NEB ONE (15:52)
[2024-11-18] MEDS ORDERED: IPRATROPIUM BROM 0.5MG/2.5ML ONE (15:52)
[2024-11-18 16:10] LABS: PT Prothrombin Time 12.9 SECONDS (9.4-12.5); PTT, Activated Partial Thromb 30.3 SECONDS (24.3-36.9); Protime INR 1.23
[2024-11-18 16:11] LABS: Absolute Monocytes 1.6 K/uL (0.1-1.3); Absolute Neutrophil 11.5 K/uL (1.8-8.0); Basophils % 0.1 % (0-1.3); Hematocrit 44.1 % (39.6-49.0); Hemoglobin 14.8 g/dL (13.6-17.9); MCH 32.4 pg (27.0-35.0); MCHC 33.6 g/dL (32.0-36.0); MCV 96.4 fL (80-100); MPV 8.1 fL (7.6-11.3); Monocytes % 11.2 % (3.3-12.3); Neutrophils % 81.7 % (41.7-73.7); Platelets 309 thou/uL (152-406); RBC Red Blood Cell Count 4.57 M/uL (4.33-5.43); Red Cell Distribution Width 12.7 % (12.1-15.2)
[2024-11-18 16:18] LABS: Albumin 2.6 g/dL (3.4-5.0); Albumin/Globulin Ratio 0.5 (1.1-1.8); Anion Gap 15.2 mEq/L (5.0-15.0); Bilirubin Total 0.6 mg/dL (0.2-1.0); Globulin 4.9 g/dL (2.3-3.5); Potassium 4.2 mEq/L (3.5-5.1); Protein, Total 7.5 g/dL (6.4-8.2)
[2024-11-18 16:37] LABS: SARS-CoV-2 Antigen CONTROL BLUE LINE VIS/BG OK; SARS-CoV-2 Antigen Rapid Res Negative (Negative)
--- NOTE | 2024-11-18 17:10 | RAD REPORT ---
EXAMINATION: ONE VIEW CHEST XR CLINICAL INDICATION: Male, 64 years old.,DYSPNEA TECHNIQUE: Frontal chest projection is submitted. Examination is limited by patient positioning and t echnique. COMPARISON: 11/27/2023 FINDINGS: The lungs are diffusely emphysematous. Developing patchy right basilar airspace opacities. Mild blunt ing left costophrenic angle is well, could relate to early airspace, pleural thickening, with trace effusion. No pneumothorax or sizable effusion. The heart is normal in size. Mediastinal contours are unremarkable. IMPRESSION: Bibasilar airspace opacities as above, worse on the right, on a background of chronic obstructive kimberly nges, concerning for exacerbation of pneumonia.
[2024-11-18] MEDS ORDERED: NA CHLORIDE 0.9% 250 ML ONE (17:12)
[2024-11-18] MEDS ORDERED: AZITHROMYCIN 500 MG INJ IVPB ONE (17:12)
[2024-11-18] MEDS ORDERED: CEFTRIAXONE 1000 MG/VIAL ONE (17:12)
[2024-11-18] MEDS ORDERED: KETOROLAC 30 MG/ML INJ ONE (17:26)
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
[2024-11-18] MEDS ORDERED: ONDANSETRON 4 MG/2 ML VIAL IV PRN (19:15)
[2024-11-18] MEDS ORDERED: ALBUTEROL 2.5 MG/3 ML NEB SOL NEB PRN (19:15)
--- NOTE | 2024-11-18 19:15 | P.HP ---
Certification for Inpatient Patient admitted to: Inpatient With expected LOS: >2 Midnights Practitioner: I am a practitioner with admitting privileges, knowledge of patient current condition, hospital course, and medical plan of care. Services: Services provided to patient in accordance with Admission requirements found in Title 42 Section 412.3 of the Code of Federal Regulations Patient History Date of Service: 11/18/24 Reason for admission: Shortness of breath History of Present Illness: 64 yrs old Male with past medical history of hypertension, COPD, CVA who was brought to ER with shortness of breath. Has been going on for the last 2 weeks and has been progressively getting worse. Associated with cough with mucoid expectoration. Denies any fever or chills. No nausea vomiting or diarrhea. Patient is a poor historian hence most of the history is obtained from the chart review and also talking with the ER physician. Patient started symptom 2 weeks ago and has been progressively getting worse. Getting short of breath even with minimal exertion. No sick contacts. Patient was assessed in the ER and is admitted for further management of COPD exacerbation Allergies No Known Drug Allergies Allergy (Verified 11/28/23 10:02) Unknown Home medications list reviewed: Yes Home Medications: Aspirin [Aspirin EC] 81 mg PO DAILY #30 tab 11/29/23 RX: Ensure Enlive 237 ml PO TID #60 can 11/29/23 RX: Folic Acid 1 mg PO DAILY #30 tab 11/29/23 RX: Propranolol [Inderal*] 40 mg PO BID #60 tab 11/29/23 - Past Medical/Surgical History Diabetic: No Past Medical History: Reviewed- Non-Contributory -: Hypertension, stroke, COPD Past Surgical History: Reviewed- Non-Contributory - Family History Family History: Reviewed- Non-Contributory - Social History Smoking Status: Former smoker Review of Systems 10-point ROS is otherwise unremarkable Physical Examination - Vital Signs Temperature: 98.3 F Blood Pressure: 124/84 Pulse: 76 Respirations: 18 Pulse Ox (%): 94 - Physical Exam General: Alert, Cachectic, Mild distress HEENT: Atraumatic, Normocephalic Neck: Supple, No Thyromegaly Respiratory: Diminished, Crackles/rales, Expiratory wheezes Cardiovascular: Regular rate/rhythm, Normal S1 S2 Capillary refill: <2 Seconds Gastrointestinal: Soft and benign, W/out hepatosplenomegaly Musculoskeletal: No clubbing Integumentary: No rashes Neurological: Other (Alert awake) Lymphatics: No axilla or inguinal lymphadenopathy - Studies Laboratory Data (last 24 hrs) 11/18/24 11/18/24 11/18/24 15:54 15:54 15:54 WBC 14.10 H Hgb 14.8 Hct 44.1 Plt Count 309 PT 12.9 H INR 1.23 APTT 30.3 Sodium 128 L Potassium 4.2 BUN 16 Creatinine 0.62 L Glucose 132 H Total Bilirubin 0.6 AST 35 ALT 28 Alkaline Phosphatase 59 Microbiology Data (last 24 hrs): 11/18/24 15:59 Nasopharnyx Influenza Type A Antigen Screen - Final 11/18/24 15:59 Nasopharnyx Influenza Type B Antigen Screen - Final Assessment and Plan - Plan COPD exacerbation Monitor closely on telemetry Started on bronchodilators Steroids added Chest x-ray findings noted Acute hypoxic respiratory failure Oxygen supplementation Will try to wean down oxygen requirement Hyponatremia Electrolytes monitor and replace accordingly Leukocytosis COVID test negative Influenza negative Bibasilar pneumonia Chest x-ray findings noted Bibasilar airspace opacities as above, worse on the right, on a background of chronic obstructive changes, concerning for exacerbation of pneumonia. Started on IV antibiotic Will obtain cultures Change antibiotic as per sensitivity Hypertension Antihypertensives titrated Continue home medications and titrate as needed History of stroke Supportive management GI/DVT prophylaxis Advanced directive full code Discharge Plan: Home Plan to discharge in: 48 Hours - Advance Directives Does patient have a Living Will: No Does patient have a Durable POA for Healthcare: No - Code Status/Comfort Care Code Status: Full Code Time Spent Managing Pts Care (In Minutes): 48
[2024-11-18 20:34] VITALS: BMI 15.7
[2024-11-19] MEDS: METHYLPREDNISOLONE 125 MG INJ IV SCH (00:37)
[2024-11-19] MEDS: ACETAMINOPHEN 325 MG TABLET PO PRN (01:52)
[2024-11-19 06:01] LABS: Absolute Lymphocytes (CBC) 0.6 K/uL (0.7-4.9); Absolute Monocytes 0.6 K/uL (0.1-1.3); Basophils % 0.4 % (0-1.3); Hematocrit 41.6 % (39.6-49.0); Hemoglobin 14.5 g/dL (13.6-17.9); Lymphocytes % 5.5 % (15.3-44.8); MCH 33.4 pg (27.0-35.0); MCHC 34.9 g/dL (32.0-36.0); MCV 95.6 fL (80-100); MPV 8.2 fL (7.6-11.3); Monocytes % 6.2 % (3.3-12.3); Neutrophils % 87.9 % (41.7-73.7); Nucleated Red Blood Cells % 0.1 % (0-0); Platelets 307 thou/uL (152-406); RBC Red Blood Cell Count 4.36 M/uL (4.33-5.43)
[2024-11-19 06:31] LABS: Albumin 2.1 g/dL (3.4-5.0); Albumin/Globulin Ratio 0.5 (1.1-1.8); Anion Gap 14.2 mEq/L (5.0-15.0); Bilirubin Total 0.5 mg/dL (0.2-1.0); Globulin 4.6 g/dL (2.3-3.5); Potassium 4.2 mEq/L (3.5-5.1); Protein, Total 6.7 g/dL (6.4-8.2)
[2024-11-19] MEDS ORDERED: GLUCAGON 1 MG/VIAL IM PRN (06:36)
[2024-11-19] MEDS ORDERED: D10W 125 ML IV PRN (06:36)
[2024-11-19] MEDS: FLU (Fluarix Triv) TS24-25(6MOS UP)/PF 45 MCG/0.5 ML Syringe IM ONE (07:30)
[2024-11-19] MEDS: INSULIN REGULAR (HUMAN) 100 UNIT/ML SQ SCH (07:30)
[2024-11-19 07:50] LABS: Blood Morphology Comment NOT SEEN (NOT SEEN); Platelet Estimate ADEQ; Platelets Clumped NOTED; White Blood Cell Scan OK (OK)
[2024-11-19] MEDS: ALBUTEROL 2.5 MG/3 ML NEB SOL NEB SCH (07:51)
[2024-11-19] MEDS: IPRATROPIUM BROM 0.5MG/2.5ML NEB SCH (07:51)
[2024-11-19] MEDS: PNEUMOCOCCAL VACCINE 0.5 ML IMVAC ONE (08:00)
[2024-11-19] MEDS: CEFTRIAXONE 1,000 MG in NA CHLORIDE 0.9% 50 ML IVPB SCH (08:22)
[2024-11-19] MEDS: AZITHROMYCIN IV 500 MG in NA CHLORIDE 0.9% 250 ML IVPB SCH (08:22)
[2024-11-19] MEDS: ENOXAPARIN 40 MG/0.4 ML SQ SCH (08:23)
[2024-11-19] MEDS: ASPIRIN EC 81 MG TAB PO SCH (08:23)
[2024-11-19] MEDS: ENSURE ENLIVE 237 ML CAN PO SCH (08:23)
[2024-11-19] MEDS: HYDRALAZINE HCL 20 MG/ML VIAL IV PRN (09:07)
[2024-11-19] MEDS: MORPHINE 2 MG/ML SYR IV PRN (09:09)
--- NOTE | 2024-11-19 10:29 | P.PN ---
Subjective Date of Service: 11/19/24 Chief Complaint: Shortness of breath Subjective: No new changes He admitted overnight from ED, he is still complaining of shortness of breath productive cough but no fever or chill and generalized pain all over asking for the pain medication. He states that he does not take any pain medication at home. Review of Systems Other: Consitutional; fever(-), chills (-), rigor(-), night sweat(-), unintentional weight loss(-), malaise (-) HEENT; diplopia (-), rhinorrhea (-), epistaxis (-), otorrhea (-), otalgia (-) Respiratory; shortness of breath (+), wheezing (-), cough (+), sputum (+), pleuritic chest pain (-) Cardiovascular; chest pain (-), peripheral edema (-), paroxysmal nocturnal dyspnea (-), orthopnea (-) Gastrointestinal; nausea (-), vomiting (-), abdominal pain (-), diarrhea (-), constipation (-), melena (-), hematochezia (-) Genitourinary; urinary frequency (-), dysuria (-), urgency (-), flank pain (-), gross hematuria (-), incontinence (-) Skin; rash (-), 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 General: Cachectic, chronic ill-looking in no apparent distress,. HEENT: Normocephalic, atraumatic, nonicteric sclera, nonanemic conjunctive. Neck: Supple, without JVD or goiter or thyroid mass. Respiratory: Normal breathing effort, distant breath sound bilaterally, no crackles no wheezing or rhonchi. Cardiovascular: Regular rate and rhythm, distant heart sound, no murmur no gallop. Gastrointestinal: Normal bowel sounds, nondistended, nontender, No ascites, , No masses, no hepatosplenomegaly. Extremities : No clubbing, No peripheral edema,, muscle atrophy of all 4 extremity. Integumentary: No rashes, petechia, suspected lesions. Lymphatics: No axilla or cervical lymphadenopathy. Neurology; alert awake oriented x3, no focal neurologic deficit, anxious - Studies Laboratory Data (last 24 hrs) 11/18/24 11/18/24 11/18/24 15:54 15:54 15:54 WBC 14.10 H Hgb 14.8 Hct 44.1 Plt Count 309 PT 12.9 H INR 1.23 APTT 30.3 Sodium 128 L Potassium 4.2 BUN 16 Creatinine 0.62 L Glucose 132 H Total Bilirubin 0.6 AST 35 ALT 28 Alkaline Phosphatase 59 Microbiology Data (last 24 hrs): 11/18/24 15:59 Nasopharnyx Influenza Type A Antigen Screen - Final 11/18/24 15:59 Nasopharnyx Influenza Type B Antigen Screen - Final Assessment And Plan - Plan 64 yrs old Male with past medical history of hypertension, COPD not on home oxygen, CVA who was brought to ER with shortness of breath. Has been going on for the last 2 weeks and has been progressively getting worse. Associated with cough with mucoid expectoration. #1 Acute hypoxic respiratory failure due to #2 and #3 Oxygen supplementation by nasal cannula #2 advanced COPD exacerbation secondary to community-acquired pneumonia with no sepsis Chest x-ray on admission personally reviewed, hyperinflated lungs, new infiltration in the right lower lobe and left lower lobe Will continue scheduled bronchodilators, taper methylprednisolone to 40 mg every 8 hour, I will order sputum culture, in the meantime I will keep him on ceftriaxone and azithromycin, tested negative for influenza A and B, COVID-19, I will test RSV by rapid antigen test which is only test available at this facility. #3 uncontrolled hypertension I will change propranolol to metoprolol XL 50 mg once a day, add hydralazine as needed #4 glucocorticoid induced hyperglycemia I will put him on a low-dose corrective insulin #5 presumed hypovolemic hyponatremia Serum sodium improved to 130 from 128 6. Pulmonary cachexia secondary to #2 DVT prophylaxis enoxaparin subcu
[2024-11-19] MEDS: HYDROCODONE/APAP 5/325 MG TAB PO PRN (13:09)
[2024-11-19] MEDS: METHYLPREDNISOLONE 40 MG INJ IV SCH (15:58)
[2024-11-19] MEDS ORDERED: ALBUTEROL 2.5 MG/3 ML NEB SOL NEB PRN (16:29)
[2024-11-19] MEDS: METOPROLOL XL 50 MG TAB PO SCH (17:58)
[2024-11-20] MEDS ORDERED: METOPROLOL XL 50 MG TAB PO SCH ×2 (06:00→17:46)
[2024-11-20] MEDS ORDERED: D10W 125 ML IV PRN (06:42)
[2024-11-20] MEDS ORDERED: GLUCAGON 1 MG/VIAL IM PRN (06:42)
[2024-11-20] MEDS: INSULIN REGULAR (HUMAN) 100 UNIT/ML SQ SCH (07:30)
--- NOTE | 2024-11-20 09:55 | P.PN ---
Subjective Date of Service: 11/20/24 Chief Complaint: Shortness of breath Subjective: New changes He is complaining of choking on food, continuous pain of the both lower extremity. Review of Systems Other: Consitutional; fever(-), chills (-), rigor(-), night sweat(-), unintentional weight loss(-), malaise (-) HEENT; diplopia (-), rhinorrhea (-), epistaxis (-), otorrhea (-), otalgia (-) Respiratory; shortness of breath (+), wheezing (-), cough (+), sputum (+), pleuritic chest pain (-) Cardiovascular; chest pain (-), peripheral edema (-), paroxysmal nocturnal dyspnea (-), orthopnea (-) Gastrointestinal; nausea (-), vomiting (-), abdominal pain (-), diarrhea (-), constipation (-), melena (-), hematochezia (-) Genitourinary; urinary frequency (-), dysuria (-), urgency (-), flank pain (-), gross hematuria (-), incontinence (-) Skin; rash (-), 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 General: Cachectic, chronic ill-looking in no apparent distress,. HEENT: Normocephalic, atraumatic, nonicteric sclera, nonanemic conjunctive. Neck: Supple, without JVD or goiter or thyroid mass. Respiratory: Normal breathing effort, distant breath sound bilaterally, no crackles no wheezing or rhonchi. Cardiovascular: Regular rate and rhythm, distant heart sound, no murmur no gallop. Gastrointestinal: Normal bowel sounds, nondistended, nontender, No ascites, , No masses, no hepatosplenomegaly. Extremities : No clubbing, No peripheral edema,, muscle atrophy of all 4 extremity. Integumentary: No rashes, petechia, suspected lesions. Lymphatics: No axilla or cervical lymphadenopathy. Neurology; alert awake oriented x3, no focal neurologic deficit, anxious Assessment And Plan - Plan 64 yrs old Male with past medical history of hypertension, COPD not on home oxygen, CVA who was brought to ER with shortness of breath. Has been going on for the last 2 weeks and has been progressively getting worse. Associated with cough with mucoid expectoration. #1 Acute hypoxic respiratory failure due to #2 and #3 Oxygen supplementation by nasal cannula 2 L/min #2 advanced COPD exacerbation secondary to community-acquired pneumonia with no sepsis Chest x-ray on admission hyperinflated lungs, new infiltration in the right lower lobe and left lower lobe Will continue scheduled bronchodilators, keep tapering down to methylprednisolone 40 mg every 12 hour, sputum culture ordered, I will keep him on ceftriaxone and azithromycin, tested negative for influenza A and B, COVID-19, RSV by rapid antigen test ordered, specimen not collected, I will test bedside swallow evaluation for possible aspiration pneumonia. #3 uncontrolled hypertension Blood pressure started to improve, continue metoprolol XL 50 mg once a day, add hydralazine as needed #4 glucocorticoid induced hyperglycemia Keep him him on a low-dose corrective insulin #5 presumed hypovolemic hyponatremia Serum sodium improved to 130 from 128, I will order follow-up CBC and BMP tomorrow morning. 6. Pulmonary cachexia secondary to #2 #7 highly likely chronic pain syndrome [place] and IV morphine. As needed DVT prophylaxis enoxaparin subcu Disposition; plan to discharge home in a few days
[2024-11-20] MEDS: D5.45NS W/KCL 20MEQ 20 MEQ/1,000 ML BAG IV SCH (10:00)
[2024-11-20] MEDS: METHYLPREDNISOLONE 40 MG INJ IV SCH (20:35)
[2024-11-21 04:40] LABS: Hematocrit 35.5 % (39.6-49.0); Hemoglobin 12.2 g/dL (13.6-17.9); MCHC 34.5 g/dL (32.0-36.0); MCV 95.6 fL (80-100); MPV 8.2 fL (7.6-11.3); Platelets 283 thou/uL (152-406); RBC Red Blood Cell Count 3.71 M/uL (4.33-5.43); Red Cell Distribution Width 12.7 % (12.1-15.2)
[2024-11-21 08:26] LABS: Magnesium 2.6 mg/dL (1.6-2.4); Phosphorus 3.1 mg/dL (2.5-4.9)
[2024-11-21] MEDS: BUSPIRONE HCL 5 MG TABLET PO SCH (09:57)
--- NOTE | 2024-11-21 13:28 | P.PN ---
Subjective Date of Service: 11/21/24 Chief Complaint: Shortness of breath Subjective: New changes He is complaining of anxiety, continuous lower extremity pain, unable to cough up any phlegm. Tolerating modified diet per speech therapy recommendation without any episode of aspiration or choking. Review of Systems Other: Consitutional; fever(-), chills (-), rigor(-), night sweat(-), unintentional weight loss(-), malaise (-) HEENT; diplopia (-), rhinorrhea (-), epistaxis (-), otorrhea (-), otalgia (-) Respiratory; shortness of breath (+), wheezing (-), cough (+), sputum (+), pleuritic chest pain (-) Cardiovascular; chest pain (-), peripheral edema (-), paroxysmal nocturnal dyspnea (-), orthopnea (-) Gastrointestinal; nausea (-), vomiting (-), abdominal pain (-), diarrhea (-), constipation (-), melena (-), hematochezia (-) Genitourinary; urinary frequency (-), dysuria (-), urgency (-), flank pain (-), gross hematuria (-), incontinence (-) Skin; rash (-), 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 General: Cachectic, chronic ill-looking in no apparent distress,. HEENT: Normocephalic, atraumatic, nonicteric sclera, nonanemic conjunctive. Neck: Supple, without JVD or goiter or thyroid mass. Respiratory: Normal breathing effort, distant breath sound bilaterally, with rhonchi but no crackles or wheezes. Cardiovascular: Regular rate and rhythm, distant heart sound, no murmur no gallop. Gastrointestinal: Normal bowel sounds, nondistended, nontender, No ascites, , No masses, no hepatosplenomegaly. Extremities : No clubbing, No peripheral edema,, muscle atrophy of all 4 extremity. Integumentary: No rashes, petechia, suspected lesions. Lymphatics: No axilla or cervical lymphadenopathy. Neurology; alert awake oriented x3, no focal neurologic deficit, anxious Assessment And Plan - Plan 64 yrs old Male with past medical history of hypertension, COPD not on home oxygen, CVA who was brought to ER with shortness of breath. Has been going on for the last 2 weeks and has been progressively getting worse. Associated with cough with mucoid expectoration. #1 Acute hypoxic respiratory failure due to #2 and #3 Oxygen supplementation by nasal cannula 2 L/min #2 advanced COPD exacerbation secondary to community-acquired pneumonia with no sepsis Chest x-ray on admission hyperinflated lungs, new infiltration in the right lower lobe and left lower lobe Will continue scheduled bronchodilators, keep tapering down to methylprednisolone 40 mg every 24 hour, sputum culture ordered, I will keep him on ceftriaxone and azithromycin, tested negative for influenza A and B, COVID-19, RSV by rapid antigen test ordered, specimen not collected, remain afebrile, and leukocytosis normalized, I will order repeat chest x-ray tomorrow morning. I will order a pulmonary toilet by respiratory therapist #3 uncontrolled hypertension Blood pressure started to improve, continue metoprolol XL 50 mg once a day, IV hydralazine as needed #4 glucocorticoid induced hyperglycemia Keep him him on a low-dose corrective insulin, blood sugar is expected to improved as systemic steroid tapering #5 presumed hypovolemic hyponatremia Serum sodium continued to improve improved to 133 from 128, I will order follow- up CBC and BMP tomorrow morning. 6. Pulmonary cachexia secondary to #2 #7 highly likely chronic pain syndrome [place] and IV morphine. As needed #8 Generalized anxiety disorder I will start him on scheduled buspirone DVT prophylaxis enoxaparin subcu Disposition; plan to discharge home in a few days
--- NOTE | 2024-11-22 07:22 | RAD REPORT ---
EXAMINATION: ONE VIEW CHEST XR CLINICAL INDICATION: Follow-up on pneumonia after treatment TECHNIQUE: Frontal chest projection is submitted. Examination is limited by patient positioning and t echnique. COMPARISON: 11/18/2024 FINDINGS: Prominent diffuse emphysema is seen. Mild linear opacities in the right lung base are again noted whi ch may represent mild infiltrate. This appears grossly similar to prior study. The heart is normal in size. No displaced fractures identified. IMPRESSION: COPD with little change in the right lower lobe lung opacity.
[2024-11-22] MEDS ORDERED: METHYLPREDNISOLONE 40 MG INJ IV SCH (09:00)
[2024-11-22] MEDS: predniSONE 20 MG TAB PO SCH (09:06)
[2024-11-22] MEDS: AMOX/K CLAV 875 MG TAB PO SCH (09:06)
[2024-11-22] MEDS: AMLODIPINE 5 MG TAB PO SCH (09:06)
[2024-11-22] MEDS: ALPRAZOLAM 0.25 MG TABLET PO PRN (19:03)
[2024-11-22] MEDS: BUSPIRONE HCL 5 MG TABLET PO SCH (20:27)
--- NOTE | 2024-11-23 09:58 | P.PN ---
Subjective Date of Service: 11/23/24 Chief Complaint: Shortness of breath Subjective: No new changes He says he is doing better, less anxiety, no shortness of breath at rest but still intermittent productive cough on deep breath Review of Systems Other: Consitutional; fever(-), chills (-), rigor(-), night sweat(-), unintentional weight loss(-), malaise (-) HEENT; diplopia (-), rhinorrhea (-), epistaxis (-), otorrhea (-), otalgia (-) Respiratory; shortness of breath (+), wheezing (-), cough (+), sputum (+), pleuritic chest pain (-) Cardiovascular; chest pain (-), peripheral edema (-), paroxysmal nocturnal dyspnea (-), orthopnea (-) Gastrointestinal; nausea (-), vomiting (-), abdominal pain (-), diarrhea (-), constipation (-), melena (-), hematochezia (-) Genitourinary; urinary frequency (-), dysuria (-), urgency (-), flank pain (-), gross hematuria (-), incontinence (-) Skin; rash (-), 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 General: Cachectic, chronic ill-looking in no apparent distress,. HEENT: Normocephalic, atraumatic, nonicteric sclera, nonanemic conjunctive. Neck: Supple, without JVD or goiter or thyroid mass. Respiratory: Normal breathing effort, distant breath sound bilaterally, with rhonchi but no crackles or wheezes. Cardiovascular: Regular rate and rhythm, distant heart sound, no murmur no gallop. Gastrointestinal: Normal bowel sounds, nondistended, nontender, No ascites, , No masses, no hepatosplenomegaly. Extremities : No clubbing, No peripheral edema,, muscle atrophy of all 4 extremity. Integumentary: No rashes, petechia, suspected lesions. Lymphatics: No axilla or cervical lymphadenopathy. Neurology; alert awake oriented x3, no focal neurologic deficit, anxious Assessment And Plan - Plan 64 yrs old Male with past medical history of hypertension, COPD not on home oxygen, CVA who was brought to ER with shortness of breath. Has been going on for the last 2 weeks and has been progressively getting worse. Associated with cough with mucoid expectoration. #1 Acute hypoxic respiratory failure due to #2 and #3 Oxygen supplementation by nasal cannula 2 L/min, will try to wean off oxygen, home oxygen evaluation ordered #2 advanced COPD exacerbation secondary to community-acquired pneumonia with no sepsis Resolving Chest x-ray on admission hyperinflated lungs, new infiltration in the right lower lobe and left lower lobe, follow-up chest x-ray on November 22 improvement of consolidation in the right lower lobe, Will antibiotics downgraded to Augmentin, plan on 7-day of antibiotics, today is day 6 , continue scheduled bronchodilators, oral prednisone 20 mg twice daily, pulmonary toilet, tested negative for influenza A and B, COVID-19, RSV by rapid antigen test ordered, specimen not collected, remain afebrile, and leukocytosis normalized, #3 uncontrolled hypertension Blood pressure getting under control, continue metoprolol XL 50 mg once a day, IV hydralazine as needed #4 glucocorticoid induced hyperglycemia Keep him him on a low-dose corrective insulin, blood sugar is expected to improved as systemic steroid tapering #5 presumed hypovolemic hyponatremia Serum sodium continued to improve improved to 133 from 128, 6. Pulmonary cachexia secondary to #2 #7 highly likely chronic pain syndrome [place] and IV morphine. As needed #8 Generalized anxiety disorder Improving on scheduled buspirone and Xanax as needed DVT prophylaxis enoxaparin subcu Disposition; plan to discharge home with or without home oxygen on Sunday
[2024-11-23] MEDS: IPRATROPIUM BROM 0.5MG/2.5ML ONE (20:13)
[2024-11-23] MEDS: ALBUTEROL 2.5 MG/3 ML NEB SOL ONE (20:13)
[2024-11-24] MEDS: METOPROLOL TARTRATE 5 MG/5 ML INJ IV SCH (16:00)
--- NOTE | 2024-11-24 16:57 | P.PN ---
Date of Service: 11/24/24 Subjective Awake, feeling well on RA at rest, oxygen drops to 67% when ambulating Awaiting HH and home oxygen approval ROS 10 point ROS as noted above, otherwise negative Physical Exam General: Alert and oriented x4, Cachectic, NAD HEENT: Atraumatic, Normocephalic Neck: Supple, No Thyromegaly Respiratory: nonlabored breathing, Crackles/rales, on RA at rest Cardiovascular: Regular rate/rhythm, Normal S1 S2 Capillary refill: <2 Seconds Gastrointestinal: Soft and benign on palpation, nontender Musculoskeletal: No clubbing Integumentary: No rashes Neurological: normal speech Vitals Reviewed Problem list Acute hypoxic respiratory failure due to COPD exacerbation Advanced COPD exacerbation secondary to community-acquired pneumonia with no sepsis Uncontrolled hypertension Glucocorticoid induced hyperglycemia Presumed hypovolemic hyponatremia Pulmonary cachexia secondary to COPD exacerbation Highly likely chronic pain syndrome Generalized anxiety disorder Assessment and Plan Acute hypoxic respiratory failure due to COPD exacerbation Pulmonary cachexia secondary to COPD exacerbation -Oxygen supplementation by nasal cannula 2 L/min -Attempt to wean off oxygen -Ordered Home oxygen Advanced COPD exacerbation secondary to community-acquired pneumonia with no sepsis -Resolving -Chest x-ray on admission hyperinflated lungs, new infiltration in the right lower lobe and left lower lobe, follow-up chest x-ray on November 22 improvement of consolidation in the right lower lobe -antibiotics downgraded to Augmentin x 7-day complete 11/25 -continue scheduled bronchodilators, oral prednisone 20 mg twice daily, pulmonary toilet -tested negative for influenza A and B, COVID-19, RSV by rapid antigen test ordered Uncontrolled hypertension -Blood pressure improved -continue metoprolol XL 50 mg once a day -IV hydralazine as needed Glucocorticoid induced hyperglycemia -SSI low-dose insulin -continue to monitor serum glucose Presumed hypovolemic hyponatremia -Serum sodium continued to improve improved to 133 from 128 Highly likely chronic pain syndrome -[place] and IV morphine. As needed Generalized anxiety disorder -Improving on scheduled buspirone and Xanax as needed DVT prophylaxis lovenox Disposition; plan to discharge home, awaiting home oxygen
[2024-11-25 09:04] VITALS: O2SAT 94
[2024-11-25] MEDS: HYDROCODONE/APAP 5/325 MG TAB PO ONE (15:38)
[2024-11-25 16:28] VITALS: BP 103/75; TEMP 98.1
--- NOTE | 2024-11-25 16:52 | P.DS ---
Admission Date: 11/18/24 Discharge Date: 11/25/24 Disposition: ROUTINE DISCHARGE Discharge Condition: GOOD Reason for Admission: Shortness of breath Brief History of Present Illness: Diagnosis Acute hypoxic respiratory failure due to COPD exacerbation Advanced COPD exacerbation secondary to community-acquired pneumonia with no sepsis Uncontrolled hypertension Glucocorticoid induced hyperglycemia Presumed hypovolemic hyponatremia Pulmonary cachexia secondary to COPD exacerbation Highly likely chronic pain syndrome Generalized anxiety disorder HPI 11/18/24 Edi Cordero is a 64 yrs old Male with past medical history of hypertension, COPD, CVA who was brought to ER with shortness of breath. Has been going on for the last 2 weeks and has been progressively getting worse. Associated with cough with mucoid expectoration. Denies any fever or chills. No nausea vomiting or diarrhea. Patient is a poor historian hence most of the history is obtained from the chart review and also talking with the ER physician. Patient started symptom 2 weeks ago and has been progressively getting worse. Getting short of breath even with minimal exertion. No sick contacts. Patient was assessed in the ER and is admitted for further management of COPD exacerbation Hospital Course: Patient was admitted and treated for the following diagnosis Acute hypoxic respiratory failure due to COPD exacerbation Pulmonary cachexia secondary to COPD exacerbation -Oxygen supplementation by nasal cannula 2 L/min -Ordered Home oxygen Advanced COPD exacerbation secondary to community-acquired pneumonia with no sepsis -Resolving -Chest x-ray on admission hyperinflated lungs, new infiltration in the right lower lobe and left lower lobe, follow-up chest x-ray on November 22 improvement of consolidation in the right lower lobe -antibiotics downgraded to Augmentin x 7-day complete 11/25 -continue scheduled bronchodilators, oral prednisone 20 mg twice daily, pulmonary toilet -tested negative for influenza A and B, COVID-19, RSV by rapid antigen test ordered Uncontrolled hypertension -Blood pressure improved -continue metoprolol XL 50 mg once a day -IV hydralazine as needed Glucocorticoid induced hyperglycemia -SSI low-dose insulin -continue to monitor serum glucose Presumed hypovolemic hyponatremia -Serum sodium continued to improve improved to 133 from 128 Highly likely chronic pain syndrome -[place] and IV morphine. As needed Generalized anxiety disorder -Improving on scheduled buspirone and Xanax as needed On 11/25/24, Edi was seen on morning rounds and deemed hemodynamically stable. Physical Exam General: Alert and oriented x4, Cachectic, NAD HEENT: Atraumatic, Normocephalic Neck: Supple, No Thyromegaly Respiratory: nonlabored breathing, Crackles/rales, on RA at rest Cardiovascular: Regular rate/rhythm, Normal S1 S2 Capillary refill: <2 Seconds Gastrointestinal: Soft and benign on palpation, nontender Musculoskeletal: No clubbing Integumentary: No rashes Neurological: normal speech Vital Signs/Physical Exam: Temp Pulse Resp BP Pulse Ox 98.1 F 116 H 16 103/75 93 11/25/24 16:00 11/25/24 16:00 11/25/24 16:00 11/25/24 16:00 11/25/24 16:00 Other Physical/Emotional Findings: - Physical Exam. General: Cachectic, chronic ill-looking in no apparent distress,. HEENT: Normocephalic, atraumatic, nonicteric sclera, nonanemic conjunctive. Neck: Supple, without JVD or goiter or thyroid mass. Respiratory: Normal breathing effort, distant breath sound bilaterally, with rhonchi but no crackles or wheezes. Cardiovascular: Regular rate and rhythm, distant heart sound, no murmur no gallop. Gastrointestinal: Normal bowel sounds, nondistended, nontender, No ascites, , No masses, no hepatosplenomegaly. Extremities : No clubbing, No peripheral edema,, muscle atrophy of all 4 extremity. Integumentary: No rashes, petechia, suspected lesions. Lymphatics: No axilla or cervical lymphadenopathy. Neurology; alert awake oriented x3, no focal neurologic deficit, anxious Laboratory Data at Discharge: WBC 6.20 thou/uL (4.3-10.9) 11/21/24 04:00 Hgb 12.2 g/dL (13.6-17.9) L 11/21/24 04:00 Hct 35.5 % (39.6-49.0) L 11/21/24 04:00 Plt Count 283 thou/uL (152-406) 11/21/24 04:00 PT 12.9 SECONDS (9.4-12.5) H 11/18/24 15:54 INR 1.23 11/18/24 15:54 APTT 30.3 SECONDS (24.3-36.9) 11/18/24 15:54 Sodium 133 mEq/L (136-145) L 11/21/24 04:00 Potassium 5.0 mEq/L (3.5-5.1) 11/21/24 04:00 BUN 22 mg/dL (7-18) H 11/21/24 04:00 Creatinine 0.49 mg/dL (0.70-1.30) L 11/21/24 04:00 Glucose 250 mg/dL (74-106) H 11/21/24 04:00 Phosphorus Cancelled 11/21/24 Unknown Magnesium 2.6 mg/dL (1.6-2.4) H 11/21/24 04:00 Total Bilirubin 0.5 mg/dL (0.2-1.0) 11/19/24 05:42 AST 29 U/L (15-37) 11/19/24 05:42 ALT 26 U/L (16-61) 11/19/24 05:42 Alkaline Phosphatase 50 U/L (45-117) 11/19/24 05:42 Home Medications: Aspirin [Aspirin EC] 81 mg PO DAILY #30 tab 11/29/23 Ensure Enlive 237 ml PO TID #60 can 11/29/23 Folic Acid 1 mg PO DAILY #30 tab 11/29/23 Amlodipine [Norvasc*] 5 mg PO DAILY #30 tab 11/25/24 Buspirone HCl [Buspar*] 5 mg PO TID #90 tab 11/25/24 predniSONE [Prednisone*] 20 mg PO DAILY #5 tab 11/25/24 New Medications: Buspirone HCl [Buspar*] 5 mg PO TID #90 tab Amlodipine [Norvasc*] 5 mg PO DAILY #30 tab predniSONE [Prednisone*] 20 mg PO DAILY #5 tab Physician Discharge Instructions: -DC IV and DC home -Follow-up with PCP in 1 to 2 weeks -Follow-up with Cardiology in 1 to 2 weeks -Please call Dr. Manley at [phone] if any questions regarding hospital stay -Please call nursing station at [phone] if any nursing or medication q uestions -Return to the emergency room if symptoms worsen Diet: AHA Activity: Fall precautions Followup: NONE,NONE [Primary Care Provider] -
== END 2024-11-25 16:57 | disposition home or self-care (01) | DRG 193 ==
LOC: ER 15:41 → ERHOLD 19:15 → 2ND 22:30
PROVIDERS: ADMIT Family Medicine; ATTEND Hospitalist
DX: J18.9 Pneumonia, unspecified organism (principal); J96.01 Acute respiratory failure with hypoxia; R64 Cachexia; E87.1 Hypo-osmolality and hyponatremia; J44.1 Chronic obstructive pulmonary disease with (acute) exacerbation; J44.0 Chronic obstructive pulmonary disease with (acute) lower respiratory infection; Z68.1 Body mass index [BMI] 19.9 or less, adult; I10 Essential (primary) hypertension; E86.1 Hypovolemia; R73.9 Hyperglycemia, unspecified; T38.0X5A Adverse effect of glucocorticoids and synthetic analogues, initial encounter; G89.4 Chronic pain syndrome; F41.1 Generalized anxiety disorder; Z86.73 Personal history of transient ischemic attack (TIA), and cerebral infarction without residual deficits; Z11.52 Encounter for screening for COVID-19
CPT/HCPCS: 36415; 71045; 80048; 80053; 82947; 83605; 83735; 84100; 85025; 85027; 85610; 85730; 87040; 87804; 87807; 87811; 92526; 92610; 93005; 94760; 97161; 97530; 99285; J0360; J0696; J1650; J2270; J2919; J7050; J7512; J7613; J7614; J7644

== ENCOUNTER 2025-01-06 11:31 | Observation (INO) | payer OTHER ==
[2025-01-06 12:38] LABS: Absolute Basophils 0.1 K/uL (0-0.5); Absolute Eosinophils 0.2 K/uL (0-0.5); Absolute Lymphocytes (CBC) 1.5 K/uL (0.7-4.9); Absolute Monocytes 0.7 K/uL (0.1-1.3); Absolute Neutrophil 4.6 K/uL (1.8-8.0); Eosinophils % 2.3 % (0-4.4); Hematocrit 42.7 % (39.6-49.0); MCH 33.4 pg (27.0-35.0); MCHC 35.1 g/dL (32.0-36.0); MCV 95.1 fL (80-100); MPV 8.2 fL (7.6-11.3); Monocytes % 9.5 % (3.3-12.3); Neutrophils % 65.2 % (41.7-73.7); Nucleated Red Blood Cells % 0.2 % (0-0); Platelets 278 thou/uL (152-406); RBC Red Blood Cell Count 4.49 M/uL (4.33-5.43); Red Cell Distribution Width 13.4 % (12.1-15.2)
--- NOTE | 2025-01-06 12:42 | RAD REPORT ---
EXAMINATION: ONE VIEW CHEST XR CLINICAL INDICATION: COPD TECHNIQUE: Frontal chest projection is submitted. Examination is limited by patient positioning and t echnique. COMPARISON: 11/22/2014 FINDINGS: Prominent diffuse COPD. Mild linear scarring in both lung bases. The heart is normal in size. No disp laced fractures identified. IMPRESSION: Prominent diffuse COPD.
[2025-01-06 12:50] LABS: Albumin 3.8 g/dL (3.4-5.0); Anion Gap 7.2 mEq/L (5.0-15.0); Bilirubin Direct 0.2 mg/dL (0-0.2); Bilirubin Indirect, Calculated 0.3 mg/dL (0.2-0.8); Bilirubin Total 0.5 mg/dL (0.2-1.0); Globulin 3.7 g/dL (2.3-3.5); Magnesium 2.1 mg/dL (1.6-2.4); Potassium 4.2 mEq/L (3.5-5.1); Protein, Total 7.5 g/dL (6.4-8.2); Troponin High Sensitivity 5.1 pg/mL (<58.9)
--- NOTE | 2025-01-06 13:23 | RAD REPORT ---
EXAMINATION: CTA CHEST PE CLINICAL INDICATION: SOB TECHNIQUE: This examination was performed according to an angiographic protocol with 3D post-processi ng. This involves 3D reconstructions, MIPs, volume rendered images and/or shaded surface rendering. One or more of the following dose reduction techniques were used: Automated exposure control, adjustm ent of the mA and/or kV according to patient size, and/or iterative reconstruction. Unless otherwise specified, incidental findings do not require dedicated imaging follow-up. COMPARISON: 11/27/2023 FINDINGS: Calcified right thyroid nodule. PULMONARY ARTERIES: Normal caliber. No evidence of pulmonary emboli to the subsegmental level. THORACIC AORTA: Normal caliber and configuration. LUNGS: Prominent COPD. Linear opacities particularly in the right lung base represent atelectasis or areas of infiltrate/aspiration. PLEURA: No pleural effusion. No pneumothorax. MEDIASTINUM AND LYMPH NODES: No mediastinal mass or fluid collection. Normal size mediastinal, hilar, and axillary lymph nodes. OSSEOUS STRUCTURES AND CHEST WALL: Intact. UPPER ABDOMEN: Dilated pancreatic duct, incompletely assessed. IMPRESSION: No evidence of pulmonary emboli to the subsegmental level. Prominent COPD as described with linear opacities in the posterior right lung base.
[2025-01-06 14:53] LABS: Arterial Blood Carboxyhemoglob 0.5 % (0-1.5); Blood Gas Oxyhemoglobin 18.5 % (94-97); Blood Gas THB 14.9 g/dl (12-18)
[2025-01-06] MEDS ORDERED: ALBUTEROL 2.5 MG/3 ML NEB SOL ONE (16:08)
[2025-01-06] MEDS ORDERED: IPRATROPIUM BROM 0.5MG/2.5ML ONE (16:09)
[2025-01-06] MEDS ORDERED: METHYLPREDNISOLONE 125 MG INJ ONE (16:09)
[2025-01-06] MEDS ORDERED: HYDRALAZINE HCL 20 MG/ML VIAL ONE (16:30)
[2025-01-06] MEDS ORDERED: FENTANYL CITR 100 MCG/2 ML ONE (17:51)
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
[2025-01-06] MEDS ORDERED: ONDANSETRON 4 MG/2 ML VIAL IV PRN (19:47)
--- NOTE | 2025-01-06 19:54 | P.HP ---
Patient History Date of Service: 01/07/25 Reason for admission: Shortness of breath History of Present Illness: 64-year-old with a past medical history of COPD, Hypertension, moderate malnutrition, chronic pain syndrome, anxiety presenting with shortness of breath for the last several weeks. He has been smoking for 35+ years 1 to 2 packs/day. He states that he was not able to obtain his home oxygen. Cough is associated with shortness of breath. In addition he endorses chest pain on the left side that radiates up and down. He denies fevers and chills. He rates the discomfort at a 8 out of 10 Allergies No Known Drug Allergies Allergy (Verified 01/06/25 20:09) Unknown Home Medications: Aspirin [Aspirin EC] 81 mg PO DAILY #30 tab 11/29/23 Ensure Enlive 237 ml PO TID #60 can 11/29/23 Folic Acid 1 mg PO DAILY #30 tab 11/29/23 Amlodipine [Norvasc*] 5 mg PO DAILY #30 tab 11/25/24 Buspirone HCl [Buspar*] 5 mg PO TID #90 tab 11/25/24 predniSONE [Prednisone*] 20 mg PO DAILY #5 tab 11/25/24 - Past Medical/Surgical History Diabetic: No -: Hypertension, stroke, COPD - Social History Alcohol use: Yes CD- Drugs: No Caffeine use: Yes Review of Systems 10-point ROS is otherwise unremarkable General: As per HPI Eyes: Unremarkable ENT: Unremarkable Respiratory: Cough, Shortness of Breath Cardiovascular: Unremarkable Gastrointestinal: Unremarkable Genitourinary: Unremarkable Musculoskeletal: Unremarkable Physical Examination - Physical Exam General: Alert, Cachectic HEENT: Normocephalic Neck: 2+ carotid pulse no bruit Respiratory: Diminished, Other (Diminished air movement on the left lung) Cardiovascular: No edema Capillary refill: <2 Seconds Gastrointestinal: Normal bowel sounds Musculoskeletal: No clubbing Integumentary: No rashes Neurological: Normal speech Lymphatics: No axilla or inguinal lymphadenopathy - Studies Laboratory Data (last 24 hrs) 01/06/25 01/06/25 12:20 12:20 WBC 7.00 Hgb 15.0 Hct 42.7 Plt Count 278 Sodium 132 L Potassium 4.2 BUN 4 L Creatinine 0.49 L Glucose 99 Magnesium 2.1 Total Bilirubin 0.5 AST 17 ALT 20 Alkaline Phosphatase 81 Assessment and Plan - Plan COPD exacerbation Pneumonia Hypoxia Hypertension Frailty Moderate malnutrition Hyponatremia Start bronchodilators, steroids, and oxygen supplementation as needed, Start azithromycin for 5 days Give 1 mg magnesium sulfate IV Opacities at right lung base on chest CT ABG with respiratory acidosis Resume amlodipine Continue BuSpar [place] 02/07/2025 every 4 as needed for pain control Monitor sodium level Ambulatory O2 test in the - Advance Directives Does patient have a Living Will: No Does patient have a Durable POA for Healthcare: No
[2025-01-06] MEDS ORDERED: HYDROCODONE/APAP 5/325 MG TAB ONE (20:36)
[2025-01-06] MEDS ORDERED: predniSONE 10 MG TAB ONE (20:37)
[2025-01-06] MEDS: predniSONE 20 MG TAB PO SCH (20:39)
[2025-01-06] MEDS: MAGNESIUM SULFATE 1 gm IVPB 1 GM/100 ML BAG IV ONE (20:40)
[2025-01-06 20:49] VITALS: BMI 13.1
[2025-01-06] MEDS ORDERED: MAGNESIUM SULFATE 1 gm IVPB 1 GM/100 ML BAG IV ONE (20:56)
[2025-01-06] MEDS: BUSPIRONE HCL 5 MG TABLET PO SCH (21:00)
[2025-01-06 22:29] LABS: Absolute Lymphocytes (CBC) 0.4 K/uL (0.7-4.9); Absolute Neutrophil 5.2 K/uL (1.8-8.0); Basophils % 0.7 % (0-1.3); Hematocrit 41.5 % (39.6-49.0); Lymphocytes % 6.8 % (15.3-44.8); MCH 32.7 pg (27.0-35.0); MCHC 33.9 g/dL (32.0-36.0); MCV 96.6 fL (80-100); MPV 7.9 fL (7.6-11.3); Monocytes % 0.8 % (3.3-12.3); Neutrophils % 91.7 % (41.7-73.7); Platelets 251 thou/uL (152-406); Red Cell Distribution Width 13.5 % (12.1-15.2)
[2025-01-06] MEDS: IPRATROPIUM BROM 0.5MG/2.5ML NEB SCH (22:35)
[2025-01-06] MEDS: ALBUTEROL 2.5 MG/3 ML NEB SOL NEB PRN (22:59)
[2025-01-06 23:26] LABS: Band Neutrophils 9 % (0-1); Blood Morphology Comment NOT SEEN (NOT SEEN); Differential Total Cells Count 100; Lymphocytes 7 % (15-42); Monocytes 0 % (0-10); Platelet Estimate ADEQ; Reactive Lymphocytes 1 %; Segmented Neutrophils 83 % (40-80)
[2025-01-07] MEDS ORDERED: IPRATROPIUM BROM 0.5MG/2.5ML ONE ×3 (00:14→14:37)
[2025-01-07 02:42] VITALS: O2SAT 100
[2025-01-07] MEDS: HYDROCODONE/APAP 5/325 MG TAB PO PRN (03:55)
[2025-01-07] MEDS ORDERED: HYDROCODONE/APAP 5/325 MG TAB ONE ×3 (03:55→15:03)
[2025-01-07 04:11] LABS: Albumin 3.4 g/dL (3.4-5.0); Bilirubin Total 0.4 mg/dL (0.2-1.0); Globulin 3.4 g/dL (2.3-3.5); Protein, Total 6.8 g/dL (6.4-8.2)
[2025-01-07] MEDS ORDERED: GLUCAGON 1 MG/VIAL IM PRN (05:15)
[2025-01-07] MEDS ORDERED: D10W 125 ML IV PRN (05:15)
[2025-01-07] MEDS: INSULIN REGULAR (HUMAN) 100 UNIT/ML SQ SCH (07:30)
[2025-01-07 07:47] VITALS: TEMP 97.9
[2025-01-07] MEDS: FOLIC ACID 1 MG TABLET PO SCH (09:00)
[2025-01-07] MEDS: AMLODIPINE 5 MG TAB PO SCH (09:00)
[2025-01-07] MEDS: AZITHROMYCIN 250 MG TAB PO SCH (09:00)
[2025-01-07] MEDS: ASPIRIN EC 81 MG TAB PO SCH (09:00)
[2025-01-07] MEDS ORDERED: CEFTRIAXONE 1,000 MG in NA CHLORIDE 0.9% 50 ML IVPB SCH (09:00)
[2025-01-07] MEDS ORDERED: AZITHROMYCIN 250 MG TAB ONE (09:18)
[2025-01-07] MEDS ORDERED: FOLIC ACID 1 MG TABLET ONE (09:18)
[2025-01-07] MEDS ORDERED: predniSONE 20 MG TAB ONE (09:18)
[2025-01-07] MEDS ORDERED: AMLODIPINE 5 MG TAB ONE (09:18)
[2025-01-07] MEDS ORDERED: ASPIRIN EC 81 MG TAB PO ONE (09:19)
[2025-01-07] MEDS ORDERED: INSULIN REGULAR (HUMAN) 100 UNIT/ML ONE (09:32)
[2025-01-07 12:02] VITALS: BP 166/86
--- NOTE | 2025-01-07 12:33 | EKG ---
Test Date: 2025-01-06 Test Time: 16:03:38 Housekeeping Coordinator: KIARA MEASUREMENT RESULTS: Intervals: Rate: 74 ND: 162 QRSD: 90 QT: 400 QTc: 444 [place]: P: 86 ND: 162 QRS: 89 T: 85 INTERPRETIVE STATEMENTS: Normal sinus rhythm Possible Anterior infarct, age undetermined Abnormal ECG Compared to ECG 11/18/2024 15:49:21 Sinus tachycardia no longer present Myocardial infarct finding still present Electronically Signed On 01-07-25 12:32:14 CDT by Seamus Jamil
--- NOTE | 2025-01-07 14:25 | P.DS ---
Admission Date: 01/06/25 Discharge Date: 01/07/25 Disposition: ROUTINE DISCHARGE Reason for Admission: Shortness of breath Brief History of Present Illness: 64-year-old with a past medical history of COPD, Hypertension, moderate malnutrition, chronic pain syndrome, anxiety presenting with shortness of breath for the last several weeks. He has been smoking for 35+ years 1 to 2 packs/day. He states that he was not able to obtain his home oxygen. Cough is associated with shortness of breath. In addition he endorses chest pain on the left side that radiates up and down. He denies fevers and chills. He rates the discomfort at a 8 out of 10 - Physical Exam General: Alert, Cachectic HEENT: Normocephalic Neck: 2+ carotid pulse no bruit Respiratory: Diminished, Other (Diminished air movement on the left lung) Cardiovascular: No edema Capillary refill: <2 Seconds Gastrointestinal: Normal bowel sounds Musculoskeletal: No clubbing Integumentary: No rashes Neurological: Normal speech Lymphatics: No axilla or inguinal lymphadenopathy Hospital Course: 64-year-old with a past medical history of COPD, Hypertension, moderate malnutrition, chronic pain syndrome, anxiety presenting with shortness of breath for the last several weeks. He has been smoking for 35+ years 1 to 2 packs/day. He states that he was not able to obtain his home oxygen. Cough is associated with shortness of breath. In addition he endorses chest pain on the left side that radiates up and down. He denies fevers and chills. Treated with oxygen, IV antibiotics, nebulizer. Stable to discharge home, follow-up with pulmonary after discharge Assessment Acute hypoxic respiratory failure secondary to COPD exacerbation, pneumonia Discharged home on p.o. antibiotics, steroids and nebs, follow-up with pulmonary after discharge Hypertension resume home meds Hyponatremia Continue home medicines as previously prescribed GOAL: Clear understanding of disease process INSTRUCTIONS: Physician Discharge Instructions: -Follow-up with pulmonary after discharge -Follow-up with PCP in 1 to 2 weeks -Please call Dr. Manley at [phone] if any questions regarding hospital stay -Please call nursing station at [phone] if any nursing or medication questions -Return to the emergency room if symptoms worsen Diet: ADA, low sodium Activity: Fall precautions Vital Signs/Physical Exam: Temp Pulse Resp BP Pulse Ox 97.9 F 100 H 16 166/86 H 98 01/07/25 07:46 01/07/25 12:00 01/07/25 12:00 01/07/25 12:00 01/07/25 12:00 Laboratory Data at Discharge: WBC 5.70 thou/uL (4.3-10.9) 01/06/25 22:25 Hgb 14.0 g/dL (13.6-17.9) 01/06/25 22:25 Hct 41.5 % (39.6-49.0) 01/06/25 22:25 Plt Count 251 thou/uL (152-406) 01/06/25 22:25 Sodium 129 mEq/L (136-145) L 01/07/25 03:49 Potassium 4.0 mEq/L (3.5-5.1) 01/07/25 03:49 BUN 8 mg/dL (7-18) 01/07/25 03:49 Creatinine 0.84 mg/dL (0.70-1.30) 01/07/25 03:49 Glucose 301 mg/dL (74-106) H 01/07/25 03:49 Magnesium 2.1 mg/dL (1.6-2.4) 01/06/25 12:20 Total Bilirubin 0.4 mg/dL (0.2-1.0) 01/07/25 03:49 AST 13 U/L (15-37) L 01/07/25 03:49 ALT 18 U/L (16-61) 01/07/25 03:49 Alkaline Phosphatase 74 U/L (45-117) 01/07/25 03:49 Home Medications: Amlodipine [Norvasc*] 5 mg PO DAILY #30 tab 11/25/24 Albuterol Sulfate [Proair Digihaler] 1 puff PO Q4H PRN 01/07/25 Azithromycin Tab [Zithromax*] 250 mg PO DAILY 4 Days #4 tab 01/07/25 Ipratropium Neb [Atrovent*] 0.5 mg PO Q6HP PRN 01/07/25 Trazodone [Desyrel*] 25 mg PO BEDTIME 01/07/25 predniSONE [Prednisone*] 20 mg PO BID 5 Days #10 tab 01/07/25 New Medications: predniSONE [Prednisone*] 20 mg PO BID 5 Days #10 tab Azithromycin Tab [Zithromax*] 250 mg PO DAILY 4 Days #4 tab Physician Discharge Instructions: 64-year-old with a past medical history of COPD, Hypertension, moderate malnutrition, chronic pain syndrome, anxiety presenting with shortness of breath for the last several weeks. He has been smoking for 35+ years 1 to 2 packs/day. He states that he was not able to obtain his home oxygen. Cough is associated with shortness of breath. In addition he endorses chest pain on the left side that radiates up and down. He denies fevers and chills. Treated with oxygen, IV antibiotics, nebulizer. Stable to discharge home, follow-up with pulmonary after discharge Discharge medications prednisone 20 mg 1 po Bid for 5 days Azithromycin 250 mg daily for 4 days resume home nebs, inhalers, Follow up with pulomonary in 2 days Assessment Acute hypoxic respiratory failure secondary to COPD exacerbation, pneumonia Discharged home on p.o. antibiotics, steroids and nebs, follow-up with pulmonary after discharge Hypertension resume home meds Hyponatremia home 02 dependant Continue home medicines as previously prescribed GOAL: Clear understanding of disease process INSTRUCTIONS: Physician Discharge Instructions: -Follow-up with pulmonary after discharge -Follow-up with PCP in 1 to 2 weeks -Please call Dr. Manley at [phone] if any questions regarding hospital stay -Please call nursing station at [phone] if any nursing or medication questions -Return to the emergency room if symptoms worsen Diet: Low sodium Activity: Fall precautions Followup: Lynda Pittman MD [Primary Care Provider] - Time spent managing pt's care (in minutes): 45
[2025-01-07] MEDS ORDERED: IPRATROPIUM BROM 0.5MG/2.5ML IH PRN (14:48)
[2025-01-07] MEDS ORDERED: ALBUTEROL 2.5 MG/3 ML NEB SOL NEB PRN (14:55)
== END 2025-01-07 15:41 | disposition home or self-care (01) ==
LOC: ER 11:31 → ERHOLD 19:47
PROVIDERS: ADMIT Family Medicine; ATTEND Hospitalist
DX: J44.1 Chronic obstructive pulmonary disease with (acute) exacerbation (principal); J18.9 Pneumonia, unspecified organism; J96.01 Acute respiratory failure with hypoxia; I10 Essential (primary) hypertension; R54 Age-related physical debility; E46 Unspecified protein-calorie malnutrition; E87.1 Hypo-osmolality and hyponatremia; G89.4 Chronic pain syndrome; R05.9 Cough, unspecified; F17.210 Nicotine dependence, cigarettes, uncomplicated; Z68.1 Body mass index [BMI] 19.9 or less, adult
CPT/HCPCS: 93005; 85025 ×2; 80048; 36415 ×2; 83735; 82947 ×2; 80076; 84484; 80053; 84145; 83880; 71275; 71045; 94640; 82805; Q9967; J7512 ×2; J3475; J7613; J7644 ×4; J3010; J2919; J1815; G0378; J0360